=== PATIENT | female | born 1960 | race Caucasian/White ===

== ENCOUNTER 2020-05-16 21:37 | Emergency (ER) | payer OTHER ==
[~2020-05-16] VITALS: Ht 160 cm; Wt 91.6 kg
[~2020-05-16 21:37] MED LIST: ADVAIR 250-501 EACH INH; ALDACTONE100 MG PO; CALCIUM600 MG PO; CINNAMON OIL480 ML PO; CLINDAMYCIN HC300 MG PO; CYCLOBENZAPRINE5 MG PO; CYMBALTA60 MG PO; FENOFIBRATE134 MG PO; FISH OIL500 MG PO; FOLIC ACID20 MG PO; GABAPENTIN600 MG PO; GEMFIBROZIL600 MG PO; HYDROCHLOROTHIA25 MG PO; HYDROCODON-ACE1 EA10 PO; LANTUS SOL100 UNIT/1 SQ; LANTUS100 UNITS/ SUB-Q; LIPITOR20 MG PO; LOSARTAN POTAS100 MG PO; MAGNESIUM400 MG PO; METFORMIN HCL850 MG PO; MICARDIS40 MG PO; MULTIPLE VITAM1 EAC1 PO; NOVALOG INSULIN; NOVOLOG100 UNITS/ SUB-Q; OMEPRAZOLE20 MG PO; POTASSIUM CHLO10 MEQ PO; TRAZODONE HCL100 MG PO; VENTOLIN HFA18 GM INH; VITAMIN B COMP1 EACH PO; ZANTAC 7575 MG PO; ZOFRAN4 MG PO; [UNRECOGNIZED DRUG - OTHER] PO
--- OUTSIDE RECORDS SUMMARY | 2020-05-16 21:40 | XMS ---
PreManage Notification: KURT NEGRON Security Blueprint Reproducer Events No recent Security Events currently on file CRITERIA MET - History of Sepsis CARE PROVIDERS LAAL [facility] 10/06/2016-Current PHONE: [phone] Angelina has no Care Guidelines for this patient. E.DDenisha VISIT COUNT (12 MO.) [address] [facility] [facility] TOTAL 4 NOTE: Visits indicate total known visits. 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
== END 2020-05-16 23:58 | disposition home or self-care (01) ==
LOC: ED 21:37
DX: L03.116 Cellulitis of left lower limb (principal); E11.40 Type 2 diabetes mellitus with diabetic neuropathy, unspecified; Z88.0 Allergy status to penicillin; Z88.2 Allergy status to sulfonamides; Z88.1 Allergy status to other antibiotic agents; Z88.8 Allergy status to other drugs, medicaments and biological substances; Z79.899 Other long term (current) drug therapy; Z79.4 Long term (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
CPT/HCPCS: 80053; 85025; 99283; Q0163

== ENCOUNTER 2021-02-24 19:37 | Inpatient (IN) | payer OTHER ==
[~2021-02-24] VITALS: Ht 160 cm; Wt 92.0 kg
[~2021-02-24 19:37] MED LIST changes: +NOVOLOG100 UNIT/2 SUB-Q; -NOVOLOG100 UNITS/ SUB-Q
--- OUTSIDE RECORDS SUMMARY | 2021-02-24 19:40 | XMS ---
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 E.DDenisha VISIT COUNT (12 MO.) 2 [facility] 2 [place] [facility] TOTAL 4 NOTE: Visits indicate total known visits. ED/C VISIT TRACKING (12 MO.) 02/24/2021 19:37 [facility] [place] TYPE: Emergency COMPLAINT: - WEAKNESS, BRAIN FOG 11/03/2020 18:44 [facility] [place] TYPE: Emergency DIAGNOSES: - Bitten by dog, sequela - Cellulitis, unspecified 10/28/2020 23:10 [facility] [place] TYPE: Emergency DIAGNOSES: - Bitten by dog, initial encounter - Open bite of left hand, initial encounter 05/16/2020 21:[address] [facility] [place] TYPE: Emergency COMPLAINT: - SWOLLEN FOOT DIAGNOSES: - Allergy status to sulfonamides - Allergy status to penicillin - Allergy status to other antibiotic agents - [facility] (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 - Type 2 diabetes mellitus with diabetic neuropathy, unspecified - Allergy status to other drugs, medicaments and biological substances - Localized edema - Cellulitis of left lower limb - Other [facility] drug therapy INPATIENT VISIT TRACKING (12 MO.) No inpatient visits to display in this time frame [email or web address]
--- NOTE | 2021-02-25 | NUR ---
REPORT RECIEVED FROM SOFTWARE DESIGN MANAGER. CARE OF PATIENT ASSUMED AT THIS TIME. THE PATIENT WAS TRANSPORTED VIA STRETCHER, ON 2 L NC AND OFFICE MACHINES WIRER BY THIS RN. PT ABLE TO TRANSFER WITH STAND BY ASSIST TO CCU BED.
--- NOTE | 2021-02-25 00:30 | NUR ---
ADMISSION ASSESSMENT COMPLETED. PT ALERT AND ORIENTED, BUT SLOW TO RESPOND. CRACKLES NOTED IN ALL AIRSPACES ON AUSCULTATION. SPO2=93 PERCENT ON 3 L NC. SPO2 DECREASED INTO THE 80S WITH EXERTION. RESPIRATIONS EVEN BUT LABORED RR= 22-30 AT REST. HEART RATE IN THE 100'S, ELEVATING INTO THE 110S WITH ACTIVITY. PT DENIES PAIN, NAUSEA, OR DISCOMFORT AT THIS TIME. EDUCATION PROVIDED ABOUT MEDICATIONS AND PLAN OF CARE. ALL QUESTIONS ANSWERED. ORAL MEDS GIVEN, IV REMDESIVIR INFUSING. CALL LIGHT WITHIN REACH, NO FURTHER NEEDS AT THIS TIME.
[2021-02-25] MEDS ORDERED: TRULICITY1.5 MG/0.5 SUB-Q (00:38)
--- NOTE | 2021-02-25 01:16 | NUR ---
RESPONDED TO CALL LIGHT. PT UP TO BSC TO VOID. STANDY BY ASSIST REQUIRED. PT SPO2 DECREASED INTO THE MID 80S WITH EXERTION. HEART RATE IN THE 110S. PT BACK IN BED. SPO2 BACK UP TO 94 PERCENT ON 4 L NC. CALL LIGHT WITHIN REACH. LAYING ON LEFT SIDE. NO FURTHER NEEDS AT THIS TIME.
--- NOTE | 2021-02-25 02:30 | NUR ---
PT RESTING ON RIGHT SIDE WITH EYES CLOSED, BREATHING EVEN AND UNLABORED. SPO2 =93% ON 3 L NC. CALL LIGHT WITHIN REACH. WILL CONTINUE TO MONITOR.
--- NOTE | 2021-02-25 04:02 | NUR ---
PT NOW LAYING ON LEFT SIDE. RR =24, SPO2 = 93 PERCENT. BREATHING APPEARS EVEN AND UNLABORED. CALL LIGHT WITHIN REACH. NO FURTHER NEEDS AT THIS TIME.
--- NOTE | 2021-02-25 04:41 | NUR ---
pt up to bsc to void, states she feels weak. stand by assist required. Assessment completed at this time. Pts lungs sound worse in left lower air reddy. Saturations down to the mid 80s with activity. Heart rate in the 90-100 at rest. Pt denies nausea or pain. call light within reach. no further needs at this time.
--- NOTE | 2021-02-25 06:27 | NUR ---
LABS DRAWN, WELL TOLERATED BY PT. PT COMPLAINS OF GENERALIZED DISCOMFORT. APPEARS DIAPHORETIC, GIVEN PRN TYLENOL FOR COMFORT. PT EDUCATION PROVIDED ABOUT LAYING IN SIDE LYING AND PRONE POSTION, PT NOW LAYING IN A LEFT SIDE LYING POSITION. CALL LIGHT WITHIN REACH. NO FURTHER NEEDS A THIS TIME.
--- NOTE | 2021-02-25 07:30 | NUR ---
REPORT RECIEVED. PATIENT IS RESTING IN BED. NO DISTRESS NOTED.
--- NOTE | 2021-02-25 08:00 | NUR ---
ASSESSMENT DONE. DENIES PAIN OR NAUSEA. NO COUGH NOTED AT THIS TIME. DR. CARRILLO HERE TO SEE PATIENT. ORDERS RECIEVED TO GIVEN NYSTATIN SWISH AND SWALLOW FOR COMFORT OF TONGUE AND MOUTH. TALKED WITH PATIENT ABOUT POC FOR DAY, PATIENT INDICATES UNDERSTANDING.
--- NOTE | 2021-02-25 09:00 | NUR ---
TOOK BREAKFAST WELL. CONTINUES TO DENY NAUSEA. DENIES SHORTNESS OF BREATH. TOLD PATIENT SHE COULD GET OOB ON HER OWN TO VOID/BM. COMMODE PLACE AT BEDSIDE WELL WIPES. PATIENT IS AWARE TO CALL FOR ASSIST IF NEEDED. O2 AT [address]
[2021-02-25] MEDS ORDERED: HYDROCHLOROTH12.5 MG PO (09:12)
[2021-02-25] MEDS ORDERED: CYCLOBENZAPRINE10 MG PO (09:12)
[2021-02-25] MEDS ORDERED: VITAMIN D21250 MCG PO (09:15)
[2021-02-25] MEDS ORDERED: OXYBUTYNIN CHLOR5 M1 PO (09:15)
[2021-02-25] MEDS ORDERED: ATORVASTATIN CA80 MG PO (09:16)
[2021-02-25] MEDS ORDERED: METFORMIN HCL1000 MG PO (09:17)
--- NOTE | 2021-02-25 11:00 | NUR ---
HAS BEEN RESTING IN BED. NO CHANGES.
--- NOTE | 2021-02-25 12:20 | NUR ---
ACCUCHECK 378. HUMALOG 13 UNITS SQ GIVEN PER SS. DR. CARRILLO AWARE OF ACCUCHECK. NO FUTHER ORDERS. ASSESSMENT UNCHANGED. SITTING UP IN BED TAKING LUNCH. CONTINUES WITH POOR APPETITE.
--- NOTE | 2021-02-25 15:30 | NUR ---
DR. SHANNON UPDATED ON PATIENT O2 DEMAND CHANGE AND OVERALL STATUS. ORDERS RECIEVED. IVF ORDERED AND WILL REPLACE OXYMASK WITH VAPOTHERM.
--- NOTE | 2021-02-25 18:10 | NUR ---
DR. SHANNON HERE TO SEE PATIENT. ENC PATIENT TO KEEP O2 IN PLACE. REFUSED DINNER. VAPOTHERM INCREASED TO 25 L AND 70% FIO2. PATIENT IS SOMEWHAT RESTLESS. IS SLOW WITH THOUGHT PROCESS.
--- NOTE | 2021-02-25 19:10 | NUR ---
RECEIVED REPORT FROM JOHN WARNER. pt RESTING IN BED ON LEFT SIDE. VAPOTHERM IN PLACED. CALL LIGHT WITHIN REACH.
--- NOTE | 2021-02-25 19:28 | NUR ---
pt HAD A 15 SECOND RUN OF SVT. RESTING IN BED ON LEFT SIDE. REPORTED SLEEPING. O2 SAT AT THIS TIME IS 100% 25L 70% VAPOTHERM.
--- NOTE | 2021-02-25 19:50 | NUR ---
ASSESSMENT DONE. pt REPORTED FEELING "A LITTLE" SHORT OF BREATH. REPORTED 9/10 PAIN IN FEET. LUNG SOUND CLEAR AND DIM. IVF INFUSING. pt DID REPORT FEELING "SLIGHTLY" LIGHTHEADED. NO OTHER COMPLAINTS AT THIS TIME.
--- NOTE | 2021-02-25 19:54 | NUR ---
UPDATED MD ON SVT. NEW ORDERS ENTERED.
--- NOTE | 2021-02-25 20:30 | NUR ---
IN TO GIVE MEDICATIONS. pt UP TO VOID AND BACK TO BED. SBA TO BSC. RT INSTRUCTED CPT. AFTER WHICH pt COMPLAINED IT "HURTS TO BREATH" ASSISTED TO REPOSITION. pt REPORTED PAIN FEELS LIKE AN "ACHE" AND IS MAINLY AN ISSUE WHEN TAKING A DEEP BREATH. UNABLE TO ELABORATE ON PAIN. GAVE PRN COUGH MEDICATION AND TYLENOL PER REQUEST. CALL LIGHT WITHIN REACH.
--- NOTE | 2021-02-25 21:01 | NUR ---
pt SATS 76% ON ROOM AIR. pt HAS VAPOTHERM OFF. REPORTED "IT KWON MY NOSE" PLACED ON 15L OXYMASK. VERY SLOW TO RECOVER SATS. HR INCREASED WHEN SATS WERE LOW. HR BACK TO HIGH 90'S. REPOSITIONED. PLACED ON VAPOTHERM 25L 100%. SATS MID 90'S. CALL LIGHT WITHIN REACH.
--- NOTE | 2021-02-25 21:28 | NUR ---
INFUSION COMPLETED. SATS 96% ON 25L 100% VAPOTHERM. DISCUSSED IMPORTANCE OF LEAVING THE VAPOTHERM IN PLACE. CALL LIGHT WITHIN REACH.
--- NOTE | 2021-02-25 22:11 | NUR ---
DR SHANNON UPDATED ON RUNS OF SVT. NEW ORDERS ENTERED.
--- NOTE | 2021-02-25 22:29 | NUR ---
MEDICATION GIVEN, IV MED INFUSING (SEE MAR). NO REQUESTS AT THIS TIME. CALL LIGHT WITHIN REACH.
--- NOTE | 2021-02-25 23:04 | NUR ---
HR INCREASED TO 140, pt SITTING IN BED WITH EYES CLOSED, RESPIRATIONS REGULAR 24, VAPO THERM ON. SAT 98%. CALL LIGHT WITHIN REACH.
--- NOTE | 2021-02-25 23:40 | NUR ---
IV INFUSION COMPLETED. SL. pt RESTING IN BED, NO REQUESTS AT THIS TIME. CALL LIGHT WITHIN REACH.
--- NOTE | 2021-02-26 01:00 | NUR ---
ASSESSMENT DONE. pt DENIES PAIN WHILE BREATHING. LUNGS LESS DIMINISHED, CRACKLES AUSCULTATED. NO OTHER CHANGES. VAPOTHERM REMAINS AT 25L 100%. SATS MID 90'S. CALL LIGHT WITHIN REACH.
--- NOTE | 2021-02-26 02:36 | NUR ---
ROUNDED ON pt. RESTING IN BED WITH EYES CLOSED, RESPIRATIONS REGULAR AND UNLABORED, SHALLOW RATE 28. VAPOTHERM ON SAT 95%. CALL LIGHT WITHIN REACH.
--- NOTE | 2021-02-26 04:00 | NUR ---
ROUNDED ON pt. RESTING IN BED WITH EYES CLOSED, RESPIRATIONS REGULAR. VAPOTHERM IN PLACE. CALL LIGHT WITHIN REACH.
--- NOTE | 2021-02-26 04:49 | NUR ---
IN TO DO ASSESSMENT. pt HAS CHANGED POSITIONS AND DISLODGED VAPOTHERM. REPLACED. LABS DRAWN. ASSESSMENT DONE. pt REQUESTED PRN PAIN MEDS, GIVEN (SEE MAR). NO FURTHER REQUESTS AT THIS TIME. EDUCATION DONE ON PRONING. pt MOVED TO LEFT SIDE. CALL LIGHT WITHIN REACH.
--- NOTE | 2021-02-26 06:56 | NUR ---
ROUNDED ON pt. RESTING IN BED WITH EYES CLOSED, RESPIRATIONS REGULAR AND SHALLOW. O2 SAT 95% VAPOTHERM ON.
--- NOTE | 2021-02-26 07:33 | NUR ---
LEADS OFF, IN TO ASSIST. pt ATTEMPTING TO GET OUT OF BED. ASKED THAT SHE CALL. pt STATED "I'M A LITTLE CONFUSED RIGHT NOW." ORIENTED TO SELF, NOT ABLE TO GIVE PLACE OR THE NAME OF HER . UP SBA TO BSC TO VOID. BACK TO BED. BED ALARM ON. MONITOR IN PLACE. pt REQUIRED CONSTANT CUEING TO KEEP VAPOTHERM ON. PRIMARY RN'S UPDATED.
--- NOTE | 2021-02-26 07:35 | NUR ---
CALLED TO UPDATE ON PT STATUS OF DECREASED LOC. ORDER GIVEN TO OBTAIN AN ABG. ORDER PLACED AND CALLED RESP THERAPY.
--- NOTE | 2021-02-26 08:00 | NUR ---
[id number] PT WAS LAYING IN BED, WAS ABLE TO ASSIST THE NURSE AND I WITH REPOSITIONING HER IN BED. SHE WHIMPERED WITH SOME INTERVENTIONS. WAS ABLE TO COMMUNICATE PAIN. ALLOWED ME TO PERFORM ORAL CARE. I WAS ABLE TO WASH HER HAND AND FACE. SHE TOLERATED DRINKING SOME 7UP SODA. CHAPSTICK WAS PLACED ON LIPS BY STUDENT NURSE. CALL LIGHT WITHIN REACH. NO ADDITIONAL NEEDS AT THIS TIME.
--- NOTE | 2021-02-26 08:00 | NUR ---
Update from RN. Pt was using vapotherm last night and is now using CPAP. Remains in isolation.
--- NOTE | 2021-02-26 08:00 | NUR ---
IV SITE IN RT AC IS INTACT, NO REDNESS OR SWELLING, FLUSHES AND FLUIDS INFUSE EASILY. PT DENIES PAIN AT THE SITE.
--- NOTE | 2021-02-26 09:15 | NUR ---
PT AWAKE AND ALERT, ABLE TO ANSWER QUESTIONS ABOUT HER HEALTH HISTORY. EDUCATED PT ON IMPORTANCE OF USING CALL LIGHT TO CALL FOR ASSISTANCE OUT OF BED, AND FOR ANY OTHER NEEDS.
--- NOTE | 2021-02-26 10:25 | NUR ---
PT TAKES OFF CPAP MASK AND IS PICKING AT IV SITE. WENT INTO PT ROOM TO ASSIST WITH PUTTING CPAP BACK IN PLACE. 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 PT APPEARS UNWILLING/UNINTERESTED SHE CLOSES HER EYES AND WILL NOT RESPOND. PT ROLLES FROM SIDE TO SIDE TO ASSIST WITH CHANGING GOWN AND LINENS SHE HAS BEEN INCONTINENT OF A SCANT AMOUNT OF LIQUID STOOL. ATTEND PLACED ON PT. REPEATED EDUCATION ON USE OF CALL LIGHT FOR ASSISTANCE, PT CLOSES EYES AND WILL NOT RESPOND TO THIS.
--- NOTE | 2021-02-26 11:40 | NUR ---
OBSERVED PT PICKING AT IV SITE DRESSING, REMINDED PT TO LEAVE THIS ALONE IT IS STILL NEEDED, PT CLOSES EYES WITH NO VERBAL RESPONSE.
--- NOTE | 2021-02-26 12:14 | NUR ---
PT PLACED ON VAPOTHER 25L AT 75% FIO2 TO ENABLE EATING LUNCH.
--- NOTE | 2021-02-26 12:16 | NUR ---
PT IV SITE REDRESSED WITH ADDITIONAL REINFORCEMNT OF TAPE AND COBAN, PT "FORGETS" AND TRIES TO TAKE HER IV OUT. PT RE-EDUCATED ON THE IMPORTANCE OF LEAVING THE IV SITE ALONE, ENCOURAGED PT TO USE CALL LIGHT IF HER IV SITE IS PAINFUL/UNCOMFORTABLE. PT ATTENDS CHANGED FOR SMEAR OF INCONTINENT STOOL. PT ABLE TO BOOST SELF UP IN BED. POSITIONED IN HIGH FOWLERS FOR LUNCH. ASSISTED PT WITH CUTTING HER FOOD AND MAKING IT EASILY ACCESSABLE. PT DOES NOT REPORT PAIN, NAUSEA, OR SOB AT THIS TIME. PT STATES "I JUST DON'T FEEL GOOD".
--- NOTE | 2021-02-26 16:00 | NUR ---
PT HAD REMOVED HER VAPOTHERM DROPPING HER SP02 LEVEL TO AN 85%, PLACED BACK ON AND INCREASED TO SP02 97%. VERBALLY REINFORCED THE IMPORTANCE OF KEEPING IT IN PLACE. ADJUSTED HER IN BED WITH [facility] PT WAS ALSO ABLE TO ASSIST WITH REPOSITIONING. PT DENIES THE NEED TO VOID AT THIS TIME. WHIMPERED I CHECKED HER ATTENDS. REPORTED PAIN IN HER LEGS. PRN TYLENOL GIVEN. PILLOWS PLACED UNDER HER LEGS FOR COMFORT. VERBALLY INSTRUCTED HER ON HOW TO USE HER CALL LIGHT. CALL LIGHT WITHIN REACH. NO ADDITONAL NEEDS AT THIS TIME.
--- NOTE | 2021-02-26 17:30 | NUR ---
PT WAS ASKED TO SIT AT THE SIDE OF THE BED TO EAT HER DINNER. HAD NO APPETITE, TOOK A LOT OF ENCOURAGEMENT TO GET HER UP. WAS ASSISTED TO THE BEDSIDE COMMODE WITH ENCOURAGEMENT. SHE WAS ABLE TO STAND UP AND SIT ON THE CAMMODE WITH SBA. SHE WHIMPERED AND WOULD SAY "OUCH" BUT WHEN ASKED WHERE IT HURTS SHE WAS NOT ABLE TO ELABORATE. ANTONELLA CARE AND A PARTIAL BED BATH WAS PERFORMED. OLD LINENS AND PILLOW CASES REPLACED WITH NEW ONES. NEW ATTENDS WAS PLACED ON HER AND SHE WAS ABLE TO AMBULATE BACK TO BED WITH SBA. VERBAL DIRECTIONS WERE GIVEN ON HOW TO USE HER CALL LIGHT. CALL LIGHT WITHIN REACH. PT IS LAYING DOWN. CPAP MACHINE IN PLACE.
--- NOTE | 2021-02-26 19:10 | NUR ---
SHIFT RERPORT RECEIVED FROM CY WARNER. PT RESTING IN LEFT SIDE. PT ON CPAP. NO NEEDS AT THIS TIME. CALL LIGHT IN REACH.
--- NOTE | 2021-02-26 20:00 | NUR ---
ASSESSMENT, VS AND I&O COMPLETED. GCS 14 SHE HAS SOME INAPPROPRIATE ANSWERS. PT KEEPS EYES CLOSED MOST THE TIME, DROWSY. OPEN EYES TO VOICE. PT ORIENTED TO PERSON, , SPOUSE'S NAME BUT NOT DATE, TIME, PLACE OR EVENT. SCHEDULED MEDS PROVIDED. PT HAS A NONPRODUCTIVE COUGH. PRN COUGH MED PROVIDED. PT STATES SHE HAD GENERALIZED 5/10 PAIN, PRN TYLENOL PROVIDED. LUNGS HAVE CRACKLES IN ALL LOBES. HEART IN SR BUT HAS EPISODES OF ST IN 140s. SPO2 97% ON VAPOTHERM 25L/75%. PT HAS DYSPNEA WITH GETTING UP TO BSC AND BACK TO BED. PT APPEARS WEAK IN LEGS. ABD SOFT, TENDER, BOWEL TONES ACTIVE, PT STATES SHE HAS NO DISTENTION. CMS INTACT, SKIN IS PALE, WARM. NO EDEMA NOTED. RIGHT FOOT BIG AND FIRST TOE HAVE DARK BLISTERS, NOT NEW TO PT. ANTONELLA AREA RED AND PAINFUL WHEN CARE PROVIDED, REDNESS NOTED. PT IS DUE TO VOID. IV WNL, CDI, FLUSHED WELL. PT EDUCATION PROVIDED ON I.S. AND ACCAPELLA, UNINTERESTED. ICE WATER ENCOURAGED. NO OTHER NEEDS AT THIS TIME. CALL LIGHT IN REACH.
--- NOTE | 2021-02-26 20:07 | NUR ---
PHONE CALL FROM LEXII WHO WAS THE PERSON TAKING CARE OF THE pt PRIOR TO ADMISSION. PER LEXII, pt WAS ADMITTED AT [facility] FOR SEPSIS SECONDARY TO A UTI AND HAS BEEN HAVING A LOT OF ISSUES WITH UTI'S. SHE IS FOLLOWED BY DR ALBERTS. THE pt DOES GET CONFUSED WHEN SHE HAS A UTI. LEXII REPORTED THAT THE pt SEEMED CONFUSED JUST PRIOR TO COMING IN TO THE ER. AT BASELINE THE pt DOES HAVE ISSUES WITH HER LEFT FOOT BUT HAS NOT NEEDED ASSISTANCE AMBULATING UNTIL ABOUT A WEEK AGO WHEN LEXII HAD HER START USING A WALKER FOR STABILITY. THE pt HAS A HISTORY OF [place] ARTHROPATHY FOR ABOUT A YEAR AND USES A BOOT TO AMBULATE. 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 THE NUMBER FOR LEXII IS [phone].
--- NOTE | 2021-02-26 20:47 | NUR ---
DR SHANNON UPDATED ON pt CONDITION AND CONVERSATION WITH pt FAMILY. MD WILL ENTER NEW ORDERS.
--- NOTE | 2021-02-26 21:12 | NUR ---
SCHEDULED MED PROVIDED. PT ON VAPOTHERM 25/75%. IV FLUIDS INFUSING PER ORDER. NO OTHER NEEDS AT THIS TIME. CALL LIGHT IN REACH.
--- NOTE | 2021-02-26 21:37 | NUR ---
PT SPO2 TERNING NEAR 100% FOR OVER AN JUSTINA. VAPOTHERN CHANGED TO 25L/60%.
--- NOTE | 2021-02-26 21:41 | NUR ---
THIS RN IN TO PT'S ROOM TO INSERT A SECOND IV. IV PLACED IN LEFT AC. IV INERSTION PROTOCOL FOLLOWED. PT TOLERATED INSERTION WELL, PULLS BLOOD AND FLUSHES AND IS NOW SALINE LOCKED. PT REPORTS NO FURTHER NEEDS AT THIS TIME WHEN ASKED. CALL LIGHT IN REACH, BED IN LOWEST POSITION, PT ON VAPOTHERM WITH AN FIO2 OF 60 AND 25 LPM, SPO2 AT 99%. WILL CONTINUE PLAN OF CARE.
--- NOTE | 2021-02-26 21:45 | NUR ---
PT LEÓN CALLED. PT GAVE VERBAL APPROVAL FOR RN TO SPEAK WITH DAUGHTER THEN PHONE CALL WAS TRANSFERRED INTO PT ROOM. PT ON PHONE WITH DAUGHTER.
--- NOTE | 2021-02-27 00:11 | NUR ---
ASSESSMENT, VS AND I&O COMPLETED. PT UP TO BSC, NO RESULTS, BACK TO BED. BLADDER SCAN SHOWS 700ML URINE. PAST URINATION TRENDS SHOWS LARGE VOIDS, WILL MONITOR. PT DENIES BLADDER PAIN. GCS 14, SOME INAPPROPRIATE RESPONSES AND DIFFICULTY FOLLOWING COMMANDS. ORIENTED TO PERSON AND , NOT ORIENTED TO PLACE, TIME AND EVENTS. LUNGS HAVE CRACKLES IN ALL LOBES. HR EVEN, TELE SR @ 72. SPO2 98% ON VAPOTHERM 25L/60%. PT APPEARED LESS SOB WITH ACTIVITY. ABD SOFT, TENDER, BOWEL TONES ACTIVE. CMS INTACT. IVs WNL, CDI, IV FLUIDS INFUSING PER ORDER. NEW BAG IV FLUIDS PROVIDED. LEFT FOOT DEFORORMITY UNCHANGED. RIGHT TOE BLISTERS UNCHANGED. ENCOURAGED PT TO DRINK FLUIDS. ATTEMPTED TO GET PT TO PERFORM ADLs, PT LAID COMB AND TOOTHBRUSH ON BED AND DECLINED HELP. NO OTHER NEEDS AT THIS TIME. CALL LIGHT IN REACH.
--- NOTE | 2021-02-27 01:00 | NUR ---
PT RESTING IN BED, EYES CLOSED. RR EVEN, UNLABORED. SPO2 98% ON VAPOTHERM 25L/60%. CALL LIGHT IN REACH. BED ALARM ON.
--- NOTE | 2021-02-27 02:55 | NUR ---
PT UP TO BR WITH FWW, SBA. PT PLACED ON 15L OXYMASK TO WALK TO BR, LOWEST SPO2 NOTED DURING WALK WAS 87% AND RESOLVED WITH PT TAKING DEEP BREATHS. PT VOID 775ML OF VISH, CLEAR, SLIGHT ODOR. PT TOLERATED WALK FAIR AND MUST BE REMINDED TO STAY ON TASK. PT PLACED BACK ON VAPOTHERM 25ML/60%. SPO2 97%. BED ALARM ON. PT ENCOURAGED TO DRINK WATER AND USE I.S.. NO OTHER NEEDS. CALL LIGHT IN REACH.
--- NOTE | 2021-02-27 04:14 | NUR ---
ASSESSMENT, VS AND I&O COMPLETED. PT GCS 14 SHE CANNOT ANSWER SOME QUESTIONS APPROPRIATELY. PT ONLY ORIENTED TO PERSON AND , PT IGNORES RN WHEN ASKING OTHER ORIENTATION QUESTIONS, CLOSING EYES. LUNGS HAVE CRACKLES IN ALL LOBES. HEART TONES REGULAR, SR @ 73, PT HAS HAD 2 RUNS OF TRIGEMINY, DENIES CHEST PAIN OR PALPITATIONS. SPO2 97% ON VAPOTHERM 25L/60% PT SAYS "OUCH" WHEN YOU TOUCH ANY PART OF HER BODY. ABD SOFT, TENDER TO PALPATION, BOWEL TONES ACTIVE, PT STATES NORMAL. CMS INTACT. IVs WNL, IV FLUIDS INFUSING PER ORDER. NO OTHER NEEDS AT THIS TIME. CALL LIGHT IN REACH, BED ALARM ON.
--- NOTE | 2021-02-27 05:35 | NUR ---
LABS DRAWN AND SENT. NEW ECG PADS PLACED. PT REPOSITIONED. IVs FLSUHED. SPO2 98% ON VAPOTHERM 25L/60%. WATER AND CHAPSTICK PROVIDED. NO OTHER NEEDS AT THIS TIME. CALL LIGHT IN REACH.
--- NOTE | 2021-02-27 08:00 | NUR ---
[id number] PT HAS BEEN MOANING AND WHIMPERING A LOT. WHILE PERFORMING HER ASSESMENT, CPAP WAS PLACED ON STANDBY AND VAPOTERM PLACED. I WOULD ADJUST HER ARM OR LEGS AND SHE WOULD SAY "OUCH". WHEN ASKED WHERE HER PAIN WAS SHE WOULD SAY " EVERYWHERE". PRN PAIN MED GIVEN. I USED A WARM WASH CLOTH TO CLEAN HER FACE. SHE WAS ABLE TO APPLY CHAPSTICK TO HER UPPERLIP BUT THEN DID NOT WANT TO DO IT ANYMORE. I ASSISTED AND CONTINUED TO HELP HER PERFORM ORAL CARE. HAD NO DESIRE TO VOID. ATTENDS IN PLACE AND UNSOILED. UPPER DENTURES PLACED AFTER SOAKING OVERNIGHT. PT WAS ABLE TO ASSIST WITH REPOSITIONING TO HER LEFT SIDE FOR ECHO TO BE PERFORMED. VERBALLY SPOKE ABOUT THE POSITIONS OF HER ARMS TO PREVENT OCCLUSION OF MEDICATIONS. CPAP PLACED BACK ON PATIENT. CALL LIGHT WITHIN REACH. NO ADDITIONAL NEEDS AT THIS TIME.
--- NOTE | 2021-02-27 11:00 | NUR ---
PT RECEIVED A HAIR WASH WITH SHAMPOO AND CONDITIONER AND SLIGHT COMBING. SHE WAS ABLE TO FREELANCE PROGRAMMER/APP DEVELOPER HER HEAD WHEN ASKED BUT WHIMPERED AND MOANED FOR MAJORITY OF THE WASH. PT WAS ABLE TO SIT UP AND USE WALKER WITH ONE PERSON ASSIST TO THE RESTROOM. NEW GOWN PLACED, NEW ATTENDS PLACED. BARRIER CREAM WIPES USED ON RECTAL AND ANTONELLA AREA. PT WAS ABLE TO USE WALKER WITH SBA TO THE CHAIR. CHAIR ALARM PLACED. OLD SOCKS REMOVED AND NEW ONES PLACED. SHE WAS ABLE TO SPEAK TO ME ABOUT HER DAUGHTERS AND ENGAGE IN SMALL CONVERSATION. SEEMS MORE ALERT AND WILLING TO USE HER WORDS. VERBALLY SPOKE ABOUT THE USE OF HER CALL LIGHT. CALL LIGHT IN REACH. PT WAS ON 15L WITH OXIMASK DURING ACTIVITES, PT TOLERATED WELL.
--- NOTE | 2021-02-27 11:25 | NUR ---
CPAP IS BACK ON PT. PT SITTING UP IN CHAIR WITH CALL LIGHT IN HER LAP AND TV IS ON. PT CALOS CPAP WELL. O2 SAT IS 100%.
--- NOTE | 2021-02-27 12:01 | NUR ---
PT LEAVING THE CCU TO GET HEAD CT.
--- NOTE | 2021-02-27 12:15 | NUR ---
PT BACK TO ROOM [address] SCAN. PT CALOS PROCEDURE WELL.
--- NOTE | 2021-02-27 13:48 | NUR ---
CPAP OFF PER PT AT 1318. PT ALSO TRYING TO PULL AT IV SITE/ REMOVE IV DRESSING. PT PLACED ON 7L 02 VIA OXYMASK, ABLE TO KEEP O2 SATS 95-100% VIA THIS METHOD. PT NOW RESTING ON HER RT SIDE IN BED. WILL CONTINUE TO MONITOR PT RESP STATUS.
--- NOTE | 2021-02-27 14:26 | NUR ---
PT WAS LAYING IN BED. PT WAS ABLE TO ADJUST POSITIONS TO UPON VERBAL COMMANDS. SHE TOOK A FEW SIPS OF HER PROTEIN SHAKE ANS TOLERATED IT WELL. PLACED ON VAPOTHERM DURING HER ORAL INTAKE. GAVE PT VERBAL INSTRUCTIONS ON HOW AND WHEN TO USE HER CALL LIGHT. CALL LIGHT WITHIN REACH. HER CELLPHONE IS ALSO PLACED ON HER BED. NO DESIRE TO VOID AT THIS TIME. PT DOES NOT REPORT ANY PAIN OR NAUSEA.
--- NOTE | 2021-02-27 15:20 | NUR ---
PT WAS FOUND WITH CPAP MACHINE OFF. PLACED THE OXYMASK AT 7L, SP02 AT 100%. PT HAD A SMALL STOOL IN ATTENDS. CHANGED HER IN BED. BARRIER WIPES USED IN RECTAL AND ANTONELLA AREA. PT WAS ABLE TO ASSIST WITH REPOSTIONING HERSELF I PLACED HER ATTENDS BACK IN BED. SHE WOULD NOD, MOAN AND WHIMPER. PT IS NOW RESTING AND SLEEPING ON HER LEFT SIDE. I TRIED TO ENCOURAGE HER USING HER PHONE AND CALLING HER BUT SHE SEEMED UNINTERESTED. CALL LIGHT WITHIN REACH.
--- NOTE | 2021-02-27 15:47 | NUR ---
bed alarm is going off, pt still in bed. went into pt room to assist pt. pt repositioned self in bed. pt wimpering in bed and not responding to direct questions about discomfort. pt given 650 mg PO Tylenol for generalized discomfort. bed alarm rearmed. pt O2 sats remain 95-100% on 7L via Oxymask.
--- NOTE | 2021-02-27 17:02 | NUR ---
TWO PERSON ASSIST TO GET PT MOTIVATED TO GET UP OUT OF BED. PT REFUSES TO MOVE HER FEET WHILE STANDING AT THE BEDSIDE. PT CRIES AND WHIMPERS "I CAN'T DO IT" WHILE WAKING INTO THE BATHROOM WITH STANDBY ASSIST FOR CORD MANAGEMENT. PT ABLE TO VOID LARGE AMOUNT OF URINE AND HAVE A SMALL STOOL WHILE SITTING ON THE TOILET IN THE BATHROOM. PT ALSO ABLE TO SIT DOWN ON THE TOILET WITH OUT ASSISTANCE, REQUIRES 1 PERSON ASSIST TO STAND FROM TOILET. PT CRIES AND WHINES AGAIN WHEN ASKED TO AMBULATE BACK TO BED, IN THE MIDDLE OF AMBULATING PT ATTEMPTS TO SIT DOWN ON THE FLOOR, CONTINUAL ENCOURAGEMENT AND EMOTIONAL SUPPORT PROVIDED BY RN AND [employer] AIDE TEACHER. PT EASILY SITS DOWN ON THE BED INDEPENDENTLY ALL CRYING AND WHINING HAS CEASED. MINIMAL ASSIST REQUIRED TO SETTLE PT INTO THE BED. PT QUIET AND COOPERATIVE.
--- NOTE | 2021-02-27 17:35 | NUR ---
PT IVS BOTH INTACT. WAS ABLE TO FLUSH WELL WITH NS ON THE RIGHT AC INSERTION. PT DENIES DISCOMFORT FROM SITES.
--- NOTE | 2021-02-27 18:51 | NUR ---
PT TAKES OFF CPAP, 7L 02 PLACED VIA OXYMASK.
--- NOTE | 2021-02-27 19:50 | NUR ---
PATIENT PROVIDED ONE WORD ANSWERS. REFUSES TO KEEP ARM STRAIGHT OF IV FLUIDS. ATTEMPTS TO START IV SITE NOT IN AC FAILED DUE TO PATIENT NOT FOLLOWING INSTRUCTIONS AND SWATTING AT STAFF. PATIENT LEFT TO REST. DENIES ANY NEEDS. CALL LIGHT IN REACH. VS STABLE. BED ALARM ON. TITRATED TO 4L OXYMASK.
--- NOTE | 2021-02-27 21:00 | NUR ---
PATIENT PROVIDED WITH HER EVENING MEDS. IV SITE STARTED BY FRONT DESK ASSISTANT FOR FLUIDS. PATIENT SWALLOWS PILLS WITH ENCOURAGEMENT. PATIENT IS ALERT BUT DOES NOT FOLLOW DIRECTIONS WELL AND DOES NOT ANSWER QUESTIONS. LUNG SOUNDS ARE CLEAR. TOLERATING 4L OXYMASK.
--- NOTE | 2021-02-27 22:53 | NUR ---
PATIENT APPEARS TO BE SLEEPING SOUNDLY. IV SITE WNL. ALLOW PATIENT TO REST.
--- NOTE | 2021-02-28 00:03 | NUR ---
PATIENT SLEEPING SOUNDLY. OXYMASK OFF. O2 SATS 91% ON ROOM AIR. PATIENT WOKE EASILY. WAS TOLD OF HER 'S ADMISSION PER HIS REQUEST AND PATIENT SAID "OKAY" BUT DID NOT RESPOND TO THIS. PATIENT REQUIRED SIGNIFICANT ENCOURAGEMENT TO GET UP TO BSC. PATIENT INCONTINENT OF LIQUID STOOL IN BED. PATIENT APPEARS UNAWARE AND NOT INTERESTED IN GETTING CLEAN. PATIENT VOIDS ONCE ON BSC AND HAD MORE LOOSES STOOL. ANTONELLA CARE DONE, BARRIER CREAM APPLIED. PATIENT IS DIFFICULT TO CONSOLE AND SOBBING BUT DOES NOT ANSWER QUESTIONS ON WHAT IS WRONG. PRN VISTARIL PROVIDED. PATIENT RETURNED TO BED. O2 SAT 88% ON ROOM AIR. CPAP PLACED ON PATIENT AT 40% Fi02. PATIENT TOLERATES THIS WELL AND SETTLES DOWN. EYES CLOSED. CALL LIGHT IN REACH. BED ALARM ON.
--- NOTE | 2021-02-28 02:00 | NUR ---
PATIENT SLEEPING SOUNDLY WITH CPAP IN PLACE. IV FLUIDS PER ORDER, SITE WNL. ATTENDS IS DRY. CALL LIGHT IN REACH. 02 SATS 98-100% WITH CPAP 40% Fi02
--- NOTE | 2021-02-28 04:45 | NUR ---
PATIENT SLEEPING SOUNDLY WITH CPAP ON. PATIENT WAKES TO STAFF IN ROOM BUT WILL NOT LOOK AT STAFF AND DOES NOT ANSWER QUESTIONS. PATIENT INCONTINENT OF URINE. 2PA UP TO BSC. PATIENT MOANS AND CRIED DURING THIS TIME. DOES NOT FOLLOW INSTRUCTIONS OR ANSWER QUESTIONS. DIFFICULT TO CONSOLE. VS STABLE. MORNING LABS DRAWN. PATIENT TOLERATES CPAP AT 40% Fi02. LUNG SOUNDS ARE DIFFICULT TO HEAR DUE TO MOANING. IV FLUIDS PER ORDER, SITE WNL. UNABLE TO RECEIVE BREAKFAST ORDER FROM THE PATIENT. PATIENT BACK IN BED. BED ALARM ON. CALL LIGHT IN REACH. LOW LIGHT LEFT ON.
--- NOTE | 2021-02-28 08:00 | NUR ---
ASSESSMENT DONE. ALEXIS ARNDT AWAKING. OOB TO COMMODE WITH ASSIST, UNABLE TO VOID OR HAVE BM, THEN TO CHAIR WITH MUCH ENCOUREGMENT. ROUTINE MEDICATIONS GIVEN, ACCUCHECK-162, TOTAL OF 13 UNITS OF HUMALOG INSUIN GIVEN, LANTUS 65 UNITS. PATIENT HAS VERY FLAT AFFECT. HAS BEEN ON CPAP AT 40% FIO2 AND 15 PRESSURE. IVF PATENT AT 75 ML/HR.
--- NOTE | 2021-02-28 09:30 | NUR ---
PATIENT HAS BEEN SITTING IN CHAIR SINCE APPROX 0800. FED PATIENT BREAKFAST, TOOK 4 BOTTLES OF ENSURE ONE POACHED EGG AND 1/2 BOWL OF CREAM OF WHEAT. PATIENT ATTEMPTING TO GET OUT OF CHAIR, PATIENT BACK TO BED. CONTINUES TO MOAN FREQUENTLY. ANSWERING MORE QUESTIONS. REMAINS VERY SLOW TO RESPOND. CPAP ON.
--- NOTE | 2021-02-28 10:00 | NUR ---
OOB TO COMMODE TO VOID AND HAVE BM. IS INCONT OF LOOSE LIGHT BROWN STOOL.WHEN ASKED PATIENT HOW HSH FELT, SHE SAID SHE FELT BETTER.
--- NOTE | 2021-02-28 10:46 | NUR ---
DR. SHANNON HERE TO SEE PATIENT. PATIENT HAS BEEN TAKING OFF CPAP AT TIMES, O2 SATS DOWN TO 76 WHEN OFF O2. I HAVE TOLD PATIENT MANY TIMES TO KEEP CPAP MASK ON. O2 SATS ARE IN HIGH 90'S TO 100% WHILE ON CPAP.
--- NOTE | 2021-02-28 13:00 | NUR ---
FED PATIENT LUNCH. SITTING UP IN CHAIR. IS VERY IMPULSIVE. CHAIR ALARM ON, CPAP REAPPILIED AFTER LUNCH. NEED TO BE VERY FIRM WITH PATIENT TO HAVE HER FOLLOW COMMANDS. CONTINUES TO MOAN.
--- NOTE | 2021-02-28 13:30 | NUR ---
ATTEMPTING TO GET OUT OF CHAIR, CHAIR ALARM GOING OFF. PATIENT INCONT OF STOOL, TO COMMODE WITH ASSIST TO HAVE MORE LIQUID STOOL AND VOID, THEN ASSISTED TO BED. NAUSEATED. UPON RETURN TO BED, IS PULLING OFF CPAP. O2 AT 4 L NC APPLIED. NEED MUCH DIRECTION.
--- NOTE | 2021-02-28 15:49 | NUR ---
MOANING, IS NOT ABLE TO TELL ME WHY SHE CONTINUES TO MOAN. ASSESSMENT UNCHNAGED.
--- NOTE | 2021-02-28 17:20 | NUR ---
ACCUCHECK 409, HUMALOG INSULIN 23 UNITS SQ GIVEN. ROUTINE LANTUS INSULIN 65 UNITS GIVEN. INC OF STOOL TO COMMODE TO EXPELL MORE STOOL WITH LARGE AMOUNT OF URINE.
--- NOTE | 2021-02-28 18:45 | NUR ---
DR. SHANNON UPDATED ON PATIENT, NO FUTHER ORDERS. PATIENT IN BED ON RA AT THIS TIME.
--- NOTE | 2021-02-28 19:06 | NUR ---
REPORT TO NEXT SHIFT, PATIENT IS SLEEPING, REMAINS ON RA. NO RESP DISTRESS NOTED.
--- NOTE | 2021-02-28 20:15 | NUR ---
PATIENT SL AT THIS TIME. ATTEMPTING TO REMOVE IV SITE IN LEFT AC. ENCOURAGED PATIENT TO LEAVE SITE ALONE SO THAT SHE WOULD NOT NEED TO HAVE ANOTHER IV SITE STARTED. PATIENT IS MORE ALERT. FOLLOWS SOME INSTRCUTIONS BUT DOES NOT ANSWER ORIENTATION QUESTIONS AND CRIED WITH ALL CARES. VS STABLE. PATIENT TOLERATING ROOM AIR. LUNG SOUNDS ARE CLEAR, SHALLOW. PATIENT DENIES NEED TO VOID. ATTENDS DRY. ASSISTED PATIENT TO REPOSITION. HOME CPAP IN PLACE. LIGHTS DIMMED. REMINDED PATIENT TO USE CALL LIGHT IF SHE HAS NEEDS. PATIENT NODDED HER HEAD BUT DID NOT SPEAK. BED ALARM ACTIVE.
--- NOTE | 2021-02-28 21:15 | NUR ---
PATIENT PULLING OFF HER CPAP AND DESAT TO 87-89% WHILE SLEEPING. PLACED CPAP BACK ON PATIENT.
--- NOTE | 2021-02-28 22:20 | NUR ---
PATIENT REMOVED CPAP, DESATING TO 85% OCATIONALLY. PLACED 2L NC ON PATIENT.
--- NOTE | 2021-03-01 01:14 | NUR ---
PATIENT HAS BEEN SLEEPING SOUNDLY. FREQUENTLY REMOVING THE NC AND DESATTING TO 87-88% WHILE SLEEPING. ENCOURAGED PATIENT TO WEAR O2 OR CPAP. PATIENT WAKES EASILY AND STARES AT STAFF BY DOES NOT ANSWER YES/NO QUESTIONS, SUCH IF SHE NEEDS TO VOID. ATTENDS ARE DRY AND PATIENT NOT FOLLOWING INSTRUCTIONS TO GET UP TO BSC. ALLOW PATIENT TO REST. BED ALARM ON. CALL LIGHT IN REACH. NC IN PLACE.
--- NOTE | 2021-03-01 03:50 | NUR ---
PATIENT OUT OF BED INDEPENDENTLY. VOIDED ON THE FLOOR. STAFF INTO ASSIST. PATIENT MORE ALERT AND FOLLOWING SOME INSTRUCTIONS, REPLIED "OKAY" BUT NOTHING ELSE. PATIENT AMBULATED TO THE BATHROOM. VOIDED OVER 900MLS. PATIENT CLEANED. NEW ATTENDS AND GOWN IN PLACE. FLOOR CLEANED WITH SUPPLIES FROM . PATIENT BACK IN BED. CONTINUES TO TAKE NC OUT AND PUT UP ON FOREHEAD. STRONGLY ENCOURAGED PATIENT TO LEAVE IN PLACE. PATIENT SAID "OKAY" BUT THEN QUICKLY REMOVED O2 AGAIN. FIRMLY ENCOURAGED PATIENT KEEP NC IN PLACE. BED ALARM SET. REMINDED PATIENT WHERE CALL LIGHT IS AND COURAGED USE.
--- NOTE | 2021-03-01 06:30 | NUR ---
PATIENT SLEEPING SOUNDLY. WOKE EASILY TO VOICE. PATIENT MAKES EYE CONTACT AND SAY "HI" TO NURSE. MORNING LABS DRAWN, PATIENT TOLERATES MUCH BETTER THAN PREVIOUS CARES PROVIDED. PATIENT CONTINUES TO NOT FOLLOW ALL INSTRUCTIONS OR ANSWER QUESTIONS ABOUT NEEDS. HOWEVER, PATIENT APPEARS LESS ANXIOUS THIS MORNING AND ALLOWS BP TO BE TAKEN WITHOUT DISTRESS AND THANKS STAFF FOR CARE. MUCH IMPROVED FROM PREVIOUS DAY. PATIENT DENIES NEED TO VOID. BED ALARM ACTIVE.
--- NOTE | 2021-03-01 08:20 | NUR ---
ASSESSMENT DONE. ROUTINE MEDICATION GIVEN. ACCUCHECH 152, 13 UNITS HUMALOG INSULIN SQ GIVEN. OOB TO CHAIR FOR BREAKFAST. PATIENT HAS EXTEMELY SORE MOUTH AND THROAT. IS TAKING FOODS THAT ARE SOOTHING TO MOUTH AND THROAT. IS MUCH MORE INTERACTIVE TODAY. EASY TO DIRECT. MORE TALKATIVE.
--- NOTE | 2021-03-01 09:20 | NUR ---
BACK TO BED WITH ASSIST. CONTINUES TO TAKE O2 OFF. O2 SATS ON RA 84-94 DEPENDING ON WHAT PATIENT IS DOING.
--- NOTE | 2021-03-01 10:49 | NUR ---
AWAKE, IS IN BED, SOMEWHAT RESTLESS.
--- NOTE | 2021-03-01 11:00 | NUR ---
DR. SHANNON HERE TO SEE PATIENT. TRANSFER ORDERS TO MED-SURG RECIEVED. WILL KEEP PATIENT IN ROOM 130 HOUSE CONVENIENCE.
--- NOTE | 2021-03-01 11:20 | NUR ---
PHYS THERAPY HERE TO WORK WITH PATIENT, THEN TO CHAIR.
--- NOTE | 2021-03-01 12:10 | NUR ---
TYLENOL 650 MG PO GIVEN FOR GENERALIZED COMFORT.
--- NOTE | 2021-03-01 12:40 | NUR ---
TOOK APPROX 45% OF LUNCH. FED SELF.
--- NOTE | 2021-03-01 16:00 | NUR ---
DOWN TO ROOM 126 TO VISIT WITH HER .
--- NOTE | 2021-03-01 16:30 | NUR ---
RETURN TO HER ROOM.
--- NOTE | 2021-03-01 17:00 | NUR ---
ACCUCHECK-211. HUMALOG 15 UNITS AND LANTUS 65 UNITS SQ GIVEN.
--- NOTE | 2021-03-01 18:40 | NUR ---
UPON AMBULATION TO B, O2 SAT DOWN TO 74, O2 AT 2 LITER NS APPLIED. PATIENT HAS NOT BEEN COMPLIANT WIH USE OF OXYGEN.
--- NOTE | 2021-03-01 19:00 | NUR ---
HAVING PERIODS OF RESTLESSNESS. TAKES OFF OXYMETER, ATTEMPTES TO GET OOB . HAS BEEN EDUCATED SEVERAL TIMES ABOUT USE OF CALL LIGHT, STILL DOES NOT USE CALL LIGHT. REPORT TO NEXT SHIFT.
--- NOTE | 2021-03-01 19:30 | NUR ---
PATIENT'S DAUGHTER CALLED. PATIENT GIVES VERBAL CONSENT TO PROVIDE UPDATE. DAUGHTER THAN TRANSFERED INTO THE ROOM AND PATIENT ASSISTED WITH PHONE CALL.
--- NOTE | 2021-03-01 21:00 | NUR ---
EVENING MEDS PROVIDED. PATIENT IS ALERT AND TALKING WITH NURSE. SPEECH IS NOT ALWAYS CLEAR AND PATIENT HAS DIFFICULTY FINDING HER WORDS. PATIENT FOLLOWS INSTRUCTIONS. MOVES HERSELF UP IN BED. SWALLOWS PILLS WELL. ACCU CHECK AND SSI PROVIDED. PATIENT IS NOT MOANING OR CRYING WHICH SHE PREVIOUSLY HAD BEEN. LUNG SOUNDS ARE CLEAR. PATIENT DENIES PAIN. VS STABLE. TOLERATING 2L NC AND AGREES TO PUT CPAP ON. PATIENT DEMONSTRATES ABILITY TO USE CALL LIGHT. BED ALARM ON.
--- NOTE | 2021-03-01 21:36 | NUR ---
PATIENT TAKING CPAP OFF AND PULSE OX OFF FINGER. PATIENT ENCOURAGED TO WEAR PULSE OX AND PLACED ON 2L NC FOR SLEEP. PATIENT IS AGREEABLE TO THIS BUT DROWSY. LIGHTS DIMMED. REMINDED PATIENT TO USE CALL LIGHT FOR ANY NEEDS.
--- NOTE | 2021-03-02 00:47 | NUR ---
PATIENT CONTINUES TO DESAT WHILE SLEEPING DUE TO TAKING CPAP OR NC OFF. PATIENT WOKE EASILY. NC PLACED BACK. ENCOURAGED PATIENT TO LEAVE O2 THERAPY IN PLACE. PATIENT DENIES NEED TO VOID. ATTENDS IN PLACE. CALL LIGHT IN REACH. BED ALARM ACTIVE.
--- NOTE | 2021-03-02 05:59 | NUR ---
PATIENT CALLED FOR ASSISTANCE WITH CALL LIGHT. REQUESTED TO USE THE BATHROOM. PATIENT WAS ABLE TO GET OUT OF BED AND AMBULATE WITH FWW WITHOUT ANY PROMPTS. PATIENT IS STEADY. PATIENT VOIDED LARGE AMOUNT. PATIENT DESAT TO 80% ON ROOM AIR. QUICKLY RECOVERED ONCE RESTING WITH 2L IN PLACE. VS STABLE. PATIENT IS ORIENTED X4. DENIES ANY PAIN OR NEEDS AT THIS TIME. DENIES FEELING SOB AT ALL. LUNGS ARE CLEAR. CALL LIGHT IN REACH.
--- NOTE | 2021-03-02 07:30 | NUR ---
REPORT RECIEVED. PATIENT IS RESTING IN BED. NO DISTRESS NOTED.
--- NOTE | 2021-03-02 11:15 | NUR ---
AMBULATED TO ROOM 126 FOR SHOWER. USED WALKER AND BOOT SHOE WITH AMBULATION. O2 AT 2 LITERS ON.
--- NOTE | 2021-03-02 12:00 | NUR ---
TOLERATED SHOWER WELL. PATIENT STAYED IN ROOM FOR APPROX 10 10 TO VISIT WITH HER WHO IS THE PATIENT IN 126. RN IN ROOM WITH PATIENTS.
--- NOTE | 2021-03-02 12:10 | NUR ---
UPON RETURN TO ROOM PATIENT STATES SHE IS FEELING MUCH BETTER. DENIES SHORTNESS OF BREATH. ACCUCHECK 275, 17 UNITS OF HUMALOG INSULIN GIVEN.
--- NOTE | 2021-03-02 12:30 | NUR ---
SITTING UP IN CHAIR, TOOK LUNCH WELL. DENIES PAIN.
--- NOTE | 2021-03-02 13:52 | NUR ---
RESTING IN BED. IS W/O C/O.
--- NOTE | 2021-03-02 14:00 | NUR ---
REPORT TO MED-SURG.
--- NOTE | 2021-03-02 14:05 | NUR ---
TO MED-SURG VIA BED.
--- NOTE | 2021-03-02 14:15 | NUR ---
PT RECEIVED FROM CCU WITH BELONGINGS IN HAND. PT ALERT AND ORIENTED, STATES NO NEEDS. ORIENTED TO ROOM. ASSESSMENT COMPLETE, PT REMAINS ON 2 L O2 VIA NC AND SPO2 @ 90%. PT HAS FWW IN ROOM. REVIEWED PLAN OF CARE, PT AGREEABLE.
--- NOTE | 2021-03-02 14:48 | NUR ---
DUE TO PRECAUTIONS, I AM UNABLE TO VISIT IN PERSON. WILL CHECK BACK
--- NOTE | 2021-03-02 15:45 | NUR ---
DURING THESE ROUNDS. PATIENT RESTING IN BED. THIS PERMIT SPECIALIST DID A VISUAL CHECK
--- NOTE | 2021-03-02 17:40 | NUR ---
ACCUCHECK COMPLETE, SS INSULIN AND SCHEDULED MEDICAOTINS ADMINISTERED. PT RESTING IN BED, DINNER PROVIDED. PT STATES NO FURTHER NEEDS.
--- NOTE | 2021-03-02 18:35 | NUR ---
ROUNDED ON PATIENT, RESTING IN BED WATCHING TV. ALLOWED TO REST AT THIS TIME
--- NOTE | 2021-03-02 19:20 | NUR ---
REPORT RECEIVED FROM ALANA MORTON. pt RESTING IN BED. 4L OXYGEN BY NC IN PLACE, SPO2 WNL ON TELE 4.
--- NOTE | 2021-03-02 20:44 | NUR ---
pt RESTING IN BED AWAKE, 4L OXYGEN BY NC IN PLACE, SPO2 92%, ATTEMPT TO TITRATE TO 3L OXYGEN , SPO2 DROPS TO 90%. pt DENIES SOB. ASSESSMENT COMPLETE. LUNG SOUNDS CLEAR, DIMINISHED IN BASES. SBA TO RESTROOM WITH FWW FOR VOID. NEW IV PLACED RIGHT WRIST, 22 G. pt BACK IN BED. BED ALARM ON. DENTURES IN CUP. CALL LIGHT IN REACH. NO ADDITIONAL REQUESTS.
--- NOTE | 2021-03-02 23:10 | NUR ---
CALL LIGHT ANSWERED. pt PROVIDED WITH TV GUIDE REQUESTED. NO ADDITIONAL REQUESTS. CALL LIGHT IN REACH. BED ALARM ON. TELE BATTERY CHANGED. 4L OXYGEN BY NC IN PLACE.
--- NOTE | 2021-03-03 01:43 | NUR ---
pt RESTING IN BED, SPO2 94% WITH 4L OXYGEN BY NC IN PLACE. BED ALARM ON.
--- NOTE | 2021-03-03 03:55 | NUR ---
CALL LIGHT ANSWERED. 1P SBA WITH FWW TO RESTROOM FOR VOID AND BACK TO BED. 4L OXYGEN BY NC IN PLACE. ASSESSMENT COMPLETE. pt DENIES SOB. FINE CRACKLES LEE, RLL, CLEARS WITH DEEP BREATHING. TV OFF. CALL LIGHT WITHIN REACH. NO ADDITIONAL REQUESTS. LIGHTS OFF IN ROOM.
--- NOTE | 2021-03-03 05:50 | NUR ---
pt SLEEPING, AWAKENS TO VOICE. VSS. pt DENIES PAIN, DENIES TOILETING, DENIES ADDITIONAL NEEDS. CALL LIGHT IN REACH.
--- NOTE | 2021-03-03 06:44 | NUR ---
pt RESTED WELL THROUGHOUT SHIFT. USING CALL LIGHT APPROPIRATELY, ALERT AND ORIENTED. SPO2 WNL WITH 4L OXYGEN BY NC ON. SBA WITH FWW TO RESTROOM FOR QS VOIDS. NEW IV SITE, RIGHT WRIST. AFEBRILE. NO COUGHING. NO SOB REPORTED.
--- NOTE | 2021-03-03 07:05 | NUR ---
REPORT RECEIVED FROM GUILLERMINA WARNER. PT ALLOWED TO REST AT THIS TIME. WILL CONT PLAN OF CARE
--- NOTE | 2021-03-03 08:00 | NUR ---
ACCUCHECK COMPLETE, PT CBG 89. SHORT ACTING INSULIN HELD, VERIFIED WITH ROAD CLEANER. BREAKFAST ORDER RECEIVED.
--- NOTE | 2021-03-03 08:40 | NUR ---
Scheduled medications administered, assessment completed. Pt resting in bed, lung sounds diminished in bases and clear in upper lobes. Pt on 4L O2, SPO2 at 95%, titrated to 3L, SPO2 at 94%, intermittently drops to 89-90% or with exertion, quickly returns to 93% with deep breathing. Breakfast provided. Pt states no further needs.
--- NOTE | 2021-03-03 09:35 | NUR ---
PATIENT IN BED WHEN ARRIVED. VITALS TAKEN AND CHARTED. SET UP BREAKFAST FOR PATIENT. OFFERED PATIENT SHOWER PATIENT STATED SHE TOOK ONE YESTERDAY. WILL REFRESH WATER AND OFFER CHAIR ON NEXT ROUNDS.
--- NOTE | 2021-03-03 10:20 | NUR ---
Fresh water provided, pt ambulates to bathroom with SBA and FWW, steady gait. On 1L O2, SPO2 95%. Room tidied, all requests provided. Call light in reach.
--- NOTE | 2021-03-03 10:30 | NUR ---
Pt completed 02 qualifier. Notified by Amanuel from [facility] and Rudolph from PT, they do not feel pt is strong enough to discharge. Per Amanuel she will require 5l cont. 02, as she becomes sob with any activity. He feels pulse 02 will not be enough for this pt. Rudolph from PT felt pt had difficulty walking and functioning. Dr. Adam updated and will see pt.
--- NOTE | 2021-03-03 11:58 | NUR ---
CBG checked, SS and scheduled insulin administered. Lunch brought into room. Pt now on 4L at 95% at rest. No further requests.
--- NOTE | 2021-03-03 11:59 | NUR ---
Spoke with Dr. Adam and he states pt may need to go to a SNF. Spoke with pt by phone and she is in agreement. NOtified [facility] in [place], [place] is the only SNF in our area which takes covid pts. She states this is alright. Called and spoke with Rubén from [facility]. He requests a chart to be sent. Face sheet, covid result, H&P, ER note, progress notes, med sheet, 02 qualifier, PT/OT note faxed to [facility] at [phone] to Rubén.
--- NOTE | 2021-03-03 14:15 | NUR ---
UNABLE TO CONNECT YET WITH PT DUE TO PRECAUTIONS. WILL CONTINUE TO FOLLOW
--- NOTE | 2021-03-03 14:30 | NUR ---
Vitals taken, assessment complete. Pt encouraged to use bathroom at this time, denies need. Pt reports no needs. Call light in reach.
--- NOTE | 2021-03-03 15:00 | NUR ---
Notified by staff, pt no longer wants to go to a SNF. REceived call from [facility] and they will accept her. Called and spokew ith pt and she is now stating she doesn't want to go to a SNF, but wants to go home with her sister in law. Called SNF anc cancelled request. Awaiting order from Dr. Corea for home 02 and updated note to send to [facility]. 1700 Orders, 02 qualifier, notes, RX, H&P, ER note, and face to face faxed to Claudia at [facility]. She will get auth and let me know when they can deliver tomorrow.
--- NOTE | 2021-03-03 17:15 | NUR ---
Vitals and I/O's completed, scheduled medications and SS insulin administered. Discussed plan of care while in hospital and pt is agreeable. Dinner provided, pt reports no further needs at this time. She is currently on 4L of O2 and SPO2 of 94%.
--- NOTE | 2021-03-03 19:14 | NUR ---
REPORT RECEIVED FROM ALANA MORTON. COVID ISOLATION. SPO2 94% WITH 4L OXYGEN BY NC IN PLACE. ASSUMED CARE OF pt.
--- NOTE | 2021-03-03 20:55 | NUR ---
pt RESTING IN BED AWAKE. SPO2 WNL WITH 4L OXYGEN BY NC IN PLACE. CRACKLES AUSCULTATED THROUGHOUT LUNG LOBES. pt DENIES SOB. VSS. AFEBRILE. IV SITE FLUSHED WNL, SL. pt IS ALERT, ORIENTED TO ALL. ICE WATER PROVIDED. SCHEDULED MEDICATIONS ADMINISTERED, CBG 180, SS INSULIN ADMINISTERED. CALL LIGHT WITHIN REACH.
--- NOTE | 2021-03-03 22:39 | NUR ---
CHECKED ON pt. RESTING IN BED ON RIGHT SIDE, BREATHING UNLABORED. 4L OXYGEN BY NC IN PLACE, SPO2 95% ON TELE 5 CPOX.
--- NOTE | 2021-03-04 00:57 | NUR ---
pt RESTING IN BED ON CELL PHONE. SPO2 IS 97% WITH 4L OXYGEN BY NC IN PLACE. LIGHTS OFF IN ROOM. CALL LIGHT WITHIN REACH.
--- NOTE | 2021-03-04 01:40 | NUR ---
CALL LIGHT ANSWERED. SBA WITH FWW TO RESTROOM FOR VOID AND BACK TO BED. ASSESSMENT COMLETE. CRACKLES AUSCULTATED BILATERALLY LOWER LOBES. pt DENIES SOB. 4L OXYGEN BY NC IN PLACE, SPO2 94% ON TELE 5. CALL LIGHT IN REACH. pt HAS NO ADDITIONAL REQUESTS AT THIS TIME.
--- NOTE | 2021-03-04 05:12 | NUR ---
PT RESTING IN BED, SPO2 97% WITH 4L OXYGEN BY NC IN PLACE. TELE 5 CPOX ON.
--- NOTE | 2021-03-04 05:36 | NUR ---
pt APPERED TO REST WELL THIS SHIFT. SPO2 WNL ON CPOX TELE 5 WITH 4L OXYGEN BY NC IN PLACE. CRACKLES AUSCULTATED BILATERALLY BASES. USING CALL LIGHT APPROPRIATELY. SBA WITH FWW TO RESTROOM FOR QS VOIDS. IV SL.
--- NOTE | 2021-03-04 06:53 | NUR ---
pt SLEEPING, AWAKENS TO VOICE. VSS. AFEBRILE. BREAKFAST ORDER TAKEN AND PLACED BY RN. CALL LIGHT IN REACH. pt REQUESTING TO REST.
--- NOTE | 2021-03-04 07:26 | NUR ---
this rn received report from michelle warren. pt o2 sats noted on the monitor and pt appears to be resting
--- NOTE | 2021-03-04 08:15 | NUR ---
THIS RN IN PTS ROOM TO GET PTS BLOOD SUGAR. PTS BLLOD SUGAR WAS 42. THIS RN TOOK IT AGAIN, 44. THIS RN ALERTED LISETTE RN WHO BROUGHT THIS RN JUICE AND MAYELA CRACKERS. THIS RN RECHECKED PTS BLOOD SUGAR, 50. THIS RN STEPPED OUT OF PTS ROOM TO GET THE APPOJECT, THIS RN DOUBLE CHECKED PTS BLOOD SUGAR PRIOR TO GIVING, PT BS UP TO 76- THIS RN TO HOLD GLUCOSE APPOJECT. PT HAS NO OTHER CONCERNS THIS AM
--- NOTE | 2021-03-04 10:30 | NUR ---
Spoke with pt and updated I have called [facility] and I am awaiting a return call. O2 will be delivered to their home today. Pt plans on dc to home with her sister in law Michelle. Pt excited for dc.
[2021-03-04] MEDS ORDERED: METOPROLOL TART50 MG PO (11:46)
[2021-03-04] MEDS ORDERED: BENZONATATE100 MG PO (11:47)
[2021-03-04] MEDS ORDERED: DECADRON6 MG PO (11:48)
[2021-03-04] MEDS ORDERED: LANTUS100 UNITS/ SUB-Q (11:48)
--- NOTE | 2021-03-04 13:45 | NUR ---
PT ON PRECAUTIONS, RN INFORMED ME PT IS DC'ING HOME TODAY
== END 2021-03-04 13:45 | disposition home or self-care (01) | DRG 177 ==
LOC: ED 19:37 → CCU 23:30 → MS 03-02 14:05
PROVIDERS: ADMIT Internal Medicine; ATTEND Internal Medicine
PROC: XW033E5 Introduction of Remdesivir Anti-infective into Peripheral Vein, Percutaneous Approach, New Technology Group 5 (ICD-10-PCS; principal; 2021-02-25)
DX: U07.1 COVID-19 (principal); J12.82 Pneumonia due to coronavirus disease 2019; J12.81 Pneumonia due to SARS-associated coronavirus; J96.01 Acute respiratory failure with hypoxia; G93.41 Metabolic encephalopathy; I47.1 Supraventricular tachycardia; E11.40 Type 2 diabetes mellitus with diabetic neuropathy, unspecified; E11.649 Type 2 diabetes mellitus with hypoglycemia without coma; E28.2 Polycystic ovarian syndrome; R53.82 Chronic fatigue, unspecified; G89.4 Chronic pain syndrome; M79.7 Fibromyalgia; N32.81 Overactive bladder; Z79.899 Other long term (current) drug therapy; Z79.4 Long term (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; Z88.0 Allergy status to penicillin; Z88.2 Allergy status to sulfonamides; Z88.1 Allergy status to other antibiotic agents; Z88.8 Allergy status to other drugs, medicaments and biological substances
CPT/HCPCS: 36600; 70450; 71045; 71260; 80053; 81001; 82803; 83605; 83615; 83735; 85025; 85379; 87040; 93306; 94640; 94660; 94667; 94668; 94760; 94799; 97116; 97162; 97165; 97530; 99285-25; J1650; J1815; J2405; J3475; J7050; J7121; J8540; Q0177; Q9967

== ENCOUNTER 2021-11-01 17:53 | Inpatient (IN) | payer OTHER ==
[~2021-11-01] VITALS: Ht 160 cm; Wt 81.9 kg
[~2021-11-01 17:53] MED LIST changes: +ATORVASTATIN CA80 MG PO; +BENZONATATE100 MG PO; +CYCLOBENZAPRINE10 MG PO; +DECADRON6 MG PO; +HYDROCHLOROTH12.5 MG PO; +METFORMIN HCL1000 MG PO; +METOPROLOL TART50 MG PO; +OXYBUTYNIN CHLOR5 M1 PO; +TRULICITY3 MG/0.5 M SUB-Q; +VITAMIN D21250 MCG PO
--- OUTSIDE RECORDS SUMMARY | 2021-11-01 17:56 | XMS ---
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 Marco A VISIT COUNT (12 MO.) 1 ZEINAB Guzman TOTAL 3 NOTE: Visits indicate total known visits. ED/UCC VISIT TRACKING (12 MO.) 11/01/2021 17:[address] [facility] [place] TYPE: Emergency COMPLAINT: - WEAKNESS 02/24/2021 19:37 [facility] [place] TYPE: Emergency COMPLAINT: - WEAKNESS 11/03/2020 18:44 [facility] [place] TYPE: Emergency DIAGNOSES: - Bitten by dog, sequela - Cellulitis, unspecified INPATIENT VISIT TRACKING (12 MO.) 02/24/2021 23:30 [facility] [place] TYPE: Medical Surgical COMPLAINT: - PNEUMONIA/COVID DIAGNOSES: - Allergy status to other antibiotic agents - Chronic fatigue, unspecified - Allergy status to sulfonamides - Metabolic encephalopathy - COVID-19 - Allergy status to other drugs, medicaments and biological substances - Type 2 diabetes mellitus with hypoglycemia without coma - Other oil heaterman (current) drug therapy - Chronic pain syndrome - Fibromyalgia - 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
--- NOTE | 2021-11-01 23:05 | NUR ---
PT ARRIVED ON UNIT CONFUSED WITH ORIENTATION TO SELF AND TOWN ONLY. PT HAS DIFFICULTY FOLLOWING COMMANDS. UP TO BSC WITH 2 ASSIST TO VOID. HR 120-130S, RR 30-35, HTN IMPROVED AFTER PO LOPRESSOR BP NOW 125/78. WILL CONTINUE TO MONITOR.
--- NOTE | 2021-11-02 01:56 | NUR ---
PT UP TO BSC WITH 2 ASSISTS. PT IS DROWSY AND NEEDS CONTINOUS CUING FOR TRANSFERS. REMAINS ORIENTED TO SELF AND TOWN ONLY. CBGs TRENDING DOWN. WILL CONTNIUE TO MONITOR.
--- NOTE | 2021-11-02 07:19 | NUR ---
REPORT RECIEVED FROM COUNTER MANAGER RN, CARE OF PT ASSUMED AT THIS TIME. PT ASLEEP IN BED, RESPIRATIONS EVEN AND UNLABORED WHILE AT REST. IV FLUIDS AND INSULIN DRIP CONTINUE TO INFUSE. CALL LIGHT WITHIN REACH. WILL CONTINUE TO MONITOR.
--- NOTE | 2021-11-02 07:35 | NUR ---
Spoke with pt, she and spouse were admitted this summer with delia. Pt and spouse live in a basement below his exwife and son. Spouse drives truck and is gone during the week, exwife and son assist her. Pt states she was on disability, but lost this when she her spouse. She states they make to much money for [employer] and other resources in town. She states her spouse is her cg and she does not know what her needs are. "He is just my caregiver". She currently goes to [facility]. She uses a cane. Denies issues with steps. Plans on dc to home with spouse when cleared medically. Exwife and step son will assist her if needed.
--- NOTE | 2021-11-02 07:41 | NUR ---
PT ASSESSMENT COMPLETED AT THIS TIME. PT ALERT AND ORIENTED TO SELF, LOCATION, AND SITUATION. UANBLE TO STATE THE DATE AND PT REMAINS DROWSY. LUNG SOUND CLEAR. HR RATE 122 AT REST. RESPIRATORY RATE IS ELEVATED IN THE MID 20S. PT DENIES PAIN OR NAUSEA. STATES SHE DID NOT TAKE HER INSULIN BECAUSE "I DONT LIKE TOO". INSULIN DRIP TITRATED PER PROTOCOL. IV FLUIDS CONTINUE TO INFUSE. CALL LIGHT WITHIN REACH. WILL CONTINUE TO MONITOR.
--- NOTE | 2021-11-02 08:25 | NUR ---
LUCILLE FROM CASE MANAGEMENT IN ROOM WITH PT AT THIS TIME.
[2021-11-02] MEDS ORDERED: PAROXETINE HCL40 MG PO (09:02)
[2021-11-02] MEDS ORDERED: OXYBUTYNIN CHLO10 MG PO (09:03)
--- NOTE | 2021-11-02 09:11 | NUR ---
PT GIVEN ORAL MEDICATIONS WITHOUT ISSUE. PT INSULIN DRIP TITRATED PER PROTOCOL (SEE EMAR). PT REMAINS DROWSY BUT EASY TO AROUSE. WARM BLANKET PROVIDED. CALL LIGHT WITHIN REACH. WILL CONTINUE TO MONITOR.
--- NOTE | 2021-11-02 10:33 | NUR ---
PATIENT USED CALL LIGHT TO ASK FOR ASSISTANCE TO BSC. 1PA, PATIENT ABLE TO STAND BUT REQUIRES SEVERAL CUES TO PIVOT FROM BED TO BSC. S/O IN ROOM. LINEN AND BRIEF CHANGED, PATIENT BACK TO BED. CALL LIGHT IN REACH
--- NOTE | 2021-11-02 10:52 | NUR ---
RAC IV NOT FLUSHING. SECONDARY IV STARTED IN PTS LEFT CHEST. WELL TOLERATED BY PT. CALL LIGHT WITHIN REACH. WILL CONTINUE TO MONITOR.
--- NOTE | 2021-11-02 11:58 | NUR ---
IV INSULIN DRIP AND IV FLUIDS DC'D AT THIS TIME. PT REMAINS ALERT BUT DISORIENTED AT TIMES. ABLE TO FOLLOW DIRECTIONS. AT BEDSIDE. CALL LIGHT WITHIN REACH. WILL CONTINUE TO MONITOR.
--- NOTE | 2021-11-02 12:45 | NUR ---
1PA TO BSC FOR VOID. IN ROOM. PATIENT ATE VERY LITTLE OF HER OATMEAL AND A FEW SMALL SIPS OF 7UP. ENCOURAGED TO STAY AWAKE AND EAT, PATIENT NOW STATES SHE'S FULL. AND CONTINUES TO CLOSE HER EYES WHEN SPEAKING. CALL LIGHT IN REACH
--- NOTE | 2021-11-02 14:15 | NUR ---
iv abx done infusing. PT remains drowsy but rousable to voice. call light within reach. remains at bedside.
[2021-11-02] MEDS ORDERED: GABAPENTIN600 MG PO (15:31)
[2021-11-02] MEDS ORDERED: DIFLUCAN150 MG PO (15:34)
--- NOTE | 2021-11-02 16:44 | NUR ---
PT MEDS RECONCILED
--- NOTE | 2021-11-02 16:44 | NUR ---
ASSESMENT COMPLETED. PT REMAINS DROWSY, BUT IS EASY TO AWAKEN. ASSESSMENT REMAINS UNCHANGED. PT AT BEDSIDE. CALL LIGHT WITHIN REACH. WILL CONTINUE TO MONITOR.
--- NOTE | 2021-11-02 17:33 | NUR ---
PATIENT ARRIVED TO [facility], VIA BED. PATIENT IS ORIENTED TO PERSO, PLACE, IS SOMEWHAT SLEEPY, BUT SITTING UP IN BED TO FEED SELF DINNER. SPOUSE IN ROOM AT BEDSIDE. DINNER BG IS 240 AND PLAN TO GIVE INSULIN AFTER PATIENT IS FINISHED WITH DINNER.
--- NOTE | 2021-11-02 17:58 | NUR ---
PATIENT NOT GIVEN INSULIN PER SLIDING SCALE FOR 5 UNITS, ATE 30% OF DINNER.
--- NOTE | 2021-11-02 18:00 | EKG ---
[facility] [address] [facility] [place], [place] [address] Signed Sinus tachycardia Left axis deviation Moderate voltage criteria for LVH, may be normal variant ( R in aVL , Annabella product ) Inferior infarct , age undetermined Anterolateral infarct , age undetermined Abnormal ECG No previous ECGs available Confirmed by BRUNO SHANNON DO ([id number]) on 11/02/2021 6:00:07 PM Electronically Signed By: BRUNO SHANNON DO 11/02/21 1800 PATIENT NAME: KURT NEGRON FRANCISCO JAVIER Electrocardiogram DATE OF : 62 PHYSICIAN: BRUNO SHANNON DO REPORT #: [id number] REPORT IS CONFIDENTIAL AND NOT TO BE RELEASED WITHOUT AUTHORIZATION
--- NOTE | 2021-11-02 19:51 | NUR ---
RECEIVED REPORT FROM DAY SHIFT RN. PATIENT IS RESTING IN BED. AT THE BEDSIDE. PATIENT DENIES ANY NEEDS. CALL LIGHT IN REACH.
--- NOTE | 2021-11-02 21:48 | NUR ---
PATIENT ASSESMENT COMPLETED. PATIENT ASSISTED TO [facility] PATIENT WAS A 1PA AND TOLERATED ACTIVTY WELL. PATIENT WAS ABLE TO VOID. UIRINE SENT TO LAB PER ORDER. PATIENT IS NOW BACK IN BED RESTING. VITALS TAKEN AND RECORDED. INTAKE AND OUTPUT RECORDED. PATIENT REPORTS GENERALIZED PAIN AND REQUESTS A TYLENOL. PATIENT GIVEN PRN TYLENOL PER ORDER. PATIENTS SCHEDULED MEDICATIONS GIVEN PER ORDER. PATIENT IS UNABLE TO STATE THE DATE OR TIME. PATIENT IS ABLE TO STATE THAT SHE IS IN THE HOSPITAL BUT NOT TO WHY SHE IS HERE. EDUCATED PATIENT ON PLAN OF CARE. PATIENT PROVIDED WITH FRESH ICE WATER. PATIENTS IV ABX INFUSING PER ORDER. PATIENT DENIES ANY FURTHER NEEDS. CALL LIGHT IN REACH. BED ALARM ON FOR SAFETY.
--- NOTE | 2021-11-02 22:18 | NUR ---
PATIENTS IV ABX FINISHED INFUSING AND PATIENT IS NOW SL PER ORDER. PATIENT DENIES ANY NEEDS. CALL LIGHT IN REACH. BED ALARM ON FOR SAFETY.
--- NOTE | 2021-11-03 00:31 | NUR ---
PATIENT IS RESTING IN BED WITH EYES CLOSED, RR 15. CALL LIGHT IN REACH. BED ALARM IS ON FOR SAFETY.
--- NOTE | 2021-11-03 01:55 | NUR ---
PATIENT CALLED STATED SHE IS COLD. WARM BLANKET PROVIDED. V/S TAKEN. ASSISTED PATIENT TO USE THE BEDSIDE COMMODE TO TRY TO URINATE. PATIENT DID NOT VOID STATED I DONT FEEL LIKE GOING. PATIENT IS BACK IN BED. BED ALARM ON FOR SAFETY.
--- NOTE | 2021-11-03 02:19 | NUR ---
PATIENT ASSISTED TO THE BSC A 1PA. PATIENT UNABLE TO VOID. PATIENT IS BACK IN BED RESTING. PATIENTS VITALS TAKEN AND RECORDED. PATIENT DENIES ANY NEEDS. CALL LIGHT IN REACH. BED ALARM ON FOR SAFETY.
--- NOTE | 2021-11-03 04:46 | NUR ---
PATIENT IS RESTING IN BED WITH EYES CLOSED, RR 16. CALL LIGHT IN REACH. BED ALARM ON FOR SAFETY.
--- NOTE | 2021-11-03 05:25 | NUR ---
VITALS TAKEN AND RECORDED. PATIENT DENIES THE NEED TO VOID AT THIS TIME. IV ABX INFUSING PER ORDER. PATIENT DENIES ANY NEEDS. FERESH ICE WATER PROVIDED AND SF SEVEN UP. PATIENT DENIES ANY FURTHER NEEDS. CALL LIGHT IN REACH. BED ALARM ON FOR SAFETY.
--- NOTE | 2021-11-03 06:07 | NUR ---
PATIENTS IV ABX COMPLETED INFUSING. PATIENT IS NOW SL. PATIENT ASSISTED TO THE BSC A SBA. PATIENT WAS ABLE TO VOID. PATIENT IS BACK IN BED RESTING. PATIENT GIVEN A WARM BLANKET AND FRESH ICE WATER. PATIENT DENIES ANY FURTHER NEEDS. CALL LIGHT IN REACH. BED ALARM ON FOR SAFETY.
--- NOTE | 2021-11-03 07:15 | NUR ---
this rn received report from conor warren. pt resting on her side at this time, respirations noted at this time.
--- NOTE | 2021-11-03 07:55 | NUR ---
THIS RN IN PTS ROOM TO GIVE CORINE BOO. PT SEEMS CONCERNED ABOUT HER PHYSICAL THERAPY APPOINTMENT WHICH IS IN A FEW DAYS. PT STATING THAT SHE WILL NEED HER HERE FOR THAT. THIS RN DISCUSSED WITH PT ABOUT THE PLAN THAT HER WILL BE IN SOON.
--- NOTE | 2021-11-03 09:36 | NUR ---
THIS RN IN PTS ROOM OT GIVE THE REST OF MORNING MEDS. PT SITTING IN BED, PTS AT BEDSIDE. KUSUM FROM PHYSICAL THERAPY IN ROOM TO WORK WITH PT. VITALS TAKEN- LOW GRADE TEMP NOTED. THIS RN HAD PT USE INCENTIVE SPIROMETER, TEMP DOWN TO WNL. THIS RN WILL ALLOW PHYSICAL THERAPY TO WORK WITH PT.
--- NOTE | 2021-11-03 10:13 | NUR ---
PATIENT SITTING IN CHAIR AT THIS TIME, IN ROOM. LINENS CHANGED. VITALS AND I&O'S CHARTED. CALL LIGHT IN REACH. NO FURTHER NEEDS AT THIS TIME.
--- NOTE | 2021-11-03 11:45 | NUR ---
Spoke with Sandy and Juliocesar. Pt is anxious and wanting to leave. Updated she will need to speak with about discharge. Attempted to discuss plan for when pt will discharge and this is difficulty as spouse continues to discuss his illnesses and cannot be redirected. Multiple attempts made to discuss pts concerns and needs and Sandy plans on going with her spouse for the next 2-3 weeks while he drives truck. He will be able to assist her with her meds daily. Updated Dr. Sharif pt wanting to dc and he states she is not ready for dc at this point and bc are pending. He will speak with pt.
--- NOTE | 2021-11-03 12:43 | NUR ---
THIS RN IN PTS ROOM TO GIVE SCHEDULED MIDDAY INSULIN. PT TOLERATED WELL AND APPEARS TO BE RESTING AT THIS TIME. PTS AT BEDSIDE. NO NEEDS AT THISTIME. CALL LIGHT WITHIN REACH. THIS RN DID DISCUSS WITH PT THE DOSAGE FOR PTS INSULIN, PT DID NOT SEEM INTERESTED IN TEACHING.
--- NOTE | 2021-11-03 14:02 | NUR ---
PATIENT IN BED WATCHING TV, IN ROOM. NO VOID, RN AWARE AND PATIENT WILL GET UP IN A BIT TO TRY. VITALS AND I&O'S CHARTED. CALL LIGHT IN REACH. NO FURTHER NEEDS AT THIS TIME.
--- NOTE | 2021-11-03 15:18 | NUR ---
PATIENT UP TO BATHROOM AND BACK TO BED, SBA FWW. PATIENT MENTIONED WANTING TO SHOWER, TRIED TO GET PATIENT TO SHOWER RIGHT NOW AND PATIENT SAID NO SHE WOULD DO IT TONIGHT. TRIED TO CONVINCE PATIENT NOW WAS A GOOD TIME BUT PATIENT STILL REFUSED. IN ROOM. CALL LIGHT IN REACH. NO FURTHER NEEDS AT THIS TIME.
--- NOTE | 2021-11-03 17:01 | NUR ---
THIS RN IN PTS ROOM TO GIVE PTS ROOM to give insulin. pt lying in bed. pts at bedside. pt needs nothing further at this time.
--- NOTE | 2021-11-03 18:14 | NUR ---
PT AWAKE IN BED, PT DOES NOT NEED TO VOID, RN BERONICA NOTIFIED. CALL LIGHT WITHIN REACH. NO FURTHER NEEDS AT THIS TIME
--- NOTE | 2021-11-03 18:35 | NUR ---
PATIENT IS RESTING IN BED, DENIES NEEDS AT THIS TIME.
--- NOTE | 2021-11-03 19:40 | NUR ---
RECEIVED REPORT FROM DAY SHIFT RN. PATIENT IS RESTING IN BED WATCHING TV. PATIENT DENIES ANY NEEDS. CALL LIGHT IN REACH.
--- NOTE | 2021-11-03 21:55 | NUR ---
PATIENT ASSESMENT COMPLETED. PATIENT ASSISTED TO THE RESTROOM A SBA W/FWW. PATIENT WAS ABLE TO VOID. PATIENT IS BACK IN BED RESTING. PATIENTS INTAKE AND OUTPUT RECORDED. PATIENTS VITALS TAKEN AND RECORDED. PATIENT HAS ELEVATED TEMP. PATIENT GIVEN PRN TYLENOL. PATIENTS SCHEDULED MEDICATION GIVEN PER ORDER. PATIENT DENIES ANY PAIN. PATIENTS IS PRESENT IN THE ROOM. ALL QUESTIONS ANSWERED. PATIENT IS REQUESTING A WARM BLANKET. PATIENT EDUCATED ON HER ELEVATED TEMP AND THIS RN UNABLE TO PROVIDE WARM BLANKET AT THIS TIME. PATIENT VERBALIZES UNDERSTANDING. PATIENT JOHN ANY FURTHER NEEDS. CALL LIGHT IN REACH. BED ALARM ON FOR PATIENT SAFETY PATIENT IS FORGETFUL AT TIMES.
--- NOTE | 2021-11-03 22:00 | NUR ---
PATIENT KERI APROCAHED THIS RN AND REQUESTED WARM BLANKETS FOR PATIENT. EDUCATED HIM ON PATIENTS ELEVATED TEMPERATURE AND UNABLE TO PROVIDE WARM BLANKET AT THIS TIME. VERBALIZES UNDERSTANDING.
--- NOTE | 2021-11-03 22:14 | NUR ---
PATIENTS TEMP REPEATED AND IS NOW WNL. PATIENT PROVIDED WARM BLANKET. PATIENTS LIGHTS TURNED OFF. ICE CHIPS PROVIDED. PATIENT DENIES ANY FURTHER NEEDS. CALL LIGHT IN REACH.
--- NOTE | 2021-11-03 23:35 | NUR ---
PATIENT IS RESTING IN BED WITH EYES CLOSED, RR 17. CALL LIGHT IN REACH. BED ALARM IS ON FOR PATIENT SAFETY.
--- NOTE | 2021-11-04 02:43 | NUR ---
PATIENT ASSISTED TO THE RESTROOM A SBA W/FWW. PATIENT WAS ABLE TO VOID. PATIENTS URINE IS VISH IN COLOR. PATIENT IS BACK IN BED RESTING. PATIENT DENIES ANY PAIN. PATIENTS TEMPERTURA OBTAINED AND IS WNL. PATIENTS ICE WATER REFRESHED. PATIENT DENIES ANY FURTHER NEEDS. WARM BLANKET PROVIDED. CALL LIGHT IN REACH. BED ALARM ON FOR SAFETY.
--- NOTE | 2021-11-04 06:00 | NUR ---
PATIENTS VITALS TAKEN AND RECORDED. INTAKE AND OUTPUT RECORDED. PATIENTS SCHEDULED IV ABX INFUSING PER ORDER. PATIENT DENIES ANY PAIN. PATIENT DENIES ANY NEEDS. CALL LIGHT IN REACH. BED ALARM ON FOR SAFETY.
--- NOTE | 2021-11-04 07:15 | NUR ---
THIS RN RECEIVED REPORT FROM VALERIE WARNER. PT APPEARS TO BE RESTING THIS AM WITH REPIRATIONS NOTED AND CALL LIGHT WITHIN REACH.
--- NOTE | 2021-11-04 07:44 | NUR ---
PATIENT RESTING IN BED WATCHING TV. UPDATED WHITE BOARD. BRUSHED PATIENTS DENTURES. PATIENT AGREED TO TAKING SHOWER AFTER BREAKFAST. SHE DOES NOT NEED ANYTHING ELSE AT THIS TIME. CALL LIGHT IN REACH.
--- NOTE | 2021-11-04 08:05 | NUR ---
THIS RN IN PTS ROOM TO GET PTS BLOOD SUGAR. PT STATES THAT SHE IS DOING WELL THIS AM. PT REPORTS THAT SHE IS HUNGRY AND READY FOR BREAKFAST.
--- NOTE | 2021-11-04 08:25 | NUR ---
THIS RN IN PTS ROOM TO GIVE PT HER INSULIN. THIS RN DISCUSSED WITH PT HER INSULIN DOSES. PT SEEMS MORE ALERT THIS AM AND SHE SEEMS MORE INTERESTED IN LEARNING.
--- NOTE | 2021-11-04 08:43 | NUR ---
PATIENT SITTING UP IN BED EATING BREAKFAST VISTING WITH HER . PATIENT REQUESTED TO USE BATHROOM. PATIENT WALKED WELL WITH FWW AND VOIDED 900ML. SHE IS NOW BACK IN BED AND DOES NOT NEED ANYTHING ELSE AT THIS TIME. CALL LIGHT IN REACH.
--- NOTE | 2021-11-04 10:02 | NUR ---
PATIENT GIVEN CEFTIN ORAL ANTIBIOTIC. DISCUSSED WITH PATIENT TO WATCH FOR S/S OF ALLERGIC REACTION. SIGNS AND DISPLAYS SALESPERSON IN ROOM WITH PATIENT AT THIS TIME.
--- NOTE | 2021-11-04 10:07 | NUR ---
THIS RN IN PTS ROOM TO CHECK ON PT. PT STATES THAT SHE IS DOING WELL AND SOLID SURFACE FABRICATOR IN ROOM AT THIS TIME. PT DENIES ANY ADVERSE EFFECTS OF ANTIBIOTIC.
--- NOTE | 2021-11-04 10:49 | NUR ---
PT WORKING WITH PHYSCIAL THERAPY AT THIS TIME.
[2021-11-04] MEDS ORDERED: CEFUROXIME250 MG PO (11:07)
[2021-11-04] MEDS ORDERED: METOPROLOL TART50 MG PO (11:07)
[2021-11-04] MEDS ORDERED: SEMGLEE100 UNIT/1 SUB-Q (11:08)
[2021-11-04] MEDS ORDERED: HUMALOG100 UNITS/ SUB-Q (11:08)
--- NOTE | 2021-11-04 12:00 | NUR ---
Attempted to see pt, art educator speaking with pt. Spoke with Rosangela Espinosa later and she states pt has been diabetic since she was 32 years old and is tired of taking meds and checking blood sugars. She provided education. Pt and spouse will now be staying [place] for at least 1 week before he returns to work. Cont. to plan for pt to travel with spouse for a while.
--- NOTE | 2021-11-04 12:39 | NUR ---
Provided pt with written informaiton on I-port Advance and Insulflon. Discussed prescription needed and likely will need to fill with DME supplier. Additionally, she will need to verify with the printer repair technician if it can be used for her GLP-1 RA. Encoruaged pt to call if she has difficulty with getting insulin port if she decides to pursue.
== END 2021-11-04 14:05 | disposition home or self-care (01) | DRG 637 ==
LOC: ED 17:53 → CCU 17:54 → MS 11-02 17:21 → CCU 11-02 17:21 → ED 11-03 14:57 → MS 11-03 14:57
PROVIDERS: ADMIT Student in an Organized Health Care Education/Training Program; ATTEND Student in an Organized Health Care Education/Training Program
DX: E11.10 Type 2 diabetes mellitus with ketoacidosis without coma (principal); G93.41 Metabolic encephalopathy; I47.1 Supraventricular tachycardia; N39.0 Urinary tract infection, site not specified; N17.9 Acute kidney failure, unspecified; F05 Delirium due to known physiological condition; E11.42 Type 2 diabetes mellitus with diabetic polyneuropathy; M79.7 Fibromyalgia; B96.1 Klebsiella pneumoniae [K. pneumoniae] as the cause of diseases classified elsewhere; Z20.822 Contact with and (suspected) exposure to COVID-19; E28.2 Polycystic ovarian syndrome; Z79.4 Long term (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; Z91.14 Patient's other noncompliance with medication regimen; Z86.16 Personal history of COVID-19; Z98.890 Other specified postprocedural states; Z90.710 Acquired absence of both cervix and uterus; Z90.49 Acquired absence of other specified parts of digestive tract; Z88.2 Allergy status to sulfonamides; Z88.0 Allergy status to penicillin; Z88.1 Allergy status to other antibiotic agents; Z88.8 Allergy status to other drugs, medicaments and biological substances; Z79.899 Other long term (current) drug therapy
CPT/HCPCS: 71045; 80048; 80076; 81001; 82010; 82800; 83605; 83735; 84100; 84300; 85025; 86140; 87040; 87077; 87088; 87186; 96365; 96366; 96367; 96372; 96374; 96375; 96376; 97116; 97163; 99285-25; A9270; G0378; J1650; J1815; J2405; J3475; J3480; J7030; J7042; J7121; U0003

== ENCOUNTER 2021-11-18 19:35 | Emergency (ER) | payer OTHER ==
[~2021-11-18] VITALS: Ht 160 cm; Wt 81.6 kg
[~2021-11-18 19:35] MED LIST changes: +CEFUROXIME250 MG PO; +DIFLUCAN150 MG PO; +HUMALOG100 UNITS/ SUB-Q; +OXYBUTYNIN CHLO10 MG PO; +PAROXETINE HCL40 MG PO; +SEMGLEE100 UNIT/1 SUB-Q
--- OUTSIDE RECORDS SUMMARY | 2021-11-18 19:38 | XMS ---
PreManage Notification: KURT NEGRON Security Back Digger Operator Events No recent Security Events currently on file CRITERIA MET - [facility] CARE PROVIDERS [facility] 10/06/2016-Current PHONE: Unknown KEVIN MATOS Physician [employer]: Medical 02/25/2021-Current PHONE: [phone] Angelina has no Care Guidelines for this patient. Marco A VISIT COUNT (12 MO.) 2 [facility] TOTAL 2 NOTE: Visits indicate total known visits. ED/UCC VISIT TRACKING (12 MO.) 11/18/2021 19:36 [facility] TYPE: Emergency COMPLAINT: - CONFUSION 02/24/2021 19:37 [facility] TYPE: Emergency COMPLAINT: - WEAKNESS INPATIENT VISIT TRACKING (12 MO.) 11/03/2021 14:57 [facility] TYPE: Medical Surgical COMPLAINT: - DIABETIC KETOACIDOSIS DIAGNOSES: - Metabolic encephalopathy - Other specified postprocedural states - Urinary tract infection, site not specified - care home (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 - Delirium due to known physiological condition - Acquired absence of other specified parts of digestive tract - Allergy status to sulfonamides - Allergy status to other drugs, medicaments and biological substances - 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 pneumoniae] as the cause of diseases classified elsewhere - Delirium due to known physiological condition - Supraventricular tachycardia - Patient's other noncompliance with medication regimen - Allergy status to sulfonamides - Urinary tract infection, site not specified - Supraventricular tachycardia - Type 2 diabetes mellitus with ketoacidosis without coma - Allergy status to other antibiotic agents - Polycystic ovarian syndrome - Type 2 diabetes mellitus with diabetic polyneuropathy - Allergy status to penicillin - Allergy status to other drugs, medicaments and biological substances - Acute kidney failure, unspecified - Fibromyalgia - moth exterminator (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 - 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 pneumoniae] as the cause of diseases classified elsewhere - Fibromyalgia 02/24/2021 23:30 [facility] TYPE: Medical Surgical COMPLAINT: - PNEUMONIA/COVID DIAGNOSES: - Allergy status to other antibiotic agents - Chronic fatigue, unspecified - Allergy status to sulfonamides - Metabolic encephalopathy - COVID-19 - Allergy status to other drugs, medicaments and biological substances - Type 2 diabetes mellitus with hypoglycemia without coma - Other detention (current) drug therapy - Chronic pain syndrome - Fibromyalgia - care home (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 - Type 2 diabetes mellitus with diabetic neuropathy, unspecified - Acute respiratory failure with hypoxia - Supraventricular tachycardia - Polycystic ovarian syndrome - Allergy status to penicillin - Pneumonia due to SARS-associated coronavirus - Overactive bladder [email or web address]
[2021-11-18] MEDS ORDERED: CEFDINIR300 MG PO (23:52)
== END 2021-11-19 00:20 | disposition home or self-care (01) ==
LOC: ED 19:35
DX: E11.65 Type 2 diabetes mellitus with hyperglycemia (principal); Z91.15 Patient's noncompliance with renal dialysis; N39.0 Urinary tract infection, site not specified; E11.40 Type 2 diabetes mellitus with diabetic neuropathy, unspecified; Z88.0 Allergy status to penicillin; Z88.2 Allergy status to sulfonamides; Z88.1 Allergy status to other antibiotic agents; Z88.8 Allergy status to other drugs, medicaments and biological substances; Z79.899 Other long term (current) drug therapy; Z79.84 Long term (current) use of oral hypoglycemic drugs
CPT/HCPCS: 80053; 81001; 82010; 82803; 85025; 87088; 96365; 96375; 96376; 99284-25; J1815; J7030

== ENCOUNTER 2021-11-19 15:21 | Inpatient (IN) | payer OTHER ==
[~2021-11-19] VITALS: Ht 160 cm; Wt 81.3 kg
[~2021-11-19 15:21] MED LIST changes: +CEFDINIR300 MG PO
--- OUTSIDE RECORDS SUMMARY | 2021-11-19 15:24 | XMS ---
PreManage Notification: KURT NEGRON Security Product Coordinator Events No recent Security Events currently on file CRITERIA MET - [facility] - [facility] - 2 Visits in 30 Days CARE PROVIDERS [facility] Internal Medicine 10/06/2016-Current PHONE: Unknown KEVIN MATOS Physician Post Production Assistant: Medical 02/25/2021-Current PHONE: [phone] Angelina has no Care Guidelines for this patient. EChang VISIT COUNT (12 MO.) [address] [place] [address] TOTAL 3 NOTE: Visits indicate total known visits. ED/UCC VISIT TRACKING (12 MO.) 11/19/2021 15:[address] [facility] TYPE: Emergency COMPLAINT: - ALTERED 11/18/2021 19:36 [facility] TYPE: Emergency COMPLAINT: - CONFUSION 02/24/2021 19:37 [facility] TYPE: Emergency COMPLAINT: - WEAKNESS INPATIENT VISIT TRACKING (12 MO.) 11/03/2021 14:[address] [facility] TYPE: Medical Surgical COMPLAINT: - DIABETIC KETOACIDOSIS DIAGNOSES: - Metabolic encephalopathy - Other specified postprocedural states - Urinary tract infection, site not specified - jail (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 - Delirium due to known physiological condition - Acquired absence of other specified parts of digestive tract - Allergy status to sulfonamides - Allergy status to other drugs, medicaments and biological substances - Other medical terminologist (current) drug therapy - Type 2 diabetes [...] Acute kidney failure, unspecified - Fibromyalgia - jail (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 - Other fdc (current) drug therapy - Klebsiella pneumoniae [K. pneumoniae] as the cause of diseases classified elsewhere - Fibromyalgia 02/24/2021 23:[address] [facility] TYPE: Medical Surgical COMPLAINT: - PNEUMONIA/COVID DIAGNOSES: - Allergy status to other antibiotic agents - Chronic fatigue, unspecified - Allergy status to sulfonamides - Metabolic encephalopathy - COVID-19 - Allergy status to other drugs, medicaments and biological substances - Type 2 diabetes mellitus with hypoglycemia without coma - Other medical terminologist (current) drug therapy - Chronic pain syndrome - Fibromyalgia - jail (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 - Type 2 diabetes mellitus with diabetic neuropathy, unspecified - Acute respiratory failure with hypoxia - Supraventricular tachycardia - Polycystic ovarian syndrome - Allergy status to penicillin - Pneumonia due to SARS-associated coronavirus - Overactive bladder [email or web address]
== END 2021-11-26 17:00 | disposition home health service (06) | DRG 872 ==
LOC: ED 15:21 → MS 15:23
PROVIDERS: ADMIT Internal Medicine; ATTEND Internal Medicine
DX: A41.59 Other Gram-negative sepsis (principal); N39.0 Urinary tract infection, site not specified; E87.1 Hypo-osmolality and hyponatremia; N17.9 Acute kidney failure, unspecified; Z20.822 Contact with and (suspected) exposure to COVID-19; E86.0 Dehydration; K59.00 Constipation, unspecified; B96.1 Klebsiella pneumoniae [K. pneumoniae] as the cause of diseases classified elsewhere; E11.65 Type 2 diabetes mellitus with hyperglycemia; I10 Essential (primary) hypertension; F39 Unspecified mood [affective] disorder; G89.4 Chronic pain syndrome; E11.42 Type 2 diabetes mellitus with diabetic polyneuropathy; Z91.19 Patient's noncompliance with other medical treatment and regimen; Z90.710 Acquired absence of both cervix and uterus; Z88.0 Allergy status to penicillin; Z88.2 Allergy status to sulfonamides; Z88.1 Allergy status to other antibiotic agents; Z88.8 Allergy status to other drugs, medicaments and biological substances; Z79.899 Other long term (current) drug therapy; Z79.4 Long term (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
CPT/HCPCS: 74018; 80048; 80053; 81001; 82010; 82803; 83036; 83605; 83735; 85025; 87040; 96374; 96375; 96376; 97110; 97112; 97116; 97161; 97163; 97530; 99285-25; A9270; C9113; C9803; G0378; J1650; J1815; J2405; J2550; J3475; J3480; J7030; J7060; J7121; U0003

== ENCOUNTER 2021-12-16 19:40 | Emergency (ER) | payer OTHER ==
[~2021-12-16] VITALS: Ht 160 cm; Wt 82.7 kg
[~2021-12-16 19:40] MED LIST changes: +CEFPODOXIME PR200 MG PO
--- OUTSIDE RECORDS SUMMARY | 2021-12-16 19:42 | XMS ---
PreManage Notification: KURT NEGRON Security Publication Director Events No recent Security Events currently on file CRITERIA MET - [facility] - - 2 Visits in 30 Days CARE PROVIDERS [facility] 10/06/2016-Current PHONE: Unknown KEVIN MATOS Physician Offset Label Rewinder: Medical 02/25/2021-Current PHONE: [phone] Angelina has no Care Guidelines for this patient. EChang VISIT COUNT (12 MO.) [address] [place] [address] TOTAL 5 NOTE: Visits indicate total known visits. 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) drug therapy - Type 2 diabetes mellitus with diabetic neuropathy, unspecified - long term care administrator (current) use of oral hypoglycemic drugs 11/19/2021 15:22 [facility] TYPE: Emergency COMPLAINT: - ALTERED LOC 11/18/2021 19:36 [facility] TYPE: Emergency COMPLAINT: - CONFUSION DIAGNOSES: - Other buttermilk drier operator (current) drug therapy - Type 2 diabetes mellitus with diabetic neuropathy, unspecified - Allergy status to other drugs, medicaments and biological substances - Type 2 diabetes mellitus with hyperglycemia - long term care administrator (current) use of oral hypoglycemic drugs - Allergy status to other antibiotic agents - Weakness - Allergy status to sulfonamides - Urinary tract infection, site not specified - Allergy status to penicillin - Patient's noncompliance with renal dialysis 02/24/2021 19:37 [facility] TYPE: Emergency COMPLAINT: - WEAKNESS INPATIENT VISIT TRACKING (12 MO.) 11/19/2021 23:12 [facility] TYPE: Medical Surgical COMPLAINT: - UTI, SIRS, HYPERGLYCEMIA DIAGNOSES: - Allergy status to sulfonamides - Hypo-osmolality and hyponatremia - Type 2 diabetes mellitus with hyperglycemia - Type 2 diabetes mellitus with hyperglycemia - Constipation, unspecified - Allergy status to other drugs, medicaments and biological substances - Acquired absence of both cervix and uterus - Urinary tract infection, site not specified - Allergy status to other antibiotic agents - Essential (primary) hypertension - Constipation, unspecified - snf (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 - Essential (primary) hypertension - Retention of urine, unspecified - Dehydration - Klebsiella pneumoniae [K. pneumoniae] as the cause of diseases classified elsewhere - Type 2 diabetes mellitus with diabetic polyneuropathy - Urinary tract infection, site not specified - Overactive bladder - Allergy status to penicillin - Hypo-osmolality and hyponatremia - Acute kidney failure, unspecified - Other Gram-negative sepsis - Chronic pain syndrome - snf (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 - Dehydration - Other shelter (current) drug therapy - Patient's noncompliance with other medical treatment and regimen - Allergy status to other antibiotic agents - Type 2 diabetes mellitus with diabetic polyneuropathy - Allergy status to penicillin - Allergy status to other drugs, medicaments and biological substances - Unspecified mood [affective] disorder - Allergy status to sulfonamides - Unspecified mood [affective] disorder - Chronic pain syndrome - Acquired absence of both cervix and uterus - Klebsiella pneumoniae [K. pneumoniae] as the cause of diseases classified elsewhere - Other buttermilk drier operator (current) drug therapy - Acute kidney failure, unspecified - Patient's noncompliance with other medical treatment and regimen 11/03/2021 14:57 [facility] TYPE: Medical Surgical COMPLAINT: - DIABETIC KETOACIDOSIS DIAGNOSES: - Metabolic encephalopathy - Other specified postprocedural states - Urinary tract infection, site not specified - snf (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 - Delirium due to known physiological condition - Acquired absence of other specified parts of digestive tract - Allergy status to sulfonamides - Allergy status to other drugs, medicaments and biological substances - Other buttermilk drier operator (current) drug therapy - Type 2 diabetes [...] Acute kidney failure, unspecified - Fibromyalgia - snf (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 - Other buttermilk drier operator (current) drug therapy - Klebsiella pneumoniae [K. [...] mellitus with hypoglycemia without coma - Other shelter (current) drug therapy - Chronic pain syndrome - Fibromyalgia - long term care administrator (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 - Type 2 diabetes mellitus with diabetic neuropathy, unspecified - Acute respiratory failure with hypoxia - Supraventricular tachycardia - Polycystic ovarian syndrome - Allergy status to penicillin - Pneumonia due to SARS-associated coronavirus - Overactive bladder [email or web address]
== END 2021-12-16 22:15 | disposition home or self-care (01) ==
LOC: ED 19:40
DX: R33.9 Retention of urine, unspecified (principal); E11.40 Type 2 diabetes mellitus with diabetic neuropathy, unspecified; Z88.0 Allergy status to penicillin; Z88.2 Allergy status to sulfonamides; Z88.1 Allergy status to other antibiotic agents; Z88.8 Allergy status to other drugs, medicaments and biological substances; Z79.899 Other long term (current) drug therapy; Z79.4 Long term (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; Z79.84 Long term (current) use of oral hypoglycemic drugs
CPT/HCPCS: 51702; 51798; 99283-25

== ENCOUNTER 2022-04-07 15:27 | Emergency (ER) | payer OTHER ==
[~2022-04-07] VITALS: Ht 160 cm; Wt 87.2 kg
--- OUTSIDE RECORDS SUMMARY | 2022-04-07 15:30 | XMS ---
PreManage Notification: KURT NEGRON Security Fur Blower Events No recent Security Events currently on file CRITERIA MET - [facility] CARE PROVIDERS LALA STANFORD Internal Medicine 10/06/2016-Current PHONE: Unknown KEVIN MATOS Physician Dermatologist And Dermatopathologist: Medical 02/25/2021-Current PHONE: [phone] Angelina has no Care Guidelines for this patient. Care History Medical/Surgical 12/17/2021 [facility] - PATIENT UROLOGIST DR ALBERTS NOTIFIED OF ED VISIT- PROVIDED ED CLINICAL FOR REVIEW AND IF FOLLOW UP IS NEEDED. EChang VISIT COUNT (12 [address] 5 [facility] TOTAL 5 NOTE: Visits indicate total known visits. ED/UCC VISIT TRACKING (12 MO.) 04/07/2022 15:28 [facility] [place] TYPE: Emergency COMPLAINT: - DIARRHEA,DISORIENTED 12/16/2021 19:40 [facility] [place] TYPE: Emergency COMPLAINT: - URINE PROBLEM DIAGNOSES: - personal insurance advisor (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 - Allergy status to other antibiotic agents - Retention of urine, unspecified - Type 2 diabetes mellitus with diabetic neuropathy, unspecified - Other groundwater monitoring technician (current) drug therapy - Allergy status to penicillin - Allergy status to sulfonamides - Allergy status to other drugs, medicaments and biological substances - skilled nursing (current) use of oral hypoglycemic drugs 12/01/2021 16:50 [facility] [place] TYPE: Emergency COMPLAINT: - FEVER DIAGNOSES: - Weakness - Allergy status to penicillin - Allergy status to other drugs, medicaments and biological substances - personal insurance advisor (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 - Allergy status to sulfonamides - Allergy status to other antibiotic agents - Fever, unspecified - Contact with and (suspected) exposure to COVID-19 - Other senior care (current) drug therapy - Type 2 diabetes mellitus with diabetic neuropathy, unspecified - skilled nursing (current) use of oral hypoglycemic drugs 11/19/2021 15:22 [facility] [place] TYPE: Emergency COMPLAINT: - ALTERED LOC 11/18/2021 19:36 [facility] [place] TYPE: Emergency COMPLAINT: - CONFUSION DIAGNOSES: - Other groundwater monitoring technician (current) drug therapy - Type 2 diabetes mellitus with diabetic neuropathy, unspecified - Allergy status to other drugs, medicaments and biological substances - Type 2 diabetes mellitus with hyperglycemia - skilled nursing (current) use of oral hypoglycemic drugs - Allergy status to other antibiotic agents - Weakness - Allergy status to sulfonamides - Urinary tract infection, site not specified - Allergy status to penicillin - Patient's noncompliance with renal dialysis INPATIENT VISIT TRACKING (12 MO.) 11/19/2021 23:[address] [facility] [place] TYPE: Medical Surgical COMPLAINT: - UTI, SIRS, HYPERGLYCEMIA DIAGNOSES: - Essential (primary) hypertension - Type 2 diabetes mellitus with hyperglycemia - Type 2 diabetes mellitus with hyperglycemia - Constipation, unspecified - Allergy status to other drugs, medicaments and biological substances - Acquired absence of both cervix and uterus - Urinary tract infection, site not specified - Allergy status to other antibiotic agents - Essential (primary) hypertension - Constipation, unspecified - Allergy status to sulfonamides - Hypo-osmolality and hyponatremia - Retention of urine, unspecified - Dehydration - Klebsiella pneumoniae [K. pneumoniae] as the cause of diseases classified elsewhere - Contact with and (suspected) exposure to COVID-19 - Type 2 diabetes mellitus with diabetic polyneuropathy - Urinary tract infection, site not specified - Overactive bladder - Allergy status to penicillin - Hypo-osmolality and hyponatremia - Unspecified mood [affective] disorder - Other Gram-negative sepsis - Chronic pain syndrome - skilled nursing (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 - Dehydration - Other groundwater monitoring technician (current) drug therapy - Patient's noncompliance with other medical treatment and regimen - Allergy status to other antibiotic agents - Type 2 diabetes mellitus with diabetic polyneuropathy - Allergy status to penicillin - Acute kidney failure, unspecified - Allergy status to other drugs, medicaments and biological substances - Allergy status to sulfonamides - Unspecified mood [affective] disorder - Chronic pain syndrome - Acquired absence of both cervix and uterus - Klebsiella pneumoniae [K. pneumoniae] as the cause of diseases classified elsewhere - Other groundwater monitoring technician (current) drug therapy - Acute kidney failure, unspecified - Patient's noncompliance with other medical treatment and regimen - personal insurance advisor (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 11/03/2021 14:[address] [facility] [place] TYPE: Medical Surgical COMPLAINT: - DIABETIC KETOACIDOSIS DIAGNOSES: - Metabolic encephalopathy - Acquired absence of both cervix and uterus - Other specified postprocedural states - Urinary tract infection, site not specified - personal insurance advisor (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 - Delirium due to known physiological condition - Acquired absence of other specified parts of digestive tract - Allergy status to sulfonamides - Allergy status to other drugs, medicaments and biological substances - Other senior care (current) drug therapy - Type 2 diabetes mellitus with diabetic polyneuropathy - Fibromyalgia - Allergy status to other antibiotic agents [...] 2 diabetes mellitus with diabetic polyneuropathy - Personal history of COVID-19 - Allergy status to penicillin - Allergy status to other drugs, medicaments and biological substances - Acute kidney failure, unspecified - Fibromyalgia - personal insurance advisor (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 - Other senior care (current) drug therapy - Klebsiella pneumoniae [K. pneumoniae] as the cause of diseases classified elsewhere - Contact with and (suspected) exposure to COVID-19 [email or web address]
[2022-04-07] MEDS ORDERED: ONDANSETRON ODT8 MG PO (19:26)
== END 2022-04-07 20:15 | disposition home or self-care (01) ==
LOC: ED 15:27
DX: R19.7 Diarrhea, unspecified (principal); E86.0 Dehydration; E87.6 Hypokalemia; E83.42 Hypomagnesemia; E11.42 Type 2 diabetes mellitus with diabetic polyneuropathy; Z79.4 Long term (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; Z79.899 Other long term (current) drug therapy; Z88.1 Allergy status to other antibiotic agents; Z88.2 Allergy status to sulfonamides; Z88.8 Allergy status to other drugs, medicaments and biological substances
CPT/HCPCS: 36415; 80053; 81001; 83735; 85025; 85060; 96361; 96365; 99284-25; A9270; J3475; J7030; J7121

== ENCOUNTER 2022-11-06 17:03 | Inpatient (IN) | payer OTHER ==
[~2022-11-06] VITALS: Ht 160 cm; Wt 79.6 kg
[~2022-11-06 17:03] MED LIST changes: +CIPRO500 MG PO; +ONDANSETRON ODT8 MG PO; +PRILOSEC OTC20 MG PO
--- OUTSIDE RECORDS SUMMARY | 2022-11-06 17:04 | XMS ---
PreManage Notification: KURT NEGRON Security Client Services Assistant Events No recent Security Events currently on file CRITERIA MET - [facility] CARE PROVIDERS LALA STANFORD Internal Medicine 10/06/2016-Current PHONE: Unknown KEVIN MATOS Physician Title I Director: Medical 02/25/2021-Current PHONE: [phone] Angelina has no Care Guidelines for this patient. Care History Medical/Surgical 12/17/2021 [facility] - PATIENT UROLOGIST DR ALBERTS NOTIFIED OF ED VISIT- PROVIDED ED CLINICAL FOR REVIEW AND IF FOLLOW UP IS NEEDED. EChang VISIT COUNT (12 MO.) 6 [facility] TOTAL 6 NOTE: Visits indicate total known visits. ED/UCC VISIT TRACKING (12 MO.) 11/06/2022 17:03 [facility] [place] TYPE: Emergency COMPLAINT: - ALTERED MENTAL STATUS 04/07/2022 15:28 [facility] [place] TYPE: Emergency COMPLAINT: - DIARRHEA,DISORIENTED DIAGNOSES: - terminal carman (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 - Type 2 diabetes mellitus with diabetic polyneuropathy - Other termite control servicer (current) drug therapy - Allergy status to sulfonamides - Hypomagnesemia - Allergy status to other antibiotic agents - Diarrhea, unspecified - Dehydration - Hypokalemia - Allergy status to other drugs, medicaments and biological substances 12/16/2021 19:40 [facility] [place] TYPE: Emergency COMPLAINT: - URINE PROBLEM DIAGNOSES: - Other usp (current) drug therapy - Retention of urine, unspecified - terminal carman (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 - Allergy status to other drugs, medicaments and biological substances - Allergy status to penicillin - Type 2 diabetes mellitus with diabetic neuropathy, unspecified - Allergy status to other antibiotic agents - terminal carman (current) use of oral hypoglycemic drugs - Allergy status to sulfonamides 12/01/2021 16:50 [facility] [place] TYPE: Emergency COMPLAINT: - FEVER DIAGNOSES: - Allergy status to sulfonamides - Allergy status to other drugs, medicaments and biological substances - Type 2 diabetes mellitus with diabetic neuropathy, unspecified - Weakness - Contact with and (suspected) exposure to COVID-19 - Allergy status to other antibiotic agents - terminal carman (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 - terminal carman (current) use of oral hypoglycemic drugs - Allergy status to penicillin - Other usp (current) drug therapy - Fever, unspecified 11/19/2021 15:22 [facility] [place] TYPE: Emergency COMPLAINT: - ALTERED LOC 11/18/2021 19:36 [facility] [place] TYPE: Emergency COMPLAINT: - CONFUSION DIAGNOSES: - terminal carman (current) use of oral hypoglycemic drugs - Allergy status to other drugs, medicaments and biological substances - Allergy status to penicillin - Other termite control servicer (current) drug therapy - Allergy status to sulfonamides - Allergy status to other antibiotic agents - Type 2 diabetes mellitus with hyperglycemia - Patient's noncompliance with renal dialysis - Type 2 diabetes mellitus with diabetic neuropathy, unspecified - Urinary tract infection, site not specified - Weakness INPATIENT VISIT TRACKING (12 MO.) 11/19/2021 23:12 [facility] [place] TYPE: Medical Surgical COMPLAINT: - UTI, SIRS, HYPERGLYCEMIA DIAGNOSES: - Essential (primary) hypertension - Unspecified mood [affective] disorder - terminal carman (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 - Contact with and (suspected) exposure to COVID-19 - Dehydration - Urinary tract infection, site not specified - Unspecified mood [affective] disorder - Acute kidney failure, unspecified - Dehydration - Chronic pain syndrome - Allergy status to other drugs, medicaments and biological substances - Hypo-osmolality and hyponatremia - Allergy status to penicillin - Klebsiella pneumoniae [K. pneumoniae] as the cause of diseases classified elsewhere - Essential (primary) hypertension - Allergy status to other drugs, medicaments and biological substances - Type 2 diabetes mellitus with hyperglycemia - Overactive bladder - Allergy status to other antibiotic agents - Constipation, unspecified - Chronic pain syndrome - Hypo-osmolality and hyponatremia - Type 2 diabetes mellitus with diabetic polyneuropathy - Other usp (current) drug therapy - Allergy status to other antibiotic agents - Allergy status to sulfonamides - Patient's noncompliance with other medical treatment and regimen - Klebsiella pneumoniae [K. pneumoniae] as the cause of diseases classified elsewhere - halfway (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 - Acquired absence of both cervix and uterus - Acute kidney failure, unspecified - Other termite control servicer (current) drug therapy - Retention of urine, unspecified - Other Gram-negative sepsis - Constipation, unspecified - Allergy status to penicillin - Type 2 diabetes mellitus with diabetic polyneuropathy - Acquired absence of both cervix and uterus - Allergy status to sulfonamides - Type 2 diabetes mellitus with hyperglycemia - Urinary tract infection, site not specified - Patient's noncompliance with other medical treatment and regimen [email or web address]
--- NOTE | 2022-11-06 23:54 | NUR ---
ASSESSMENT COMPLETED. PT UP TO BSC WITH HEAVY 2-3 PA. PT DISORIENTED TO ALL. PT TRIES TO PULL OUT IVs. RIGHT HAND IV WRAPPED WITH SASKIA WRAP AND COBAN, IV FLUIDS INFUSING PER ORDER. PT SPOUSE AT BEDSIDE AND HELPS CALM PT WHEN SHE IS TRYING TO GET OUT OF BED. SCHEDULED MEDS PROVIDED. WATER PROVIDED TO SPOUSE. RAILS UP, BED ALARM ON, SPOUSE HAS CALL LIGHT.
--- NOTE | 2022-11-07 02:02 | NUR ---
SCHEDULED MEDS PROVIDED. PT TOLERATED GOOD. DROWSY. SPOUSE AT BEDSIDE. RAILS UP, BED ALARM ON.
--- NOTE | 2022-11-07 04:46 | NUR ---
CBG 144, NO INSULIN REQUIRED. VS AND I&O COMPLETED. SNACKS FOR SPOUSE PROVIDED. PT DROWSY BUT REACTS TO STIMULI THEN GOES BACK TO SLEEP. ASSESSMENT COMPLETED. NO OTHER NEEDS. CALL LIGHT IN REACH.
--- NOTE | 2022-11-07 06:22 | NUR ---
SCHEDULED MEDS PROVIDED. NO OTHER NEEDS. CALL LIGHT IN REACH.
[2022-11-07] MEDS ORDERED: INSULIN GL100 UNIT/1 SUB-Q (07:33)
[2022-11-07] MEDS ORDERED: TRULICITY1.5 MG/0.5 SUB-Q (07:35)
[2022-11-07] MEDS ORDERED: DULOXETINE HCL60 MG PO (07:37)
[2022-11-07] MEDS ORDERED: OMEPRAZOLE20 MG PO (07:38)
[2022-11-07] MEDS ORDERED: ONDANSETRON ODT4 MG PO (07:39)
[2022-11-07] MEDS ORDERED: METOPROLOL SUCC50 MG PO (07:39)
[2022-11-07] MEDS ORDERED: TAMSULOSIN HCL0.4 MG PO (07:40)
--- NOTE | 2022-11-07 07:47 | NUR ---
PATIENT RESTING IN BED, NO DISTRESS. PATIENT IS ON ROOM AIR, RESPIRATIONS EVEN AND NON LABORED. AT BEDSIDE. NO CURRENT NEEDS, PERSONAL SUPPLIES AND CALL LIGHT WITHIN REACH.
--- NOTE | 2022-11-07 08:48 | NUR ---
MORNING MEDICATIONS ADMIN AT THIS TIME. PATIENT AROUSABLE TO SOFT TOUCH, SHE RETURNS TO SLEEP VERY QUICKLY, REPORTS SHE HAD A LONG NIGHT AND IS TIRED. PATIENT'S IV SITE PATENT. NO CURRENT NEEDS. BED ALARM INTACT, CALL LIGHT WITHIN REACH.
--- NOTE | 2022-11-07 12:16 | NUR ---
PATIENT RESTING IN BED, EYES CLOSED, RESPIRATIONS EVEN AND NON LABORED. PATIENT HAS NO NOTABLE DISTRESS. REMAINS AT BEDSIDE. NO CURRENT NEEDS, PERSONAL SUPPLIES AND CALL LIGHT WITHIN REACH.
--- NOTE | 2022-11-07 19:28 | NUR ---
REPORT RECEIVED FROM DAY SHIFT RN. PT WITH EYES CLOSED, WAKENS EASILY. DENIES NEEDS. AT BEDSIDE. WHITE BOARD UPDATED. CALL LIGHT IN REACH. BED ALARM FOR SAFETY.
--- NOTE | 2022-11-07 21:30 | NUR ---
EVENING ASSESSMENT COMPLETE. SCHEDULED MEDS ADMIN PER ORDER. PT A&O X 4. ANSWERS ALL QUESTIONS APPROPRIATELY. ABLE TO PARTICIPATE IN CARES. DENIES PAIN OR NAUSEA. INCONTINENT OF LIQUID BM AND URINE. STAFF ASSIST WITH ANTONELLA CARE. ANTONELLA AREA EXCORIATED. BARRIER CREAM APPLIED. PT ABLE TO REPOSITION SELF IN BED. AT BEDSIDE. BED ALARM FOR SAFETY. CALL LIGHT IN REACH.
--- NOTE | 2022-11-07 23:46 | NUR ---
CALL LIGHT ANSWERED. PT UP TO BSC WITH FWW AND 1PA TO HAVE LIQUID BM. PT ALSO INCONTINENT OF BM. STAFF ASSIST WITH ANTONELLA CARE. BACK TO BED, CALOS WELL. NO FURTHER NEEDS. BED ALARM FOR SAFETY.
--- NOTE | 2022-11-08 01:09 | NUR ---
CALL LIGHT ANSWERED. PT INCONTINENT OF LOOSE BM. STAFF ASSIST WITH ANTONELLA CARE. ANTONELLA AREA EXCORIATED. BARRIER WIPES USED. CLEAN BRIEF IN PLACE. PT ABLE TO REPOSITION SELF IN BED. NO FURTHER NEEDS.
--- NOTE | 2022-11-08 04:28 | NUR ---
PT RESTING IN BED WITH EYES CLOSED. RESPIRATIONS EVEN. CALL LIGHT IN REACH. BED ALARM FOR SAFETY.
--- NOTE | 2022-11-08 06:15 | NUR ---
VS AND I&O COMPLETE. PT INCONTINENT OF LIQUID BM. ANTONELLA CARE DONE AND CLEAN BRIEF IN PLACE. BARRIER CREAM APPLIED. PT ABLE TO REPOSITION SELF. REMAINS ALERT AND ORIENTED. BED ALARM FOR SAFETY. CALL LIGHT IN REACH.
--- NOTE | 2022-11-08 06:59 | NUR ---
DR. PECK UPDATED ON PT LOOSE BM AND EXCORIATED ANTONELLA AREA. NEW TELEPHONE ORDERS RECEIVED VERIFIED WITH READBACK METHOD.
--- NOTE | 2022-11-08 07:36 | NUR ---
PT CALLED THAT SHE HAD POOPED HERSELF. PT ABLE TO ROLL HERSELF IN BED. APPLIED BARRIER CREAM TO ANTONELLA AREA FOR EXCORIATION.
--- NOTE | 2022-11-08 08:04 | NUR ---
CHECKED ON PATIENT. IN ROOM, WE MADE A PLAN FOR A SHOWER LATER TODAY. NO NEEDS AT THIS TIME. CALL LIGHT IN ROOM.
--- NOTE | 2022-11-08 08:25 | NUR ---
PT IN BED, ON PHONE LOOKING FOR CAREGIVER INFORMATION. PT STATES SHE NEEDS SOME ASSISTANCE AT HOME BUT PLANS TO GO HOME AGAIN WITH .
[2022-11-08] MEDS ORDERED: INSULIN LI100 UNIT/1 SUB-Q (10:30)
--- NOTE | 2022-11-08 10:31 | NUR ---
MED REC COMPLETE
--- NOTE | 2022-11-08 10:48 | NUR ---
PT ACCIDENTALLY PULLED IV WHEN GETTING UP TO BSC. PLACED NEW IV ON LEFT WRIST. PT TOLERATED WELL. IN ROOM AND ATTENTIVE.
--- NOTE | 2022-11-08 14:26 | NUR ---
STARTED AB. IV FLUSHED WELL. PT TALKATIVE, IN ROOM.
--- NOTE | 2022-11-08 17:20 | NUR ---
PT EATING DINNER TALKING WITH . STATES HER IV IS UNCOMFORTABLE. WRAPPED IT IN COBAN TO SECURE THE SITE BETTER.
--- NOTE | 2022-11-08 18:29 | EKG ---
[facility] [address] [place] [address] Signed Sinus tachycardia Left axis deviation Left ventricular hypertrophy with repolarization abnormality ( R in aVL , Trail product ) Possible Lateral infarct (cited on or before 01-NOV-2021) Inferior infarct (cited on or before 01-NOV-2021) Abnormal ECG When compared with ECG of 02-NOV-2022 16:03, No significant change was found Confirmed by DAVID PECK MD ([id number]) on 11/08/2022 6:28:53 PM Electronically Signed By: DAVID PECK MD 11/08/22 1829 PATIENT NAME: KURT NEGRON Electrocardiogram DATE OF : 62 PHYSICIAN: DAVID PECK MD REPORT #: [id number] REPORT IS CONFIDENTIAL AND NOT TO BE RELEASED WITHOUT AUTHORIZATION
--- NOTE | 2022-11-08 19:43 | NUR ---
REPORT RECEIVED FROM DAY SHIFT RN. PT LYING IN BED ALERT AND ORIENTED. DENIES NEEDS. WHITE BOARD UPDATED. CALL LIGHT IN REACH.
--- NOTE | 2022-11-08 22:15 | NUR ---
EVENING ASSESSMENT COMPLETE. SCHEDULED MEDS ADMIN PER EMAR. PT DENIES PAIN OR NAUSEA. IV ABX INFUSING WNL. PRN ADMIN FOR DIARRHEA. PT ANTONELLA AREA EXCORIATED. CREME APPLIED PER ORDER. PT ABLE TO REPOSITION SELF IN BED. DENIES QUESTIONS OR CONCERNS. AT BEDSIDE. CALL LIGHT IN REACH. BED ALARM FOR SAFETY.
--- NOTE | 2022-11-09 00:47 | NUR ---
PT LYING IN BED TALKING TO . NO NEEDS. BED ALARM FOR SAFETY.
--- NOTE | 2022-11-09 03:52 | NUR ---
PT RESTING IN BED WITH EYES CLOSED. RESPIRATIONS EVEN. CALL LIGHT IN REACH. BED ALARM FOR SAFETY.
--- NOTE | 2022-11-09 05:08 | NUR ---
PT UP TO BR WITH SBA TO VOID AND HAVE LOOSE BM. INCONTINENT OF SMALL AMOUNT BM ALSO. CLEAN ATTENDS IN PLACE. ASSESSMENT COMPLETE. PT REPORTS SHE SLEPT WELL. DENIES NEEDS AT THIS TIME. BED ALARM IN PLACE.
--- NOTE | 2022-11-09 07:14 | NUR ---
REPORT FROM SALVAGE MACHINE OPERATOR.
--- NOTE | 2022-11-09 07:52 | NUR ---
MORNING ASSESSMENT IS COMPLETE. PATIENT BG IS 149 WITH NO SS INSULIN NEEDED. AM METFORMIN GIVEN. PATIENT IS SITTING UP IN BED, IS IN ROOM. PATIENT DENIES PAIN OR NAUSEA. PATIENT IS ORIENTED NEAR TO BASELINE, PER .
--- NOTE | 2022-11-09 08:06 | NUR ---
HAS RESOURCE LIST AND IS AWAITING TO HEAR BACK FROM [place] REGARDING MORE HELP AT HOME.
--- NOTE | 2022-11-09 08:20 | NUR ---
DR. PECK IN TO SEE PATIENT, WILL RE-EVALUATE FOR DISCHARGE TOMORROW.
--- NOTE | 2022-11-09 09:19 | NUR ---
PATIENT ATE 100% OF BREAKFAST. 5UNITS OF NOVOLOG WITH MEALS GIVEN TO RIGHT ARM. PATIENT CHERIE OTHER NEEDS AT THIS TIME.
--- NOTE | 2022-11-09 10:05 | NUR ---
PATIENT IS UP AMBULATING IN THE HALLWAY WITH PHYSICAL THERAPY.
--- NOTE | 2022-11-09 10:45 | NUR ---
Spoke with pt and her spouse. He is calling [facility], [facility], [facility] resources attempting to find assistance for pt when she discharges. Pt has been in the hospital several times and we have discussed with the spouse need for a cg and he has never taken this advice. He is a bobbin trucker and is gone from Tuesday evening through Tuesday afternoon. Pt lives downs stairs from spouse exwife. In the past they have attempted to help this pt, but she requires more assistance than they can provide. Juliocesar will call [employer] and plans on paying for a cg. Pt would like on dc and Dr. Adam notified in [phone] report. He will have PT evaluate this pt.
--- NOTE | 2022-11-09 12:31 | NUR ---
PATIENT GIVEN 5 UNITS SCHEDULED INSULIN AND 3 UNITS PER SLIDING SCALE. PATIENT ATE 100% OF HER LUNCH. NO OTHER NEEDS NOTED AT THIS TIME
--- NOTE | 2022-11-09 14:23 | NUR ---
PATIENT IS RESTING IN BED. IV ABX INFUSING FOR 30 MINUTES.
--- NOTE | 2022-11-09 15:42 | NUR ---
Will update Dr. Mckeon in AM and remind him pt would like to have HH on dc.
--- NOTE | 2022-11-09 17:10 | NUR ---
PATIENT IS HAVING DINNER, P.O. MEDS GIVEN. BLOOD GLUCOSE IS 234 AND REQUIRES 6 UNITS PER SLIDING SCALE + 5 UNITS WITH MEALS. PATIENT REMAINS ORIENTED THROUGHOUT THE DAY.
--- NOTE | 2022-11-09 19:24 | NUR ---
REPORT RECEIVED FROM DAY SHIFT RN. PT LYING IN BED ALERT AND ORIENTED. DENIES NEEDS. AT BEDSIDE. WHITE BOARD UPDATED. CALL LIGHT IN REACH.
--- NOTE | 2022-11-09 22:34 | NUR ---
EVENING ASSESSMENT COMPLETE. SCHEDULED MEDS ADMIN PER EMAR. PT DENIES PAIN OR NAUSEA. IV ABX INFUSING WNL. VS WNL. SLIDING SCALE INSULIN PROVIDED PER ORDER. PT UP TO BR WITH SBA TO VOID AND HAVE SOFT BM. AT BEDSIDE. PT DENIES QUESTIONS OR CONCERNS. CALL LIGHT IN REACH.
--- NOTE | 2022-11-10 00:30 | NUR ---
BED ALARM SOUNDING. PT INCONTINENT OF LIQUID BM. UP TO BR WITH SBA AND FWW. STAFF ASSIST WITH ANTONELLA CARE. DESITIN USED ON EXCORIATED ANTONELLA AREA. BACK TO BED. BED ALARM FOR SAFETY.
--- NOTE | 2022-11-10 02:45 | NUR ---
BED ALARMING. THIS SHAPING MACHINE OPERATOR AND PRIMARY RN DIANDRA WENT IN TO THE ROOM. PATIENT SEE STANDING READY TO GO TO THE BATHROOM WITH BM ON HER PULL UPS. PATIENT STILL HAVE BM IN THE TOILET. THIS SHAPING MACHINE OPERATOR ASSISTED CLEAN/ ANTONELLA CARE. FRESH PULL UP ON AND FRESH GOWN. PATIENT IS BACK IN BED. BED ALARM ON FOR SAFETY. REMINDED PATIENT TO PUSH THE CALL NURSE BUTTON FOR HELP. PATIENT UNDERSTOOD. LAYING IN THE COUCH AWAKE.
--- NOTE | 2022-11-10 04:31 | NUR ---
CALL LIGHT ANSWERED. PT UP TO BR WITH SBA AND FWW TO VOID. BACK TO BED, CALOS WELL. VS AND I&O WNL. NO FURTHER NEEDS. BED ALARM FOR SAFETY. CALL LIGHT IN REACH.
--- NOTE | 2022-11-10 06:00 | NUR ---
PT RESTING WITH EYES CLOSED. AWAKENS EASILY. SCHEDULED MEDS ADMIN. IV ABX INFUSING WNL. NO NEEDS AT THIS TIME. BED ALARM FOR SAFETY.
--- NOTE | 2022-11-10 07:14 | NUR ---
REPORT RECEIVED FROM DIANDRA WARNER, ALL QUESTIONS ANSWERED.
--- NOTE | 2022-11-10 07:19 | NUR ---
PT LAYING IN BED. SITTING IN CHAIR. BED ALARM SET. PT PROVIDED NEW ICE WATER. PT REQ TWO ICE CUPS SO THOSE WERE PROVIDED WELL. PT HAD NO FURTHER NEEDS. CALL LIGHT WITHIN REACH
--- NOTE | 2022-11-10 07:35 | NUR ---
PT IN BED. BS TAKEN. NO FURTHER NEEDS. CALL LIGHT WITHIN REACH
--- NOTE | 2022-11-10 08:20 | NUR ---
INTO ROOM, PATIENT LAYING IN BED. PATIENT STATES SHE IS FEELING BETTER. NO NEEDS OR CONCERNS REGARDING DISCHARGE AT THIS TIME.
--- NOTE | 2022-11-10 08:59 | NUR ---
MORNING ASSESSMENT COMPLETE. PT SITTIN GUP IN BED EATING BREAKFAST. PT DENIES PAIN AT THIS TIME. ALERT AND ORIENTED X4. DENIES NEEDS AT THIS TIME. AT BEDSIDE. CALL LIGHT IN REACH. BED ALARM ON.
--- NOTE | 2022-11-10 09:13 | NUR ---
PT CALLED TO USE RESTROOM. STOOD IN ROOM WHILE SHE AMBULATED TO RESTROOM AND BACK. SPOKE TO REGARDING THEM LOOKING FOR A CAREGIVER. STATES HE HAS TALKED TO A FEW PEOPLE BUT NO LUCK SO FAR.
--- NOTE | 2022-11-10 09:41 | NUR ---
PT IN BED. VITALS AND IS AND OS COMPLETE. PT ASSISTED UP TO BATHROOM SBA. PT GIVEN FRESH ICE WATER. PT ASSITSED BACK TO BED. BED ALARM SET. NO FURTHER NEEDS. CALL LIGHT WITHIN REACH
--- NOTE | 2022-11-10 14:06 | NUR ---
PT AWAKE IN BED WATCHING TV. DENIES NEEDS AT THIS TIME. CALL LIGHT IN REACH. BED ALARM ON.
--- NOTE | 2022-11-10 15:22 | NUR ---
PT UP WALKING [place] WITH PHYSICAL THERAPY.
--- NOTE | 2022-11-10 17:28 | NUR ---
pt in bed. vitals and is and os complete. no further needs at this time. call light within reach
--- NOTE | 2022-11-10 19:39 | NUR ---
Received bedside report from day nurse. Pt. AOx4, NAD, no c/o. at bedside. Will continue to follow POC.
--- NOTE | 2022-11-10 20:58 | NUR ---
CALL LIGHT ANSWERED, PT REPORTS STOOL INCONTINENCE. PT UP TO BR WITH SBA AND FWW, CONTINUES TO HAVE DIARRHEA. RN ASSISTED WITH PERICARE AND APPLIED DESITIN CREAM. NEW ATTENDS IN PLACE AND PT IS BACK IN BED. CALL LIGHT IN REACH.
--- NOTE | 2022-11-11 06:15 | NUR ---
PT. TOLERATED ALL MEDS AND PROCEDURES THIS SHIFT. NO ACUTE OVERNIGHT EVENTS. WILL CONTINUE TO FOLLOW POC.
--- NOTE | 2022-11-11 07:21 | NUR ---
REPORT RECEIVED FROM GRAIN SHIPPER RN, CARLITOS. ALL QUESTIONS ANSWERED. PT RESTING QUIETLY IN BED WITH EYES CLOSED, RESPIRATIONS EVEN AND UNLABORED. AT BEDSIDE. CALL LIGHT IN REACH AND BED ALARM ON.
--- NOTE | 2022-11-11 09:10 | NUR ---
MORNING ASSESSMENT COMPLETE. PT SITTING UP IN BED EATING BREAKFAST. ALERT AND ORIENTED. DENIES NEEDS AT THIS TIME. CALL LIGHT IN REACH.
--- NOTE | 2022-11-11 09:30 | NUR ---
Pt discussed in IDT. May dc later today or tomorrow depending on how she tolerates her po antibiotic.
--- NOTE | 2022-11-11 10:04 | NUR ---
PT ASSISTED TO RESTROOM AND BACK TO BED. PT DENIES NEEDS AT THIS TIME. CALL LIGHT IN REACH
--- NOTE | 2022-11-11 10:21 | NUR ---
PT UP WALKING THE UNIT WITH PHYSICAL THERAPY
--- NOTE | 2022-11-11 11:50 | NUR ---
EXCELSIOR CUTTER REPORTED BLOOD GLUCOSE OF 73, PT GIVEN 15G CARB SNACK. LUNCH TO BE DELIVERED SOON. MD AWARE. INSULIN HELD. WILL CONTINUE WITH PLAN OF CARE.
--- NOTE | 2022-11-11 12:11 | NUR ---
PT AWAKE IN BED, APPEARS IN PAIN, GRIMACING, MOANING WITH MOVEMENT FOR TURN. PT GIVEN PRN TYLENOL. DAUGHTERS AT BEDSIDE. CALL LIGHT IN REACH.
--- NOTE | 2022-11-11 12:52 | NUR ---
BLOOD GLUCOSE RECHECK, 113. PT ALERT AND AWAKE WATCHIGN TV. FINISHED 90% MEAL. DENIES NEEDS AT THIS TIME. CALL LIGHT IN REACH.
--- NOTE | 2022-11-11 13:00 | NUR ---
Spoke with pt and spouse. They have hired a cg from [employer]. She will assist pt with taking meds, insulin, and meals. Both believe she will dc later today.
[2022-11-11] MEDS ORDERED: CEFPODOXIME PR200 MG PO (14:59)
== END 2022-11-11 16:55 | disposition home or self-care (01) | DRG 637 ==
LOC: ED 17:03 → MS 20:35
PROVIDERS: ADMIT Internal Medicine; ATTEND Family Medicine
DX: E11.00 Type 2 diabetes mellitus with hyperosmolarity without nonketotic hyperglycemic-hyperosmolar coma (NKHHC) (principal); G93.41 Metabolic encephalopathy; N30.00 Acute cystitis without hematuria; Z20.822 Contact with and (suspected) exposure to COVID-19; K21.9 Gastro-esophageal reflux disease without esophagitis; M79.7 Fibromyalgia; F39 Unspecified mood [affective] disorder; Z90.49 Acquired absence of other specified parts of digestive tract; Z90.710 Acquired absence of both cervix and uterus; Z88.0 Allergy status to penicillin; Z88.1 Allergy status to other antibiotic agents; Z88.2 Allergy status to sulfonamides; Z88.8 Allergy status to other drugs, medicaments and biological substances; Z79.2 Long term (current) use of antibiotics; Z79.4 Long term (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; Z79.899 Other long term (current) drug therapy
CPT/HCPCS: 36415; 71045; 80048; 80053; 81001; 83036; 83605; 83735; 85025; 87040; 87088; 87502; 93005; 93010; 97162; A9270; C9113; C9803; J1650; J1815; J2060; J2250; J3475; J3480; J3486; J3490; J7030; J7120; J7121; U0003

== ENCOUNTER 2022-11-17 06:53 | Day surgery (SDC) | payer OTHER ==
[~2022-11-17] VITALS: Ht 160 cm; Wt 86.8 kg
[~2022-11-17 06:53] MED LIST changes: +DULOXETINE HCL60 MG PO; +INSULIN GL100 UNIT/1 SUB-Q; +INSULIN LI100 UNIT/1 SUB-Q; +METOPROLOL SUCC50 MG PO; +ONDANSETRON ODT4 MG PO; +PYRIDIUM200 MG PO; +TAMSULOSIN HCL0.4 MG PO; +TRULICITY1.5 MG/0.5 SUB-Q
--- NOTE | 2022-11-17 09:40 | NUR ---
11/17/22 0940 Aure High 0918 PT ARRIVED IN PACU SLEEPY WITH NO C/O'S. ABD SOFT AND PASSING FLATUS. 0930 RESTING. REU.
--- NOTE | 2022-11-18 06:51 | OR ---
[facility] [address] [place], [place] [address] Signed DATE OF OPERATION: 11/17/2022 SURGEON: Yandel Santillan MD PREOPERATIVE DIAGNOSES: 1. Maternal aunt with colon cancer. 2. Chronic constipation, diarrhea and intermittent rectal bleeding. 3. Hyperplastic polyp in 2015 at age 54. 4. Unspecified mass right colon September [address] scan. 5. 130- pound weight loss. POSTOPERATIVE DIAGNOSES: 1. 4 mm polyp on ileocecal valve. 2. 4 mm polyp at 4 cm (rectum). 3. Minimal internal hemorrhoids. 4. No mass in right colon. 5. Long redundant colon. PROCEDURE: Colonoscopy with hot biopsy. ESTIMATED BLOOD LOSS: None. INDICATIONS: Sandy is a 61-year-old obese diabetic female, who was asked to see me for a colonoscopy. I actually helped her in 2014 at the age of 54. At that time, she had a small hyperplastic polyp removed. We know her maternal aunt had colon cancer. Sandy has a long history of alternating constipation and diarrhea with intermittent rectal bleeding. She told me she had a colonoscopy many years ago while living in [place]. She said that hospital is now close. She always requires monitored anesthesia care based on her medical history and her body habitus. We had asked her to follow up in 5 years due to her family history. However, the COVID pandemic interrupted that schedule. She had undergone a CT scan of the abdomen and pelvis back in September 2022 at [facility] in [place], [place]. The radiologist describes a rather large area from the cecum up to the hepatic flexure concerning for a tumor. She also told me she has lost 130 pounds but thought she gained 30 pounds back. She is not able to give me much insight into herself or her medical history. She said she has been eating fine and having good bowel movements. Her is a long-hole digger truck driver and has gone much of the time. Unfortunately Sandy has demonstrated significant medical noncompliance. Electronically Signed By: YANDEL SANTILLAN MD 11/18/22 0651 PATIENT NAME: SANDY NEGRON OPERATIVE REPORT DATE OF : 62 REPORT #: [id number] PHYSICIAN: YANDEL SANTILLAN MD PCP: KAVITHA CARRERA NP REPORT IS CONFIDENTIAL AND NOT TO BE RELEASED WITHOUT AUTHORIZATION [facility] [address] [place], [place] [address] Signed She was scheduled to have her colonoscopy, but ended up getting canceled because her blood sugars were over 500. In the meantime, she had to be admitted to the hospital with a recurrent urinary tract infection and mental status changes and hyperglycemia. She apparently had a prescription for clindamycin from her urologist, but never finished it. She has an enormous list of medical allergies. She had to be on IV aztreonam. She had been sent home on cefpodoxime to complete a 10 day course. She used the cefpodoxime while in the hospital and did fine. In the meantime, she has been working with her primary care provider. Also, she has been instructed to continue follow up with her project drilling engineer, Dr. Gareth Morelos who is in [place], [place]. At the time of discharge, arrangements were made by our case management to have the family and go help increase her care at home. That appears to be working out well for her. She presents today then for her colonoscopy, particularly with respect to the unspecified mass in the right colon. In the office, I had met with Sandy and I had given her a pamphlet on colonoscopy. We had reviewed the nature of the test. There is risk including, but not limited to gas bloating, crampy abdominal pain, bleeding, perforation requiring surgery, and missed diagnosis. Given her medical complexity and her body habitus, she clearly needs monitored anesthesia care with propofol infusion. She had expressed understanding and wished to proceed. PROCEDURE NOTE: Sandy was taken into our endoscopy suite and placed in the left lateral decubitus position. We found her blood sugars were under much better control. She was given monitored anesthesia care with propofol infusion per our nurse ict trainer. A digital rectal exam was performed and this was unremarkable. She had good sphincter tone. No external hemorrhoids. There were no masses. The adult colonoscope had been inserted and advanced carefully under direct visualization of camera without difficulty. It took a little extra propofol and some abdominal compression in order to advance the scope through her somewhat long redundant colon into the cecum itself. Her prep was quite good. We could easily see the appendiceal orifice and the ileocecal valve. The scope was then slowly withdrawn. We took pictures throughout for photodocumentation. She has a moderately prominent ileocecal valve. We looked at it very carefully. There was a small polypoid lesion on the ileocecal valve about 4 mm in diameter. We removed and destroyed completely with the hot biopsy forceps for pathologic review. We spent a prolonged amount of time looking behind every fold throughout the entire right colon several times. We could not find any evidence of a mass or intussusception of the ileocecal valve. Hepatic flexure, transverse colon, and left colon were unremarkable. The rectum was unremarkable. We found just a tiny 4 mm polyp at 4 cm in the distal rectum. It was easily removed with the help of hot biopsy forceps. We did not specifically see any diverticulosis. Upon retroflexion of the scope, she has minimal internal hemorrhoid columns. After this, the gas was suctioned out and the colonoscope removed. Sandy tolerated the procedure quite well. Electronically Signed By: YANDEL SANTILLAN MD 11/18/22 0651 PATIENT NAME: SANDY NEGRON OPERATIVE REPORT DATE OF : 62 REPORT #: [id number] PHYSICIAN: YANDEL SANTILLAN MD PCP: KAVITHA CARRERA NP REPORT IS CONFIDENTIAL AND NOT TO BE RELEASED WITHOUT AUTHORIZATION [address] [address] Signed RECOMMENDATIONS: I will see Sandy back in my office in 7 to 14 days to review her results. Yandel Santillan MD ALB/MODL /[id number] cc: MD Gareth Adrian MD Ashley Christensen, SARY Copies: YANDEL SANTILLAN MD ~ Electronically Signed By: YANDEL SANTILLAN MD 11/18/22 0651 PATIENT NAME: SANDY NEGRON OPERATIVE REPORT DATE OF : 62 REPORT #: [id number] PHYSICIAN: YANDEL SANTILLAN MD PCP: KAVITHA CARRERA NP REPORT IS CONFIDENTIAL AND NOT TO BE RELEASED WITHOUT AUTHORIZATION
--- NOTE | 2022-11-19 16:22 | PATH ---
[facility] [address] [facility] [place], [place] [address] Signed SPECIMEN(S): A ILEOCECAL VALVE COLON BIOPSY SPECIMEN(S): B RECTAL POLYP AT 4 CM SPECIMEN SOURCE: A. ILEOCECAL VALVE COLON BIOPSY B. RECTAL POLYP AT 4 CM CLINICAL HISTORY: Neoplasm of unspecified behavior of digestive system. Postop: Rectal polyp FINAL PATHOLOGIC DIAGNOSIS: A. Ileocecal valve, colon biopsy: - Serrated polyp / adenoma (one fragment). B. Rectal polyp at 4 cm: - Serrated polyp / adenoma (one fragment). JVR:[facility]:C2NR MICROSCOPIC EXAMINATION: Histologic sections of all submitted blocks are examined by light microscopy. These findings, together with the gross examination, support the pathologic diagnosis. GROSS DESCRIPTION: A. The specimen, labeled and designated "Andregg, D, " and designated on the requisition "ileocecal valve biopsy," is received in formalin and consists of one liang soft tissue fragment that is 0.3 cm in greatest dimension. The specimen is entirely submitted in (A1). B. The specimen, labeled and designated "Andregg, D, " and designated on the requisition "rectal polyp at 4 cm," is received in formalin and consists of one liang soft tissue fragment that is 0.3 cm in greatest dimension. The specimen is entirely submitted in (B1). FB (under the direct supervision of a pathologist) The Gross Description was prepared using a voice recognition system. The report was reviewed for accuracy; however, sound-alike word errors, addition and/or deletions may occur. If there is any question about this report, please contact Client Services. PERFORMING LABORATORY: The technical component was performed by [facility] [address] [place] [id number] (CLIA# [id number]). Professional interpretation was performed by [facility] Pathology - [place], PATIENT NAME: KURT NEGRON PATHOLOGY DATE OF : 62 REPORT #: [id number] PHYSICIAN: [facility] PATHOLOG[facility] PCP: KAVITHA CARRERA NP REPORT IS CONFIDENTIAL AND NOT TO BE RELEASED WITHOUT AUTHORIZATION [address] [address] [address], [place] [address] (CLIA#: [id number]). Diagnostician: Kane [place] MD Pathologist Electronically Signed 11/19/2022 Copies: ~ PATIENT NAME: KURT NEGRON PATHOLOGY DATE OF : 62 REPORT #: [id number] PHYSICIAN: [facility] PATHOLOGY PCP: KAVITHA CARRERA NP REPORT IS CONFIDENTIAL AND NOT TO BE RELEASED WITHOUT AUTHORIZATION
== END 2022-11-17 10:10 | disposition home or self-care (01) ==
LOC: DS 06:53
PROVIDERS: ATTEND Colon & Rectal Surgery
PROC: 0DBP8ZX Excision of Rectum, Via Natural or Artificial Opening Endoscopic, Diagnostic (ICD-10-PCS; 2022-11-17)
PROC: 0DBC8ZX Excision of Ileocecal Valve, Via Natural or Artificial Opening Endoscopic, Diagnostic (ICD-10-PCS; principal; 2022-11-17 09:05)
DX: D12.0 Benign neoplasm of cecum (principal); D12.8 Benign neoplasm of rectum; K64.8 Other hemorrhoids; Q43.8 Other specified congenital malformations of intestine; E11.9 Type 2 diabetes mellitus without complications; I10 Essential (primary) hypertension; E78.00 Pure hypercholesterolemia, unspecified; K21.9 Gastro-esophageal reflux disease without esophagitis; J44.9 Chronic obstructive pulmonary disease, unspecified; G47.33 Obstructive sleep apnea (adult) (pediatric); I42.9 Cardiomyopathy, unspecified; E66.9 Obesity, unspecified; Z68.32 Body mass index [BMI] 32.0-32.9, adult; Z79.4 Long term (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; Z79.899 Other long term (current) drug therapy; Z88.0 Allergy status to penicillin; Z88.2 Allergy status to sulfonamides; Z88.1 Allergy status to other antibiotic agents; Z88.8 Allergy status to other drugs, medicaments and biological substances
CPT/HCPCS: J2704; J7121

== ENCOUNTER 2022-11-27 16:59 | Emergency (ER) | payer OTHER ==
[~2022-11-27] VITALS: Ht 160 cm; Wt 86.8 kg
--- OUTSIDE RECORDS SUMMARY | 2022-11-27 17:02 | XMS ---
PreManage Notification: KURT NEGRON Security Academic Affairs Coordinator Events No recent Security Events currently on file CRITERIA MET - [facility] - [facility] - 2 Visits in 30 Days CARE PROVIDERS LALA STANFORD Internal Medicine 10/06/2016-Current PHONE: Unknown KEVIN MATOS Physician Housing Assistant Property Manager: Medical 02/25/2021-Current PHONE: [phone] Angelina has no Care Guidelines for this patient. Care History Medical/Surgical 12/17/2021 [facility] - PATIENT UROLOGIST DR ALBERTS NOTIFIED OF ED VISIT- PROVIDED ED CLINICAL FOR REVIEW AND IF FOLLOW UP IS NEEDED. E.D. VISIT COUNT (12 MO.) 5 [facility] TOTAL 5 NOTE: Visits indicate total known visits. ED/UCC VISIT TRACKING (12 MO.) 11/27/2022 16:59 [facility] [place] TYPE: Emergency COMPLAINT: - L FOOT PAIN 11/06/2022 17:03 [facility] [place] TYPE: Emergency COMPLAINT: - ALTERED MENTAL STATUS 04/07/2022 15:28 [facility] [place] TYPE: Emergency COMPLAINT: - DIARRHEA,DISORIENTED DIAGNOSES: - Allergy status to other drugs, medicaments and biological substances - alf (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 - Type 2 diabetes mellitus with diabetic polyneuropathy - Other truck terminal manager (current) drug therapy - Allergy status to sulfonamides - Hypomagnesemia - Allergy status to other antibiotic agents - Diarrhea, unspecified - Dehydration - Hypokalemia 12/16/2021 19:40 [facility] [place] TYPE: Emergency COMPLAINT: - URINE PROBLEM DIAGNOSES: - Allergy status to sulfonamides - Other fdc (current) drug therapy - Retention of urine, unspecified - termite inspector (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 - Allergy status to other drugs, medicaments and biological substances - Allergy status to penicillin - Type 2 diabetes mellitus with diabetic neuropathy, unspecified - Allergy status to other antibiotic agents - alf (current) use of oral hypoglycemic drugs 12/01/2021 16:50 [facility] [place] TYPE: Emergency COMPLAINT: - FEVER DIAGNOSES: - Fever, unspecified - Allergy status to sulfonamides - Allergy status to other drugs, medicaments and biological substances - Type 2 diabetes mellitus with diabetic neuropathy, unspecified - Weakness - Contact with and (suspected) exposure to COVID-19 - Allergy status to other antibiotic agents - termite inspector (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 - alf (current) use of oral hypoglycemic drugs - Allergy status to penicillin - Other truck terminal manager (current) drug therapy INPATIENT VISIT TRACKING (12 MO.) 11/06/2022 20:[address] [facility] [place] TYPE: Medical Surgical COMPLAINT: - ENCEPHALOPATHY DIAGNOSES: - Unspecified mood [affective] disorder - Acquired absence of both cervix and uterus - Allergy status to other antibiotic agents - Type 2 diabetes mellitus with hyperosmolarity without nonketotic hyperglycemic-hyperosmolar coma (NKHHC) - alf (current) use of antibiotics - termite inspector (current) use of antibiotics - Acquired absence of both cervix and uterus - Allergy status to penicillin - Gastro-esophageal reflux disease without esophagitis - Unspecified mood [affective] disorder - Other truck terminal manager (current) drug therapy - Encephalopathy, unspecified - Acute cystitis without hematuria - Metabolic encephalopathy - Allergy status to other drugs, medicaments and biological substances - Allergy status to other drugs, medicaments and biological substances - Fibromyalgia - Type 2 diabetes mellitus with hyperosmolarity without nonketotic hyperglycemic-hyperosmolar coma (NKHHC) - Allergy status to sulfonamides - Allergy status to sulfonamides - Acquired absence of other specified parts of digestive tract - Contact with and (suspected) exposure to COVID-19 - Gastro-esophageal reflux disease without esophagitis - Contact with and (suspected) exposure to COVID-19 - Fibromyalgia - termite inspector (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 - Metabolic encephalopathy - Allergy status to other antibiotic agents - Allergy status to penicillin - Acquired absence of other specified parts of digestive tract - Other truck terminal manager (current) drug therapy - termite inspector (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 - Acute cystitis without hematuria [email or web address]
[2022-11-27] MEDS ORDERED: CEFPODOXIME PR200 MG PO (18:05)
== END 2022-11-27 18:32 | disposition home or self-care (01) ==
LOC: ED 16:59
DX: S90.425A Blister (nonthermal), left lesser toe(s), initial encounter (principal); X58.XXXA Exposure to other specified factors, initial encounter; E11.65 Type 2 diabetes mellitus with hyperglycemia; N39.0 Urinary tract infection, site not specified; E11.40 Type 2 diabetes mellitus with diabetic neuropathy, unspecified; Z88.0 Allergy status to penicillin; Z88.8 Allergy status to other drugs, medicaments and biological substances; Z88.1 Allergy status to other antibiotic agents; Z79.899 Other long term (current) drug therapy; Z79.84 Long term (current) use of oral hypoglycemic drugs; Z79.4 Long term (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
CPT/HCPCS: 81001; 99283

== ENCOUNTER 2023-01-27 17:23 | Emergency (ER) | payer OTHER ==
[~2023-01-27] VITALS: Ht 160 cm; Wt 87.8 kg
[2023-01-27] MEDS ORDERED: ONDANSETRON ODT8 MG PO (20:29)
== END 2023-01-27 20:47 | disposition home or self-care (01) ==
LOC: ED 17:23
DX: K29.00 Acute gastritis without bleeding (principal); E11.40 Type 2 diabetes mellitus with diabetic neuropathy, unspecified; Z88.0 Allergy status to penicillin; Z88.2 Allergy status to sulfonamides; Z88.1 Allergy status to other antibiotic agents; Z88.8 Allergy status to other drugs, medicaments and biological substances; Z79.899 Other long term (current) drug therapy; Z79.84 Long term (current) use of oral hypoglycemic drugs; Z79.4 Long term (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
CPT/HCPCS: 36415; 80053; 81001; 83735; 85025; 96361; 96374; 99284-25; A9270; J2405; J7040

== ENCOUNTER 2023-03-16 16:29 | Emergency (ER) | payer OTHER ==
[~2023-03-16] VITALS: Ht 160 cm; Wt 87.5 kg
--- OUTSIDE RECORDS SUMMARY | 2023-03-16 16:32 | XMS ---
PreManage Notification: KURT NEGRON Security Java Websphere Developer Events No recent Security Events currently on file CRITERIA MET - [facility] CARE PROVIDERS -[place]- Dentist: Cigar Packer And Sorter [facility] PHONE: [phone] LALA STANFORD Internal Medicine 10/06/2016-Current PHONE: Unknown KEVIN MATOS Physician Locomotive Lubricating Systems Clerk: Medical 02/25/2021-Current PHONE: [phone] Angelina has no Care Guidelines for this patient. Care History Medical/Surgical 12/17/2021 [facility] - PATIENT UROLOGIST DR ALBERTS NOTIFIED OF ED VISIT- PROVIDED ED CLINICAL FOR REVIEW AND IF FOLLOW UP IS NEEDED. E.D. VISIT COUNT (12 MO.) [address] [facility] TOTAL 5 NOTE: Visits indicate total known visits. ED/UCC VISIT TRACKING (12 MO.) 03/16/2023 16:31 [facility] [place] TYPE: Emergency COMPLAINT: - CHEST PAIN 01/27/2023 17:24 [facility] TYPE: Emergency COMPLAINT: - VOMITING DIAGNOSES: - Acute gastritis without bleeding - Allergy status to other antibiotic agents - Allergy status to other drugs, medicaments and biological substances - Allergy status to penicillin - Allergy status to sulfonamides - 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 truck driver (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 - FPC (current) use of oral hypoglycemic drugs - Nausea with vomiting, unspecified - Other custodial (current) drug therapy - Type 2 diabetes mellitus with diabetic neuropathy, unspecified 11/27/2022 16:59 [facility] [place] TYPE: Emergency COMPLAINT: - L FOOT PAIN DIAGNOSES: - Allergy status to other antibiotic agents - Allergy status to other drugs, medicaments and biological substances - Allergy status to penicillin - Blister (nonthermal), left lesser toe(s), initial encounter - Exposure to other specified factors, initial encounter - 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 truck driver (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 - 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 truck driver (current) use of oral hypoglycemic drugs - Other middle or intermediate school principal (current) drug therapy - Type 2 diabetes mellitus with diabetic neuropathy, unspecified - Type 2 diabetes mellitus with hyperglycemia - Urinary tract infection, site not specified 11/06/2022 17:03 [facility] [place] TYPE: Emergency COMPLAINT: - ALTERED MENTAL STATUS 04/07/2022 15:28 [facility] TYPE: Emergency COMPLAINT: - DIARRHEA,DISORIENTED DIAGNOSES: - Allergy status to other antibiotic agents - Allergy status to other drugs, medicaments and biological substances - Allergy status to sulfonamides - Dehydration - Diarrhea, unspecified - Hypokalemia - Hypomagnesemia - FPC (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 - Other custodial (current) drug therapy - Type 2 diabetes mellitus with diabetic polyneuropathy INPATIENT VISIT TRACKING (12 MO.) 11/06/2022 20:35 [facility] TYPE: Medical Surgical COMPLAINT: - ENCEPHALOPATHY DIAGNOSES: - Acquired absence of both cervix and uterus - Acquired absence of both cervix and uterus - Acquired absence of other specified parts of digestive tract - Acquired absence of other specified parts of digestive tract - Acute cystitis without hematuria - Acute cystitis without hematuria - Allergy status to other antibiotic agents - Allergy status to other antibiotic agents - Allergy status to other drugs, medicaments and biological substances - Allergy status to other drugs, medicaments and biological substances - Allergy status to penicillin - Allergy status to penicillin - Allergy status to sulfonamides - Allergy status to sulfonamides - Contact with and (suspected) exposure to COVID-19 - Contact with and (suspected) exposure to COVID-19 - Encephalopathy, unspecified - Fibromyalgia - Fibromyalgia - Gastro-esophageal reflux disease without esophagitis - Gastro-esophageal reflux disease without esophagitis - FPC (current) use of antibiotics - FPC (current) use of antibiotics - 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 driver (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 - FPC (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 - Metabolic encephalopathy - Metabolic encephalopathy - Other middle or intermediate school principal (current) drug therapy - Other custodial (current) drug therapy - Type 2 diabetes mellitus with hyperosmolarity without nonketotic hyperglycemic-hyperosmolar coma (NKHHC) - Type 2 diabetes mellitus with hyperosmolarity without nonketotic hyperglycemic-hyperosmolar coma (NKHHC) - Unspecified mood [affective] disorder - Unspecified mood [affective] disorder [email or web address]
[2023-03-16] MEDS ORDERED: ISOSORBIDE MONO30 MG PO (16:47)
[2023-03-16] MEDS ORDERED: OZEMPIC0.25 MG/01 SQ (16:48)
[2023-03-16 18:06] VITALS: BP 157/94
--- NOTE | 2023-03-17 21:34 | EKG ---
[facility] [address] [place] [address] Signed Normal sinus rhythm Left axis deviation Moderate voltage criteria for LVH, may be normal variant ( R in aVL , [employer] product ) Inferior infarct (cited on or before 01-NOV-2021) Anterolateral infarct (cited on or before 01-NOV-2021) Abnormal ECG When compared with ECG of 16-NOV-2022 10:57, T wave amplitude has increased in Anterior leads Confirmed by SHAYY CARRILLO MD ([id number]) on 03/17/2023 9:34:15 PM Electronically Signed By: SHAYY CARRILLO MD 03/17/23 2134 PATIENT NAME: KURT NEGRON Electrocardiogram DATE OF : 62 PHYSICIAN: SHAYY CARRILLO MD REPORT #: [id number] REPORT IS CONFIDENTIAL AND NOT TO BE RELEASED WITHOUT AUTHORIZATION
== END 2023-03-16 18:08 | disposition home or self-care (01) ==
LOC: ED 16:29
DX: R07.89 Other chest pain (principal); E11.40 Type 2 diabetes mellitus with diabetic neuropathy, unspecified; Z88.0 Allergy status to penicillin; Z88.8 Allergy status to other drugs, medicaments and biological substances; Z88.1 Allergy status to other antibiotic agents; Z88.2 Allergy status to sulfonamides; Z79.899 Other long term (current) drug therapy; Z79.84 Long term (current) use of oral hypoglycemic drugs; Z79.4 Long term (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
CPT/HCPCS: 36415; 71045; 80053; 83735; 84484; 85025; 93005; 93010; 99285-25; A9270

== ENCOUNTER 2023-03-28 06:15 | Emergency (ER) | payer OTHER ==
[~2023-03-28] VITALS: Ht 160 cm; Wt 87.5 kg
[~2023-03-28 06:15] MED LIST changes: +ISOSORBIDE MONO30 MG PO; +OZEMPIC0.25 MG/01 SQ
--- OUTSIDE RECORDS SUMMARY | 2023-03-28 06:17 | XMS ---
PreManage Notification: KURT NEGRON Security Drupal Architect Events No recent Security Events currently on file CRITERIA MET - 6 ED Visits in 6 Months - [facility] - [facility] - 2 Visits in 30 Days CARE PROVIDERS -, [place]- Dentist: Fire Hose Curer [facility] PHONE: [phone] LALA STANFORD Internal Medicine 10/06/2016-Current PHONE: Unknown KEVIN MATOS Physician Police Superintendent: Medical 02/25/2021-Current PHONE: [phone] Angelina has no Care Guidelines for this patient. Care History Medical/Surgical 12/17/2021 [facility] - PATIENT UROLOGIST DR ALBERTS NOTIFIED OF ED VISIT- PROVIDED ED CLINICAL FOR REVIEW AND IF FOLLOW UP IS NEEDED. Marco A VISIT COUNT (12 MO.) 7 [facility] TOTAL 7 NOTE: Visits indicate total known visits. ED/UCC VISIT TRACKING (12 MO.) 03/28/2023 06:15 [facility] [place] TYPE: Emergency COMPLAINT: - DIABETIC ISSUE 03/23/2023 11:27 [facility] TYPE: Emergency COMPLAINT: - MEDICATION REACTION, VOMITING, ITCHING DIAGNOSES: - Allergy status to other antibiotic agents - Allergy status to other drugs, medicaments and biological substances - Allergy status to penicillin - Allergy status to sulfonamides - long term (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 - Other terminal clerk (current) drug therapy - Type 2 diabetes mellitus without complications - Urinary tract infection, site not specified 03/16/2023 16:31 [facility] TYPE: Emergency COMPLAINT: - CHEST WALL PAIN DIAGNOSES: - Allergy status to other antibiotic agents - Allergy status to other drugs, medicaments and biological substances - Allergy status to penicillin - Allergy status to sulfonamides - Chest pain, unspecified - FCI (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 - FCI (current) use of oral hypoglycemic drugs - Other chest pain - Other chest pain - Other skilled nursing (current) drug therapy - Type 2 diabetes mellitus with diabetic neuropathy, unspecified 01/27/2023 17:24 [facility] [place] TYPE: Emergency COMPLAINT: - VOMITING DIAGNOSES: - Acute gastritis without bleeding - Allergy status to other antibiotic agents - Allergy status to other drugs, medicaments and biological substances - Allergy status to penicillin - Allergy status to sulfonamides - long term (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 - FCI (current) use of oral hypoglycemic drugs - Nausea with vomiting, unspecified - Other terminal clerk (current) drug therapy - Type 2 diabetes [...] to other specified factors, initial encounter - FCI (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 - long term (current) use of oral hypoglycemic drugs - Other skilled nursing (current) drug therapy - Type 2 diabetes [...] Diarrhea, unspecified - Hypokalemia - Hypomagnesemia - long term (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 - Other skilled nursing (current) drug therapy - Type 2 diabetes [...] - Gastro-esophageal reflux disease without esophagitis - FCI (current) use of antibiotics - long term (current) use of antibiotics - FCI (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 - FCI (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 - Metabolic encephalopathy - Metabolic encephalopathy - Other terminal clerk (current) drug therapy - Other skilled nursing (current) drug therapy - Type 2 diabetes mellitus with hyperosmolarity without nonketotic hyperglycemic-hyperosmolar coma (NKHHC) - Type 2 diabetes mellitus with hyperosmolarity without nonketotic hyperglycemic-hyperosmolar coma (NKHHC) - Unspecified mood [affective] disorder - Unspecified mood [affective] disorder [email or web address]
[2023-03-28 15:05] VITALS: BP 136/75
== END 2023-03-28 15:10 | disposition home or self-care (01) ==
LOC: ED 06:15
DX: E11.649 Type 2 diabetes mellitus with hypoglycemia without coma (principal); T38.3X5A Adverse effect of insulin and oral hypoglycemic [antidiabetic] drugs, initial encounter; Z79.4 Long term (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; Z79.899 Other long term (current) drug therapy; Z88.0 Allergy status to penicillin; Z88.2 Allergy status to sulfonamides; Z88.8 Allergy status to other drugs, medicaments and biological substances
CPT/HCPCS: 36415; 51702; 80053; 81001; 85025; 87493; 99285-25; J7030

== ENCOUNTER 2023-06-02 18:02 | Emergency (ER) | payer OTHER ==
[~2023-06-02] VITALS: Ht 160 cm; Wt 87.8 kg
--- OUTSIDE RECORDS SUMMARY | 2023-06-02 18:05 | XMS ---
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 Care History Medical/Surgical 12/17/2021 [facility] - PATIENT UROLOGIST DR ALBERTS NOTIFIED OF ED VISIT- PROVIDED ED CLINICAL FOR REVIEW AND IF FOLLOW UP IS NEEDED. Mraco A VISIT COUNT (12 MO.) 8 GERMANIA Guzman TOTAL 8 NOTE: Visits indicate total known visits. ED/UCC VISIT TRACKING (12 MO.) 06/02/2023 18:03 GERMANIA Carr [place] TYPE: Emergency COMPLAINT: - BODY NUMBNESS 04/25/2023 12:47 GER[place]IA Carr [place] TYPE: Emergency COMPLAINT: - HIGH BLOOD SUGAR, LOW B/P DIAGNOSES: - Allergy status to other antibiotic agents - Allergy status to other drugs, medicaments and biological substances - Allergy status to penicillin - Allergy status to sulfonamides - retirement (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 - Other exterminator helper (current) drug therapy - Type 2 diabetes mellitus with diabetic neuropathy, unspecified - Type 2 diabetes mellitus with hyperglycemia - Urinary tract infection, site not specified 03/28/2023 06:15 GER[place]IA Carr [place] TYPE: Emergency COMPLAINT: - DIABETIC ISSUE DIAGNOSES: - Adverse effect of insulin and oral hypoglycemic [antidiabetic] drugs, initial encounter - Allergy status to other drugs, medicaments and biological substances - Allergy status to penicillin - Allergy status to sulfonamides - termite helper (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 - Other exterminator helper (current) drug therapy - Slurred speech - Type 2 diabetes mellitus with hypoglycemia without coma 03/23/2023 11:27 GER[place]IA Carr [place] TYPE: Emergency COMPLAINT: - MEDICATION REACTION, VOMITING, ITCHING DIAGNOSES: - Allergy status to other antibiotic agents - Allergy status to other drugs, medicaments and biological substances - Allergy status to penicillin - Allergy status to sulfonamides - termite helper (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 - Other halfway (current) drug therapy - Type 2 diabetes mellitus without complications - Urinary tract infection, site not specified 03/16/2023 16:31 GERMANIA Carr [place] TYPE: Emergency COMPLAINT: - CHEST WALL PAIN DIAGNOSES: - Allergy status to other antibiotic agents - Allergy status to other drugs, medicaments and biological substances - Allergy status to penicillin - Allergy status to sulfonamides - Chest pain, unspecified - retirement (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 - termite helper (current) use of oral hypoglycemic drugs - Other chest pain - Other chest pain - Other halfway (current) drug therapy - Type 2 diabetes mellitus with diabetic neuropathy, unspecified 01/27/2023 17:24 GER[place]IA Carr [place] TYPE: Emergency COMPLAINT: - VOMITING DIAGNOSES: - Acute gastritis without bleeding - Allergy status to other antibiotic agents - Allergy status to other drugs, medicaments and biological substances - Allergy status to penicillin - Allergy status to sulfonamides - retirement (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 - termite helper (current) use of oral hypoglycemic drugs - Nausea with vomiting, unspecified - Other halfway (current) drug therapy - Type 2 diabetes [...] to other specified factors, initial encounter - termite helper (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 - retirement (current) use of oral hypoglycemic drugs - Other halfway (current) drug therapy - Type 2 diabetes mellitus with diabetic neuropathy, unspecified - Type 2 diabetes mellitus with hyperglycemia - Urinary tract infection, site not specified 11/06/2022 17:03 GER[place]IA Carr [place] TYPE: Emergency COMPLAINT: - ALTERED MENTAL STATUS INPATIENT VISIT TRACKING (12 MO.) 11/06/2022 20:35 [...] - Gastro-esophageal reflux disease without esophagitis - retirement (current) use of antibiotics - termite helper (current) use of antibiotics - termite helper (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 - retirement (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 - Metabolic encephalopathy - Metabolic encephalopathy - Other halfway (current) drug therapy - Other halfway (current) drug therapy - Type 2 diabetes mellitus with hyperosmolarity without nonketotic hyperglycemic-hyperosmolar coma ([facility]) - Type 2 diabetes mellitus with hyperosmolarity without nonketotic hyperglycemic-hyperosmolar coma ([facility]) - Unspecified mood [affective] disorder - Unspecified mood [affective] disorder [email or web address]
[2023-06-02] MEDS ORDERED: TYLENOL325 MG PO (19:00)
[2023-06-02] MEDS ORDERED: ASPIRIN81 MG PO (19:00)
[2023-06-02 19:42] VITALS: BP 142/63
== END 2023-06-02 19:42 | disposition home or self-care (01) ==
LOC: ED 18:02
DX: R20.0 Anesthesia of skin (principal); M54.50 Low back pain, unspecified; E11.40 Type 2 diabetes mellitus with diabetic neuropathy, unspecified; Z88.0 Allergy status to penicillin; Z88.2 Allergy status to sulfonamides; Z88.1 Allergy status to other antibiotic agents; Z88.8 Allergy status to other drugs, medicaments and biological substances; Z79.899 Other long term (current) drug therapy; Z79.82 Long term (current) use of aspirin; Z79.4 Long term (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; Z79.84 Long term (current) use of oral hypoglycemic drugs
CPT/HCPCS: 99283

== ENCOUNTER 2023-06-20 19:41 | Emergency (ER) | payer OTHER ==
[~2023-06-20] VITALS: Ht 160 cm; Wt 87.8 kg
--- OUTSIDE RECORDS SUMMARY | ~2023-06-20 | XMS | Continuity of Care Document ---
Demographics + + + | Address | [facility] [address] | | | [place] [address] | + + + | Preferred Language | Unknown | + + + | Marital Status | | + + + | Church Affiliation | Unknown | + + + | Race | White | + + + | Ethnic Group | Not or | + + + Author + + + | Author | [facility] | + + + | Organization | [facility] | + + + | Address | [address] [facility] | | | [place] [address] | + + + | Phone | | + + + Care Team Providers + + + + | Care Biomedical Equipment Specialist Name | Role | Phone | + + + + Unavailable | Unavailable | + + + + Unavailable | Unavailable | + + + + Unavailable | Unavailable | + + + + Unavailable | Unavailable | + + + + Allergies and Intolerances + + + + + + | date | description | facility | reaction | severity | + + + + + + | (no date) | Prednisone | [facility] | (no reaction) | (no severity) | [facility] | | | + + + + + + | (no date) | Tetracycline | [facility] | (no reaction) | (no severity) | [facility] | | | + + + + + + | (no date) | Lisinopril | [facility] | (no reaction) | (no severity) | [facility] | | | + + + + + + | (no date) | Weakness | [facility] | (no reaction) | (no severity) | [facility] | | | + + + + + + | (no date) | Pregabalin | [facility] | (no reaction) | (no severity) | [facility] | | | + + + + + + | (no date) | Cephalexin | [facility] | (no reaction) | (no severity) | [facility] | | | + + + + + + | (no date) | Mild | [facility] | (no reaction) | (no severity) | [facility] | | | + + + + + + | (no date) | Clindamycin | [facility] | (no reaction) | (no severity) | [facility] | | | + + + + + + | (no date) | Rash | [facility] | (no reaction) | (no severity) | [facility] | | | + + + + + + | (no date) | Lisinopril | [facility] | (no reaction) | (no severity) | [facility] | | | + + + + + + | (no date) | Erythromycin | [facility] | (no reaction) | (no severity) | [facility] | | | + + + + + + | (no date) | Clindamycin | [facility] | (no reaction) | (no severity) | [facility] | | | + + + + + + | (no date) | Tetracycline | [facility] | (no reaction) | (no severity) | [facility] | | | + + + + + + | (no date) | Cephalexin | [facility] | (no reaction) | (no severity) | [facility] | | | + + + + + + | (no date) | Nifedipine | [facility] | (no reaction) | (no severity) | [facility] | | | + + + + + + | (no date) | Levofloxacin | [facility] | (no reaction) | (no severity) | [facility] | | | + + + + + + | (no date) | Clindamycin | [facility] | (no reaction) | (no severity) | [facility] | | | + + + + + + | (no date) | Duloxetine | [facility] | (no reaction) | (no severity) | [facility] | | | + + + + + + | (no date) | Pregabalin | [facility] | (no reaction) | (no severity) | [facility] | | | + + + + + + | (no date) | Pregabalin | [facility] | (no reaction) | (no severity) | [facility] | | | + + + + + + | (no date) | Levofloxacin | [facility] | (no reaction) | (no severity) | | [facility] | | | + + + + + + | (no date) | Penicillin | [facility] | (no reaction) | (no severity) | | [facility] | | | + + + + + + | (no date) | Duloxetine | [facility] | (no reaction) | (no severity) | [facility] | | | + + + + + + | (no date) | Nifedipine | [facility] | (no reaction) | (no severity) | [facility] | | | + + + + + + | (no date) | Penicillin | [facility] | (no reaction) | (no severity) | | [facility] | | | + + + + + + | (no date) | Levofloxacin | [facility] | (no reaction) | (no severity) | | [facility] | | | + + + + + + | (no date) | Prednisone | [facility] | (no reaction) | (no severity) | [facility] | | | + + + + + + | (no date) | Lisinopril | [facility] | (no reaction) | (no severity) | [facility] | | | + + + + + + | (no date) | Nitrofurantoin | [facility] | (no reaction) | (no severity) | | | [facility] | | | | + + + + + + | (no date) | Penicillins | [facility] | (no reaction) | (no severity) | + + + + + + | (no date) | Sulfa | [facility] | (no reaction) | (no severity) | | | (Sulfonamide | | | | | | Antibiotics) | | | | + + + + + + | (no date) | lisinopril | [facility] | (no reaction) | (no severity) | + + + + + + | (no date) | nifedipine | [facility] | (no reaction) | (no severity) | + + + + + + | (no date) | prednisone | [facility] | (no reaction) | (no severity) | + + + + + + | (no date) | cephalexin | [facility] | (no reaction) | (no severity) | + + + + + + | (no date) | tetracycline | [facility] | (no reaction) | (no severity) | + + + + + + | (no date) | erythromycin | [facility] | (no reaction) | (no severity) | | | base | | | | + + + + + + | (no date) | clindamycin | [facility] | (no reaction) | (no severity) | + + + + + + | (no date) | levofloxacin | [facility] | (no reaction) | (no severity) | + + + + + + | (no date) | duloxetine | [facility] | (no reaction) | (no severity) | + + + + + + | (no date) | pregabalin | [facility] | (no reaction) | (no severity) | + + + + + + | (no date) | Tetracycline | [facility] | (no reaction) | (no severity) | [facility] | | | + + + + + + | (no date) | Nifedipine | [facility] | (no reaction) | (no severity) | | [facility] | | | + + + + + + | (no date) | Erythromycin | [facility] | (no reaction) | (no severity) | | | [facility] | | | + + + + + + | (no date) | Penicillin | [facility] | (no reaction) | (no severity) | | [facility] | | | + + + + + + | (no date) | Duloxetine | [facility] | (no reaction) | (no severity) | | [facility] | | | + + + + + + | (no date) | Cephalexin | [facility] | (no reaction) | (no severity) | | [facility] | | | + + + + + + | (no date) | Penicillin | [facility] | (no reaction) | (no severity) | | [facility] | | | + + + + + + | (no date) | Prednisone | [facility] | (no reaction) | (no severity) | [facility] | | | + + + + + + Encounters No information. Functional Status No information. Immunizations No information. Medications + + + + | date | description | facility | + + + + | 2022-11-11 00:00 | ONDANSETRON HCL | [facility] | + + + + | 2022-11-17 00:00 | ONDANSETRON HCL | [facility] | + + + + | 2022-11-30 00:00 | ONDANSETRON HCL | [facility] | + + + + | 2023-01-27 00:00 | ONDANSETRON HCL | [facility] | + + + + | 2023-03-16 00:00 | ONDANSETRON HCL | [facility] | + + + + | 2023-03-23 00:00 | ONDANSETRON HCL | [facility] | + + + + | 2023-03-28 00:00 | ONDANSETRON HCL | [facility] | + + + + | 2023-04-25 00:00 | ONDANSETRON HCL | [facility] | + + + + | 2023-06-02 00:00 | ONDANSETRON HCL | [facility] | + + + + | 2022-11-17 00:00 | PHENAZOPYRIDINE HCL | [facility] | + + + + | 2022-11-30 00:00 | PHENAZOPYRIDINE HCL | [facility] | + + + + | 2022-11-11 00:00 | Ergocalciferol (Vitamin | [facility] | | | D2) | | + + + + | 2022-11-17 00:00 | Ergocalciferol (Vitamin | [facility] | | | D2) | | + + + + | 2022-11-30 00:00 | Ergocalciferol (Vitamin | [facility] | | | D2) | | + + + + | 2023-01-27 00:00 | Ergocalciferol (Vitamin | [facility] | | | D2) | | + + + + | 2023-03-16 00:00 | Ergocalciferol (Vitamin | [facility] | | | D2) | | + + + + | 2023-03-23 00:00 | Ergocalciferol (Vitamin | [facility] | | | D2) | | + + + + | 2023-03-28 00:00 | Ergocalciferol (Vitamin | [facility] | | | D2) | | + + + + | 2023-04-25 00:00 | Ergocalciferol (Vitamin | [facility] | | | D2) | | + + + + | 2023-06-02 00:00 | Ergocalciferol (Vitamin | [facility] | | | D2) | | + + + + | 2022-11-11 00:00 | DULAGLUTIDE | [facility] | + + + + | 2022-11-17 00:00 | DULAGLUTIDE | [facility] | + + + + | 2022-11-30 00:00 | DULAGLUTIDE | [facility] | + + + + | 2023-01-27 00:00 | DULAGLUTIDE | [facility] | + + + + | 2022-11-11 00:00 | PAROXETINE HCL | [facility] | + + + + | 2022-11-17 00:00 | PAROXETINE HCL | [facility] | + + + + | 2022-11-30 00:00 | PAROXETINE HCL | [facility] | + + + + | 2023-01-27 00:00 | PAROXETINE HCL | [facility] | + + + + | 2023-03-16 00:00 | PAROXETINE HCL | [facility] | + + + + | 2023-03-23 00:00 | PAROXETINE HCL | [facility] | + + + + | 2023-03-28 00:00 | PAROXETINE HCL | [facility] | + + + + | 2023-04-25 00:00 | PAROXETINE HCL | [facility] | + + + + | 2022-11-11 00:00 | OMEPRAZOLE | [facility] | + + + + | 2022-11-17 00:00 | OMEPRAZOLE | [facility] | + + + + | 2022-11-30 00:00 | OMEPRAZOLE | [facility] | + + + + | 2023-01-27 00:00 | OMEPRAZOLE | [facility] | + + + + | 2023-03-16 00:00 | OMEPRAZOLE | [facility] | + + + + | 2023-03-23 00:00 | OMEPRAZOLE | [facility] | + + + + | 2023-03-28 00:00 | OMEPRAZOLE | [facility] | + + + + | 2023-04-25 00:00 | OMEPRAZOLE | [facility] | + + + + | 2023-06-02 00:00 | OMEPRAZOLE | [facility] | + + + + | 2022-11-11 00:00 | SPIRONOLACTONE | [facility] | + + + + | 2022-11-17 00:00 | SPIRONOLACTONE | [facility] | + + + + | 2022-11-30 00:00 | SPIRONOLACTONE | [facility] | + + + + | 2023-01-27 00:00 | SPIRONOLACTONE | [facility] | + + + + | 2023-03-16 00:00 | SPIRONOLACTONE | [facility] | + + + + | 2023-03-23 00:00 | SPIRONOLACTONE | [facility] | + + + + | 2023-03-28 00:00 | SPIRONOLACTONE | [facility] | + + + + | 2023-04-25 00:00 | SPIRONOLACTONE | [facility] | + + + + | 2023-06-02 00:00 | SPIRONOLACTONE | [facility] | + + + + | 2021-03-04 00:00 | Dexamethasone | [facility] | + + + + | 2021-03-04 00:00 | Dexamethasone | [facility] | + + + + | 2022-11-11 00:00 | CIPROFLOXACIN HCL | [facility] | + + + + | 2022-11-17 00:00 | CIPROFLOXACIN HCL | [facility] | + + + + | 2022-11-30 00:00 | CIPROFLOXACIN HCL | [facility] | + + + + | 2023-01-27 00:00 | CIPROFLOXACIN HCL | [facility] | + + + + | 2023-03-16 00:00 | CIPROFLOXACIN HCL | [facility] | + + + + | 2023-03-23 00:00 | CIPROFLOXACIN HCL | [facility] | + + + + | 2023-03-28 00:00 | CIPROFLOXACIN HCL | [facility] | + + + + | 2023-04-25 00:00 | CIPROFLOXACIN HCL | [facility] | + + + + | 2023-06-02 00:00 | CIPROFLOXACIN HCL | [facility] | + + + + | 2022-11-11 00:00 | TELMISARTAN | [facility] | + + + + | 2022-11-17 00:00 | TELMISARTAN | [facility] | + + + + | 2022-11-30 00:00 | TELMISARTAN | [facility] | + + + + | 2023-01-27 00:00 | TELMISARTAN | [facility] | + + + + | 2023-03-16 00:00 | TELMISARTAN | [facility] | + + + + | 2023-03-23 00:00 | TELMISARTAN | [facility] | + + + + | 2023-03-28 00:00 | TELMISARTAN | [facility] | + + + + | 2023-04-25 00:00 | TELMISARTAN | [facility] | + + + + | 2023-06-02 00:00 | TELMISARTAN | [facility] | + + + + | 2022-11-11 00:00 | CALCIUM CARBONATE | [facility] | + + + + | 2022-11-17 00:00 | CALCIUM CARBONATE | [facility] | + + + + | 2022-11-30 00:00 | CALCIUM CARBONATE | [facility] | + + + + | 2023-01-27 00:00 | CALCIUM CARBONATE | [facility] | + + + + | 2023-03-16 00:00 | CALCIUM CARBONATE | [facility] | + + + + | 2023-03-23 00:00 | CALCIUM CARBONATE | [facility] | + + + + | 2023-03-28 00:00 | CALCIUM CARBONATE | [facility] | + + + + | 2023-04-25 00:00 | CALCIUM CARBONATE | [facility] | + + + + | 2023-06-02 00:00 | CALCIUM CARBONATE | [facility] | + + + + | 2022-11-11 00:00 | Insulin Lispro | [facility] | + + + + | 2022-11-17 00:00 | Insulin Lispro | [facility] | + + + + | 2022-11-30 00:00 | Insulin Lispro | [facility] | + + + + | 2023-01-27 00:00 | Insulin Lispro | [facility] | + + + + | 2023-03-16 00:00 | Insulin Lispro | [facility] | + + + + | 2023-03-23 00:00 | Insulin Lispro | [facility] | + + + + | 2023-03-28 00:00 | Insulin Lispro | [facility] | + + + + | 2023-04-25 00:00 | Insulin Lispro | [facility] | + + + + | 2023-06-02 00:00 | Insulin Lispro | [facility] | + + + + | 2022-11-11 00:00 | MAGNESIUM OXIDE | [facility] | + + + + | 2022-11-17 00:00 | MAGNESIUM OXIDE | [facility] | + + + + | 2022-11-30 00:00 | MAGNESIUM OXIDE | [facility] | + + + + | 2023-01-27 00:00 | MAGNESIUM OXIDE | [facility] | + + + + | 2023-03-16 00:00 | MAGNESIUM OXIDE | [facility] | + + + + | 2023-03-23 00:00 | MAGNESIUM OXIDE | [facility] | + + + + | 2023-03-28 00:00 | MAGNESIUM OXIDE | [facility] | + + + + | 2023-04-25 00:00 | MAGNESIUM OXIDE | [facility] | + + + + | 2023-06-02 00:00 | MAGNESIUM OXIDE | [facility] | + + + + | 2022-11-11 00:00 | Insulin Glargine-Yfgn | [facility] | + + + + | 2022-11-17 00:00 | Insulin Glargine-Yfgn | [facility] | + + + + | 2022-11-30 00:00 | Insulin Glargine-Yfgn | [facility] | + + + + | 2023-01-27 00:00 | Insulin Glargine-Yfgn | [facility] | + + + + | 2023-03-16 00:00 | Insulin Glargine-Yfgn | [facility] | + + + + | 2023-03-23 00:00 | Insulin Glargine-Yfgn | [facility] | + + + + | 2023-03-28 00:00 | Insulin Glargine-Yfgn | [facility] | + + + + | 2023-04-25 00:00 | Insulin Glargine-Yfgn | [facility] | + + + + | 2023-06-02 00:00 | Insulin Glargine-Yfgn | [facility] | + + + + | 2022-11-17 00:00 | ATORVASTATIN CALCIUM | [facility] | + + + + | 2022-11-30 00:00 | ATORVASTATIN CALCIUM | [facility] | + + + + | 2023-01-27 00:00 | ATORVASTATIN CALCIUM | [facility] | + + + + | 2023-03-16 00:00 | ATORVASTATIN CALCIUM | [facility] | + + + + | 2023-03-23 00:00 | ATORVASTATIN CALCIUM | [facility] | + + + + | 2023-03-28 00:00 | ATORVASTATIN CALCIUM | [facility] | + + + + | 2023-04-25 00:00 | ATORVASTATIN CALCIUM | [facility] | + + + + | 2023-06-02 00:00 | ATORVASTATIN CALCIUM | [facility] | + + + + | 2022-11-11 00:00 | FOLIC ACID | [facility] | + + + + | 2022-11-17 00:00 | FOLIC ACID | [facility] | + + + + | 2022-11-30 00:00 | FOLIC ACID | [facility] | + + + + | 2023-01-27 00:00 | FOLIC ACID | [facility] | + + + + | 2023-03-16 00:00 | FOLIC ACID | [facility] | + + + + | 2023-03-23 00:00 | FOLIC ACID | [facility] | + + + + | 2023-03-28 00:00 | FOLIC ACID | [facility] | + + + + | 2023-04-25 00:00 | FOLIC ACID | [facility] | + + + + | 2023-06-02 00:00 | FOLIC ACID | [facility] | + + + + | 2023-03-16 00:00 | Semaglutide | [facility] | + + + + | 2023-03-23 00:00 | Semaglutide | [facility] | + + + + | 2023-03-28 00:00 | Semaglutide | [facility] | + + + + | 2023-04-25 00:00 | Semaglutide | [facility] | + + + + | 2014-05-18 00:00 | CLINDAMYCIN HCL | [facility] | + + + + | 2014-05-18 00:00 | CLINDAMYCIN HCL | [facility] | + + + + | 2022-11-11 00:00 | INSULIN GLARGINE | [facility] | + + + + | 2022-11-17 00:00 | INSULIN GLARGINE | [facility] | + + + + | 2022-11-30 00:00 | INSULIN GLARGINE | [facility] | + + + + | 2023-01-27 00:00 | INSULIN GLARGINE | [facility] | + + + + | 2023-03-16 00:00 | INSULIN GLARGINE | [facility] | + + + + | 2023-03-23 00:00 | INSULIN GLARGINE | [facility] | + + + + | 2023-03-28 00:00 | INSULIN GLARGINE | [facility] | + + + + | 2023-04-25 00:00 | INSULIN GLARGINE | [facility] | + + + + | 2023-06-02 00:00 | INSULIN GLARGINE | [facility] | + + + + | 2022-11-11 00:00 | CEFPODOXIME PROXETIL | [facility] | + + + + | 2022-11-11 00:00 | CEFPODOXIME PROXETIL | [facility] | + + + + | 2022-11-27 00:00 | CEFPODOXIME PROXETIL | [facility] | + + + + | 2023-03-23 00:00 | CEFPODOXIME PROXETIL | [facility] | + + + + | 2023-04-25 00:00 | CEFPODOXIME PROXETIL | [facility] | + + + + | 2022-11-11 00:00 | FENOFIBRATE,MICRONIZED | [facility] | + + + + | 2022-11-17 00:00 | FENOFIBRATE,MICRONIZED | [facility] | + + + + | 2022-11-30 00:00 | FENOFIBRATE,MICRONIZED | [facility] | + + + + | 2023-01-27 00:00 | FENOFIBRATE,MICRONIZED | [facility] | + + + + | 2023-03-16 00:00 | FENOFIBRATE,MICRONIZED | [facility] | + + + + | 2023-03-23 00:00 | FENOFIBRATE,MICRONIZED | [facility] | + + + + | 2023-03-28 00:00 | FENOFIBRATE,MICRONIZED | [facility] | + + + + | 2023-04-25 00:00 | FENOFIBRATE,MICRONIZED | [facility] | + + + + | 2023-06-02 00:00 | FENOFIBRATE,MICRONIZED | [facility] | + + + + | 2022-11-11 00:00 | GABAPENTIN | [facility] | + + + + | 2022-11-17 00:00 | GABAPENTIN | [facility] | + + + + | 2022-11-30 00:00 | GABAPENTIN | [facility] | + + + + | 2023-01-27 00:00 | GABAPENTIN | [facility] | + + + + | 2023-03-16 00:00 | GABAPENTIN | [facility] | + + + + | 2023-03-23 00:00 | GABAPENTIN | [facility] | + + + + | 2023-03-28 00:00 | GABAPENTIN | [facility] | + + + + | 2023-04-25 00:00 | GABAPENTIN | [facility] | + + + + | 2023-06-02 00:00 | GABAPENTIN | [facility] | + + + + | 2022-11-11 00:00 | GEMFIBROZIL | [facility] | + + + + | 2022-11-17 00:00 | GEMFIBROZIL | [facility] | + + + + | 2022-11-30 00:00 | GEMFIBROZIL | [facility] | + + + + | 2023-01-27 00:00 | GEMFIBROZIL | [facility] | + + + + | 2023-03-16 00:00 | GEMFIBROZIL | [facility] | + + + + | 2023-03-23 00:00 | GEMFIBROZIL | [facility] | + + + + | 2023-03-28 00:00 | GEMFIBROZIL | [facility] | + + + + | 2023-04-25 00:00 | GEMFIBROZIL | [facility] | + + + + | 2023-06-02 00:00 | GEMFIBROZIL | [facility] | + + + + | 2022-11-11 00:00 | HYDROCHLOROTHIAZIDE | [facility] | + + + + | 2022-11-17 00:00 | HYDROCHLOROTHIAZIDE | [facility] | + + + + | 2022-11-30 00:00 | HYDROCHLOROTHIAZIDE | [facility] | + + + + | 2023-01-27 00:00 | HYDROCHLOROTHIAZIDE | [facility] | + + + + | 2023-03-16 00:00 | HYDROCHLOROTHIAZIDE | [facility] | + + + + | 2023-03-23 00:00 | HYDROCHLOROTHIAZIDE | [facility] | + + + + | 2023-03-28 00:00 | HYDROCHLOROTHIAZIDE | [facility] | + + + + | 2023-04-25 00:00 | HYDROCHLOROTHIAZIDE | [facility] | + + + + | 2023-06-02 00:00 | HYDROCHLOROTHIAZIDE | [facility] | + + + + | 2023-01-27 00:00 | ONDANSETRON | [facility] | + + + + | 2022-11-11 00:00 | POTASSIUM CHLORIDE | [facility] | + + + + | 2022-11-17 00:00 | POTASSIUM CHLORIDE | [facility] | + + + + | 2022-11-30 00:00 | POTASSIUM CHLORIDE | [facility] | + + + + | 2023-01-27 00:00 | POTASSIUM CHLORIDE | [facility] | + + + + | 2023-03-16 00:00 | POTASSIUM CHLORIDE | [facility] | + + + + | 2023-03-23 00:00 | POTASSIUM CHLORIDE | [facility] | + + + + | 2023-03-28 00:00 | POTASSIUM CHLORIDE | [facility] | + + + + | 2023-04-25 00:00 | POTASSIUM CHLORIDE | [facility] | + + + + | 2023-06-02 00:00 | POTASSIUM CHLORIDE | [facility] | + + + + | 2023-06-02 00:00 | ACETAMINOPHEN | [facility] | + + + + | 2023-03-16 00:00 | ISOSORBIDE MONONITRATE | [facility] | + + + + | 2023-03-23 00:00 | ISOSORBIDE MONONITRATE | [facility] | + + + + | 2023-03-28 00:00 | ISOSORBIDE MONONITRATE | [facility] | + + + + | 2023-04-25 00:00 | ISOSORBIDE MONONITRATE | [facility] | + + + + | 2023-06-02 00:00 | ISOSORBIDE MONONITRATE | [facility] [place] | + + + + | 2023-06-02 00:00 | ASPIRIN | [facility] [place] | + + + + | 2022-11-11 00:00 | Insulin Aspart | [facility] [place] | + + + + | 2022-11-17 00:00 | Insulin Aspart | [facility] [place] | + + + + | 2022-11-30 00:00 | Insulin Aspart | [facility] [place] | + + + + | 2023-01-27 00:00 | Insulin Aspart | [facility] [place] | + + + + | 2023-03-16 00:00 | Insulin Aspart | [facility] [place] | + + + + | 2023-03-23 00:00 | Insulin Aspart | [facility] [place] | + + + + | 2023-03-28 00:00 | Insulin Aspart | [facility] [place] | + + + + | 2023-04-25 00:00 | Insulin Aspart | [facility] [place] | + + + + | 2023-06-02 00:00 | Insulin Aspart | [facility] [place] | + + + + | 2022-11-11 00:00 | HYDROCHLOROTHIAZIDE | [facility] [place] | + + + + | 2022-11-17 00:00 | HYDROCHLOROTHIAZIDE | [facility] [place] | + + + + | 2022-11-30 00:00 | HYDROCHLOROTHIAZIDE | [facility] [place] | + + + + | 2023-01-27 00:00 | HYDROCHLOROTHIAZIDE | [facility] [place] | + + + + | 2023-03-16 00:00 | HYDROCHLOROTHIAZIDE | [facility] [place] | + + + + | 2023-03-23 00:00 | HYDROCHLOROTHIAZIDE | [facility] [place] | + + + + | 2023-03-28 00:00 | HYDROCHLOROTHIAZIDE | [facility] [place] | + + + + | 2023-04-25 00:00 | HYDROCHLOROTHIAZIDE | [facility] [place] | + + + + | 2022-11-11 00:00 | DULOXETINE HCL | [facility] [place] | + + + + | 2022-11-17 00:00 | DULOXETINE HCL | [facility] [place] | + + + + | 2022-11-30 00:00 | DULOXETINE HCL | [facility] [place] | + + + + | 2023-01-27 00:00 | DULOXETINE HCL | [facility] [place] | + + + + | 2023-03-16 00:00 | DULOXETINE HCL | [facility] [place] | + + + + | 2023-03-23 00:00 | DULOXETINE HCL | [facility] [place] | + + + + | 2023-03-28 00:00 | DULOXETINE HCL | [facility] [place] | + + + + | 2023-04-25 00:00 | DULOXETINE HCL | [facility] [place] | + + + + | 2023-06-02 00:00 | DULOXETINE HCL | [facility] [place] | + + + + | 2022-11-11 00:00 | RANITIDINE HCL | [facility] [place] | + + + + | 2022-11-17 00:00 | RANITIDINE HCL | [facility] [place] | + + + + | 2022-11-30 00:00 | RANITIDINE HCL | [facility] [place] | + + + + | 2023-01-27 00:00 | RANITIDINE HCL | [facility] [place] | + + + + | 2023-03-16 00:00 | RANITIDINE HCL | [facility] [place] | + + + + | 2023-03-23 00:00 | RANITIDINE HCL | [facility] [place] | + + + + | 2023-03-28 00:00 | RANITIDINE HCL | [facility] [place] | + + + + | 2023-04-25 00:00 | RANITIDINE HCL | [facility] [place] | + + + + | 2023-06-02 00:00 | RANITIDINE HCL | [facility] [place] | + + + + | 2022-11-11 00:00 | CYCLOBENZAPRINE HCL | [facility] [place] | + + + + | 2022-11-17 00:00 | CYCLOBENZAPRINE HCL | [facility] [place] | + + + + | 2022-11-30 00:00 | CYCLOBENZAPRINE HCL | [facility] [place] | + + + + | 2023-01-27 00:00 | CYCLOBENZAPRINE HCL | [facility] [place] | + + + + | 2023-03-16 00:00 | CYCLOBENZAPRINE HCL | [facility] [place] | + + + + | 2023-03-23 00:00 | CYCLOBENZAPRINE HCL | [facility] [place] | + + + + | 2023-03-28 00:00 | CYCLOBENZAPRINE HCL | [facility] [place] | + + + + | 2023-04-25 00:00 | CYCLOBENZAPRINE HCL | [facility] [place] | + + + + | 2023-06-02 00:00 | CYCLOBENZAPRINE HCL | [facility] [place] | + + + + | 2022-11-11 00:00 | CYCLOBENZAPRINE HCL | [facility] [place] | + + + + | 2022-11-17 00:00 | CYCLOBENZAPRINE HCL | [facility] [place] | + + + + | 2022-11-30 00:00 | CYCLOBENZAPRINE HCL | [facility] [place] | + + + + | 2022-11-11 00:00 | INSULIN | [facility] [place] | | | MARYRSALVATOREHUMDenishaRECDenishaANLOG | | + + + + | 2022-11-17 00:00 | INSULIN | [facility] [place] | | | GLARGINE,[facility].REC.ANLOG | | + + + + | 2022-11-30 00:00 | INSULIN | [facility] [place] | | | GLARGINE,[facility].REC.ANLOG | | + + + + | 2023-01-27 00:00 | INSULIN | [facility] [place] | | | GLARGINE,[facility].REC.ANLOG | | + + + + | 2023-03-16 00:00 | INSULIN | [facility] [place] | | | GLARGINE,HUM.REC.ANLOG | | + + + + | 2023-03-23 00:00 | INSULIN | [facility] [place] | | | GLARGINE,HUM.REC.ANLOG | | + + + + | 2023-03-28 00:00 | INSULIN | [facility] [place] | | | [facility] | | + + + + | 2023-04-25 00:00 | INSULIN | [facility] [place] | | | [facility] | | + + + + | 2023-06-02 00:00 | INSULIN | [facility] [place] | | | [facility] | | + + + + | 2022-11-11 00:00 | TRAZODONE HCL | [facility] [place] | + + + + | 2022-11-17 00:00 | TRAZODONE HCL | [facility] [place] | + + + + | 2022-11-30 00:00 | TRAZODONE HCL | [facility] [place] | + + + + | 2023-01-27 00:00 | TRAZODONE HCL | [facility] [place] | + + + + | 2023-03-16 00:00 | TRAZODONE HCL | [facility] [place] | + + + + | 2023-03-23 00:00 | TRAZODONE HCL | [facility] [place] | + + + + | 2023-03-28 00:00 | TRAZODONE HCL | [facility] [place] | + + + + | 2023-04-25 00:00 | TRAZODONE HCL | [facility] [place] | + + + + | 2023-06-02 00:00 | TRAZODONE HCL | [facility] [place] | + + + + | 2022-11-11 00:00 | HYDROCODONE | [facility] [place] | | | BIT/ACETAMINOPHEN | | + + + + | 2022-11-17 00:00 | HYDROCODONE | [facility] [place] | | | BIT/ACETAMINOPHEN | | + + + + | 2022-11-30 00:00 | HY[facility]OCODONE | [facility] | | | BIT/ACETAMINOPHEN | | + + + + | 2023-01-27 00:00 | HYDROCODONE | [facility] | | | BIT/ACETAMINOPHEN | | + + + + | 2023-03-16 00:00 | HYDROCODONE | [facility] | | | BIT/ACETAMINOPHEN | | + + + + | 2023-03-23 00:00 | HYDROCODONE | [facility] | | | BIT/ACETAMINOPHEN | | + + + + | 2023-03-28 00:00 | HYDROCODONE | [facility] | | | BIT/ACETAMINOPHEN | | + + + + | 2023-04-25 00:00 | HYDROCODONE | [facility] [place] | | | BIT/ACETAMINOPHEN | | + + + + | 2023-06-02 00:00 | HYDROCODONE | [facility] [place] | | | BIT/ACETAMINOPHEN | | + + + + | 2022-11-11 00:00 | METFORMIN HCL | [facility] [place] | + + + + | 2022-11-17 00:00 | METFORMIN HCL | [facility] [place] | + + + + | 2022-11-30 00:00 | METFORMIN HCL | [facility] [place] | + + + + | 2023-01-27 00:00 | METFORMIN HCL | [facility] [place] | + + + + | 2023-03-16 00:00 | METFORMIN HCL | [facility] [place] | + + + + | 2023-03-23 00:00 | METFORMIN HCL | [facility] [place] | + + + + | 2023-03-28 00:00 | METFORMIN HCL | [facility] [place] | + + + + | 2023-04-25 00:00 | METFORMIN HCL | [facility] [place] | + + + + | 2023-06-02 00:00 | METFORMIN HCL | [facility] [place] | + + + + | 2022-11-11 00:00 | OXYBUTYNIN CHLORIDE | [facility] [place] | + + + + | 2022-11-17 00:00 | OXYBUTYNIN CHLORIDE | [facility] [place] | + + + + | 2022-11-30 00:00 | OXYBUTYNIN CHLORIDE | [facility] [place] | + + + + | 2023-01-27 00:00 | OXYBUTYNIN CHLORIDE | [facility] [place] | + + + + | 2023-03-16 00:00 | OXYBUTYNIN CHLORIDE | [facility] [place] | + + + + | 2023-03-23 00:00 | OXYBUTYNIN CHLORIDE | [facility] [place] | + + + + | 2023-03-28 00:00 | OXYBUTYNIN CHLORIDE | [facility] [place] | + + + + | 2023-04-25 00:00 | OXYBUTYNIN CHLORIDE | [facility] [place] | + + + + | 2023-06-02 00:00 | OXYBUTYNIN CHLORIDE | [facility] [place] | + + + + | 2022-11-11 00:00 | TAMSULOSIN HCL | [facility] [place] | + + + + | 2022-11-17 00:00 | TAMSULOSIN HCL | [facility] [place] | + + + + | 2022-11-30 00:00 | TAMSULOSIN HCL | [facility] [place] | + + + + | 2023-01-27 00:00 | TAMSULOSIN HCL | [facility] [place] | + + + + | 2023-03-16 00:00 | TAMSULOSIN HCL | [facility] [place] | + + + + | 2023-03-23 00:00 | TAMSULOSIN HCL | [facility] [place] | + + + + | 2023-03-28 00:00 | TAMSULOSIN HCL | [facility] [place] | + + + + | 2023-04-25 00:00 | TAMSULOSIN HCL | [facility] [place] | + + + + | 2023-06-02 00:00 | TAMSULOSIN HCL | [facility] [place] | + + + + | 2022-11-11 00:00 | METOPROLOL SUCCINATE | [facility] [place] | + + + + | 2022-11-17 00:00 | METOPROLOL SUCCINATE | [facility] [place] | + + + + | 2022-11-30 00:00 | METOPROLOL SUCCINATE | [facility] [place] | + + + + | 2023-01-27 00:00 | METOPROLOL SUCCINATE | [facility] [place] | + + + + | 2023-03-16 00:00 | METOPROLOL SUCCINATE | [facility] [place] | + + + + | 2023-03-23 00:00 | METOPROLOL SUCCINATE | [facility] [place] | + + + + | 2023-03-28 00:00 | METOPROLOL SUCCINATE | [facility] [place] | + + + + | 2023-04-25 00:00 | METOPROLOL SUCCINATE | [facility] [place] | + + + + | 2023-06-02 00:00 | METOPROLOL SUCCINATE | [facility] [place] | + + + + | 2022-11-11 00:00 | FLUTICASONE/SALMETEROL | [facility] [place] | + + + + | 2022-11-17 00:00 | FLUTICASONE/SALMETEROL | [facility] [place] | + + + + | 2022-11-30 00:00 | FLUTICASONE/SALMETEROL | [facility] [place] | + + + + | 2023-01-27 00:00 | FLUTICASONE/SALMETEROL | [facility] [place] | + + + + | 2023-03-16 00:00 | FLUTICASONE/SALMETEROL | [facility] [place] | + + + + | 2023-03-23 00:00 | FLUTICASONE/SALMETEROL | [facility] [place] | + + + + | 2023-03-28 00:00 | FLUTICASONE/SALMETEROL | [facility] [place] | + + + + | 2023-04-25 00:00 | FLUTICASONE/SALMETEROL | [facility] [place] | + + + + | 2023-06-02 00:00 | FLUTICASONE/SALMETEROL | [facility] [place] | + + + + | 2022-11-11 00:00 | LOSARTAN POTASSIUM | [facility] [place] | + + + + | 2022-11-17 00:00 | LOSARTAN POTASSIUM | [facility] [place] | + + + + | 2022-11-30 00:00 | LOSARTAN POTASSIUM | [facility] [place] | + + + + | 2023-01-27 00:00 | LOSARTAN POTASSIUM | [facility] [place] | + + + + | 2023-03-16 00:00 | LOSARTAN POTASSIUM | [facility] [place] | + + + + | 2023-03-23 00:00 | LOSARTAN POTASSIUM | [facility] [place] | + + + + | 2023-03-28 00:00 | LOSARTAN POTASSIUM | [facility] [place] | + + + + | 2023-04-25 00:00 | LOSARTAN POTASSIUM | [facility] [place] | + + + + | 2023-06-02 00:00 | LOSARTAN POTASSIUM | [facility] [place] | + + + + Problems + + + + | date | description | facility | + + + + | 2014-10-29 00:00 | Back pain | [facility] [place] | + + + + | 2014-10-29 00:00 | Back pain | [facility] [place] | + + + + | 2020-05-16 00:00 | Cellulitis of left foot | [facility] [place] | + + + + | 2020-05-16 00:00 | Cellulitis of left foot | [facility] [place] | + + + + | 2021-02-24 00:00 | Right flank pain | [facility] [place] | + + + + | 2021-02-24 00:00 | Right flank pain | [facility] [place] | + + + + | 2021-02-24 00:00 | Pneumonia due to severe | [facility] [place] | | | acute respiratory syndrome | | | | coronavirus 2 (SARS-CoV-2) | | + + + + | 2021-02-24 00:00 | Pneumonia due to severe | [facility] [place] | | | acute respiratory syndrome | | | | coronavirus 2 (SARS-CoV-2) | | + + + + | 2021-11-01 00:00 | Diabetic ketoacidosis | [facility] [place] | + + + + | 2021-11-01 00:00 | Diabetic ketoacidosis | [facility] [place] | + + + + | 2021-11-01 00:00 | Urinary tract infection | [facility] [place] | + + + + | 2021-11-01 00:00 | Urinary tract infection | [facility] [place] | + + + + | 2021-11-18 00:00 | Hyperglycemia due to | [facility] [place] | | | diabetes mellitus | | + + + + | 2021-11-18 00:00 | Hyperglycemia due to | [facility] [place] | | | diabetes mellitus | | + + + + | 2021-11-18 00:00 | Hyperglycemia due to | [facility] [place] | | | insulin deficiency in | | | | | | + + + + | 2021-11-18 00:00 | Hyperglycemia due to | [facility] [place] | | | insulin deficiency in | | | | | | + + + + | 2021-11-18 00:00 | Noncompliance with | [facility] [place] | | | medication regimen | | + + + + | 2021-11-18 00:00 | Noncompliance with | [facility] [place] | | | medication regimen | | + + + + | 2021-11-19 00:00 | Sepsis | [facility] [place] | + + + + | 2021-11-19 00:00 | Sepsis | [facility] [place] | + + + + | 2021-11-19 00:00 | Hyperglycemia | [facility] [place] | + + + + | 2021-11-19 00:00 | Hyperglycemia | [facility] [place] | + + + + | 2021-11-19 00:00 | General patient | [facility] [place] | | | noncompliance | | + + + + | 2021-11-19 00:00 | General patient | 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 | | + + + + | 2021-11-19 23:12 | TYPE 2 DIABETES MELLITUS | [facility] | | | WITH HYPERGLYCEMIA | | + + + + | 2021-11-19 23:12 | DEHYDRATION | [facility] | + + + + | 2021-11-19 23:12 | HYPO-OSMOLALITY AND | [facility] | | | HYPONATREMIA | | + + + + | 2021-11-19 23:12 | Mood [affective] disorders | [facility] | | | (F30-F39) | | + + + + | 2021-11-19 23:12 | CHRONIC PAIN SYNDROME | [facility] | + + + + | 2021-11-19 23:12 | Essential (primary) | [facility] | | | hypertension | | + + + + | 2021-11-19 23:12 | CONSTIPATION, UNSPECIFIED | [facility] | + + + + | 2021-11-19 23:12 | ACUTE KIDNEY FAILURE, | [facility] | | | UNSPECIFIED | | + + + + | 2021-11-19 23:12 | OVERACTIVE BLADDER | [facility] | + + + + | 2021-11-19 23:12 | URINARY TRACT INFECTION, | [facility] | | | SITE NOT SPECIFIED | | + + + + | 2021-11-19 23:12 | RETENTION OF URINE, | [facility] | | | UNSPECIFIED | | + + + + | 2021-11-19 23:12 | PEDIATRIC DENTIST (CURRENT) USE OF | [facility] | | | INSULIN | | + + + + | 2021-11-19 23:12 | OTHER FDC (CURRENT) | [facility] | | | DRUG THERAPY | | + + + + | 2021-11-19 23:12 | ALLERGY STATUS TO | [facility] | | | PENICILLIN | | + + + + | 2021-11-19 23:12 | ALLERGY STATUS TO OTHER | [facility] | | | ANTIBIOTIC AGENTS STATUS | | + + + + | 2021-11-19 23:12 | ALLERGY STATUS TO | [facility] | | | SULFONAMIDES STATUS | | + + + + | 2021-11-19 23:12 | ALLERGY STATUS TO OTH | [facility] | | | DRUG/MEDS/BIOL SUBST STATUS | | | | | | + + + + | 2021-11-19 23:12 | ACQUIRED ABSENCE OF BOTH | [facility] | | | CERVIX AND UTERUS | | + + + + | 2021-11-19 23:12 | PATIENT'S NONCOMPLIANCE W | [facility] | | | OTH MEDICAL TREATMENT AN | | + + + + | 2021-12-01 16:50 | 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, | | + + + + | 2021-12-01 16:50 | FEVER, UNSPECIFIED | [facility] | + + + + | 2021-12-01 16:50 | WEAKNESS | [facility] | + + + + | 2021-12-01 16:50 | PEDIATRIC DENTIST (CURRENT) USE OF | [facility] | | | INSULIN | | + + + + | 2021-12-01 16:50 | FDC (CURRENT) USE OF | [facility] | | | ORAL HYPOGLYCEMIC DRUGS | | + + + + | 2021-12-01 16:50 | OTHER PEDIATRIC DENTIST (CURRENT) | [facility] | | | DRUG THERAPY | | + + + + | 2021-12-01 16:50 | ALLERGY STATUS TO | [facility] | | | PENICILLIN | | + + + + | 2021-12-01 16:50 | ALLERGY STATUS TO OTHER | [facility] | | | ANTIBIOTIC AGENTS STATUS | | + + + + | 2021-12-01 16:50 | ALLERGY STATUS TO | [facility] | | | SULFONAMIDES STATUS | | + + + + | 2021-12-01 16:50 | ALLERGY STATUS TO OTH | [facility] | | | DRUG/MEDS/BIOL SUBST STATUS | | | | | | + + + + | 2021-12-16 19:40 | 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, | | + + + + | 2021-12-16 19:40 | RETENTION OF URINE, | [facility] | | | UNSPECIFIED | | + + + + | 2021-12-16 19:40 | PEDIATRIC DENTIST (CURRENT) USE OF | [facility] | | | INSULIN | | + + + + | 2021-12-16 19:40 | PEDIATRIC DENTIST (CURRENT) USE OF | [facility] | | | ORAL HYPOGLYCEMIC DRUGS | | + + + + | 2021-12-16 19:40 | OTHER FDC (CURRENT) | [facility] | | | DRUG THERAPY | | + + + + | 2021-12-16 19:40 | ALLERGY STATUS TO | [facility] | | | PENICILLIN | | + + + + | 2021-12-16 19:40 | ALLERGY STATUS TO OTHER | [facility] | | | ANTIBIOTIC AGENTS STATUS | | + + + + | 2021-12-16 19:40 | ALLERGY STATUS TO | [facility] | | | SULFONAMIDES STATUS | | + + + + | 2021-12-16 19:40 | ALLERGY STATUS TO OTH | [facility] | | | DRUG/MEDS/BIOL SUBST STATUS | | | | | | + + + + | 2022-04-07 00:00 | Hypomagnesemia | [facility] [place] | + + + + | 2022-04-07 00:00 | Hypomagnesemia | [facility] [place] | + + + + | 2022-04-07 00:00 | Dehydration | [facility] [place] | + + + + | 2022-04-07 00:00 | Dehydration | [facility] [place] | + + + + | 2022-04-07 00:00 | Hypokalemia | [facility] [place] | + + + + | 2022-04-07 00:00 | Hypokalemia | [facility] [place] | + + + + | 2022-04-07 00:00 | Diarrhea | [facility] [place] | + + + + | 2022-04-07 00:00 | Diarrhea | [facility] [place] | + + + + | 2022-11-02 15:27 | TYPE 2 DIABETES MELLITUS | [facility] | | | WITHOUT COMPLICATIONS | | + + + + | 2022-11-02 15:27 | OBESITY, UNSPECIFIED | [facility] | + + + + | 2022-11-02 15:27 | Essential (primary) | [facility] | | | hypertension | | + + + + | 2022-11-02 15:27 | ENCOUNTER FOR OTHER | [facility] | | | PREPROCEDURAL EXAMINATION | | + + + + | 2022-11-02 15:27 | ENCOUNTER FOR SCREENING | [facility] | | | FOR MALIGNANT NEOPLASM OF | | + + + + | 2022-11-06 00:00 | Encephalopathy | [facility] [place] | + + + + | 2022-11-06 00:00 | Encephalopathy | [facility] [place] | + + + + | 2022-11-06 20:35 | TYPE 2 DIAB W HYPROSM W/O | [facility] | | | NONKET HYPRGLY-HYPROS CO | | + + + + | 2022-11-06 20:35 | Mood [affective] disorders | [facility] | | | (F30-F39) | | + + + + | 2022-11-06 20:35 | ENCEPHALOPATHY, | [facility] | | | UNSPECIFIED | | + + + + | 2022-11-06 20:35 | METABOLIC ENCEPHALOPATHY | [facility] | + + + + | 2022-11-06 20:35 | GASTRO-ESOPHAGEAL REFLUX | [facility] | | | DISEASE WITHOUT ESOPHAGIT | | + + + + | 2022-11-06 20:35 | FIBROMYALGIA | [facility] | + + + + | 2022-11-06 20:35 | ACUTE CYSTITIS WITHOUT | [facility] | | | HEMATURIA | | + + + + | 2022-11-06 20:35 | PEDIATRIC DENTIST (CURRENT) USE OF | [facility] | | | ANTIBIOTICS | | + + + + | 2022-11-06 20:35 | FDC (CURRENT) USE OF | [facility] | | | INSULIN | | + + + + | 2022-11-06 20:35 | OTHER FDC (CURRENT) | [facility] | | | DRUG THERAPY | | + + + + | 2022-11-06 20:35 | ALLERGY STATUS TO | [facility] | | | PENICILLIN | | + + + + | 2022-11-06 20:35 | ALLERGY STATUS TO OTHER | [facility] | | | ANTIBIOTIC AGENTS STATUS | | + + + + | 2022-11-06 20:35 | ALLERGY STATUS TO | [facility] | | | SULFONAMIDES STATUS | | + + + + | 2022-11-06 20:35 | ALLERGY STATUS TO OTH | [facility] | | | DRUG/MEDS/BIOL SUBST STATUS | | | | | | + + + + | 2022-11-06 20:35 | ACQUIRED ABSENCE OF OTHER | [facility] | | | SPECIFIED PARTS OF DIGES | | + + + + | 2022-11-06 20:35 | ACQUIRED ABSENCE OF BOTH | [facility] | | | CERVIX AND UTERUS | | + + + + | 2022-11-07 00:00 | Altered mental status | [facility] [place] | + + + + | 2022-11-07 00:00 | Altered mental status | [facility] | + + + + | 2022-11-16 10:06 | ENCOUNTER FOR OTHER | [facility] | | | PREPROCEDURAL EXAMINATION | | + + + + | 2022-11-16 10:06 | ENCOUNTER FOR SCREENING | [facility] | | | FOR MALIGNANT NEOPLASM OF | | + + + + | 2022-11-17 06:53 | BENIGN NEOPLASM OF CECUM | [facility] | + + + + | 2022-11-17 06:53 | BENIGN NEOPLASM OF RECTUM | [facility] | + + + + | 2022-11-17 06:53 | NEOPLASM OF UNSPECIFIED | [facility] | | | BEHAVIOR OF DIGE | | + + + + | 2022-11-17 06:53 | TYPE 2 DIABETES MELLITUS | [facility] | | | WITHOUT COMPLIC | | + + + + | 2022-11-17 06:53 | OBESITY, UNSPECIFIED | [facility] | + + + + | 2022-11-17 06:53 | PURE HYPERCHOLESTEROLEMIA, | [facility] | | | UNSPECIFIED | | + + + + | 2022-11-17 06:53 | OBSTRUCTIVE SLEEP APNEA | [facility] | | | (ADULT) (PEDIATR | | + + + + | 2022-11-17 06:53 | Essential (primary) | [facility] | | | hypertension | | + + + + | 2022-11-17 06:53 | CARDIOMYOPATHY, | [facility] | | | UNSPECIFIED | | + + + + | 2022-11-17 06:53 | CHRONIC OBSTRUCTIVE | [facility] | | | PULMONARY DISEASE, U | | + + + + | 2022-11-17 06:53 | GASTRO-ESOPHAGEAL REFLUX | [facility] | | | DISEASE WITHOUT ESOPHAGIT | | + + + + | 2022-11-17 06:53 | POLYP OF COLON | [facility] | + + + + | 2022-11-17 06:53 | OTHER HEMORRHOIDS | [facility] | + + + + | 2022-11-17 06:53 | 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 | | + + + + | 2022-11-17 06:53 | BODY MASS INDEX (BMI) | [facility] | | | 32.0-32.9, ADULT | | + + + + | 2022-11-17 06:53 | PEDIATRIC DENTIST (CURRENT) USE OF | [facility] | | | INSULIN | | + + + + | 2022-11-17 06:53 | OTHER [facility] (CURRENT) | [facility] | | | DRUG THERAPY | | + + + + | 2022-11-17 06:53 | ALLERGY STATUS TO | [facility] | | | PENICILLIN | | + + + + | 2022-11-17 06:53 | ALLERGY STATUS TO OTHER | [facility] | | | ANTIBIOTIC AGENTS STATUS | | + + + + | 2022-11-17 06:53 | ALLERGY STATUS TO | [facility] | | | SULFONAMIDES STATUS | | + + + + | 2022-11-17 06:53 | ALLERGY STATUS TO OTH | [facility] | | | DRUG/MEDS/BIOL SUBST STATUS | | | | | | + + + + | 2022-11-27 00:00 | Poorly controlled diabetes | [facility] | | | mellitus | | + + + + | 2022-11-27 00:00 | Blister of right foot | 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, | | + + + + | 2022-11-27 16:59 | TYPE 2 DIABETES MELLITUS | [facility] | | | WITH HYPERGLYCEMIA | | + + + + | 2022-11-27 16:59 | URINARY TRACT INFECTION, | [facility] | | | SITE NOT SPECIFIED | | + + + + | 2022-11-27 16:59 | BLISTER (NONTHERMAL), LEFT | [facility] | | | LESSER TOE(S), INITIAL | | | | ENCOUNTER | | + + + + | 2022-11-27 16:59 | EXPOSURE TO OTHER | [facility] | | | SPECIFIED FACTORS, INITIAL | | | | ENCOU | | + + + + | 2022-11-27 16:59 | [facility] (CURRENT) USE OF | [facility] | | | INSULIN | | + + + + | 2022-11-27 16:59 | [facility] (CURRENT) USE OF | [facility] | | | ORAL HYPOGLYCEMIC DRUGS | | + + + + | 2022-11-27 16:59 | OTHER [facility] (CURRENT) | [facility] | | | DRUG THERAPY | | + + + + | 2022-11-27 16:59 | ALLERGY STATUS TO | [facility] | | | PENICILLIN | | + + + + | 2022-11-27 16:59 | ALLERGY STATUS TO OTHER | [facility] | | | ANTIBIOTIC AGENTS STATUS | | + + + + | 2022-11-27 16:59 | ALLERGY STATUS TO OTH | [facility] | | | DRUG/MEDS/BIOL SUBST STATUS | | | | | | + + + + | 2023-01-11 14:55 | TYPE 2 DIABETES MELLITUS | [facility] | | | WITH HYPERGLYCEMIA | | + + + + | 2023-01-11 14:55 | OBESITY, UNSPECIFIED | [facility] | + + + + | 2023-01-11 14:55 | PROBLEM RELATED TO HOUSING | [facility] | | | AND ECONOMIC | | + + + + | 2023-01-11 14:55 | PEDIATRIC DENTIST (CURRENT) USE OF | [facility] | | | INSULIN | | + + + + | 2023-01-11 14:55 | PATIENT'S OTHER | [facility] | | | NONCOMPLIANCE WITH MEDIC | | + + + + | 2023-01-27 00:00 | Acute gastritis | 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, | | + + + + | 2023-01-27 17:24 | ACUTE GASTRITIS WITHOUT | [facility] | | | BLEEDING | | + + + + | 2023-01-27 17:24 | NAUSEA WITH VOMITING, | [facility] | | | UNSPECIFIED | | + + + + | 2023-01-27 17:24 | PEDIATRIC DENTIST (CURRENT) USE OF | [facility] | | | INSULIN | | + + + + | 2023-01-27 17:24 | [facility] (CURRENT) USE OF | [facility] | | | ORAL HYPOGLYCEMIC DRUGS | | + + + + | 2023-01-27 17:24 | OTHER [facility] (CURRENT) | [facility] | | | DRUG THERAPY | | + + + + | 2023-01-27 17:24 | ALLERGY STATUS TO | [facility] | | | PENICILLIN | | + + + + | 2023-01-27 17:24 | ALLERGY STATUS TO OTHER | [facility] | | | ANTIBIOTIC AGENTS STATUS | | + + + + | 2023-01-27 17:24 | ALLERGY STATUS TO | [facility] | | | SULFONAMIDES STATUS | | + + + + | 2023-01-27 17:24 | ALLERGY STATUS TO OTH | [facility] | | | DRUG/MEDS/BIOL SUBST STATUS | | | | | | + + + + | 2023-03-16 16:31 | 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, | | + + + + | 2023-03-16 16:31 | OTHER CHEST PAIN | [facility] | + + + + | 2023-03-16 16:31 | [facility] (CURRENT) USE OF | [facility] | | | INSULIN | | + + + + | 2023-03-16 16:31 | PEDIATRIC DENTIST (CURRENT) USE OF | [facility] | | | ORAL HYPOGLYCEMIC DRUGS | | + + + + | 2023-03-16 16:31 | OTHER [facility] (CURRENT) | [facility] | | | DRUG THERAPY | | + + + + | 2023-03-16 16:31 | ALLERGY STATUS TO | [facility] | | | PENICILLIN | | + + + + | 2023-03-16 16:31 | ALLERGY STATUS TO OTHER | [facility] | | | ANTIBIOTIC AGENTS STATUS | | + + + + | 2023-03-16 16:31 | ALLERGY STATUS TO | [facility] | | | SULFONAMIDES STATUS | | + + + + | 2023-03-16 16:31 | ALLERGY STATUS TO OTH | [facility] | | | DRUG/MEDS/BIOL SUBST STATUS | | | | | | + + + + | 2023-03-22 11:10 | 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 NEPHROPATHY | | + + + + | 2023-03-22 11:10 | URINARY TRACT INFECTION, | [facility] | | | SITE NOT SPECIFIED | | + + + + | 2023-03-23 11:27 | TYPE 2 DIABETES MELLITUS | [facility] | | | WITHOUT COMPLICATIONS | | + + + + | 2023-03-23 11:27 | URINARY TRACT INFECTION, | [facility] | | | SITE NOT SPECIFIED | | + + + + | 2023-03-23 11:27 | PEDIATRIC DENTIST (CURRENT) USE OF | [facility] | | | INSULIN | | + + + + | 2023-03-23 11:27 | OTHER [facility] (CURRENT) | [facility] | | | DRUG THERAPY | | + + + + | 2023-03-23 11:27 | ALLERGY STATUS TO | [facility] | | | PENICILLIN | | + + + + | 2023-03-23 11:27 | ALLERGY STATUS TO OTHER | [facility] | | | ANTIBIOTIC AGENTS STATUS | | + + + + | 2023-03-23 11:27 | ALLERGY STATUS TO | [facility] | | | SULFONAMIDES STATUS | | + + + + | 2023-03-23 11:27 | ALLERGY STATUS TO OTH | [facility] | | | DRUG/MEDS/BIOL SUBST STATUS | | | | | | + + + + | 2023-03-28 00:00 | Hypoglycemic reaction to | [facility] | | | insulin | | + + + + | 2023-03-28 06:15 | TYPE 2 DIABETES MELLITUS | [facility] | | | WITH HYPOGLYCEMIA WITHOUT | | + + + + | 2023-03-28 06:15 | SLURRED SPEECH | [facility] | + + + + | 2023-03-28 06:15 | ADVERSE EFFECT OF INSULIN | [facility] | | | AND ORAL HYPOGLYCEMIC DR | | + + + + | 2023-03-28 06:15 | [facility] (CURRENT) USE OF | [facility] | | | INSULIN | | + + + + | 2023-03-28 06:15 | OTHER [facility] (CURRENT) | [facility] | | | DRUG THERAPY | | + + + + | 2023-03-28 06:15 | ALLERGY STATUS TO | [facility] | | | PENICILLIN | | + + + + | 2023-03-28 06:15 | ALLERGY STATUS TO | [facility] | | | SULFONAMIDES STATUS | | + + + + | 2023-03-28 06:15 | ALLERGY STATUS TO OTH | [facility] | | | DRUG/MEDS/BIOL SUBST STATUS | | | | | | + + + + | 2023-04-25 12:47 | 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, | | + + + + | 2023-04-25 12:47 | TYPE 2 DIABETES MELLITUS | [facility] | | | WITH HYPERGLYCEMIA | | + + + + | 2023-04-25 12:47 | URINARY TRACT INFECTION, | [facility] | | | SITE NOT SPECIFIED | | + + + + | 2023-04-25 12:47 | [facility] (CURRENT) USE OF | [facility] | | | INSULIN | | + + + + | 2023-04-25 12:47 | OTHER PEDIATRIC DENTIST (CURRENT) | [facility] | | | DRUG THERAPY | | + + + + | 2023-04-25 12:47 | ALLERGY STATUS TO | [facility] | | | PENICILLIN | | + + + + | 2023-04-25 12:47 | ALLERGY STATUS TO OTHER | [facility] | | | ANTIBIOTIC AGENTS STATUS | | + + + + | 2023-04-25 12:47 | ALLERGY STATUS TO | [facility] | | | SULFONAMIDES STATUS | | + + + + | 2023-04-25 12:47 | ALLERGY STATUS TO OTH | [facility] | | | DRUG/MEDS/BIOL SUBST STATUS | | | | | | + + + + | 2023-06-02 18:03 | 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, | | + + + + | 2023-06-02 18:03 | LOW BACK PAIN, UNSPECIFIED | [facility] | | | | | + + + + | 2023-06-02 18:03 | ANESTHESIA OF SKIN | [facility] | + + + + | 2023-06-02 18:03 | [facility] (CURRENT) USE OF | [facility] | | | INSULIN | | + + + + | 2023-06-02 18:03 | [facility] (CURRENT) USE OF | [facility] | | | ASPIRIN | | + + + + | 2023-06-02 18:03 | PEDIATRIC DENTIST (CURRENT) USE OF | [facility] | | | ORAL HYPOGLYCEMIC DRUGS | | + + + + | 2023-06-02 18:03 | OTHER PEDIATRIC DENTIST (CURRENT) | [facility] | | | DRUG THERAPY | | + + + + | 2023-06-02 18:03 | ALLERGY STATUS TO | [facility] | | | PENICILLIN | | + + + + | 2023-06-02 18:03 | ALLERGY STATUS TO OTHER | [facility] | | | ANTIBIOTIC AGENTS STATUS | | + + + + | 2023-06-02 18:03 | ALLERGY STATUS TO | [facility] | | | SULFONAMIDES STATUS | | + + + + | 2023-06-02 18:03 | ALLERGY STATUS TO OTH | [facility] | | | DRUG/MEDS/BIOL SUBST STATUS | | | | | | + + + + Procedures + + + + | date | description | facility | + + + + | 2022-11-17 00:00 | EXCISION OF ILEOCECAL | [facility] | | | VALVE, ENDO, DIAGN | | + + + + | 2022-11-17 00:00 | EXCISION OF RECTUM, ENDO, | [facility] | | | DIAGN | | + + + + | 2022-11-17 00:00 | COLONOSCOPY W/LESION | [facility] | | | REMOVAL | | + + + + Results/Labs +--------+--------+ +---------+--------+---------+ | test | date | facility | value | unit | notes | +--------+--------+ +---------+--------+---------+ + + | Result panel 1 | + + + + + + + + + | | 2022-11-06 | [facility] | NEGATIVE | (missing) | (missing) | | (unavailable | [facility] | | | | + + + + + + + + + | Result panel 2 | + + + + + + + + + | | 2022-11-06 | [facility] | NEGATIVE | (missing) | (missing) | | (unavailable | [facility]:21:08 [facility] | | | | + + + + + + + + + | Result panel 3 | + + + + + + + + + | | 2022-11-06 | [facility] | NEGATIVE | (missing) | (missing) | | (unavailable | [facility]21:08 [facility] | | | | + + + + + + + + + | Result panel 4 | + + + + + + + + + | | 2022-11-06 | [facility] | NEGATIVE | (missing) | (missing) | | (unavailable | [facility]::08 [facility] | | | | + + + + + + + + + | Result panel 5 | + + + + + + + + + | | 2022-11-06 | [facility] | NEGATIVE | (missing) | (missing) | | (unavailable | 17::08 [facility] | | | | + + + + + + + + + | Result panel 6 | + + + + + + + + + | | 2022-11-06 | [facility] | NEGATIVE | (missing) | (missing) | | (unavailable | [facility]21:08 [facility] | | | | + + + + + + + + + | Result panel 7 | + + + + + + + + + | | 2022-11-06 | [facility] | NEGATIVE | (missing) | (missing) | | (unavailable | [facility]::08 [facility] | | | | + + + + + + + + + | Result panel 8 | + + + + + + + + + | | 2022-11-06 | [facility] | NEGATIVE | (missing) | (missing) | | (unavailable | [facility]::08 [facility] | | | | + + + + + + + + + | Result panel 9 | + + + + + + + + + | | 2022-11-06 | [facility] | NEGATIVE | (missing) | (missing) | | (unavailable | 17::08 [facility] | | | | + + + + + + + + + | Result panel 10 | + + + + + + + + + | | 2022-11-06 | [facility] | NEGATIVE | (missing) | (missing) | | (unavailable | 17::08 [facility] | | | | + + + + + + + + + | Result panel 11 | + + + + + + + + + | | 2022-11-06 | [facility] | NEGATIVE | (missing) | (missing) | | (unavailable | 17::08 [facility] | | | | + + + + + + + + + | Result panel 12 | + + + + + + + + + | | 2022-11-06 | [facility] | NEGATIVE | (missing) | (missing) | | (unavailable | [facility]21:08 [facility] | | | | + + + + + + + + + | Result panel 13 | + + + + + +-------+ + + | | 2022-11-06 | [facility] | 1.9 | (missing) | (missing) | | (unavailable | [facility]:25:08 [facility] | | | | + + + +-------+ + + + + | Result panel 14 | + + + + + +--------+ + + | | 2022-11-06 | [facility] | 13.7 | (missing) | (missing) | | (unavailable | [facility]:25:08 [facility] | | | | + + + +--------+ + + + + | Result panel 15 | + + + + + +-------+ + + | | 2022-11-06 | [facility] | 1.9 | (missing) | (missing) | | (unavailable | [facility]:25:08 [facility] | | | | + + + +-------+ + + + + | Result panel 16 | + + + + + +--------+ + + | | 2022-11-06 | [facility] | 13.7 | (missing) | (missing) | | (unavailable | 17::08 [facility] | | | | + + + +--------+ + + + + | Result panel 17 | + + + + + +-------+ + + | | 2022-11-06 | [facility] | 7.0 | (missing) | (missing) | | (unavailable | 17::08 [facility] | | | | + + + +-------+ + + + + | Result panel 18 | + + + + + +-------+ + + | | 2022-11-06 | [facility] | 3.0 | (missing) | (missing) | | (unavailable | [facility]25:08 [facility] | | | | + + + +-------+ + + + + | Result panel 19 | + + + + + +-------+ + + | | 2022-11-06 | [facility] | 4.0 | (missing) | (missing) | | (unavailable | [facility]:25:08 [facility] | | | | + + + +-------+ + + + + | Result panel 20 | + + + + + +--------+ + + | | 2022-11-06 | [facility] | 0.75 | (missing) | (missing) | | (unavailable | :08 [facility] | | | | + + + +--------+ + + + + | Result panel 21 | + + + + + +-------+ + + | | 2022-11-06 | [facility] | 0.9 | (missing) | (missing) | | (unavailable | ::08 | [facility] | | | | + + + +-------+ + + + + | Result panel 22 | + + + + + +------+ + + | | 2022-11-06 | [facility] | 12 | (missing) | (missing) | | (unavailable | 17:25:08 [facility] | | | | + + + +------+ + + + + | Result panel 23 | + + + + + +------+ + + | | 2022-11-06 | [facility] | 24 | (missing) | (missing) | | (unavailable | 17:25:08 [facility] | | | | + + + +------+ + + + + | Result panel 24 | + + + + + +-------+ + + | | 2022-11-06 | [facility] | 119 | (missing) | (missing) | | (unavailable | [facility]:25:08 [facility] | | | | + + + +-------+ + + + + | Result panel 25 | + + + + + +-------+ + + | | 2022-11-06 | [facility] | 1.9 | (missing) | (missing) | | (unavailable | [facility]:25:08 [facility] | | | | + + + +-------+ + + + + | Result panel 26 | + + + + + +--------+ + + | | 2022-11-06 | [facility] | 13.7 | (missing) | (missing) | | (unavailable | [facility]:25:08 [facility] | | | | + + + +--------+ + + + + | Result panel 27 | + + + + + + + + + | | 2022-11-06 | [facility] | YELLOW | (missing) | (missing) | | (unavailable | [facility]:40:08 [facility] | | | | + + + + + + + + + | Result panel 28 | + + + + + + + + + | | 2022-11-06 | [facility] | CLOUDY | (missing) | (missing) | | (unavailable | [facility]:40:08 [facility] | | | | + + + + + + + + + | Result panel 29 | + + + + + + + + + | | 2022-11-06 | [facility] | >=1000 | (missing) | (missing) | | (unavailable | [facility]:40:08 [facility] | | | | + + + + + + + + + | Result panel 30 | + + + + + + + + + | | 2022-11-06 | [facility] | NEGATIVE | (missing) | (missing) | | (unavailable | [facility]:40:08 [facility] | | | | + + + + + + + + + | Result panel 31 | + + + + + +---------+ + + | | 2022-11-06 | [facility] | SMALL | (missing) | (missing) | | (unavailable | [facility]:40:08 [facility] | | | | + + + +---------+ + + + + | Result panel 32 | + + + + + +---------+ + + | | 2022-11-06 | [facility] | 1.015 | (missing) | (missing) | | (unavailable | [facility]:40:08 [facility] | | | | + + + +---------+ + + + + | Result panel 33 | + + + + + +---------+ + + | | 2022-11-06 | [facility] | SMALL | (missing) | (missing) | | (unavailable | [facility]:40:08 [facility] | | | | + + + +---------+ + + + + | Result panel 34 | + + + + + +-------+ + + | | 2022-11-06 | [facility] | 6.0 | (missing) | (missing) | | (unavailable | [facility]:40:08 [facility] | | | | + + + +-------+ + + + + | Result panel 35 | + + + + + +-------+ + + | | 2022-11-06 | [facility] | 100 | (missing) | (missing) | | (unavailable | [facility]40:08 [facility] | | | | + + + +-------+ + + + + | Result panel 36 | + + + + + + + + + | | 2022-11-06 | [facility] | NORMAL | (missing) | (missing) | | (unavailable | [facility]40:08 [facility] | | | | + + + + + + + + + | Result panel 37 | + + + + + + + + + | | 2022-11-06 | [facility] | NEGATIVE | (missing) | (missing) | | (unavailable | [facility]40:08 [facility] | | | | + + + + + + + + + | Result panel 38 | + + + + + +---------+ + + | | 2022-11-06 | [facility] | SMALL | (missing) | (missing) | | (unavailable | [facility]:40:08 [facility] | | | | + + + +---------+ + + + + | Result panel 39 | + + + + + +-------+ + + | | 2022-11-06 | [facility] | 2-3 | (missing) | (missing) | | (unavailable | [facility]40:08 [facility] | | | | + + + +-------+ + + + + | Result panel 40 | + + + + + +---------+ + + | | 2022-11-06 | [facility] | 12-20 | (missing) | (missing) | | (unavailable | [facility]40:08 [facility] | | | | + + + +---------+ + + + + | Result panel 41 | + + + + + +-----+ + + | | 2022-11-06 | [facility] | 0 | (missing) | (missing) | | (unavailable | [facility]40:08 [facility] | | | | + + + +-----+ + + + + | Result panel 42 | + + + + + +------+ + + | | 2022-11-06 | [facility] | 1+ | (missing) | (missing) | | (unavailable | [facility]40:08 [facility] | | | | + + + +------+ + + + + | Result panel 43 | + + + + + +-------+ + + | | 2022-11-06 | [facility] | Yes | (missing) | (missing) | | (unavailable | [facility]40:08 [facility] | | | | + + + +-------+ + + + + | Result panel 44 | + + + + + +--------+ + + | | 2022-11-06 | [facility] | CATH | (missing) | (missing) | | (unavailable | [facility]:40:08 [facility] | | | | + + + +--------+ + + + + | Result panel 45 | + + + + + + + + + | | 2022-11-06 | [facility] | YELLOW | (missing) | (missing) | | (unavailable | [facility]:40:08 [facility] | | | | + + + + + + + + + | Result panel 46 | + + + + + + + + + | | 2022-11-06 | [facility] | CLOUDY | (missing) | (missing) | | (unavailable | [facility]:40:08 [facility] | | | | + + + + + + + + + | Result panel 47 | + + + + + + + + + | | 2022-11-06 | [facility] | >=1000 | (missing) | (missing) | | (unavailable | [facility]40:08 [facility] | | | | + + + + + + + + + | Result panel 48 | + + + + + + + + + | | 2022-11-06 | [facility] | NEGATIVE | (missing) | (missing) | | (unavailable | [facility]40:08 [facility] | | | | + + + + + + + + + | Result panel 49 | + + + + + +---------+ + + | | 2022-11-06 | [facility] | SMALL | (missing) | (missing) | | (unavailable | [facility]40:08 [facility] | | | | + + + +---------+ + + + + | Result panel 50 | + + + + + +---------+ + + | | 2022-11-06 | [facility] | 1.015 | (missing) | (missing) | | (unavailable | [facility]40:08 [facility] | | | | + + + +---------+ + + + + | Result panel 51 | + + + + + +---------+ + + | | 2022-11-06 | [facility] | SMALL | (missing) | (missing) | | (unavailable | [facility]40:08 [facility] | | | | + + + +---------+ + + + + | Result panel 52 | + + + + + +-------+ + + | | 2022-11-06 | [facility] | 6.0 | (missing) | (missing) | | (unavailable | [facility]40:08 [facility] | | | | + + + +-------+ + + + + | Result panel 53 | + + + + + +-------+ + + | | 2022-11-06 | [facility] | 100 | (missing) | (missing) | | (unavailable | [facility]40:08 [facility] | | | | + + + +-------+ + + + + | Result panel 54 | + + + + + + + + + | | 2022-11-06 | [facility] | NORMAL | (missing) | (missing) | | (unavailable | [facility]40:08 [facility] | | | | + + + + + + + + + | Result panel 55 | + + + + + + + + + | | 2022-11-06 | [facility] | NEGATIVE | (missing) | (missing) | | (unavailable | [facility]40:08 [facility] | | | | + + + + + + + + + | Result panel 56 | + + + + + +---------+ + + | | 2022-11-06 | [facility] | SMALL | (missing) | (missing) | | (unavailable | [facility]40:08 [facility] | | | | + + + +---------+ + + + + | Result panel 57 | + + + + + +-------+ + + | | 2022-11-06 | [facility] | 2-3 | (missing) | (missing) | | (unavailable | [facility]40:08 [facility] | | | | + + + +-------+ + + + + | Result panel 58 | + + + + + +---------+ + + | | 2022-11-06 | [facility] | - | (missing) | (missing) | | (unavailable | [facility]40:08 [facility] | | | | + + + +---------+ + + + + | Result panel 59 | + + + + + +-----+ + + | | 2022-11-06 | [facility] | 0 | (missing) | (missing) | | (unavailable | [facility]40:08 [facility] | | | | + + + +-----+ + + + + | Result panel 60 | + + + + + +------+ + + | | 2022-11-06 | [facility] | 1+ | (missing) | (missing) | | (unavailable | [facility]40:08 [facility] | | | | + + + +------+ + + + + | Result panel 61 | + + + + + +-------+ + + | | 2022-11-06 | [facility] | Yes | (missing) | (missing) | | (unavailable | [facility]40:08 [facility] | | | | + + + +-------+ + + + + | Result panel 62 | + + + + + +--------+ + + | | 2022-11-06 | [facility] | CATH | (missing) | (missing) | | (unavailable | [facility]40:08 [facility] | | | | + + + +--------+ + + + + | Result panel 63 | + + + + + +-------+---------+ + | | 2022-11-07 | [facility] | 1.4 | mg/dL | (missing) | | (unavailable | 05:50:08 [facility] | | | | + + + +-------+---------+ + + + | Result panel 64 | + + + + + +-------+---------+ + | | 2022-11-07 | [facility] | 1.4 | mg/dL | (missing) | | (unavailable | [facility]:50:08 [facility] | | | | + + + +-------+---------+ + + + | Result panel 65 | + + + + + +-------+---------+ + | | 2022-11-07 | [facility] | 1.4 | mg/dL | (missing) | | (unavailable | [facility]:50:08 [facility] | | | | + + + +-------+---------+ + + + | Result panel 66 | + + + + + +-------+ + + | | 2022-11-08 | [facility] | 8.5 | (missing) | (missing) | | (unavailable | [facility]58:08 [facility] | | | | + + + +-------+ + + + + | Result panel 67 | + + + + + +--------+ + + | | 2022-11-08 | [facility] | 3.83 | (missing) | (missing) | | (unavailable | [facility]58:08 [facility] | | | | + + + +--------+ + + + + | Result panel 68 | + + + + + +--------+ + + | | 2022-11-08 | [facility] | 11.7 | (missing) | (missing) | | (unavailable | [facility]58:08 [facility] | | | | + + + +--------+ + + + + | Result panel 69 | + + + + + +--------+ + + | | 2022-11-08 | [facility] | 35.1 | (missing) | (missing) | | (unavailable | [facility]58:08 [facility] | | | | + + + +--------+ + + + + | Result panel 70 | + + + + + +--------+ + + | | 2022-11-08 | [facility] | 91.7 | (missing) | (missing) | | (unavailable | [facility]58:08 [facility] | | | | + + + +--------+ + + + + | Result panel 71 | + + + + + +--------+ + + | | 2022-11-08 | [facility] | 30.6 | (missing) | (missing) | | (unavailable | [facility]58:08 [facility] | | | | + + + +--------+ + + + + | Result panel 72 | + + + + + +--------+ + + | | 2022-11-08 | [facility] | 33.4 | (missing) | (missing) | | (unavailable | 05:58:08 [facility] | | | | + + + +--------+ + + + + | Result panel 73 | + + + + + +--------+ + + | | 2022-11-08 | [facility] | 14.7 | (missing) | (missing) | | (unavailable | 05:58:08 [facility] | | | | + + + +--------+ + + + + | Result panel 74 | + + + + + +-------+ + + | | 2022-11-08 | [facility] | 254 | (missing) | (missing) | | (unavailable | 05:58:08 [facility] | | | | + + + +-------+ + + + + | Result panel 75 | + + + + + +--------+ + + | | 2022-11-08 | [facility] | 61.6 | (missing) | (missing) | | (unavailable | 05:58:08 [facility] | | | | + + + +--------+ + + + + | Result panel 76 | + + + + + +--------+ + + | | 2022-11-08 | [facility] | 24.4 | (missing) | (missing) | | (unavailable | 05:58:08 [facility] | | | | + + + +--------+ + + + + | Result panel 77 | + + + + + +-------+ + + | | 2022-11-08 | [facility] | 8.3 | (missing) | (missing) | | (unavailable | 05:58:08 [facility] | | | | + + + +-------+ + + + + | Result panel 78 | + + + + + +-------+ + + | | 2022-11-08 | [facility] | 4.8 | (missing) | (missing) | | (unavailable | 05:58:08 [facility] | | | | + + + +-------+ + + + + | Result panel 79 | + + + + + +-------+ + + | | 2022-11-08 | [facility] | 0.9 | (missing) | (missing) | | (unavailable | 05:58:08 [facility] | | | | + + + +-------+ + + + + | Result panel 80 | + + + + + +-------+---------+ + | | 2022-11-08 | [facility] | 201 | mg/dL | (missing) | | (unavailable | 05:58:08 [facility] | | | | + + + +-------+---------+ + + + | Result panel 81 | + + + + + +------+---------+ + | | 2022-11-08 | [facility] | 13 | mg/dL | (missing) | | (unavailable | 05:58:08 [facility] | | | | + + + +------+---------+ + + + | Result panel 82 | + + + + + +--------+---------+ + | | 2022-11-08 | [facility] | 0.91 | mg/dL | (missing) | | (unavailable | 05:58:08 [facility] | | | | + + + +--------+---------+ + + + | Result panel 83 | + + + + + +------+ + + | | 2022-11-08 | [facility] | 72 | (missing) | (missing) | | (unavailable | 05:58:08 [facility] | | | | + + + +------+ + + + + | Result panel 84 | + + + + + +---------+ + + | | 2022-11-08 | [facility] | 14.28 | (missing) | (missing) | | (unavailable | 05:58:08 [facility] | | | | + + + +---------+ + + + + | Result panel 85 | + + + + + +-------+ + + | | 2022-11-08 | [facility] | 137 | (missing) | (missing) | | (unavailable | 05:58:08 [facility] | | | | + + + +-------+ + + + + | Result panel 86 | + + + + + +-------+ + + | | 2022-11-08 | [facility] | 3.5 | (missing) | (missing) | | (unavailable | 05:58:08 [facility] | | | | + + + +-------+ + + + + | Result panel 87 | + + + + + +-------+ + + | | 2022-11-08 | [facility] | 104 | (missing) | (missing) | | (unavailable | 05:58:08 [facility] | | | | + + + +-------+ + + + + | Result panel 88 | + + + + + +------+ + + | | 2022-11-08 | [facility] | 24 | (missing) | (missing) | | (unavailable | 05:58:08 [facility] | | | | + + + +------+ + + + + | Result panel 89 | + + + + + +--------+ + + | | 2022-11-08 | [facility] | 12.5 | (missing) | (missing) | | (unavailable | 05:58:08 [facility] | | | | + + + +--------+ + + + + | Result panel 90 | + + + + + +-------+---------+ + | | 2022-11-08 | [facility] | 8.2 | mg/dL | (missing) | | (unavailable | 05:58:08 [facility] | | | | + + + +-------+---------+ + + + | Result panel 91 | + + + + + +-------+ + + | | 2022-11-11 | [facility] | 113 | (missing) | (missing) | | (unavailable | 12:48:08 | [facility] | | | | + + + +-------+ + + + + | Result panel 92 | + + + + + +-------+ + + | | 2022-11-16 | [facility] | 8.9 | (missing) | (missing) | | (unavailable | 11:08:08 | [facility] | | | | + + + +-------+ + + + + | Result panel 93 | + + + + + +--------+ + + | | 2022-11-16 | [facility] | 3.91 | (missing) | (missing) | | (unavailable | 11:08:08 [facility] | | | | + + + +--------+ + + + + | Result panel 94 | + + + + + +--------+ + + | | 2022-11-16 | [facility] | 12.0 | (missing) | (missing) | | (unavailable | 11:08:08 [facility] | | | + + + +--------+ + + + + | Result panel 95 | + + + + + +--------+ + + | | 2022-11-16 | [facility] | 36.5 | (missing) | (missing) | | (unavailable | 11:08:08 [facility] | | | + + + +--------+ + + + + | Result panel 96 | + + + + + +--------+ + + | | 2022-11-16 | [facility] | 93.3 | (missing) | (missing) | | (unavailable | 11:08:08 [facility] | | | + + + +--------+ + + + + | Result panel 97 | + + + + + +--------+ + + | | 2022-11-16 | [facility] | 30.8 | (missing) | (missing) | | (unavailable | 11:08:08 [facility] | | | + + + +--------+ + + + + | Result panel 98 | + + + + + +--------+ + + | | 2022-11-16 | [facility] | 33.0 | (missing) | (missing) | | (unavailable | 11:08:08 [facility] | | + + + +--------+ + + + + | Result panel 99 | + + + + + +--------+ + + | | 2022-11-16 | [facility] | 14.9 | (missing) | (missing) | | (unavailable | 11:08:08 [facility] | | + + + +--------+ + + + + | Result panel 100 | + + + + + +-------+ + + | | 2022-11-16 | [facility] | 365 | (missing) | (missing) | | (unavailable | 11:08:08 [facility] | | | + + + +-------+ + + + + | Result panel 101 | + + + + + +--------+ + + | | 2022-11-16 | [facility] | 66.0 | (missing) | (missing) | | (unavailable | 11::08 | [facility] | | + + + +--------+ + + + + | Result panel 102 | + + + + + +--------+ + + | | 2022-11-16 | [facility] | 21.3 | (missing) | (missing) | | (unavailable | 11:08:08 [facility] | | + + + +--------+ + + + + | Result panel 103 | + + + + + +-------+ + + | | 2022-11-16 | [facility] | 9.4 | (missing) | (missing) | | (unavailable | 11:08:08 [facility] | | | + + + +-------+ + + + + | Result panel 104 | + + + + + +-------+ + + | | 2022-11-16 | [facility] | 2.6 | (missing) | (missing) | | (unavailable | 11:08:08 [facility] | | | + + + +-------+ + + + + | Result panel 105 | + + + + + +-------+ + + | | 2022-11-16 | [facility] | 0.7 | (missing) | (missing) | | (unavailable | 11:08:08 [facility] | | | + + + +-------+ + + + + | Result panel 106 | + + + + + +------+---------+ + | | 2022-11-16 | [facility] | 75 | mg/dL | (missing) | | (unavailable | 11:08:08 [facility] | | | + + + +------+---------+ + + + | Result panel 107 | + + + + + +------+---------+ + | | 2022-11-16 | [facility] | 13 | mg/dL | (missing) | | (unavailable | 11:08:08 [facility] | | | + + + +------+---------+ + + + | Result panel 108 | + + + + + +--------+---------+ + | | 2022-11-16 | [facility] | 0.66 | mg/dL | (missing) | | (unavailable | 11:08:08 [facility] | | | + + + +--------+---------+ + + + | Result panel 109 | + + + + + +-------+ + + | | 2022-11-16 | [facility] | 100 | (missing) | (missing) | | (unavailable | 11:08:08 [facility] | | | + + + +-------+ + + + + | Result panel 110 | + + + + + +---------+ + + | | 2022-11-16 | [facility] | 19.69 | (missing) | (missing) | | (unavailable | 11:08:08 [facility] | | | + + + +---------+ + + + + | Result panel 111 | + + + + + +-------+ + + | | 2022-11-16 | [facility] | 139 | (missing) | (missing) | | (unavailable | 11:08:08 | [facility] | | | | + + + +-------+ + + + + | Result panel 112 | + + + + + +-------+ + + | | 2022-11-16 | [facility] | 4.1 | (missing) | (missing) | | (unavailable | 11:08:08 [facility] | | | + + + +-------+ + + + + | Result panel 113 | + + + + + +-------+ + + | | 2022-11-16 | [facility] | 106 | (missing) | (missing) | | (unavailable | 11:08:08 [facility] | | | + + + +-------+ + + + + | Result panel 114 | + + + + + +------+ + + | | 2022-11-16 | [facility] | 29 | (missing) | (missing) | | (unavailable | 11:08:08 [facility] | | | + + + +------+ + + + + | Result panel 115 | + + + + + +-------+ + + | | 2022-11-16 | [facility] | 8.1 | (missing) | (missing) | | (unavailable | 11:08:08 [facility] | | | + + + +-------+ + + + + | Result panel 116 | + + + + + +-------+---------+ + | | 2022-11-16 | [facility] | 8.7 | mg/dL | (missing) | | (unavailable | 11:08:08 [facility] | | | + + + +-------+---------+ + + + | Result panel 117 | + + + + + +-------+ + + | | 2022-11-16 | [facility] | 6.7 | (missing) | (missing) | | (unavailable | [facility]:08:08 [facility] | | | + + + +-------+ + + + + | Result panel 118 | + + + + + +-------+ + + | | 2022-11-16 | [facility] | 2.5 | (missing) | (missing) | | (unavailable | 11:08:08 [facility] | | | + + + +-------+ + + + + | Result panel 119 | + + + + + +-------+ + + | | 2022-11-16 | [facility] | 4.2 | (missing) | (missing) | | (unavailable | [facility]:08:08 [facility] | | | + + + +-------+ + + + + | Result panel 120 | + + + + + +--------+ + + | | 2022-11-16 | [facility] | 0.60 | (missing) | (missing) | | (unavailable | 11:08:08 [facility] | | | + + + +--------+ + + + + | Result panel 121 | + + + + + +-------+ + + | | 2022-11-16 | [facility] | 0.2 | (missing) | (missing) | | (unavailable | 11:08:08 [facility] | | | + + + +-------+ + + + + | Result panel 122 | + + + + + +------+ + + | | 2022-11-16 | [facility] | 48 | (missing) | (missing) | | (unavailable | 11:08:08 [facility] | | | + + + +------+ + + + + | Result panel 123 | + + + + + +------+ + + | | 2022-11-16 | [facility] | 53 | (missing) | (missing) | | (unavailable | 11:08:08 [facility] | | | + + + +------+ + + + + | Result panel 124 | + + + + + +-------+ + + | | 2022-11-16 | [facility] | 103 | (missing) | (missing) | | (unavailable | 11:08:08 [facility] | | | + + + +-------+ + + + + | Result panel 125 | + + + + + +-------+ + + | | 2022-11-16 | [facility] | 8.9 | (missing) | (missing) | | (unavailable | [facility]:08:08 [facility] | | | + + + +-------+ + + + + | Result panel 126 | + + + + + +--------+ + + | | 2022-11-16 | [facility] | 3.91 | (missing) | (missing) | | (unavailable | [facility]:08:08 [facility] | | | + + + +--------+ + + + + | Result panel 127 | + + + + + +--------+ + + | | 2022-11-16 | [facility] | 12.0 | (missing) | (missing) | | (unavailable | 11:08:08 [facility] | | + + + +--------+ + + + + | Result panel 128 | + + + + + +--------+ + + | | 2022-11-16 | [facility] | 36.5 | (missing) | (missing) | | (unavailable | 11:08:08 [facility] | | | + + + +--------+ + + + + | Result panel 129 | + + + + + +--------+ + + | | 2022-11-16 | [facility] | 93.3 | (missing) | (missing) | | (unavailable | 11:08:08 [facility] | | | + + + +--------+ + + + + | Result panel 130 | + + + + + +--------+ + + | | 2022-11-16 | [facility] | 30.8 | (missing) | (missing) | | (unavailable | 11:08:08 [facility] | | + + + +--------+ + + + + | Result panel 131 | + + + + + +--------+ + + | | 2022-11-16 | [facility] | 33.0 | (missing) | (missing) | | (unavailable | 11:08:08 [facility] | | + + + +--------+ + + + + | Result panel 132 | + + + + + +--------+ + + | | 2022-11-16 | [facility] | 14.9 | (missing) | (missing) | | (unavailable | 11:08:08 [facility] | | + + + +--------+ + + + + | Result panel 133 | + + + + + +-------+ + + | | 2022-11-16 | [facility] | 365 | (missing) | (missing) | | (unavailable | 11:08:08 [facility] | | + + + +-------+ + + + + | Result panel 134 | + + + + + +--------+ + + | | 2022-11-16 | [facility] | 66.0 | (missing) | (missing) | | (unavailable | 11:08:08 [facility] | | + + + +--------+ + + + + | Result panel 135 | + + + + + +--------+ + + | | 2022-11-16 | [facility] | 21.3 | (missing) | (missing) | | (unavailable | 11:08:08 [facility] | | + + + +--------+ + + + + | Result panel 136 | + + + + + +-------+ + + | | 2022-11-16 | [facility] | 9.4 | (missing) | (missing) | | (unavailable | 11:08:08 [facility] | | + + + +-------+ + + + + | Result panel 137 | + + + + + +-------+ + + | | 2022-11-16 | [facility] | 2.6 | (missing) | (missing) | | (unavailable | 11:08:08 [facility] | | + + + +-------+ + + + + | Result panel 138 | + + + + + +-------+ + + | | 2022-11-16 | [facility] | 0.7 | (missing) | (missing) | | (unavailable | 11:08:08 [facility] | | + + + +-------+ + + + + | Result panel 139 | + + + + + +------+---------+ + | | 2022-11-16 | [facility] | 75 | mg/dL | (missing) | | (unavailable | 11:08:08 [facility] | | | + + + +------+---------+ + + + | Result panel 140 | + + + + + +------+---------+ + | | 2022-11-16 | [facility] | 13 | mg/dL | (missing) | | (unavailable | 11:08:08 [facility] | | + + + +------+---------+ + + + | Result panel 141 | + + + + + +--------+---------+ + | | 2022-11-16 | [facility] | 0.66 | mg/dL | (missing) | | (unavailable | 11:08:08 [facility] | | + + + +--------+---------+ + + + | Result panel 142 | + + + + + +-------+ + + | | 2022-11-16 | [facility] | 100 | (missing) | (missing) | | (unavailable | 11:08:08 [facility] | | + + + +-------+ + + + + | Result panel 143 | + + + + + +---------+ + + | | 2022-11-16 | [facility] | 19.69 | (missing) | (missing) | | (unavailable | 11:08:08 [facility] | | + + + +---------+ + + + + | Result panel 144 | + + + + + +-------+ + + | | 2022-11-16 | [facility] | 139 | (missing) | (missing) | | (unavailable | 11:08:08 [facility] | | | + + + +-------+ + + + + | Result panel 145 | + + + + + +-------+ + + | | 2022-11-16 | [facility] | 4.1 | (missing) | (missing) | | (unavailable | 11:08:08 [facility] | | | + + + +-------+ + + + + | Result panel 146 | + + + + + +-------+ + + | | 2022-11-16 | [facility] | 106 | (missing) | (missing) | | (unavailable | 11:08:08 [facility] | | | + + + +-------+ + + + + | Result panel 147 | + + + + + +------+ + + | | 2022-11-16 | [facility] | 29 | (missing) | (missing) | | (unavailable | 11:08:08 [facility] | | | + + + +------+ + + + + | Result panel 148 | + + + + + +-------+ + + | | 2022-11-16 | [facility] | 8.1 | (missing) | (missing) | | (unavailable | 11:08:08 [facility] | | + + + +-------+ + + + + | Result panel 149 | + + + + + +-------+---------+ + | | 2022-11-16 | [facility] | 8.7 | mg/dL | (missing) | | (unavailable | 11:08:08 [facility] | | | + + + +-------+---------+ + + + | Result panel 150 | + + + + + +-------+ + + | | 2022-11-16 | [facility] | 6.7 | (missing) | (missing) | | (unavailable | 11:08:08 [facility] | | | + + + +-------+ + + + + | Result panel 151 | + + + + + +-------+ + + | | 2022-11-16 | [facility] | 2.5 | (missing) | (missing) | | (unavailable | 11:08:08 [facility] | | | + + + +-------+ + + + + | Result panel 152 | + + + + + +-------+ + + | | 2022-11-16 | [facility] | 4.2 | (missing) | (missing) | | (unavailable | 11:08:08 [facility] | | + + + +-------+ + + + + | Result panel 153 | + + + + + +--------+ + + | | 2022-11-16 | [facility] | 0.60 | (missing) | (missing) | | (unavailable | 11:08:08 [facility] | | | + + + +--------+ + + + + | Result panel 154 | + + + + + +-------+ + + | | 2022-11-16 | [facility] | 0.2 | (missing) | (missing) | | (unavailable | 11:08:08 [facility] | | | + + + +-------+ + + + + | Result panel 155 | + + + + + +------+ + + | | 2022-11-16 | [facility] | 48 | (missing) | (missing) | | (unavailable | 11:08:08 [facility] | | | + + + +------+ + + + + | Result panel 156 | + + + + + +------+ + + | | 2022-11-16 | [facility] | 53 | (missing) | (missing) | | (unavailable | 11:08:08 [facility] | | | + + + +------+ + + + + | Result panel 157 | + + + + + +-------+ + + | | 2022-11-16 | [facility] | 103 | (missing) | (missing) | | (unavailable | 11:08:08 [facility] | | | + + + +-------+ + + + + | Result panel 158 | + + + + + +-------+ + + | | 2022-11-17 | [facility] | 143 | (missing) | (missing) | | (unavailable | 07:46:08 [facility] | | | + + + +-------+ + + + + | Result panel 159 | + + + + + + + + + | | 2022-11-27 | [facility] | YELLOW | (missing) | (missing) | | (unavailable | 17:30:08 [facility] | | | + + + + + + + + + | Result panel 160 | + + + + + +---------+ + + | | 2022-11-27 | [facility] | CLEAR | (missing) | (missing) | | (unavailable | 17:30:08 [facility] | | | + + + +---------+ + + + + | Result panel 161 | + + + + + + + + + | | 2022-11-27 | [facility] | >=1000 | (missing) | (missing) | | (unavailable | 17:30:08 [facility] | | | + + + + + + + + + | Result panel 162 | + + + + + + + + + | | 2022-11-27 | [facility] | NEGATIVE | (missing) | (missing) | | (unavailable | 17:30:08 [facility] | | | + + + + + + + + + | Result panel 163 | + + + + + + + + + | | 2022-11-27 | [facility] | NEGATIVE | (missing) | (missing) | | (unavailable | 17:30:08 [facility] | | | + + + + + + + + + | Result panel 164 | + + + + + +---------+ + + | | 2022-11-27 | [facility] | 1.020 | (missing) | (missing) | | (unavailable | 17:30:08 [facility] | | | + + + +---------+ + + + + | Result panel 165 | + + + + + +---------+ + + | | 2022-11-27 | [facility] | SMALL | (missing) | (missing) | | (unavailable | 17:30:08 [facility] | | | + + + +---------+ + + + + | Result panel 166 | + + + + + +-------+ + + | | 2022-11-27 | [facility] | 6.0 | (missing) | (missing) | | (unavailable | 17:30:08 [facility] | | | + + + +-------+ + + + + | Result panel 167 | + + + + + +------+ + + | | 2022-11-27 | [facility] | 30 | (missing) | (missing) | | (unavailable | 17:30:08 [facility] | | | + + + +------+ + + + + | Result panel 168 | + + + + + + + + + | | 2022-11-27 | [facility] | NORMAL | (missing) | (missing) | | (unavailable | 17:30:08 [facility] | | | + + + + + + + + + | Result panel 169 | + + + + + + + + + | | 2022-11-27 | [facility] | NEGATIVE | (missing) | (missing) | | (unavailable | 17:30:08 [facility] | | | + + + + + + + + + | Result panel 170 | + + + + + +---------+ + + | | 2022-11-27 | [facility] | SMALL | (missing) | (missing) | | (unavailable | 17:30:08 [facility] | | | + + + +---------+ + + + + | Result panel 171 | + + + + + +-------+ + + | | 2022-11-27 | [facility] | 4-6 | (missing) | (missing) | | (unavailable | 17:30:08 [facility] | | | + + + +-------+ + + + + | Result panel 172 | + + + + + +-------+ + + | | 2022-11-27 | [facility] | >50 | (missing) | (missing) | | (unavailable | 17:30:08 [facility] | | | + + + +-------+ + + + + | Result panel 173 | + + + + + +-----+ + + | | 2022-11-27 | [facility] | 0 | (missing) | (missing) | | (unavailable | 17:30:08 [facility] | | | + + + +-----+ + + + + | Result panel 174 | + + + + + + + + + | | 2022-11-27 | [facility] | NONE SEEN | (missing) | (missing) | | (unavailable | 17:30:08 [facility] | | | + + + + + + + + + | Result panel 175 | + + + + + + + + + | | 2022-11-27 | [facility] | NONE SEEN | (missing) | (missing) | | (unavailable | 17:30:08 [facility] | | | + + + + + + + + + | Result panel 176 | + + + + + + + + + | | 2022-11-27 | [facility] | NONE SEEN | (missing) | (missing) | | (unavailable | 17:30:08 [facility] | | | + + + + + + + + + | Result panel 177 | + + + + + +-------+ + + | | 2022-11-27 | [facility] | Yes | (missing) | (missing) | | (unavailable | 17:30:08 [facility] | | | + + + +-------+ + + + + | Result panel 178 | + + + + + + + + + | | 2022-11-27 | [facility] | CLEAN CATCH | (missing) | (missing) | | (unavailable | 17:30:08 [facility] | | | + + + + + + + + + | Result panel 179 | + + + + + +-------+ + + | | 2022-11-27 | [facility] | 269 | (missing) | (missing) | | (unavailable | 17:33:08 [facility] | | | + + + +-------+ + + + + | Result panel 180 | + + + + + +-------+ + + | | 2023-01-11 | [facility] | 6.8 | (missing) | (missing) | | (unavailable | 15:10:07 [facility] | | | + + + +-------+ + + + + | Result panel 181 | + + + + + +-------+ + + | | 2023-01-11 | [facility] | 2.5 | (missing) | (missing) | | (unavailable | 15:10:07 [facility] | | | + + + +-------+ + + + + | Result panel 182 | + + + + + +-------+ + + | | 2023-01-11 | [facility] | 0.9 | (missing) | (missing) | | (unavailable | 15:10:07 [facility] | | | + + + +-------+ + + + + | Result panel 183 | + + + + + +-------+ + + | | 2023-01-11 | [facility] | 0.3 | (missing) | (missing) | | (unavailable | 15:10:07 [facility] | | | + + + +-------+ + + + + | Result panel 184 | + + + + + +-------+ + + | | 2023-01-11 | [facility] | 0.1 | (missing) | (missing) | | (unavailable | 15:10:07 [facility] | | | + + + +-------+ + + + + | Result panel 185 | + + + + + +-------+---------+ + | | 2023-01-11 | [facility] | 159 | mg/dL | (missing) | | (unavailable | 15:10:07 [facility] | | | + + + +-------+---------+ + + + | Result panel 186 | + + + + + +------+ + + | | 2023-01-11 | [facility] | 47 | (missing) | (missing) | | (unavailable | 15:10:07 [facility] | | | + + + +------+ + + + + | Result panel 187 | + + + + + + + + + | | 2023-01-11 | [facility] | 112.00 | (missing) | (missing) | | (unavailable | 15:10:07 [facility] | | | + + + + + + + + + | Result panel 188 | + + + + + +------+---------+ + | | 2023-01-11 | [facility] | 52 | mg/dL | (missing) | | (unavailable | 15:10:07 [facility] | | | + + + +------+---------+ + + + | Result panel 189 | + + + + + +-------+ + + | | 2023-01-11 | [facility] | 3.4 | (missing) | (missing) | | (unavailable | 15:10:07 [facility] | | | + + + +-------+ + + + + | Result panel 190 | + + + + + +------+ + + | | 2023-01-11 | [facility] | 60 | (missing) | (missing) | | (unavailable | 15:10:07 [facility] | | | + + + +------+ + + + + | Result panel 191 | + + + + + +-------+ + + | | 2023-01-11 | [facility] | 302 | (missing) | (missing) | | (unavailable | 15:10:07 [facility] | | | + + + +-------+ + + + + | Result panel 192 | + + + + + +---------+ + + | | 2023-01-11 | [facility] | 2.461 | (missing) | (missing) | | (unavailable | 15:10:07 [facility] | | | + + + +---------+ + + + + | Result panel 193 | + + + + + +--------+ + + | | 2023-01-11 | [facility] | 10.8 | (missing) | (missing) | | (unavailable | 15:10:07 [facility] | | | + + + +--------+ + + + + | Result panel 194 | + + + + + +---------+---------+ + | | 2023-01-11 | [facility] | 71.38 | mg/dL | (missing) | | (unavailable | 15::07 [facility] | | | + + + +---------+---------+ + + + | Result panel 195 | + + + + + +-------+---------+ + | | 2023-01-11 | [facility] | 141 | mg/dL | (missing) | | (unavailable | 15:10:07 [facility] | | | + + + +-------+---------+ + + + | Result panel 196 | + + + + + +------+ + + | | 2023-01-11 | [facility] | 49 | (missing) | (missing) | | (unavailable | 15:10:07 [facility] | | | + + + +------+ + + + + | Result panel 197 | + + + + + +-------+ + + | | 2023-01-11 | [facility] | 343 | (missing) | (missing) | | (unavailable | 15:10:07 [facility] | | | + + + +-------+ + + + + | Result panel 198 | + + + + + +------+ + + | | 2023-01-11 | [facility] | 14 | (missing) | (missing) | | (unavailable | 15:10:07 [facility] | | | + + + +------+ + + + + | Result panel 199 | + + + + + +-------+ + + | | 2023-01-27 | [facility] | 9.9 | (missing) | (missing) | | (unavailable | 18:43:07 [facility] | | | + + + +-------+ + + + + | Result panel 200 | + + + + + +--------+ + + | | 2023-01-27 | [facility] | 4.54 | (missing) | (missing) | | (unavailable | [facility]:43:07 [facility] | | | | + + + +--------+ + + + + | Result panel 201 | + + + + + +--------+ + + | | 2023-01-27 | [facility] | 13.4 | (missing) | (missing) | | (unavailable | [facility]43:07 [facility] | | | | + + + +--------+ + + + + | Result panel 202 | + + + + + +--------+ + + | | 2023-01-27 | [facility] | 40.9 | (missing) | (missing) | | (unavailable | [facility]43:07 [facility] | | | | + + + +--------+ + + + + | Result panel 203 | + + + + + +--------+ + + | | 2023-01-27 | [facility] | 90.0 | (missing) | (missing) | | (unavailable | [facility]43:07 [facility] | | | | + + + +--------+ + + + + | Result panel 204 | + + + + + +--------+ + + | | 2023-01-27 | [facility] | 29.6 | (missing) | (missing) | | (unavailable | [facility]43:07 [facility] | | | | + + + +--------+ + + + + | Result panel 205 | + + + + + +--------+ + + | | 2023-01-27 | [facility] | 32.9 | (missing) | (missing) | | (unavailable | [facility]43:07 [facility] | | | | + + + +--------+ + + + + | Result panel 206 | + + + + + +--------+ + + | | 2023-01-27 | [facility] | 13.4 | (missing) | (missing) | | (unavailable | [facility]43:07 [facility] | | | | + + + +--------+ + + + + | Result panel 207 | + + + + + +-------+ + + | | 2023-01-27 | [facility] | 350 | (missing) | (missing) | | (unavailable | [facility]43:07 [facility] | | | | + + + +-------+ + + + + | Result panel 208 | + + + + + +--------+ + + | | 2023-01-27 | [facility] | 70.4 | (missing) | (missing) | | (unavailable | [facility]43:07 [facility] | | | | + + + +--------+ + + + + | Result panel 209 | + + + + + +--------+ + + | | 2023-01-27 | [facility] | 20.0 | (missing) | (missing) | | (unavailable | [facility]43:07 [facility] | | | | + + + +--------+ + + + + | Result panel 210 | + + + + + +-------+ + + | | 2023-01-27 | [facility] | 6.1 | (missing) | (missing) | | (unavailable | [facility]43:07 [facility] | | | | + + + +-------+ + + + + | Result panel 211 | + + + + + +-------+ + + | | 2023-01-27 | [facility] | 2.8 | (missing) | (missing) | | (unavailable | [facility]43:07 [facility] | | | | + + + +-------+ + + + + | Result panel 212 | + + + + + +-------+ + + | | 2023-01-27 | [facility] | 0.7 | (missing) | (missing) | | (unavailable | [facility]43:07 [facility] | | | | + + + +-------+ + + + + | Result panel 213 | + + + + + +-------+---------+ + | | 2023-01-27 | [facility] | 179 | mg/dL | (missing) | | (unavailable | [facility]:43:07 [facility] | | | | + + + +-------+---------+ + + + | Result panel 214 | + + + + + +------+---------+ + | | 2023-01-27 | [facility] | 20 | mg/dL | (missing) | | (unavailable | [facility]:43:07 [facility] | | | | + + + +------+---------+ + + + | Result panel 215 | + + + + + +--------+---------+ + | | 2023-01-27 | [facility] | 1.17 | mg/dL | (missing) | | (unavailable | [facility]43:07 [facility] | | | | + + + +--------+---------+ + + + | Result panel 216 | + + + + + +------+ + + | | 2023-01-27 | [facility] | 53 | (missing) | (missing) | | (unavailable | [facility]43:07 [facility] | | | | + + + +------+ + + + + | Result panel 217 | + + + + + +---------+ + + | | 2023-01-27 | [facility] | 17.09 | (missing) | (missing) | | (unavailable | [facility]:43:07 [facility] | | | | + + + +---------+ + + + + | Result panel 218 | + + + + + +-------+ + + | | 2023-01-27 | [facility] | 136 | (missing) | (missing) | | (unavailable | [facility]43:07 [facility] | | | + + + +-------+ + + + + | Result panel 219 | + + + + + +-------+ + + | | 2023-01-27 | [facility] | 4.5 | (missing) | (missing) | | (unavailable | [facility]07 [facility] | | | + + + +-------+ + + + + | Result panel 220 | + + + + + +-------+ + + | | 2023-01-27 | [facility] | 101 | (missing) | (missing) | | (unavailable | [facility]43:07 [facility] | | | + + + +-------+ + + + + | Result panel 221 | + + + + + +------+ + + | | 2023-01-27 | [facility] | 27 | (missing) | (missing) | | (unavailable | [facility]43:07 [facility] | | + + + +------+ + + + + | Result panel 222 | + + + + + +--------+ + + | | 2023-01-27 | [facility] | 12.5 | (missing) | (missing) | | (unavailable | [facility]43:07 [facility] | | + + + +--------+ + + + + | Result panel 223 | + + + + + +-------+---------+ + | | 2023-01-27 | [facility] | 9.4 | mg/dL | (missing) | | (unavailable | [facility]43:07 [facility] | | + + + +-------+---------+ + + + | Result panel 224 | + + + + + +-------+---------+ + | | 2023-01-27 | [facility] | 1.2 | mg/dL | (missing) | | (unavailable | [facility]43:07 [facility] | | + + + +-------+---------+ + + + | Result panel 225 | + + + + + +-------+ + + | | 2023-01-27 | [facility] | 7.5 | (missing) | (missing) | | (unavailable | [facility]43:07 [facility] | | + + + +-------+ + + + + | Result panel 226 | + + + + + +-------+ + + | | 2023-01-27 | [facility] | 3.2 | (missing) | (missing) | | (unavailable | [facility]07 [facility] | | + + + +-------+ + + + + | Result panel 227 | + + + + + +-------+ + + | | 2023-01-27 | [facility] | 4.3 | (missing) | (missing) | | (unavailable | [facility]43[facility]07 [facility] | | + + + +-------+ + + + + | Result panel 228 | + + + + + +--------+ + + | | 2023-01-27 | [facility] | 0.74 | (missing) | (missing) | | (unavailable | [facility]43:07 [facility] | | + + + +--------+ + + + + | Result panel 229 | + + + + + +-------+ + + | | 2023-01-27 | [facility] | 0.5 | (missing) | (missing) | | (unavailable | [facility]43:07 [facility] | | | + + + +-------+ + + + + | Result panel 230 | + + + + + +------+ + + | | 2023-01-27 | [facility] | 21 | (missing) | (missing) | | (unavailable | [facility]43:07 [facility] | | + + + +------+ + + + + | Result panel 231 | + + + + + +------+ + + | | 2023-01-27 | [facility] | 25 | (missing) | (missing) | | (unavailable | [facility]43:07 [facility] | | | + + + +------+ + + + + | Result panel 232 | + + + + + +-------+ + + | | 2023-01-27 | [facility] | 105 | (missing) | (missing) | | (unavailable | [facility]43:07 [facility] | | | + + + +-------+ + + + + | Result panel 233 | + + + + + + + + + | | 2023-01-27 | [facility] | YELLOW | (missing) | (missing) | | (unavailable | [facility]38:07 [facility] | | | + + + + + + + + + | Result panel 234 | + + + + + + + + + | | 2023-01-27 | [facility] | SL CLOUDY | (missing) | (missing) | | (unavailable | [facility]38:07 [facility] | | | + + + + + + + + + | Result panel 235 | + + + + + + + + + | | 2023-01-27 | [facility] | NEGATIVE | (missing) | (missing) | | (unavailable | [facility]38:07 [facility] | | | + + + + + + + + + | Result panel 236 | + + + + + + + + + | | 2023-01-27 | [facility] | NEGATIVE | (missing) | (missing) | | (unavailable | [facility]38:07 [facility] | | | + + + + + + + + + | Result panel 237 | + + + + + + + + + | | 2023-01-27 | [facility] | NEGATIVE | (missing) | (missing) | | (unavailable | [facility]38[facility]07 [facility] | | | + + + + + + + + + | Result panel 238 | + + + + + +---------+ + + | | 2023-01-27 | [facility] | 1.025 | (missing) | (missing) | | (unavailable | [facility]38:07 [facility] | | | + + + +---------+ + + + + | Result panel 239 | + + + + + + + + + | | 2023-01-27 | [facility] | TRACE-I | (missing) | (missing) | | (unavailable | [facility]38:07 [facility] | | | + + + + + + + + + | Result panel 240 | + + + + + +-------+ + + | | 2023-01-27 | [facility] | 6.0 | (missing) | (missing) | | (unavailable | [facility]38:07 [facility] | | | + + + +-------+ + + + + | Result panel 241 | + + + + + +-------+ + + | | 2023-01-27 | [facility] | 100 | (missing) | (missing) | | (unavailable | [facility]38:07 [facility] | | | + + + +-------+ + + + + | Result panel 242 | + + + + + + + + + | | 2023-01-27 | [facility] | NORMAL | (missing) | (missing) | | (unavailable | [facility]38[facility]07 [facility] | | | + + + + + + + + + | Result panel 243 | + + + + + + + + + | | 2023-01-27 | [facility] | NEGATIVE | (missing) | (missing) | | (unavailable | [facility] | | | + + + + + + + + + | Result panel 244 | + + + + + +---------+ + + | | 2023-01-27 | [facility] | TRACE | (missing) | (missing) | | (unavailable | [facility]38:07 [facility] | | + + + +---------+ + + + + | Result panel 245 | + + + + + +-------+ + + | | 2023-01-27 | [facility] | 0-1 | (missing) | (missing) | | (unavailable | [facility]38[facility]07 [facility] | | + + + +-------+ + + + + | Result panel 246 | + + + + + +---------+ + + | | 2023-01-27 | [facility] | 12-20 | (missing) | (missing) | | (unavailable | [facility]38:07 [facility] | | | + + + +---------+ + + + + | Result panel 247 | + + + + + + + + + | | 2023-01-27 | [facility] | SQUAMOUS 1+ | (missing) | (missing) | | (unavailable | [facility]38:07 [facility] | | | + + + + + + + + + | Result panel 248 | + + + + + + + + + | | 2023-01-27 | [facility] | NONE SEEN | (missing) | (missing) | | (unavailable | [facility]38[facility]07 [facility] | | | + + + + + + + + + | Result panel 249 | + + + + + +------+ + + | | 2023-01-27 | [facility] | 3+ | (missing) | (missing) | | (unavailable | [facility]38:07 [facility] | | | + + + +------+ + + + + | Result panel 250 | + + + + + + + + + | | 2023-01-27 | [facility] | NONE SEEN | (missing) | (missing) | | (unavailable | [facility]38[facility]07 [facility] | | | + + + + + + + + + | Result panel 251 | + + + + + +-------+ + + | | 2023-01-27 | [facility] | Yes | (missing) | (missing) | | (unavailable | [facility]38:07 [facility] | | | + + + +-------+ + + + + | Result panel 252 | + + + + + + + + + | | 2023-01-27 | [facility] | CLEAN CATCH | (missing) | (missing) | | (unavailable | [facility]38:07 [facility] | | | + + + + + + + + + | Result panel 253 | + + + + + +-------+---------+ + | | 2023-03-16 | [facility] | 1.6 | mg/dL | (missing) | | (unavailable | [facility]45:07 [facility] | | + + + +-------+---------+ + + + | Result panel 254 | + + + + + +--------+ + + | | 2023-03-16 | [facility] | 11.7 | (missing) | (missing) | | (unavailable | [facility]45:07 [facility] | | + + + +--------+ + + + + | Result panel 255 | + + + + + +-------+---------+ + | | 2023-03-16 | [facility] | 1.6 | mg/dL | (missing) | | (unavailable | [facility]:07 [facility] | | + + + +-------+---------+ + + + | Result panel 256 | + + + + + +--------+ + + | | 2023-03-16 | [facility] | 11.7 | (missing) | (missing) | | (unavailable | [facility]07 [facility] | | + + + +--------+ + + + + | Result panel 257 | + + + + + +--------+ + + | | 2023-03-16 | [facility] | 10.2 | (missing) | (missing) | | (unavailable | [facility]45:07 [facility] | | + + + +--------+ + + + + | Result panel 258 | + + + + + +--------+ + + | | 2023-03-16 | [facility] | 4.34 | (missing) | (missing) | | (unavailable | [facility]45:07 [facility] | | + + + +--------+ + + + + | Result panel 259 | + + + + + +--------+ + + | | 2023-03-16 | [facility] | 12.6 | (missing) | (missing) | | (unavailable | [facility]45[facility]07 [facility] | | + + + +--------+ + + + + | Result panel 260 | + + + + + +--------+ + + | | 2023-03-16 | [facility] | 37.7 | (missing) | (missing) | | (unavailable | [facility]45:07 [facility] | | + + + +--------+ + + + + | Result panel 261 | + + + + + +--------+ + + | | 2023-03-16 | [facility] | 87.0 | (missing) | (missing) | | (unavailable | [facility]45:07 [facility] | | + + + +--------+ + + + + | Result panel 262 | + + + + + +--------+ + + | | 2023-03-16 | [facility] | 29.0 | (missing) | (missing) | | (unavailable | [facility]45:07 [facility] | | + + + +--------+ + + + + | Result panel 263 | + + + + + +--------+ + + | | 2023-03-16 | [facility] | 33.4 | (missing) | (missing) | | (unavailable | [facility]45[facility]07 [facility] | | + + + +--------+ + + + + | Result panel 264 | + + + + + +--------+ + + | | 2023-03-16 | [facility] | 13.7 | (missing) | (missing) | | (unavailable | [facility]07 [facility] | | + + + +--------+ + + + + | Result panel 265 | + + + + + +-------+ + + | | 2023-03-16 | [facility] | 302 | (missing) | (missing) | | (unavailable | [facility]45:07 [facility] | | + + + +-------+ + + + + | Result panel 266 | + + + + + +--------+ + + | | 2023-03-16 | [facility] | 64.6 | (missing) | (missing) | | (unavailable | [facility]45[facility]07 [facility] | | + + + +--------+ + + + + | Result panel 267 | + + + + + +--------+ + + | | 2023-03-16 | [facility] | 25.2 | (missing) | (missing) | | (unavailable | [facility]07 [facility] | | + + + +--------+ + + + + | Result panel 268 | + + + + + +-------+ + + | | 2023-03-16 | [facility] | 6.5 | (missing) | (missing) | | (unavailable | [facility]07 [facility] | | + + + +-------+ + + + + | Result panel 269 | + + + + + +-------+ + + | | 2023-03-16 | [facility] | 2.8 | (missing) | (missing) | | (unavailable | [facility]:07 [facility] | | + + + +-------+ + + + + | Result panel 270 | + + + + + +-------+ + + | | 2023-03-16 | [facility] | 0.9 | (missing) | (missing) | | (unavailable | [facility]07 [facility] | | + + + +-------+ + + + + | Result panel 271 | + + + + + +-------+---------+ + | | 2023-03-16 | [facility] | 207 | mg/dL | (missing) | | (unavailable | [facility]45:07 [facility] | | + + + +-------+---------+ + + + | Result panel 272 | + + + + + +------+---------+ + | | 2023-03-16 | [facility] | 19 | mg/dL | (missing) | | (unavailable | [facility]:07 [facility] | | + + + +------+---------+ + + + | Result panel 273 | + + + + + +--------+---------+ + | | 2023-03-16 | [facility] | 1.24 | mg/dL | (missing) | | (unavailable | [facility]07 [facility] | | + + + +--------+---------+ + + + | Result panel 274 | + + + + + +------+ + + | | 2023-03-16 | [facility] | 50 | (missing) | (missing) | | (unavailable | [facility]:07 [facility] | | | + + + +------+ + + + + | Result panel 275 | + + + + + +---------+ + + | | 2023-03-16 | [facility] | 15.32 | (missing) | (missing) | | (unavailable | [facility]07 [facility] | | | + + + +---------+ + + + + | Result panel 276 | + + + + + +-------+ + + | | 2023-03-16 | [facility] | 136 | (missing) | (missing) | | (unavailable | [facility]:07 [facility] | | | + + + +-------+ + + + + | Result panel 277 | + + + + + +-------+ + + | | 2023-03-16 | [facility] | 3.7 | (missing) | (missing) | | (unavailable | [facility]07 [facility] | | | + + + +-------+ + + + + | Result panel 278 | + + + + + +-------+ + + | | 2023-03-16 | [facility] | 101 | (missing) | (missing) | | (unavailable | [facility]45:07 [facility] | | | + + + +-------+ + + + + | Result panel 279 | + + + + + +------+ + + | | 2023-03-16 | [facility] | 23 | (missing) | (missing) | | (unavailable | [facility]45:07 [facility] | | | + + + +------+ + + + + | Result panel 280 | + + + + + +--------+ + + | | 2023-03-16 | [facility] | 15.7 | (missing) | (missing) | | (unavailable | [facility]07 [facility] | | | + + + +--------+ + + + + | Result panel 281 | + + + + + +-------+---------+ + | | 2023-03-16 | [facility] | 8.8 | mg/dL | (missing) | | (unavailable | 16:45:07 [facility] | | | | + + + +-------+---------+ + + + | Result panel 282 | + + + + + +-------+---------+ + | | 2023-03-16 | [facility] | 1.6 | mg/dL | (missing) | | (unavailable | [facility]07 [facility] | | | + + + +-------+---------+ + + + | Result panel 283 | + + + + + +-------+ + + | | 2023-03-16 | [facility] | 6.9 | (missing) | (missing) | | (unavailable | [facility]45:07 [facility] | | | + + + +-------+ + + + + | Result panel 284 | + + + + + +-------+ + + | | 2023-03-16 | [facility] | 3.0 | (missing) | (missing) | | (unavailable | [facility]45:07 [facility] | | | + + + +-------+ + + + + | Result panel 285 | + + + + + +-------+ + + | | 2023-03-16 | [facility] | 3.9 | (missing) | (missing) | | (unavailable | [facility]45:07 [facility] | | | + + + +-------+ + + + + | Result panel 286 | + + + + + +--------+ + + | | 2023-03-16 | [facility] | 0.77 | (missing) | (missing) | | (unavailable | [facility]45:07 [facility] | | + + + +--------+ + + + + | Result panel 287 | + + + + + +-------+ + + | | 2023-03-16 | [facility] | 0.3 | (missing) | (missing) | | (unavailable | [facility]45:07 [facility] | | | + + + +-------+ + + + + | Result panel 288 | + + + + + +------+ + + | | 2023-03-16 | [facility] | 19 | (missing) | (missing) | | (unavailable | [facility]45:07 [facility] | | | + + + +------+ + + + + | Result panel 289 | + + + + + +------+ + + | | 2023-03-16 | [facility] | 28 | (missing) | (missing) | | (unavailable | [facility]45:07 [facility] | | | + + + +------+ + + + + | Result panel 290 | + + + + + +-------+ + + | | 2023-03-16 | [facility] | 102 | (missing) | (missing) | | (unavailable | [facility]45:07 [facility] | | | + + + +-------+ + + + + | Result panel 291 | + + + + + +--------+ + + | | 2023-03-16 | [facility] | 11.7 | (missing) | (missing) | | (unavailable | [facility]45:07 [facility] | | | + + + +--------+ + + + + | Result panel 292 | + + + + + + + + + | | 2023-03-23 | [facility] | YELLOW | (missing) | (missing) | | (unavailable | 12:30:07 [facility] | | | + + + + + + + + + | Result panel 293 | + + + + + +---------+ + + | | 2023-03-23 | [facility] | CLEAR | (missing) | (missing) | | (unavailable | 12:30:07 [facility] | | | + + + +---------+ + + + + | Result panel 294 | + + + + + + + + + | | 2023-03-23 | [facility] | NEGATIVE | (missing) | (missing) | | (unavailable | 12[facility]30:07 [facility] | | | + + + + + + + + + | Result panel 295 | + + + + + + + + + | | 2023-03-23 | [facility] | NEGATIVE | (missing) | (missing) | | (unavailable | 12[facility]30:07 [facility] | | | + + + + + + + + + | Result panel 296 | + + + + + + + + + | | 2023-03-23 | [facility] | NEGATIVE | (missing) | (missing) | | (unavailable | 12[facility]30:07 [facility] | | | + + + + + + + + + | Result panel 297 | + + + + + +---------+ + + | | 2023-03-23 | [facility] | 1.020 | (missing) | (missing) | | (unavailable | 12[facility]30:07 [facility] | | | + + + +---------+ + + + + | Result panel 298 | + + + + + + + + + | | 2023-03-23 | [facility] | TRACE-I | (missing) | (missing) | | (unavailable | 12:30:07 [facility] | | | + + + + + + + + + | Result panel 299 | + + + + + +-------+ + + | | 2023-03-23 | [facility] | 5.5 | (missing) | (missing) | | (unavailable | 12:30:07 [facility] | | | + + + +-------+ + + + + | Result panel 300 | + + + + + +-------+ + + | | 2023-03-23 | [facility] | 100 | (missing) | (missing) | | (unavailable | 12:30:07 [facility] | | | + + + +-------+ + + + + | Result panel 301 | + + + + + + + + + | | 2023-03-23 | [facility] | NORMAL | (missing) | (missing) | | (unavailable | 12:30:07 [facility] | | | + + + + + + + + + | Result panel 302 | + + + + + + + + + | | 2023-03-23 | [facility] | NEGATIVE | (missing) | (missing) | | (unavailable | 12:: | [facility] | | | + + + + + + + + + | Result panel 303 | + + + + + +---------+ + + | | 2023-03-23 | [facility] | SMALL | (missing) | (missing) | | (unavailable | [facility] | | | | + + + +---------+ + + + + | Result panel 304 | + + + + + +-------+ + + | | 2023-03-23 | [facility] | 2-3 | (missing) | (missing) | | (unavailable | 12[facility]30:07 [facility] | | | + + + +-------+ + + + + | Result panel 305 | + + + + + +---------+ + + | | 2023-03-23 | [facility] | 21-40 | (missing) | (missing) | | (unavailable | 12:30:07 [facility] | | | + + + +---------+ + + + + | Result panel 306 | + + + + + + + + + | | 2023-03-23 | [facility] | SQUAMOUS 1+ | (missing) | (missing) | | (unavailable | 12:30:07 [facility] | | | + + + + + + + + + | Result panel 307 | + + + + + + + + + | | 2023-03-23 | [facility] | NONE SEEN | (missing) | (missing) | | (unavailable | 12:30:07 [facility] | | | + + + + + + + + + | Result panel 308 | + + + + + +------+ + + | | 2023-03-23 | [facility] | 1+ | (missing) | (missing) | | (unavailable | 12:30:07 [facility] | | | + + + +------+ + + + + | Result panel 309 | + + + + + + + + + | | 2023-03-23 | [facility] | NONE SEEN | (missing) | (missing) | | (unavailable | 12[facility]30:07 [facility] | | | + + + + + + + + + | Result panel 310 | + + + + + +-------+ + + | | 2023-03-23 | [facility] | Yes | (missing) | (missing) | | (unavailable | 12[facility]30:07 [facility] | | | + + + +-------+ + + + + | Result panel 311 | + + + + + +--------+ + + | | 2023-03-23 | [facility] | CATH | (missing) | (missing) | | (unavailable | 12:30:07 [facility] | | | + + + +--------+ + + + + | Result panel 312 | + + + + + +--------+ + + | | 2023-03-23 | [facility] | 34.1 | (missing) | (missing) | | (unavailable | 12:50:07 [facility] | | | + + + +--------+ + + + + | Result panel 313 | + + + + + +--------+ + + | | 2023-03-23 | [facility] | 13.9 | (missing) | (missing) | | (unavailable | 12:50:07 [facility] | | | + + + +--------+ + + + + | Result panel 314 | + + + + + +-------+ + + | | 2023-03-23 | [facility] | 311 | (missing) | (missing) | | (unavailable | 12:50:07 [facility] | | | + + + +-------+ + + + + | Result panel 315 | + + + + + +--------+ + + | | 2023-03-23 | [facility] | 65.9 | (missing) | (missing) | | (unavailable | 12:50:07 [facility] | | | + + + +--------+ + + + + | Result panel 316 | + + + + + +--------+ + + | | 2023-03-23 | [facility] | 24.9 | (missing) | (missing) | | (unavailable | 12[facility]50:07 [facility] | | | + + + +--------+ + + + + | Result panel 317 | + + + + + +-------+ + + | | 2023-03-23 | [facility] | 5.1 | (missing) | (missing) | | (unavailable | 12[facility]50:07 [facility] | | | + + + +-------+ + + + + | Result panel 318 | + + + + + +-------+ + + | | 2023-03-23 | [facility] | 3.5 | (missing) | (missing) | | (unavailable | 12[facility]50:07 [facility] | | | + + + +-------+ + + + + | Result panel 319 | + + + + + +-------+ + + | | 2023-03-23 | [facility] | 0.6 | (missing) | (missing) | | (unavailable | 12[facility]50:07 [facility] | | | + + + +-------+ + + + + | Result panel 320 | + + + + + +-------+---------+ + | | 2023-03-23 | [facility] | 124 | mg/dL | (missing) | | (unavailable | 12[facility]50:07 [facility] | | | + + + +-------+---------+ + + + | Result panel 321 | + + + + + +------+---------+ + | | 2023-03-23 | [facility] | 16 | mg/dL | (missing) | | (unavailable | 12[facility]50:07 [facility] | | | + + + +------+---------+ + + + | Result panel 322 | + + + + + +--------+---------+ + | | 2023-03-23 | [facility] | 0.98 | mg/dL | (missing) | | (unavailable | 12:50:07 [facility] | | | + + + +--------+---------+ + + + | Result panel 323 | + + + + + +------+ + + | | 2023-03-23 | [facility] | 66 | (missing) | (missing) | | (unavailable | 12[facility]50:07 [facility] | | | + + + +------+ + + + + | Result panel 324 | + + + + + +---------+ + + | | 2023-03-23 | [facility] | 16.32 | (missing) | (missing) | | (unavailable | 12:50:07 [facility] | | | | + + + +---------+ + + + + | Result panel 325 | + + + + + +-------+ + + | | 2023-03-23 | [facility] | 138 | (missing) | (missing) | | (unavailable | 12:50:07 [facility] | | | | + + + +-------+ + + + + | Result panel 326 | + + + + + +-------+ + + | | 2023-03-23 | [facility] | 3.8 | (missing) | (missing) | | (unavailable | 12:50:07 [facility] | | | | + + + +-------+ + + + + | Result panel 327 | + + + + + +-------+ + + | | 2023-03-23 | [facility] | 101 | (missing) | (missing) | | (unavailable | 12:50:07 [facility] | | | | + + + +-------+ + + + + | Result panel 328 | + + + + + +------+ + + | | 2023-03-23 | [facility] | 25 | (missing) | (missing) | | (unavailable | 12:50:07 [facility] | | | | + + + +------+ + + + + | Result panel 329 | + + + + + +--------+ + + | | 2023-03-23 | [facility] | 15.8 | (missing) | (missing) | | (unavailable | 12:50:07 [facility] | | | | + + + +--------+ + + + + | Result panel 330 | + + + + + +-------+---------+ + | | 2023-03-23 | [facility] | 8.6 | mg/dL | (missing) | | (unavailable | 12:50:07 [facility] | | | | + + + +-------+---------+ + + + | Result panel 331 | + + + + + +-------+ + + | | 2023-03-23 | [facility] | 6.9 | (missing) | (missing) | | (unavailable | 12:50:07 [facility] | | | | + + + +-------+ + + + + | Result panel 332 | + + + + + +-------+ + + | | 2023-03-23 | [facility] | 2.8 | (missing) | (missing) | | (unavailable | [facility]:50:07 [facility] | | | | + + + +-------+ + + + + | Result panel 333 | + + + + + +-------+ + + | | 2023-03-23 | [facility] | 4.1 | (missing) | (missing) | | (unavailable | 12:50:07 [facility] | | | | + + + +-------+ + + + + | Result panel 334 | + + + + + +--------+ + + | | 2023-03-23 | [facility] | 0.68 | (missing) | (missing) | | (unavailable | 12:50:07 [facility] | | | | + + + +--------+ + + + + | Result panel 335 | + + + + + +-------+ + + | | 2023-03-23 | [facility] | 0.5 | (missing) | (missing) | | (unavailable | [facility]:50:07 [facility] | | | | + + + +-------+ + + + + | Result panel 336 | + + + + + +------+ + + | | 2023-03-23 | [facility] | 27 | (missing) | (missing) | | (unavailable | 12:50:07 [facility] | | | | + + + +------+ + + + + | Result panel 337 | + + + + + +------+ + + | | 2023-03-23 | [facility] | 29 | (missing) | (missing) | | (unavailable | 12:50:07 [facility] | | | | + + + +------+ + + + + | Result panel 338 | + + + + + +------+ + + | | 2023-03-23 | [facility] | 91 | (missing) | (missing) | | (unavailable | 12:50:07 [facility] | | | | + + + +------+ + + + + | Result panel 339 | + + + + + +--------+ + + | | 2023-03-23 | [facility] | 10.2 | (missing) | (missing) | | (unavailable | 12:50:07 [facility] | | | | + + + +--------+ + + + + | Result panel 340 | + + + + + +--------+ + + | | 2023-03-23 | [facility] | 4.27 | (missing) | (missing) | | (unavailable | 12[facility]50:07 [facility] | | | | + + + +--------+ + + + + | Result panel 341 | + + + + + +--------+ + + | | 2023-03-23 | [facility] | 12.6 | (missing) | (missing) | | (unavailable | 12:50:07 [facility] | | | | + + + +--------+ + + + + | Result panel 342 | + + + + + +--------+ + + | | 2023-03-23 | [facility] | 37.0 | (missing) | (missing) | | (unavailable | 12:50:07 [facility] | | | + + + +--------+ + + + + | Result panel 343 | + + + + + +--------+ + + | | 2023-03-23 | [facility] | 86.7 | (missing) | (missing) | | (unavailable | [facility]50:07 [facility] | | | + + + +--------+ + + + + | Result panel 344 | + + + + + +--------+ + + | | 2023-03-23 | [facility] | 29.6 | (missing) | (missing) | | (unavailable | [facility]50:07 [facility] | | | + + + +--------+ + + + + | Result panel 345 | + + + + + +-------+---------+ + | | 2023-03-28 | [facility] | 129 | mg/dL | (missing) | | (unavailable | [facility]50:07 [facility] | | | + + + +-------+---------+ + + + | Result panel 346 | + + + + + +------+---------+ + | | 2023-03-28 | [facility] | 10 | mg/dL | (missing) | | (unavailable | [facility]50:07 [facility] | | | + + + +------+---------+ + + + | Result panel 347 | + + + + + +--------+---------+ + | | 2023-03-28 | [facility] | 0.96 | mg/dL | (missing) | | (unavailable | [facility]50:07 [facility] | | | + + + +--------+---------+ + + + | Result panel 348 | + + + + + +------+ + + | | 2023-03-28 | [facility] | 67 | (missing) | (missing) | | (unavailable | [facility]50:07 [facility] | | | + + + +------+ + + + + | Result panel 349 | + + + + + +---------+ + + | | 2023-03-28 | [facility] | 10.41 | (missing) | (missing) | | (unavailable | [facility]50:07 [facility] | | | + + + +---------+ + + + + | Result panel 350 | + + + + + +-------+ + + | | 2023-03-28 | [facility] | 140 | (missing) | (missing) | | (unavailable | [facility]50:07 [facility] | | | + + + +-------+ + + + + | Result panel 351 | + + + + + +-------+ + + | | 2023-03-28 | [facility] | 4.3 | (missing) | (missing) | | (unavailable | [facility]50:07 [facility] | | | + + + +-------+ + + + + | Result panel 352 | + + + + + +-------+ + + | | 2023-03-28 | [facility] | 107 | (missing) | (missing) | | (unavailable | [facility]50:07 [facility] | | | + + + +-------+ + + + + | Result panel 353 | + + + + + +------+ + + | | 2023-03-28 | [facility] | 21 | (missing) | (missing) | | (unavailable | [facility]50:07 [facility] | | | + + + +------+ + + + + | Result panel 354 | + + + + + +--------+ + + | | 2023-03-28 | [facility] | 16.3 | (missing) | (missing) | | (unavailable | [facility]50[facility]07 [facility] | | | + + + +--------+ + + + + | Result panel 355 | + + + + + +-------+---------+ + | | 2023-03-28 | [facility] | 8.3 | mg/dL | (missing) | | (unavailable | [facility]50:07 [facility] | | | + + + +-------+---------+ + + + | Result panel 356 | + + + + + +-------+ + + | | 2023-03-28 | [facility] | 6.7 | (missing) | (missing) | | (unavailable | [facility]50:07 [facility] | | | + + + +-------+ + + + + | Result panel 357 | + + + + + +-------+ + + | | 2023-03-28 | [facility] | 2.8 | (missing) | (missing) | | (unavailable | [facility]50:07 [facility] | | | + + + +-------+ + + + + | Result panel 358 | + + + + + +-------+ + + | | 2023-03-28 | [facility] | 3.9 | (missing) | (missing) | | (unavailable | [facility]50:07 [facility] | | | + + + +-------+ + + + + | Result panel 359 | + + + + + +--------+ + + | | 2023-03-28 | [facility] | 0.72 | (missing) | (missing) | | (unavailable | [facility]50:07 [facility] | | | + + + +--------+ + + + + | Result panel 360 | + + + + + +-------+ + + | | 2023-03-28 | [facility] | 0.4 | (missing) | (missing) | | (unavailable | [facility]50:07 [facility] | | | + + + +-------+ + + + + | Result panel 361 | + + + + + +------+ + + | | 2023-03-28 | [facility] | 40 | (missing) | (missing) | | (unavailable | [facility]50:07 [facility] | | | + + + +------+ + + + + | Result panel 362 | + + + + + +------+ + + | | 2023-03-28 | [facility] | 36 | (missing) | (missing) | | (unavailable | [facility]50:07 [facility] | | | + + + +------+ + + + + | Result panel 363 | + + + + + +------+ + + | | 2023-03-28 | [facility] | 83 | (missing) | (missing) | | (unavailable | [facility]50:07 [facility] | | | + + + +------+ + + + + | Result panel 364 | + + + + + +---------+ + + | | 2023-03-28 | [facility] | Stool | (missing) | (missing) | | (unavailable | 07[facility]05:07 [facility] | | | + + + +---------+ + + + + | Result panel 365 | + + + + + + + + + | | 2023-03-28 | [facility] | YELLOW | (missing) | (missing) | | (unavailable | [facility]05:07 [facility] | | | + + + + + + + + + | Result panel 366 | + + + + + +---------+ + + | | 2023-03-28 | [facility] | CLEAR | (missing) | (missing) | | (unavailable | [facility]05:07 [facility] | | | + + + +---------+ + + + + | Result panel 367 | + + + + + + + + + | | 2023-03-28 | [facility] | MODERATE | (missing) | (missing) | | (unavailable | [facility]05:07 [facility] | | | + + + + + + + + + | Result panel 368 | + + + + + + + + + | | 2023-03-28 | [facility] | NEGATIVE | (missing) | (missing) | | (unavailable | [facility]05:07 [facility] | | | + + + + + + + + + | Result panel 369 | + + + + + + + + + | | 2023-03-28 | [facility] | NEGATIVE | (missing) | (missing) | | (unavailable | [facility]05:07 [facility] | | | + + + + + + + + + | Result panel 370 | + + + + + +---------+ + + | | 2023-03-28 | [facility] | 1.025 | (missing) | (missing) | | (unavailable | 07[facility]05:07 [facility] | | | + + + +---------+ + + + + | Result panel 371 | + + + + + + + + + | | 2023-03-28 | [facility] | NEGATIVE | (missing) | (missing) | | (unavailable | [facility]05:07 [facility] | | | + + + + + + + + + | Result panel 372 | + + + + + +-------+ + + | | 2023-03-28 | [facility] | 5.5 | (missing) | (missing) | | (unavailable | 07::07 [facility] | | | | + + + +-------+ + + + + | Result panel 373 | + + + + + +-------+ + + | | 2023-03-28 | [facility] | 100 | (missing) | (missing) | | (unavailable | 07:05:07 [facility] | | | + + + +-------+ + + + + | Result panel 374 | + + + + + + + + + | | 2023-03-28 | [facility] | NORMAL | (missing) | (missing) | | (unavailable | 07:07 [facility] | | | | + + + + + + + + + | Result panel 375 | + + + + + + + + + | | 2023-03-28 | [facility] | NEGATIVE | (missing) | (missing) | | (unavailable | 07::07 [facility] | | | | + + + + + + + + + | Result panel 376 | + + + + + + + + + | | 2023-03-28 | [facility] | NEGATIVE | (missing) | (missing) | | (unavailable | 07[facility]05:07 [facility] | | | + + + + + + + + + | Result panel 377 | + + + + + +-------+ + + | | 2023-03-28 | [facility] | 2-3 | (missing) | (missing) | | (unavailable | 07[facility]05:07 [facility] | | | + + + +-------+ + + + + | Result panel 378 | + + + + + +-------+ + + | | 2023-03-28 | [facility] | 2-3 | (missing) | (missing) | | (unavailable | 07[facility]05:07 [facility] | | | + + + +-------+ + + + + | Result panel 379 | + + + + + + + + + | | 2023-03-28 | [facility] | SQUAMOUS 1+ | (missing) | (missing) | | (unavailable | 07:05:07 [facility] | | | | + + + + + + + + + | Result panel 380 | + + + + + + + + + | | 2023-03-28 | [facility] | | (missing) | (missing) | | (unavailable | 07:05:07 [facility] TRANSITIONAL [facility] | 1+ | | | + + + + + + + + + | Result panel 381 | + + + + + + + + + | | 2023-03-28 | [facility] | NONE SEEN | (missing) | (missing) | | (unavailable | 07:05:07 [facility] | | | + + + + + + + + + | Result panel 382 | + + + + + +--------+ + + | | 2023-03-28 | [facility] | RARE | (missing) | (missing) | | (unavailable | 07:05:07 [facility] | | | | + + + +--------+ + + + + | Result panel 383 | + + + + + + + + + | | 2023-03-28 | [facility] | NONE SEEN | (missing) | (missing) | | (unavailable | 07:05:07 [facility] | | | | + + + + + + + + + | Result panel 384 | + + + + + +------+ + + | | 2023-03-28 | [facility] | No | (missing) | (missing) | | (unavailable | ::07 | [facility] | | | | + + + +------+ + + + + | Result panel 385 | + + + + + + + + + | | 2023-03-28 | [facility] | CLEAN CATCH | (missing) | (missing) | | (unavailable | 07::07 [facility] | | | | + + + + + + + + + | Result panel 386 | + + + + + + + + + | | 2023-03-28 | [facility] | Not | (missing) | (missing) | | (unavailable | 07:05:07 [facility] Detected [facility] | | | | + + + + + + + + + | Result panel 387 | + + + + + +-------+ + + | | 2023-03-28 | [facility] | 9.2 | (missing) | (missing) | | (unavailable | 07:15:07 [facility] | | | | + + + +-------+ + + + + | Result panel 388 | + + + + + +--------+ + + | | 2023-03-28 | [facility] | 4.12 | (missing) | (missing) | | (unavailable | 07:15:07 [facility] | | | | + + + +--------+ + + + + | Result panel 389 | + + + + + +--------+ + + | | 2023-03-28 | [facility] | 11.9 | (missing) | (missing) | | (unavailable | 07:15:07 [facility] | | | | + + + +--------+ + + + + | Result panel 390 | + + + + + +--------+ + + | | 2023-03-28 | [facility] | 36.1 | (missing) | (missing) | | (unavailable | 07:15:07 [facility] | | | + + + +--------+ + + + + | Result panel 391 | + + + + + +--------+ + + | | 2023-03-28 | [facility] | 87.8 | (missing) | (missing) | | (unavailable | 07:15:07 [facility] | | | + + + +--------+ + + + + | Result panel 392 | + + + + + +--------+ + + | | 2023-03-28 | [facility] | 28.9 | (missing) | (missing) | | (unavailable | 07:15:07 [facility] | | | | + + + +--------+ + + + + | Result panel 393 | + + + + + +--------+ + + | | 2023-03-28 | [facility] | 32.9 | (missing) | (missing) | | (unavailable | 07:15:07 [facility] | | | | + + + +--------+ + + + + | Result panel 394 | + + + + + +--------+ + + | | 2023-03-28 | [facility] | 14.3 | (missing) | (missing) | | (unavailable | 07:15:07 [facility] | | | | + + + +--------+ + + + + | Result panel 395 | + + + + + +-------+ + + | | 2023-03-28 | [facility] | 269 | (missing) | (missing) | | (unavailable | 07:15:07 [facility] | | | | + + + +-------+ + + + + | Result panel 396 | + + + + + +--------+ + + | | 2023-03-28 | [facility] | 73.2 | (missing) | (missing) | | (unavailable | 07:15:07 [facility] | | | | + + + +--------+ + + + + | Result panel 397 | + + + + + +--------+ + + | | 2023-03-28 | [facility] | 15.5 | (missing) | (missing) | | (unavailable | 07:15:07 [facility] | | | | + + + +--------+ + + + + | Result panel 398 | + + + + + +-------+ + + | | 2023-03-28 | [facility] | 7.7 | (missing) | (missing) | | (unavailable | 07:15:07 [facility] | | | | + + + +-------+ + + + + | Result panel 399 | + + + + + +-------+ + + | | 2023-03-28 | [facility] | 2.8 | (missing) | (missing) | | (unavailable | 07:15:07 [facility] | | | | + + + +-------+ + + + + | Result panel 400 | + + + + + +-------+ + + | | 2023-03-28 | [facility] | 0.8 | (missing) | (missing) | | (unavailable | 07:15:07 [facility] | | | | + + + +-------+ + + + + | Result panel 401 | + + + + + +-------+ + + | | 2023-03-28 | [facility] | 147 | (missing) | (missing) | | (unavailable | 13:56:07 [facility] | | | | + + + +-------+ + + + + | Result panel 402 | + + + + + +--------+ + + | | 2023-04-25 | [facility] | 14.0 | (missing) | (missing) | | (unavailable | 13:02:07 [facility] | | | | + + + +--------+ + + + + | Result panel 403 | + + + + + +-------+ + + | | 2023-04-25 | [facility] | 353 | (missing) | (missing) | | (unavailable | 13:02:07 [facility] | | | | + + + +-------+ + + + + | Result panel 404 | + + + + + +--------+ + + | | 2023-04-25 | [facility] | 72.7 | (missing) | (missing) | | (unavailable | 13:02:07 [facility] | | | | + + + +--------+ + + + + | Result panel 405 | + + + + + +--------+ + + | | 2023-04-25 | [facility] | 18.2 | (missing) | (missing) | | (unavailable | 13:02:07 [facility] | | | | + + + +--------+ + + + + | Result panel 406 | + + + + + +-------+ + + | | 2023-04-25 | [facility] | 6.6 | (missing) | (missing) | | (unavailable | 13::07 [facility] | | | | + + + +-------+ + + + + | Result panel 407 | + + + + + +-------+ + + | | 2023-04-25 | [facility] | 1.5 | (missing) | (missing) | | (unavailable | 13:02:07 [facility] | | | | + + + +-------+ + + + + | Result panel 408 | + + + + + +-------+ + + | | 2023-04-25 | [facility] | 1.0 | (missing) | (missing) | | (unavailable | 13:02:07 [facility] | | | | + + + +-------+ + + + + | Result panel 409 | + + + + + +-------+ + + | | 2023-04-25 | [facility] | 9.4 | (missing) | (missing) | | (unavailable | 13:02:07 [facility] | | | | + + + +-------+ + + + + | Result panel 410 | + + + + + +-------+---------+ + | | 2023-04-25 | [facility] | 588 | mg/dL | (missing) | | (unavailable | 13:02:07 [facility] | | | | + + + +-------+---------+ + + + | Result panel 411 | + + + + + +--------+ + + | | 2023-04-25 | [facility] | 4.20 | (missing) | (missing) | | (unavailable | 13:02:07 [facility] | | | | + + + +--------+ + + + + | Result panel 412 | + + + + + +------+---------+ + | | 2023-04-25 | [facility] | 18 | mg/dL | (missing) | | (unavailable | 13:02:07 [facility] | | | | + + + +------+---------+ + + + | Result panel 413 | + + + + + +--------+---------+ + | | 2023-04-25 | [facility] | 1.50 | mg/dL | (missing) | | (unavailable | 13:02:07 [facility] | | | | + + + +--------+---------+ + + + | Result panel 414 | + + + + + +------+ + + | | 2023-04-25 | [facility] | 39 | (missing) | (missing) | | (unavailable | 13:02:07 [facility] | | | | + + + +------+ + + + + | Result panel 415 | + + + + + +---------+ + + | | 2023-04-25 | [facility] | 12.00 | (missing) | (missing) | | (unavailable | 13:02:07 [facility] | | | | + + + +---------+ + + + + | Result panel 416 | + + + + + +-------+ + + | | 2023-04-25 | [facility] | 128 | (missing) | (missing) | | (unavailable | 13:02:07 [facility] | | | | + + + +-------+ + + + + | Result panel 417 | + + + + + +-------+ + + | | 2023-04-25 | [facility] | 4.2 | (missing) | (missing) | | (unavailable | 13:02:07 [facility] | | | | + + + +-------+ + + + + | Result panel 418 | + + + + + +------+ + + | | 2023-04-25 | [facility] | 95 | (missing) | (missing) | | (unavailable | 13:02:07 [facility] | | | | + + + +------+ + + + + | Result panel 419 | + + + + + +------+ + + | | 2023-04-25 | [facility] | 26 | (missing) | (missing) | | (unavailable | 13:02:07 [facility] | | | | + + + +------+ + + + + | Result panel 420 | + + + + + +--------+ + + | | 2023-04-25 | [facility] | 11.2 | (missing) | (missing) | | (unavailable | 13:02:07 [facility] | | | | + + + +--------+ + + + + | Result panel 421 | + + + + + +-------+---------+ + | | 2023-04-25 | [facility] | 9.0 | mg/dL | (missing) | | (unavailable | 13:02:07 [facility] | | | | + + + +-------+---------+ + + + | Result panel 422 | + + + + + +--------+ + + | | 2023-04-25 | [facility] | 12.4 | (missing) | (missing) | | (unavailable | 13:02:07 [facility] | | | | + + + +--------+ + + + + | Result panel 423 | + + + + + +-------+ + + | | 2023-04-25 | [facility] | 6.6 | (missing) | (missing) | | (unavailable | 13:02:07 [facility] | | | | + + + +-------+ + + + + | Result panel 424 | + + + + + +-------+ + + | | 2023-04-25 | [facility] | 2.7 | (missing) | (missing) | | (unavailable | 13:02:07 [facility] | | | | + + + +-------+ + + + + | Result panel 425 | + + + + + +-------+ + + | | 2023-04-25 | [facility] | 3.9 | (missing) | (missing) | | (unavailable | 13:02:07 [facility] | | | | + + + +-------+ + + + + | Result panel 426 | + + + + + +--------+ + + | | 2023-04-25 | [facility] | 0.69 | (missing) | (missing) | | (unavailable | 13:02:07 [facility] | | | | + + + +--------+ + + + + | Result panel 427 | + + + + + +-------+ + + | | 2023-04-25 | [facility] | 0.6 | (missing) | (missing) | | (unavailable | 13:02:07 [facility] | | | | + + + +-------+ + + + + | Result panel 428 | + + + + + +------+ + + | | 2023-04-25 | [facility] | 19 | (missing) | (missing) | | (unavailable | 13:02:07 [facility] | | | | + + + +------+ + + + + | Result panel 429 | + + + + + +------+ + + | | 2023-04-25 | [facility] | 27 | (missing) | (missing) | | (unavailable | 13:02:07 [facility] | | | | + + + +------+ + + + + | Result panel 430 | + + + + + +------+ + + | | 2023-04-25 | [facility] | 96 | (missing) | (missing) | | (unavailable | 13:02:07 [facility] | | | | + + + +------+ + + + + | Result panel 431 | + + + + + + + + + | | 2023-04-25 | [facility] | NEGATIVE | (missing) | (missing) | | (unavailable | 13:02:07 [facility] | | | | + + + + + + + + + | Result panel 432 | + + + + + +--------+ + + | | 2023-04-25 | [facility] | 37.0 | (missing) | (missing) | | (unavailable | 13:02:07 [facility] | | | | + + + +--------+ + + + + | Result panel 433 | + + + + + +--------+ + + | | 2023-04-25 | [facility] | 88.2 | (missing) | (missing) | | (unavailable | 13:02:07 [facility] | | | | + + + +--------+ + + + + | Result panel 434 | + + + + + +--------+ + + | | 2023-04-25 | [facility] | 29.4 | (missing) | (missing) | | (unavailable | 13:02:07 [facility] | | | | + + + +--------+ + + + + | Result panel 435 | + + + + + +--------+ + + | | 2023-04-25 | [facility] | 33.4 | (missing) | (missing) | | (unavailable | 13:02:07 [facility] | | | | + + + +--------+ + + + + | Result panel 436 | + + + + + +---------+ + + | | 2023-04-25 | [facility] | 7.319 | (missing) | (missing) | | (unavailable | 14:35:07 [facility] | | | | + + + +---------+ + + + + | Result panel 437 | + + + + + + + + + | | 2023-04-25 | [facility] | YELLOW | (missing) | (missing) | | (unavailable | 14:45:07 [facility] | | | | + + + + + + + + + | Result panel 438 | + + + + + + + + + | | 2023-04-25 | [facility] | CLOUDY | (missing) | (missing) | | (unavailable | 14:45:07 [facility] | | | | + + + + + + + + + | Result panel 439 | + + + + + + + + + | | 2023-04-25 | [facility] | >=1000 | (missing) | (missing) | | (unavailable | 14:45:07 [facility] | | | | + + + + + + + + + | Result panel 440 | + + + + + + + + + | | 2023-04-25 | [facility] | NEGATIVE | (missing) | (missing) | | (unavailable | 14:45:07 [facility] | | | | + + + + + + + + + | Result panel 441 | + + + + + + + + + | | 2023-04-25 | [facility] | NEGATIVE | (missing) | (missing) | | (unavailable | 14:45:07 [facility] | | | | + + + + + + + + + | Result panel 442 | + + + + + +---------+ + + | | 2023-04-25 | [facility] | 1.015 | (missing) | (missing) | | (unavailable | 14:45:07 [facility] | | | | + + + +---------+ + + + + | Result panel 443 | + + + + + +---------+ + + | | 2023-04-25 | [facility] | SMALL | (missing) | (missing) | | (unavailable | 14:45:07 [facility] | | | | + + + +---------+ + + + + | Result panel 444 | + + + + + +-------+ + + | | 2023-04-25 | [facility] | 5.5 | (missing) | (missing) | | (unavailable | 14:45:07 | [facility] | | | | + + + +-------+ + + + + | Result panel 445 | + + + + + +-------+ + + | | 2023-04-25 | [facility] | 100 | (missing) | (missing) | | (unavailable | 14:45:07 [facility] | | | | + + + +-------+ + + + + | Result panel 446 | + + + + + + + + + | | 2023-04-25 | [facility] | NORMAL | (missing) | (missing) | | (unavailable | 14:45:07 [facility] | | | | + + + + + + + + + | Result panel 447 | + + + + + + + + + | | 2023-04-25 | [facility] | NEGATIVE | (missing) | (missing) | | (unavailable | 14:45:07 [facility] | | | | + + + + + + + + + | Result panel 448 | + + + + + +---------+ + + | | 2023-04-25 | [facility] | SMALL | (missing) | (missing) | | (unavailable | 14:45:07 [facility] | | | | + + + +---------+ + + + + | Result panel 449 | + + + + + +-------+ + + | | 2023-04-25 | [facility] | 2-3 | (missing) | (missing) | | (unavailable | 14:45:07 [facility] | | | | + + + +-------+ + + + + | Result panel 450 | + + + + + +-------+ + + | | 2023-04-25 | [facility] | >50 | (missing) | (missing) | | (unavailable | 14:45:07 [facility] | | | | + + + +-------+ + + + + | Result panel 451 | + + + + + + + + + | | 2023-04-25 | [facility] | SQUAMOUS 3+ | (missing) | (missing) | | (unavailable | 14:45:07 [facility] | | | | + + + + + + + + + | Result panel 452 | + + + + + + + + + | | 2023-04-25 | [facility] | NONE SEEN | (missing) | (missing) | | (unavailable | 14:45:07 [facility] | | | | + + + + + + + + + | Result panel 453 | + + + + + +------+ + + | | 2023-04-25 | [facility] | 4+ | (missing) | (missing) | | (unavailable | 14:45:07 [facility] | | | | + + + +------+ + + + + | Result panel 454 | + + + + + + + + + | | 2023-04-25 | [facility] | NONE SEEN | (missing) | (missing) | | (unavailable | 14:45:07 [facility] | | | | + + + + + + + + + | Result panel 455 | + + + + + +------+ + + | | 2023-04-25 | [facility] | No | (missing) | (missing) | | (unavailable | 14:45:07 [facility] | | | | + + + +------+ + + + + | Result panel 456 | + + + + + + + + + | | 2023-04-25 | [facility] | CLEAN CATCH | (missing) | (missing) | | (unavailable | 14:45:07 [facility] | | | | + + + + + + + + + | Result panel 457 | + + + + + +-------+ + + | | 2023-04-25 | [facility] | 431 | (missing) | (missing) | | (unavailable | 17:41:07 [facility] | | | | + + + +-------+ + + Social History No information. Vital Signs + + + +---------+ | date | measurement | value | units | + + + +---------+ | 2022-11-06 00:00 | BMI | 31.1 | kg/m2 | + + + +---------+ | 2022-11-06 00:00 | height_metric | 160.02 | cm | + + + +---------+ | 2022-11-06 00:00 | height_standard | 63 | in | + + + +---------+ | 2022-11-06 00:00 | weight_metric | 79.6 | kg | + + + +---------+ | 2022-11-06 00:00 | weight_standard | 175.49 | lb | + + + +---------+ | 2022-11-11 00:00 | BP_diastolic | 64 | mmHg | + + + +---------+ | 2022-11-11 00:00 | BP_systolic | 138 | mmHg | + + + +---------+ | 2022-11-11 00:00 | heart_rate | 77 | /min | + + + +---------+ | 2022-11-11 00:00 | o2_saturation | 100 | % | + + + +---------+ | 2022-11-11 00:00 | respiration_rate | 18 | /min | + + + +---------+ | 2022-11-11 00:00 | temperature_metric | 36.17 | C | | | | | | + + + +---------+ | 2022-11-11 00:00 | | 97.1 | F | | | temperature_standar | | | | | d | | | + + + +---------+ | 2022-11-16 00:00 | BMI | 33.9 | kg/m2 | + + + +---------+ | 2022-11-16 00:00 | height_metric | 160.02 | cm | + + + +---------+ | 2022-11-16 00:00 | height_standard | 63 | in | + + + +---------+ | 2022-11-16 00:00 | weight_metric | 86.81 | kg | + + + +---------+ | 2022-11-16 00:00 | weight_standard | 191.38 | lb | + + + +---------+ | 2022-11-17 00:00 | BP_diastolic | 81 | mmHg | + + + +---------+ | 2022-11-17 00:00 | BP_systolic | 161 | mmHg | + + + +---------+ | 2022-11-17 00:00 | heart_rate | 91 | /min | + + + +---------+ | 2022-11-17 00:00 | o2_saturation | 100 | % | + + + +---------+ | 2022-11-17 00:00 | respiration_rate | 16 | /min | + + + +---------+ | 2022-11-17 00:00 | temperature_metric | 36.5 | C | | | | | | + + + +---------+ | 2022-11-17 00:00 | | 97.7 | F | | | temperature_standar | | | | | d | | | + + + +---------+ | 2022-11-27 00:00 | BMI | 33.9 | kg/m2 | + + + +---------+ | 2022-11-27 00:00 | BP_diastolic | 88 | mmHg | + + + +---------+ | 2022-11-27 00:00 | BP_systolic | 117 | mmHg | + + + +---------+ | 2022-11-27 00:00 | heart_rate | 98 | /min | + + + +---------+ | 2022-11-27 00:00 | height_metric | 160.02 | cm | + + + +---------+ | 2022-11-27 00:00 | height_standard | 63 | in | + + + +---------+ | 2022-11-27 00:00 | o2_saturation | 99 | % | + + + +---------+ | 2022-11-27 00:00 | respiration_rate | 17 | /min | + + + +---------+ | 2022-11-27 00:00 | temperature_metric | 37 | C | | | | | | + + + +---------+ | 2022-11-27 00:00 | | 98.6 | F | | | temperature_standar | | | | | d | | | + + + +---------+ | 2022-11-27 00:00 | weight_metric | 86.78 | kg | + + + +---------+ | 2022-11-27 00:00 | weight_standard | 191.31 | lb | + + + +---------+ | 2022-11-27 00:00 | weight_standard | 191.32 | lb | + + + +---------+ | 2023-01-27 00:00 | BMI | 34.3 | kg/m2 | + + + +---------+ | 2023-01-27 00:00 | BP_diastolic | 75 | mmHg | + + + +---------+ | 2023-01-27 00:00 | BP_systolic | 101 | mmHg | + + + +---------+ | 2023-01-27 00:00 | heart_rate | 97 | /min | + + + +---------+ | 2023-01-27 00:00 | height_metric | 160.02 | cm | + + + +---------+ | 2023-01-27 00:00 | height_standard | 63 | in | + + + +---------+ | 2023-01-27 00:00 | o2_saturation | 100 | % | + + + +---------+ | 2023-01-27 00:00 | respiration_rate | 17 | /min | + + + +---------+ | 2023-01-27 00:00 | temperature_metric | 37 | C | | | | | | + + + +---------+ | 2023-01-27 00:00 | | 98.6 | F | | | temperature_standar | | | | | d | | | + + + +---------+ | 2023-01-27 00:00 | weight_metric | 87.8 | kg | + + + +---------+ | 2023-01-27 00:00 | weight_standard | 193.57 | lb | + + + +---------+ | 2023-03-16 00:00 | BMI | 34.2 | kg/m2 | + + + +---------+ | 2023-03-16 00:00 | BP_diastolic | 94 | mmHg | + + + +---------+ | 2023-03-16 00:00 | BP_systolic | 157 | mmHg | + + + +---------+ | 2023-03-16 00:00 | heart_rate | 92 | /min | + + + +---------+ | 2023-03-16 00:00 | height_metric | 160.02 | cm | + + + +---------+ | 2023-03-16 00:00 | height_standard | 63 | in | + + + +---------+ | 2023-03-16 00:00 | o2_saturation | 98 | % | + + + +---------+ | 2023-03-16 00:00 | respiration_rate | 21 | /min | + + + +---------+ | 2023-03-16 00:00 | temperature_metric | 36.67 | C | | | | | | + + + +---------+ | 2023-03-16 00:00 | | 98 | F | | | temperature_standar | | | | | d | | | + + + +---------+ | 2023-03-16 00:00 | weight_metric | 87.54 | kg | + + + +---------+ | 2023-03-16 00:00 | weight_standard | 192.99 | lb | + + + +---------+ | 2023-03-16 00:00 | weight_standard | 193 | lb | + + + +---------+ | 2023-03-23 00:00 | BMI | 34.2 | kg/m2 | + + + +---------+ | 2023-03-23 00:00 | BP_diastolic | 72 | mmHg | + + + +---------+ | 2023-03-23 00:00 | BP_systolic | 159 | mmHg | + + + +---------+ | 2023-03-23 00:00 | heart_rate | 84 | /min | + + + +---------+ | 2023-03-23 00:00 | height_metric | 160.02 | cm | + + + +---------+ | 2023-03-23 00:00 | height_standard | 63 | in | + + + +---------+ | 2023-03-23 00:00 | o2_saturation | 99 | % | + + + +---------+ | 2023-03-23 00:00 | respiration_rate | 17 | /min | + + + +---------+ | 2023-03-23 00:00 | temperature_metric | 36.28 | C | | | | | | + + + +---------+ | 2023-03-23 00:00 | | 97.3 | F | | | temperature_standar | | | | | d | | | + + + +---------+ | 2023-03-23 00:00 | weight_metric | 87.54 | kg | + + + +---------+ | 2023-03-23 00:00 | weight_standard | 192.99 | lb | + + + +---------+ | 2023-03-23 00:00 | weight_standard | 193 | lb | + + + +---------+ | 2023-03-28 00:00 | BMI | 34.2 | kg/m2 | + + + +---------+ | 2023-03-28 00:00 | BP_diastolic | 75 | mmHg | + + + +---------+ | 2023-03-28 00:00 | BP_systolic | 136 | mmHg | + + + +---------+ | 2023-03-28 00:00 | heart_rate | 85 | /min | + + + +---------+ | 2023-03-28 00:00 | height_metric | 160.02 | cm | + + + +---------+ | 2023-03-28 00:00 | height_standard | 63 | in | + + + +---------+ | 2023-03-28 00:00 | o2_saturation | 99 | % | + + + +---------+ | 2023-03-28 00:00 | respiration_rate | 18 | /min | + + + +---------+ | 2023-03-28 00:00 | temperature_metric | 36.94 | C | | | | | | + + + +---------+ | 2023-03-28 00:00 | | 98.5 | F | | | temperature_standar | | | | | d | | | + + + +---------+ | 2023-03-28 00:00 | weight_metric | 87.54 | kg | + + + +---------+ | 2023-03-28 00:00 | weight_standard | 193 | lb | + + + +---------+ | 2023-04-25 00:00 | BMI | 34.2 | kg/m2 | + + + +---------+ | 2023-04-25 00:00 | BP_diastolic | 60 | mmHg | + + + +---------+ | 2023-04-25 00:00 | BP_systolic | 99 | mmHg | + + + +---------+ | 2023-04-25 00:00 | heart_rate | 71 | /min | + + + +---------+ | 2023-04-25 00:00 | height_metric | 160.02 | cm | + + + +---------+ | 2023-04-25 00:00 | height_standard | 63 | in | + + + +---------+ | 2023-04-25 00:00 | o2_saturation | 95 | % | + + + +---------+ | 2023-04-25 00:00 | respiration_rate | 14 | /min | + + + +---------+ | 2023-04-25 00:00 | temperature_metric | 36.78 | C | | | | | | + + + +---------+ | 2023-04-25 00:00 | | 98.2 | F | | | temperature_standar | | | | | d | | | + + + +---------+ | 2023-04-25 00:00 | weight_metric | 87.54 | kg | + + + +---------+ | 2023-04-25 00:00 | weight_standard | 193 | lb | + + + +---------+ | 2023-06-02 00:00 | BMI | 34.3 | kg/m2 | + + + +---------+ | 2023-06-02 00:00 | BP_diastolic | 63 | mmHg | + + + +---------+ | 2023-06-02 00:00 | BP_systolic | 142 | mmHg | + + + +---------+ | 2023-06-02 00:00 | heart_rate | 91 | /min | + + + +---------+ | 2023-06-02 00:00 | height_metric | 160.02 | cm | + + + +---------+ | 2023-06-02 00:00 | height_standard | 63 | in | + + + +---------+ | 2023-06-02 00:00 | o2_saturation | 96 | % | + + + +---------+ | 2023-06-02 00:00 | respiration_rate | 14 | /min | + + + +---------+ | 2023-06-02 00:00 | temperature_metric | 36.67 | C | | | | | | + + + +---------+ | 2023-06-02 00:00 | | 98 | F | | | temperature_standar | | | | | d | | | + + + +---------+ | 2023-06-02 00:00 | weight_metric | 87.8 | kg | + + + +---------+ | 2023-06-02 00:00 | weight_standard | 193.56 | lb | + + + +---------+ | 2023-06-02 00:00 | weight_standard | 193.57 | lb | + + + +---------+"
--- OUTSIDE RECORDS SUMMARY | ~2023-06-20 | XMS | Continuity of Care Document ---
Demographics + + + | Address | [facility] [address] | | | [place] [address] | + + + | Preferred Language | Unknown | + + + | Marital Status | | + + + | Jew Affiliation | Unknown | + + + | Race | White | + + + | Ethnic Group | Not or | + + + Author + + + | Author | [facility] | + + + | Organization | [facility] | + + + | Address | [address] | | | [place] [address] | + + + | Phone | | + + + Care Team Providers + + + + | Care Nursing Informatics Specialist Name | Role | Phone | [...] | (no severity) | | | | [facility] | | | | | | Hospital [...] | 2022-11-11 00:00 | ONDANSETRON HCL | [facility] | + + + + | 2022-11-17 00:00 | ONDANSETRON HCL | [facility] | + + + + | 2022-11-30 00:00 | ONDANSETRON HCL | [facility] | + + + + | 2023-01-27 00:00 | ONDANSETRON HCL | [facility] | + + + + | 2023-03-16 00:00 | ONDANSETRON HCL | [facility] | + + + + | 2023-03-23 00:00 | ONDANSETRON HCL | [facility] | + + + + | 2023-03-28 00:00 | ONDANSETRON HCL | [facility] | + + + + | 2023-04-25 00:00 | ONDANSETRON HCL | [facility] | + + + + | 2023-06-02 00:00 | ONDANSETRON HCL | [facility] | + + + + | 2022-11-17 00:00 | PHENAZOPYRIDINE HCL | [facility] | + + + + | 2022-11-30 00:00 | PHENAZOPYRIDINE HCL | [facility] | + + + + | 2022-11-11 00:00 | Ergocalciferol (Vitamin | [facility] | | | D2) | | + + + + | 2022-11-17 00:00 | Ergocalciferol (Vitamin | [facility] | | | D2) | | + + + + | 2022-11-30 00:00 | Ergocalciferol (Vitamin | [facility] | | | D2) | | + + + + | 2023-01-27 00:00 | Ergocalciferol (Vitamin | [facility] | | | D2) | | + + + + | 2023-03-16 00:00 | Ergocalciferol (Vitamin | [facility] | | | D2) | | + + + + | 2023-03-23 00:00 | Ergocalciferol (Vitamin | [facility] | | | D2) | | + + + + | 2023-03-28 00:00 | Ergocalciferol (Vitamin | [facility] | | | D2) | | + + + + | 2023-04-25 00:00 | Ergocalciferol (Vitamin | [facility] | | | D2) | | + + + + | 2023-06-02 00:00 | Ergocalciferol (Vitamin | [facility] | | | D2) | | + + + + | 2022-11-11 00:00 | DULAGLUTIDE | [facility] | + + + + | 2022-11-17 00:00 | DULAGLUTIDE | [facility] | + + + + | 2022-11-30 00:00 | DULAGLUTIDE | [facility] | + + + + | 2023-01-27 00:00 | DULAGLUTIDE | [facility] | + + + + | 2022-11-11 00:00 | PAROXETINE HCL | [facility] | + + + + | 2022-11-17 00:00 | PAROXETINE HCL | [facility] | + + + + | 2022-11-30 00:00 | PAROXETINE HCL | [facility] | + + + + | 2023-01-27 00:00 | PAROXETINE HCL | [facility] | + + + + | 2023-03-16 00:00 | PAROXETINE HCL | [facility] | + + + + | 2023-03-23 00:00 | PAROXETINE HCL | [facility] | + + + + | 2023-03-28 00:00 | PAROXETINE HCL | [facility] | + + + + | 2023-04-25 00:00 | PAROXETINE HCL | [facility] | + + + + | 2022-11-11 00:00 | OMEPRAZOLE | [facility] | + + + + | 2022-11-17 00:00 | OMEPRAZOLE | [facility] | + + + + | 2022-11-30 00:00 | OMEPRAZOLE | [facility] | + + + + | 2023-01-27 00:00 | OMEPRAZOLE | [facility] | + + + + | 2023-03-16 00:00 | OMEPRAZOLE | [facility] | + + + + | 2023-03-23 00:00 | OMEPRAZOLE | [facility] | + + + + | 2023-03-28 00:00 | OMEPRAZOLE | [facility] | + + + + | 2023-04-25 00:00 | OMEPRAZOLE | [facility] | + + + + | 2023-06-02 00:00 | OMEPRAZOLE | [facility] | + + + + | 2022-11-11 00:00 | SPIRONOLACTONE | [facility] | + + + + | 2022-11-17 00:00 | SPIRONOLACTONE | [facility] | + + + + | 2022-11-30 00:00 | SPIRONOLACTONE | [facility] | + + + + | 2023-01-27 00:00 | SPIRONOLACTONE | [facility] | + + + + | 2023-03-16 00:00 | SPIRONOLACTONE | [facility] | + + + + | 2023-03-23 00:00 | SPIRONOLACTONE | [facility] | + + + + | 2023-03-28 00:00 | SPIRONOLACTONE | [facility] | + + + + | 2023-04-25 00:00 | SPIRONOLACTONE | [facility] | + + + + | 2023-06-02 00:00 | SPIRONOLACTONE | [facility] | + + + + | 2021-03-04 00:00 | Dexamethasone | [facility] | + + + + | 2021-03-04 00:00 | Dexamethasone | [facility] | + + + + | 2022-11-11 00:00 | CIPROFLOXACIN HCL | [facility] | + + + + | 2022-11-17 00:00 | CIPROFLOXACIN HCL | [facility] | + + + + | 2022-11-30 00:00 | CIPROFLOXACIN HCL | [facility] | + + + + | 2023-01-27 00:00 | CIPROFLOXACIN HCL | [facility] | + + + + | 2023-03-16 00:00 | CIPROFLOXACIN HCL | [facility] | + + + + | 2023-03-23 00:00 | CIPROFLOXACIN HCL | [facility] | + + + + | 2023-03-28 00:00 | CIPROFLOXACIN HCL | [facility] | + + + + | 2023-04-25 00:00 | CIPROFLOXACIN HCL | [facility] | + + + + | 2023-06-02 00:00 | CIPROFLOXACIN HCL | [facility] | + + + + | 2022-11-11 00:00 | TELMISARTAN | [facility] | + + + + | 2022-11-17 00:00 | TELMISARTAN | [facility] | + + + + | 2022-11-30 00:00 | TELMISARTAN | [facility] | + + + + | 2023-01-27 00:00 | TELMISARTAN | [facility] | + + + + | 2023-03-16 00:00 | TELMISARTAN | [facility] | + + + + | 2023-03-23 00:00 | TELMISARTAN | [facility] | + + + + | 2023-03-28 00:00 | TELMISARTAN | [facility] | + + + + | 2023-04-25 00:00 | TELMISARTAN | [facility] | + + + + | 2023-06-02 00:00 | TELMISARTAN | [facility] | + + + + | 2022-11-11 00:00 | CALCIUM CARBONATE | [facility] | + + + + | 2022-11-17 00:00 | CALCIUM CARBONATE | [facility] | + + + + | 2022-11-30 00:00 | CALCIUM CARBONATE | [facility] | + + + + | 2023-01-27 00:00 | CALCIUM CARBONATE | [facility] | + + + + | 2023-03-16 00:00 | CALCIUM CARBONATE | [facility] | + + + + | 2023-03-23 00:00 | CALCIUM CARBONATE | [facility] | + + + + | 2023-03-28 00:00 | CALCIUM CARBONATE | [facility] | + + + + | 2023-04-25 00:00 | CALCIUM CARBONATE | [facility] | + + + + | 2023-06-02 00:00 | CALCIUM CARBONATE | [facility] | + + + + | 2022-11-11 00:00 | Insulin Lispro | [facility] | + + + + | 2022-11-17 00:00 | Insulin Lispro | [facility] | + + + + | 2022-11-30 00:00 | Insulin Lispro | [facility] | + + + + | 2023-01-27 00:00 | Insulin Lispro | [facility] | + + + + | 2023-03-16 00:00 | Insulin Lispro | [facility] | + + + + | 2023-03-23 00:00 | Insulin Lispro | [facility] | + + + + | 2023-03-28 00:00 | Insulin Lispro | [facility] | + + + + | 2023-04-25 00:00 | Insulin Lispro | [facility] | + + + + | 2023-06-02 00:00 | Insulin Lispro | [facility] | + + + + | 2022-11-11 00:00 | MAGNESIUM OXIDE | [facility] | + + + + | 2022-11-17 00:00 | MAGNESIUM OXIDE | [facility] | + + + + | 2022-11-30 00:00 | MAGNESIUM OXIDE | [facility] | + + + + | 2023-01-27 00:00 | MAGNESIUM OXIDE | [facility] | + + + + | 2023-03-16 00:00 | MAGNESIUM OXIDE | [facility] | + + + + | 2023-03-23 00:00 | MAGNESIUM OXIDE | [facility] | + + + + | 2023-03-28 00:00 | MAGNESIUM OXIDE | [facility] | + + + + | 2023-04-25 00:00 | MAGNESIUM OXIDE | [facility] | + + + + | 2023-06-02 00:00 | MAGNESIUM OXIDE | [facility] | + + + + | 2022-11-11 00:00 | Insulin Glargine-Yfgn | [facility] | + + + + | 2022-11-17 00:00 | Insulin Glargine-Yfgn | [facility] | + + + + | 2022-11-30 00:00 | Insulin Glargine-Yfgn | [facility] | + + + + | 2023-01-27 00:00 | Insulin Glargine-Yfgn | [facility] | + + + + | 2023-03-16 00:00 | Insulin Glargine-Yfgn | [facility] | + + + + | 2023-03-23 00:00 | Insulin Glargine-Yfgn | [facility] | + + + + | 2023-03-28 00:00 | Insulin Glargine-Yfgn | [facility] | + + + + | 2023-04-25 00:00 | Insulin Glargine-Yfgn | [facility] | + + + + | 2023-06-02 00:00 | Insulin Glargine-Yfgn | [facility] | + + + + | 2022-11-17 00:00 | ATORVASTATIN CALCIUM | [facility] | + + + + | 2022-11-30 00:00 | ATORVASTATIN CALCIUM | [facility] | + + + + | 2023-01-27 00:00 | ATORVASTATIN CALCIUM | [facility] | + + + + | 2023-03-16 00:00 | ATORVASTATIN CALCIUM | [facility] | + + + + | 2023-03-23 00:00 | ATORVASTATIN CALCIUM | [facility] | + + + + | 2023-03-28 00:00 | ATORVASTATIN CALCIUM | [facility] | + + + + | 2023-04-25 00:00 | ATORVASTATIN CALCIUM | [facility] | + + + + | 2023-06-02 00:00 | ATORVASTATIN CALCIUM | [facility] | + + + + | 2022-11-11 00:00 | FOLIC ACID | [facility] | + + + + | 2022-11-17 00:00 | FOLIC ACID | [facility] | + + + + | 2022-11-30 00:00 | FOLIC ACID | [facility] | + + + + | 2023-01-27 00:00 | FOLIC ACID | [facility] | + + + + | 2023-03-16 00:00 | FOLIC ACID | [facility] | + + + + | 2023-03-23 00:00 | FOLIC ACID | [facility] | + + + + | 2023-03-28 00:00 | FOLIC ACID | [facility] | + + + + | 2023-04-25 00:00 | FOLIC ACID | [facility] | + + + + | 2023-06-02 00:00 | FOLIC ACID | [facility] | + + + + | 2023-03-16 00:00 | Semaglutide | [facility] | + + + + | 2023-03-23 00:00 | Semaglutide | [facility] | + + + + | 2023-03-28 00:00 | Semaglutide | [facility] | + + + + | 2023-04-25 00:00 | Semaglutide | [facility] | + + + + | 2014-05-18 00:00 | CLINDAMYCIN HCL | [facility] | + + + + | 2014-05-18 00:00 | CLINDAMYCIN HCL | [facility] | + + + + | 2022-11-11 00:00 | INSULIN GLARGINE | [facility] | + + + + | 2022-11-17 00:00 | INSULIN GLARGINE | [facility] | + + + + | 2022-11-30 00:00 | INSULIN GLARGINE | [facility] | + + + + | 2023-01-27 00:00 | INSULIN GLARGINE | [facility] | + + + + | 2023-03-16 00:00 | INSULIN GLARGINE | [facility] | + + + + | 2023-03-23 00:00 | INSULIN GLARGINE | [facility] | + + + + | 2023-03-28 00:00 | INSULIN GLARGINE | [facility] | + + + + | 2023-04-25 00:00 | INSULIN GLARGINE | [facility] | + + + + | 2023-06-02 00:00 | INSULIN GLARGINE | [facility] | + + + + | 2022-11-11 00:00 | CEFPODOXIME PROXETIL | [facility] | + + + + | 2022-11-11 00:00 | CEFPODOXIME PROXETIL | [facility] | + + + + | 2022-11-27 00:00 | CEFPODOXIME PROXETIL | [facility] | + + + + | 2023-03-23 00:00 | CEFPODOXIME PROXETIL | [facility] | + + + + | 2023-04-25 00:00 | CEFPODOXIME PROXETIL | [facility] | + + + + | 2022-11-11 00:00 | FENOFIBRATE,MICRONIZED | [facility] | + + + + | 2022-11-17 00:00 | FENOFIBRATE,MICRONIZED | [facility] | + + + + | 2022-11-30 00:00 | FENOFIBRATE,MICRONIZED | [facility] | + + + + | 2023-01-27 00:00 | FENOFIBRATE,MICRONIZED | [facility] | + + + + | 2023-03-16 00:00 | FENOFIBRATE,MICRONIZED | [facility] | + + + + | 2023-03-23 00:00 | FENOFIBRATE,MICRONIZED | [facility] | + + + + | 2023-03-28 00:00 | FENOFIBRATE,MICRONIZED | [facility] | + + + + | 2023-04-25 00:00 | FENOFIBRATE,MICRONIZED | [facility] | + + + + | 2023-06-02 00:00 | FENOFIBRATE,MICRONIZED | [facility] | + + + + | 2022-11-11 00:00 | GABAPENTIN | [facility] | + + + + | 2022-11-17 00:00 | GABAPENTIN | [facility] | + + + + | 2022-11-30 00:00 | GABAPENTIN | [facility] | + + + + | 2023-01-27 00:00 | GABAPENTIN | [facility] | + + + + | 2023-03-16 00:00 | GABAPENTIN | [facility] | + + + + | 2023-03-23 00:00 | GABAPENTIN | [facility] | + + + + | 2023-03-28 00:00 | GABAPENTIN | [facility] | + + + + | 2023-04-25 00:00 | GABAPENTIN | [facility] | + + + + | 2023-06-02 00:00 | GABAPENTIN | [facility] | + + + + | 2022-11-11 00:00 | GEMFIBROZIL | [facility] | + + + + | 2022-11-17 00:00 | GEMFIBROZIL | [facility] | + + + + | 2022-11-30 00:00 | GEMFIBROZIL | [facility] | + + + + | 2023-01-27 00:00 | GEMFIBROZIL | [facility] | + + + + | 2023-03-16 00:00 | GEMFIBROZIL | [facility] | + + + + | 2023-03-23 00:00 | GEMFIBROZIL | [facility] | + + + + | 2023-03-28 00:00 | GEMFIBROZIL | [facility] | + + + + | 2023-04-25 00:00 | GEMFIBROZIL | [facility] | + + + + | 2023-06-02 00:00 | GEMFIBROZIL | [facility] | + + + + | 2022-11-11 00:00 | HYDROCHLOROTHIAZIDE | [facility] | + + + + | 2022-11-17 00:00 | HYDROCHLOROTHIAZIDE | [facility] | + + + + | 2022-11-30 00:00 | HYDROCHLOROTHIAZIDE | [facility] | + + + + | 2023-01-27 00:00 | HYDROCHLOROTHIAZIDE | [facility] | + + + + | 2023-03-16 00:00 | HYDROCHLOROTHIAZIDE | [facility] | + + + + | 2023-03-23 00:00 | HYDROCHLOROTHIAZIDE | [facility] | + + + + | 2023-03-28 00:00 | HYDROCHLOROTHIAZIDE | [facility] | + + + + | 2023-04-25 00:00 | HYDROCHLOROTHIAZIDE | [facility] | + + + + | 2023-06-02 00:00 | HYDROCHLOROTHIAZIDE | [facility] | + + + + | 2023-01-27 00:00 | ONDANSETRON | [facility] | + + + + | 2022-11-11 00:00 | POTASSIUM CHLORIDE | [facility] | + + + + | 2022-11-17 00:00 | POTASSIUM CHLORIDE | [facility] | + + + + | 2022-11-30 00:00 | POTASSIUM CHLORIDE | [facility] | + + + + | 2023-01-27 00:00 | POTASSIUM CHLORIDE | [facility] | + + + + | 2023-03-16 00:00 | POTASSIUM CHLORIDE | [facility] | + + + + | 2023-03-23 00:00 | POTASSIUM CHLORIDE | [facility] | + + + + | 2023-03-28 00:00 | POTASSIUM CHLORIDE | [facility] | + + + + | 2023-04-25 00:00 | POTASSIUM CHLORIDE | [facility] | + + + + | 2023-06-02 00:00 | POTASSIUM CHLORIDE | [facility] | + + + + | 2023-06-02 00:00 | ACETAMINOPHEN | [facility] | + + + + | 2023-03-16 00:00 | ISOSORBIDE MONONITRATE | [facility] | + + + + | 2023-03-23 00:00 | ISOSORBIDE MONONITRATE | [facility] | + + + + | 2023-03-28 00:00 | ISOSORBIDE MONONITRATE | [facility] | + + + + | 2023-04-25 00:00 | ISOSORBIDE MONONITRATE | [facility] | + + + + | 2023-06-02 00:00 | ISOSORBIDE MONONITRATE | [facility] | + + + + | 2023-06-02 00:00 | ASPIRIN | [facility] | + + + + | 2022-11-11 00:00 | Insulin Aspart | [facility] | + + + + | 2022-11-17 00:00 | Insulin Aspart | [facility] | + + + + | 2022-11-30 00:00 | Insulin Aspart | [facility] | + + + + | 2023-01-27 00:00 | Insulin Aspart | [facility] | + + + + | 2023-03-16 00:00 | Insulin Aspart | [facility] | + + + + | 2023-03-23 00:00 | Insulin Aspart | [facility] | + + + + | 2023-03-28 00:00 | Insulin Aspart | [facility] | + + + + | 2023-04-25 00:00 | Insulin Aspart | [facility] | + + + + | 2023-06-02 00:00 | Insulin Aspart | [facility] | + + + + | 2022-11-11 00:00 | HYDROCHLOROTHIAZIDE | [facility] | + + + + | 2022-11-17 00:00 | HYDROCHLOROTHIAZIDE | [facility] | + + + + | 2022-11-30 00:00 | HYDROCHLOROTHIAZIDE | [facility] | + + + + | 2023-01-27 00:00 | HYDROCHLOROTHIAZIDE | [facility] | + + + + | 2023-03-16 00:00 | HYDROCHLOROTHIAZIDE | [facility] | + + + + | 2023-03-23 00:00 | HYDROCHLOROTHIAZIDE | [facility] | + + + + | 2023-03-28 00:00 | HYDROCHLOROTHIAZIDE | [facility] | + + + + | 2023-04-25 00:00 | HYDROCHLOROTHIAZIDE | [facility] | + + + + | 2022-11-11 00:00 | DULOXETINE HCL | [facility] | + + + + | 2022-11-17 00:00 | DULOXETINE HCL | [facility] | + + + + | 2022-11-30 00:00 | DULOXETINE HCL | [facility] | + + + + | 2023-01-27 00:00 | DULOXETINE HCL | [facility] | + + + + | 2023-03-16 00:00 | DULOXETINE HCL | [facility] | + + + + | 2023-03-23 00:00 | DULOXETINE HCL | [facility] | + + + + | 2023-03-28 00:00 | DULOXETINE HCL | [facility] | + + + + | 2023-04-25 00:00 | DULOXETINE HCL | [facility] | + + + + | 2023-06-02 00:00 | DULOXETINE HCL | [facility] | + + + + | 2022-11-11 00:00 | RANITIDINE HCL | [facility] | + + + + | 2022-11-17 00:00 | RANITIDINE HCL | [facility] | + + + + | 2022-11-30 00:00 | RANITIDINE HCL | [facility] | + + + + | 2023-01-27 00:00 | RANITIDINE HCL | [facility] | + + + + | 2023-03-16 00:00 | RANITIDINE HCL | [facility] | + + + + | 2023-03-23 00:00 | RANITIDINE HCL | [facility] | + + + + | 2023-03-28 00:00 | RANITIDINE HCL | [facility] | + + + + | 2023-04-25 00:00 | RANITIDINE HCL | [facility] | + + + + | 2023-06-02 00:00 | RANITIDINE HCL | [facility] | + + + + | 2022-11-11 00:00 | CYCLOBENZAPRINE HCL | [facility] | + + + + | 2022-11-17 00:00 | CYCLOBENZAPRINE HCL | [facility] | + + + + | 2022-11-30 00:00 | CYCLOBENZAPRINE HCL | [facility] | + + + + | 2023-01-27 00:00 | CYCLOBENZAPRINE HCL | [facility] | + + + + | 2023-03-16 00:00 | CYCLOBENZAPRINE HCL | [facility] | + + + + | 2023-03-23 00:00 | CYCLOBENZAPRINE HCL | [facility] | + + + + | 2023-03-28 00:00 | CYCLOBENZAPRINE HCL | [facility] | + + + + | 2023-04-25 00:00 | CYCLOBENZAPRINE HCL | [facility] | + + + + | 2023-06-02 00:00 | CYCLOBENZAPRINE HCL | [facility] | + + + + | 2022-11-11 00:00 | CYCLOBENZAPRINE HCL | [facility] | + + + + | 2022-11-17 00:00 | CYCLOBENZAPRINE HCL | [facility] | + + + + | 2022-11-30 00:00 | CYCLOBENZAPRINE HCL | [facility] | + + + + | 2022-11-11 00:00 | INSULIN | [facility] | | | MARYRSALVATOREHUMDenishaRECDenishaANLOG | | + + + + | 2022-11-17 00:00 | INSULIN | [facility] | | | GLARGINE,[facility].REC.ANLOG | | + + + + | 2022-11-30 00:00 | INSULIN | [facility] | | | GLARGINE,[facility].REC.ANLOG | | + + + + | 2023-01-27 00:00 | INSULIN | [facility] | | | GLARGINE,[facility].REC.ANLOG | | + + + + | 2023-03-16 00:00 | INSULIN | [facility] | | | GLARGINE,HUM.REC.ANLOG | | + + + + | 2023-03-23 00:00 | INSULIN | [facility] | | | GLARGINE,HUM.REC.ANLOG | | + + + + | 2023-03-28 00:00 | INSULIN | [facility] | | | [facility] | | + + + + | 2023-04-25 00:00 | INSULIN | [facility] | | | [facility] | | + + + + | 2023-06-02 00:00 | INSULIN | [facility] | | | [facility] | | + + + + | 2022-11-11 00:00 | TRAZODONE HCL | [facility] | + + + + | 2022-11-17 00:00 | TRAZODONE HCL | [facility] | + + + + | 2022-11-30 00:00 | TRAZODONE HCL | [facility] | + + + + | 2023-01-27 00:00 | TRAZODONE HCL | [facility] | + + + + | 2023-03-16 00:00 | TRAZODONE HCL | [facility] | + + + + | 2023-03-23 00:00 | TRAZODONE HCL | [facility] | + + + + | 2023-03-28 00:00 | TRAZODONE HCL | [facility] | + + + + | 2023-04-25 00:00 | TRAZODONE HCL | [facility] | + + + + | 2023-06-02 00:00 | TRAZODONE HCL | [facility] | + + + + | 2022-11-11 00:00 | HYDROCODONE | [facility] | | | BIT/ACETAMINOPHEN | | + + + + | 2022-11-17 00:00 | HYDROCODONE | [facility] | | | BIT/ACETAMINOPHEN | | + + + + | 2022-11-30 00:00 | [facility] | | | BIT/ACETAMINOPHEN | | + + + + | 2023-01-27 00:00 | [facility]OCODONE [facility] | | | BIT/ACETAMINOPHEN | | + + + + | 2023-03-16 00:00 | HYDROCODONE | [facility] | | | BIT/ACETAMINOPHEN | | + + + + | 2023-03-23 00:00 | HY[facility]OCODONE | [facility] | | | BIT/ACETAMINOPHEN | | + + + + | 2023-03-28 00:00 | HY[facility]OCODONE | [facility] | | | BIT/ACETAMINOPHEN | | + + + + | 2023-04-25 00:00 | HYDROCODONE | [facility] | | | BIT/ACETAMINOPHEN | | + + + + | 2023-06-02 00:00 | HYDROCODONE | [facility] | | | BIT/ACETAMINOPHEN | | + + + + | 2022-11-11 00:00 | METFORMIN HCL | [facility] | + + + + | 2022-11-17 00:00 | METFORMIN HCL | [facility] | + + + + | 2022-11-30 00:00 | METFORMIN HCL | [facility] | + + + + | 2023-01-27 00:00 | METFORMIN HCL | [facility] | + + + + | 2023-03-16 00:00 | METFORMIN HCL | [facility] | + + + + | 2023-03-23 00:00 | METFORMIN HCL | [facility] | + + + + | 2023-03-28 00:00 | METFORMIN HCL | [facility] | + + + + | 2023-04-25 00:00 | METFORMIN HCL | [facility] | + + + + | 2023-06-02 00:00 | METFORMIN HCL | [facility] | + + + + | 2022-11-11 00:00 | OXYBUTYNIN CHLORIDE | [facility] | + + + + | 2022-11-17 00:00 | OXYBUTYNIN CHLORIDE | [facility] | + + + + | 2022-11-30 00:00 | OXYBUTYNIN CHLORIDE | [facility] | + + + + | 2023-01-27 00:00 | OXYBUTYNIN CHLORIDE | [facility] | + + + + | 2023-03-16 00:00 | OXYBUTYNIN CHLORIDE | [facility] | + + + + | 2023-03-23 00:00 | OXYBUTYNIN CHLORIDE | [facility] | + + + + | 2023-03-28 00:00 | OXYBUTYNIN CHLORIDE | [facility] | + + + + | 2023-04-25 00:00 | OXYBUTYNIN CHLORIDE | [facility] | + + + + | 2023-06-02 00:00 | OXYBUTYNIN CHLORIDE | [facility] | + + + + | 2022-11-11 00:00 | TAMSULOSIN HCL | [facility] | + + + + | 2022-11-17 00:00 | TAMSULOSIN HCL | [facility] | + + + + | 2022-11-30 00:00 | TAMSULOSIN HCL | [facility] | + + + + | 2023-01-27 00:00 | TAMSULOSIN HCL | [facility] | + + + + | 2023-03-16 00:00 | TAMSULOSIN HCL | [facility] | + + + + | 2023-03-23 00:00 | TAMSULOSIN HCL | [facility] | + + + + | 2023-03-28 00:00 | TAMSULOSIN HCL | [facility] | + + + + | 2023-04-25 00:00 | TAMSULOSIN HCL | [facility] | + + + + | 2023-06-02 00:00 | TAMSULOSIN HCL | [facility] | + + + + | 2022-11-11 00:00 | METOPROLOL SUCCINATE | [facility] | + + + + | 2022-11-17 00:00 | METOPROLOL SUCCINATE | [facility] | + + + + | 2022-11-30 00:00 | METOPROLOL SUCCINATE | [facility] | + + + + | 2023-01-27 00:00 | METOPROLOL SUCCINATE | [facility] [facility] | + + + + | 2023-03-16 00:00 | METOPROLOL SUCCINATE | [facility] | + + + + | 2023-03-23 00:00 | METOPROLOL SUCCINATE | [facility] | + + + + | 2023-03-28 00:00 | METOPROLOL SUCCINATE | [facility] | + + + + | 2023-04-25 00:00 | METOPROLOL SUCCINATE | [facility] | + + + + | 2023-06-02 00:00 | METOPROLOL SUCCINATE | [facility] | + + + + | 2022-11-11 00:00 | FLUTICASONE/SALMETEROL | [facility] | + + + + | 2022-11-17 00:00 | FLUTICASONE/SALMETEROL | [facility] | + + + + | 2022-11-30 00:00 | FLUTICASONE/SALMETEROL | [facility] | + + + + | 2023-01-27 00:00 | FLUTICASONE/SALMETEROL | [facility] | + + + + | 2023-03-16 00:00 | FLUTICASONE/SALMETEROL | [facility] | + + + + | 2023-03-23 00:00 | FLUTICASONE/SALMETEROL | [facility] | + + + + | 2023-03-28 00:00 | FLUTICASONE/SALMETEROL | [facility] | + + + + | 2023-04-25 00:00 | FLUTICASONE/SALMETEROL | [facility] | + + + + | 2023-06-02 00:00 | FLUTICASONE/SALMETEROL | [facility] | + + + + | 2022-11-11 00:00 | LOSARTAN POTASSIUM | [facility] | + + + + | 2022-11-17 00:00 | LOSARTAN POTASSIUM | [facility] | + + + + | 2022-11-30 00:00 | LOSARTAN POTASSIUM | [facility] | + + + + | 2023-01-27 00:00 | LOSARTAN POTASSIUM | [facility] | + + + + | 2023-03-16 00:00 | LOSARTAN POTASSIUM | [facility] | + + + + | 2023-03-23 00:00 | LOSARTAN POTASSIUM | [facility] | + + + + | 2023-03-28 00:00 | LOSARTAN POTASSIUM | [facility] | + + + + | 2023-04-25 00:00 | LOSARTAN POTASSIUM | [facility] | + + + + | 2023-06-02 00:00 | LOSARTAN POTASSIUM | [facility] | + + + + Problems + + + + | date | description | facility | + + + + | 2014-10-29 00:00 | Back pain | [facility] | + + + + | 2014-10-29 00:00 | Back pain | [facility] | + + + + | 2020-05-16 00:00 | Cellulitis of left foot | [facility] | + + + + | 2020-05-16 00:00 | Cellulitis of left foot | [facility] | + + + + | 2021-02-24 00:00 | Right flank pain | [facility] | + + + + | 2021-02-24 00:00 | Right flank pain | [facility] | + + + + | 2021-02-24 00:00 | Pneumonia due to severe | [facility] | | | acute respiratory syndrome | | | | coronavirus 2 (SARS-CoV-2) | | + + + + | 2021-02-24 00:00 | Pneumonia due to severe | [facility] | | | acute respiratory syndrome | | | | coronavirus 2 (SARS-CoV-2) | | + + + + | 2021-11-01 00:00 | Diabetic ketoacidosis | [facility] | + + + + | 2021-11-01 00:00 | Diabetic ketoacidosis | [facility] | + + + + | 2021-11-01 00:00 | Urinary tract infection | [facility] | + + + + | 2021-11-01 00:00 | Urinary tract infection | [facility] | + + + + | 2021-11-18 00:00 | Hyperglycemia due to | [facility] | | | diabetes mellitus | | + + + + | 2021-11-18 00:00 | Hyperglycemia due to | [facility] | | | diabetes mellitus | | + + + + | 2021-11-18 00:00 | Hyperglycemia due to | [facility] | | | insulin deficiency in | | | | | | + + + + | 2021-11-18 00:00 | Hyperglycemia due to | [facility] | | | insulin deficiency in | | | | | | + + + + | 2021-11-18 00:00 | Noncompliance with | [facility] | | | medication regimen | | + + + + | 2021-11-18 00:00 | Noncompliance with | [facility] | | | medication regimen | | + + + + | 2021-11-19 00:00 | Sepsis | [facility] | + + + + | 2021-11-19 00:00 | Sepsis | [facility] | + + + + | 2021-11-19 00:00 | Hyperglycemia | [facility] | + + + + | 2021-11-19 00:00 | Hyperglycemia | [facility] | + + + + | 2021-11-19 00:00 | General patient | [facility] | | | noncompliance | | + + + + | 2021-11-19 00:00 | General patient | [facility] | | | noncompliance | | + [...] + + + | 2021-11-19 23:12 | 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 | [facility] | | | INSULIN | | + + + + | 2021-11-19 23:12 | OTHER [facility] (CURRENT) | [facility] | | | DRUG [...] + + + | 2021-12-01 16:50 | 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 | [facility] | | | INSULIN | | + + + + | 2021-12-01 16:50 | [facility] (CURRENT) USE OF | [facility] | | | ORAL HYPOGLYCEMIC DRUGS | | + + + + | 2021-12-01 16:50 | OTHER 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 MANAGER (CURRENT) | [facility] | | | DRUG [...] + + + | 2021-12-16 19:40 | 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 | [facility] | | | INSULIN | | + + + + | 2021-12-16 19:40 | 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 | [facility] | | | ORAL HYPOGLYCEMIC DRUGS | | + + + + | 2021-12-16 19:40 | OTHER [facility] (CURRENT) | [facility] | | | DRUG [...] + | 2022-04-07 00:00 | Hypomagnesemia | [facility] | + + + + | 2022-04-07 00:00 | Hypomagnesemia | [facility] | + + + + | 2022-04-07 00:00 | Dehydration | [facility] | + + + + | 2022-04-07 00:00 | Dehydration | [facility] | + + + + | 2022-04-07 00:00 | Hypokalemia | [facility] | + + + + | 2022-04-07 00:00 | Hypokalemia | [facility] | + + + + | 2022-04-07 00:00 | Diarrhea | [facility] | + + + + | 2022-04-07 00:00 | Diarrhea | [facility] | + + + + | 2022-11-02 [...] + | 2022-11-06 00:00 | Encephalopathy | [facility] | + + + + | 2022-11-06 00:00 | Encephalopathy | [facility] | + + + + | 2022-11-06 [...] + + + | 2022-11-06 20:35 | 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 | [facility] | | | ANTIBIOTICS | | + + + + | 2022-11-06 20:35 | [facility] (CURRENT) USE OF | [facility] | | | INSULIN | | + + + + | 2022-11-06 20:35 | OTHER [facility] (CURRENT) | [facility] | | | DRUG [...] 2022-11-07 00:00 | Altered mental status | [facility] | + + + + | 2022-11-07 00:00 | Altered mental status | [facility] | + + + + | 2022-11-16 [...] + + + | 2022-11-17 06:53 | 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 | [facility] | | | INSULIN | | + + + + | 2022-11-17 06:53 | OTHER [facility] (CURRENT) | [facility] | | | DRUG [...] 2022-11-27 00:00 | Poorly controlled diabetes | [facility] | | | mellitus | | + + + + | 2022-11-27 00:00 | Blister of right foot | [facility] | + + + + | 2022-11-27 16:59 | TYPE 2 DIABETES MELLITUS | [facility] | | | WITH DIABETIC NEUROPATHY, | [...] + + + | 2022-11-27 16:59 | [facility] (CURRENT) USE OF | [facility] | | | INSULIN | | + + + + | 2022-11-27 16:59 | [facility] (CURRENT) USE OF | [facility] | | | ORAL HYPOGLYCEMIC DRUGS | | + + + + | 2022-11-27 16:59 | OTHER [facility] (CURRENT) | [facility] | | | DRUG [...] + + + | 2023-01-11 14:55 | 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 | [facility] | | | INSULIN | | + + + + | 2023-01-11 14:55 | PATIENT'S OTHER | [facility] | | | NONCOMPLIANCE WITH MEDIC | | + + + + | 2023-01-27 00:00 | Acute gastritis | [facility] | + + + + | 2023-01-27 [...] + + + | 2023-01-27 17:24 | 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 | [facility] | | | INSULIN | | + + + + | 2023-01-27 17:24 | [facility] (CURRENT) USE OF | [facility] | | | ORAL HYPOGLYCEMIC DRUGS | | + + + + | 2023-01-27 17:24 | OTHER [facility] (CURRENT) | [facility] | | | DRUG [...] + + + | 2023-03-16 16:31 | [facility] (CURRENT) USE OF | [facility] | | | INSULIN | | + + + + | 2023-03-16 16:31 | 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 | [facility] | | | ORAL HYPOGLYCEMIC DRUGS | | + + + + | 2023-03-16 16:31 | OTHER [facility] (CURRENT) | [facility] | | | DRUG [...] + + + | 2023-03-23 11:27 | 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 | [facility] | | | INSULIN | | + + + + | 2023-03-23 11:27 | OTHER [facility] (CURRENT) | [facility] | | | DRUG [...] 2023-03-28 00:00 | Hypoglycemic reaction to | [facility] | | | insulin | | + [...] + + + | 2023-03-28 06:15 | [facility] (CURRENT) USE OF | [facility] | | | INSULIN | | + + + + | 2023-03-28 06:15 | OTHER [facility] (CURRENT) | [facility] | | | DRUG [...] + + + | 2023-04-25 12:47 | [facility] (CURRENT) USE OF | [facility] | | | INSULIN | | + + + + | 2023-04-25 12:47 | OTHER 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 MANAGER (CURRENT) | [facility] | | | DRUG [...] + + + | 2023-06-02 18:03 | [facility] (CURRENT) USE OF | [facility] | | | INSULIN | | + + + + | 2023-06-02 18:03 | [facility] (CURRENT) USE OF | [facility] | | | ASPIRIN | | + + + + | 2023-06-02 18:03 | 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 | [facility] | | | ORAL HYPOGLYCEMIC DRUGS | | + + + + | 2023-06-02 18:03 | OTHER 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 MANAGER (CURRENT) | [facility] | | | DRUG [...] 2022-11-17 00:00 | EXCISION OF ILEOCECAL | [facility] | | | VALVE, ENDO, DIAGN | | + + + + | 2022-11-17 00:00 | EXCISION OF RECTUM, ENDO, | [facility] | | | DIAGN | | + + + + | 2022-11-17 00:00 | COLONOSCOPY W/LESION | [facility] | | | REMOVAL | | + [...] (missing) | | (unavailable | 07:05:07 | rCow | | | | | ) | [...]
[~2023-06-20 19:41] MED LIST changes: +ASPIRIN81 MG PO; +TYLENOL325 MG PO
--- OUTSIDE RECORDS SUMMARY | 2023-06-20 19:44 | XMS ---
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 PHONE: [phone] LALA STANFORD Internal Medicine 10/06/2016-Current PHONE: Unknown KEVIN MTAOS Physician Recordist: Medical 02/25/2021-Current PHONE: [phone] Angelina has no Care Guidelines for this patient. Care History Medical/Surgical 12/17/2021 [facility] - PATIENT UROLOGIST DR ALBERTS NOTIFIED OF ED VISIT- PROVIDED ED CLINICAL FOR REVIEW AND IF FOLLOW UP IS NEEDED. Marco A VISIT COUNT (12 MO.) 9 GERMANIA Guzman TOTAL 9 NOTE: Visits indicate total known visits. ED/UCC VISIT TRACKING (12 MO.) 06/20/2023 19:41 GER[place]IA Carr [place] TYPE: Emergency COMPLAINT: - VOMITING 06/02/2023 18:03 GER[place]IA Carr [place] TYPE: Emergency COMPLAINT: - BODY NUMBNESS DIAGNOSES: - Allergy status to other antibiotic agents - Allergy status to other drugs, medicaments and biological substances - Allergy status to penicillin - Allergy status to sulfonamides - Anesthesia of skin - termite helper (current) use of aspirin - [facility] (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 - termite helper (current) use of oral hypoglycemic drugs - Low back pain, unspecified - Other intermission coordinator (current) drug therapy - Type 2 diabetes mellitus with diabetic neuropathy, unspecified 04/25/2023 12:47 GER[place]IA Carr [place] TYPE: Emergency COMPLAINT: - HIGH BLOOD SUGAR, LOW B/P DIAGNOSES: - Allergy status to other antibiotic agents - Allergy status to other drugs, medicaments and biological substances - Allergy status to penicillin - Allergy status to sulfonamides - termite helper (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 - Other intermission coordinator (current) drug therapy - Type 2 diabetes [...] penicillin - Allergy status to sulfonamides - [facility] (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 - Other residential (current) drug therapy - Slurred speech - [...] helper (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 - Other residential (current) drug therapy - Type 2 diabetes mellitus without complications - Urinary tract infection, site not specified 03/16/2023 16:31 GER[place]IA Carr [place] TYPE: Emergency COMPLAINT: - CHEST WALL PAIN DIAGNOSES: - Allergy status to other antibiotic agents - Allergy status to other drugs, medicaments and biological substances - Allergy status to penicillin - Allergy status to sulfonamides - Chest pain, unspecified - [facility] (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 - termite helper (current) use of oral hypoglycemic drugs - Other chest pain - Other chest pain - Other intermission coordinator (current) drug therapy - Type 2 diabetes mellitus with diabetic neuropathy, unspecified 01/27/2023 17:24 GER[place]IA Carr [place] TYPE: Emergency COMPLAINT: - VOMITING DIAGNOSES: - Acute gastritis without bleeding - Allergy status to other antibiotic agents - Allergy status to other drugs, medicaments and biological substances - Allergy status to penicillin - Allergy status to sulfonamides - [facility] (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 - termite helper (current) use of oral hypoglycemic drugs - Nausea with vomiting, unspecified - Other intermission coordinator (current) drug therapy - Type 2 diabetes [...] to other specified factors, initial encounter - [facility] (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 - [facility] (current) use of oral hypoglycemic drugs - Other residential (current) drug therapy - Type 2 diabetes [...] - Gastro-esophageal reflux disease without esophagitis - termite helper (current) use of antibiotics - [facility] (current) use of antibiotics - termite helper (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 - termite helper (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 - Metabolic encephalopathy - Metabolic encephalopathy - Other intermission coordinator (current) drug therapy - Other residential (current) drug therapy - Type 2 diabetes mellitus with hyperosmolarity without nonketotic hyperglycemic-hyperosmolar coma ([facility]) - Type 2 diabetes mellitus with hyperosmolarity without nonketotic hyperglycemic-hyperosmolar coma ([facility]) - Unspecified mood [affective] disorder - Unspecified mood [affective] disorder [email or web address]
[2023-06-20 20:01] LABS: BASOPHILS 0.8 % (0-2); EOSINOPHILS 2.4 % (0-6); HEMATOCRIT 35.3 % (35.0-50.0); HEMOGLOBIN 11.8 g/dL (12.0-18.0); LYMPHOCYTES 25.3 % (24-44); MCH 29.5 (27-36); MCHC 33.5 g/dl (30-36); MONOCYTES 9.8 % (0-12); NEUTROPHILS 61.7 % (39-80); PLATELET COUNT 363 K/uL (140-440); RBC 4.01 M/ul (4.3-5.7); RDW 14.3 (10.5-15.0)
[2023-06-20 20:14] LABS: ALBUMIN 2.6 g/dL (3.4-5.0); ALBUMIN/GLOBULIN RATIO 0.67 (1.1-2.4); ANION GAP 15.4 (7-21); BILIRUBIN, TOTAL 0.3 ng/dL (0.2-1.0); BUN/CREATININE RATIO 9.35 (6.0-28.6); CREATININE, SERUM 1.39 mg/dL (0.55-1.02); MAGNESIUM 1.3 mg/dL (1.8-2.4); POTASSIUM 3.4 mmol/L (3.5-5.1); PROTEIN, TOTAL 6.5 g/dL (6.4-8.2)
[2023-06-20 20:46] LABS: INR 1.19 (0.80-1.30); PROTIME 14.6 Sec (11.2-14.2)
[2023-06-21 01:13] VITALS: BP 127/74
--- NOTE | 2023-06-21 05:40 | EKG ---
[facility] [address] [place] [id number] Signed Normal sinus rhythm Left axis deviation Moderate voltage criteria for LVH, may be normal variant ( R in aVL , [place] product ) Inferior infarct (cited on or before 01-NOV-2021) Anterolateral infarct (cited on or before 01-NOV-2021) Abnormal ECG When compared with ECG of 16-MAR-2023 16:33, Nonspecific T wave abnormality now evident in Lateral leads Confirmed by SARAH ANDERSON MD ([id number]) on 06/21/2023 5:40:03 AM Electronically Signed By: SARAH ANDERSON 06/21/23 0540 PATIENT NAME: KURT NEGRON Electrocardiogram DATE OF : 62 PHYSICIAN: SARAH ANDERSON REPORT #: [id number] REPORT IS CONFIDENTIAL AND NOT TO BE RELEASED WITHOUT AUTHORIZATION
== END 2023-06-21 01:13 | disposition short-term general hospital (02) ==
LOC: ED 19:41
PROVIDERS: Family Medicine
DX: I21.4 Non-ST elevation (NSTEMI) myocardial infarction (principal); E11.40 Type 2 diabetes mellitus with diabetic neuropathy, unspecified; Z88.0 Allergy status to penicillin; Z88.2 Allergy status to sulfonamides; Z88.1 Allergy status to other antibiotic agents; Z88.8 Allergy status to other drugs, medicaments and biological substances; Z79.4 Long term (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; Z79.899 Other long term (current) drug therapy; Z79.82 Long term (current) use of aspirin; Z20.822 Contact with and (suspected) exposure to COVID-19
CPT/HCPCS: 36415; 71045; 80053; 83735; 83880; 84484; 85025; 85379; 85610; 93005; 93010; 96374; 96375; 99285-25; A9270; J1644; J3475; J7121; U0002

== ENCOUNTER 2023-08-14 08:57 | Emergency (ER) | payer OTHER ==
[~2023-08-14] VITALS: Ht 160 cm; Wt 80.3 kg
[~2023-08-14 08:57] MED LIST changes: +METRONIDAZOLE500 MG PO
--- OUTSIDE RECORDS SUMMARY | 2023-08-14 09:01 | XMS ---
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 Care History Medical/Surgical 12/17/2021 [facility] - PATIENT UROLOGIST DR ALBERTS NOTIFIED OF ED VISIT- PROVIDED ED CLINICAL FOR REVIEW AND IF FOLLOW UP IS NEEDED. Marco A VISIT COUNT (12 MO.) 11 [place] [facility] TOTAL 12 NOTE: Visits indicate total known visits. ED/UCC VISIT TRACKING (12 MO.) 08/14/2023 08:58 [place] [facility] TYPE: Emergency COMPLAINT: - N/V/D, ABD PAIN 08/11/2023 12:26 [place] [facility] TYPE: Emergency COMPLAINT: - VOMITING, DIARRHEA, WEAKNESS DIAGNOSES: - Allergy status to other antibiotic agents - Allergy status to other drugs, medicaments and biological substances - Allergy status to penicillin - Allergy status to sulfonamides - Diarrhea, unspecified - equipment operator intermodal yard (current) use of aspirin - custodial (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 - custodial (current) use of oral hypoglycemic drugs - Other mcc (current) drug therapy - Type 2 diabetes mellitus with diabetic neuropathy, unspecified 08/02/2023 16:41 [facility] TYPE: Emergency DIAGNOSES: - Hypomagnesemia - Other specified abnormalities of plasma proteins - Other specified postprocedural states - Urinary tract infection, site not specified - Fatigue - low BP, UTI, h/o sepsis with UTIs, sent from [facility] 06/20/2023 19:41 [place] [facility] TYPE: Emergency COMPLAINT: - VOMITING DIAGNOSES: - Allergy status to other antibiotic agents - Allergy status to other drugs, medicaments and biological substances - Allergy status to penicillin - Allergy status to sulfonamides - Contact with and (suspected) exposure to COVID-19 - custodial (current) use of aspirin - equipment operator intermodal yard (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 - Non-ST elevation (NSTEMI) myocardial infarction - Other mcc (current) drug therapy - Type 2 diabetes mellitus with diabetic neuropathy, unspecified - Weakness 06/02/2023 18:03 [place] [facility] TYPE: Emergency COMPLAINT: - BODY NUMBNESS DIAGNOSES: - Allergy status to other antibiotic agents - Allergy status to other drugs, medicaments and biological substances - Allergy status to penicillin - Allergy status to sulfonamides - Anesthesia of skin - equipment operator intermodal yard (current) use of aspirin - equipment operator intermodal yard (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 - equipment operator intermodal yard (current) use of oral hypoglycemic drugs - Low back pain, unspecified - Other bed bug exterminator (current) drug therapy - Type 2 diabetes mellitus with diabetic neuropathy, unspecified 04/25/2023 12:47 [place] [facility] TYPE: Emergency COMPLAINT: - HIGH BLOOD SUGAR, LOW B/P DIAGNOSES: - Allergy status to other antibiotic agents - Allergy status to other drugs, medicaments and biological substances - Allergy status to penicillin - Allergy status to sulfonamides - custodial (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 - Other mcc (current) drug therapy - Type 2 diabetes [...] penicillin - Allergy status to sulfonamides - equipment operator intermodal yard (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 - Other bed bug exterminator (current) drug therapy - Slurred speech - Type 2 diabetes mellitus with hypoglycemia without coma 03/23/2023 11:27 [place] [facility] TYPE: Emergency COMPLAINT: - MEDICATION REACTION, VOMITING, ITCHING DIAGNOSES: - Allergy status to other antibiotic agents - Allergy status to other drugs, medicaments and biological substances - Allergy status to penicillin - Allergy status to sulfonamides - equipment operator intermodal yard (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 - Other bed bug exterminator (current) drug therapy - Type 2 diabetes mellitus without complications - Urinary tract infection, site not specified 03/16/2023 16:31 [place] [facility] TYPE: Emergency COMPLAINT: - CHEST WALL PAIN DIAGNOSES: - Allergy status to other antibiotic agents - Allergy status to other drugs, medicaments and biological substances - Allergy status to penicillin - Allergy status to sulfonamides - Chest pain, unspecified - custodial (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 - custodial (current) use of oral hypoglycemic drugs - Other chest pain - Other chest pain - Other bed bug exterminator (current) drug therapy - Type 2 diabetes mellitus with diabetic neuropathy, unspecified 01/27/2023 17:24 [place] [facility] TYPE: Emergency COMPLAINT: - VOMITING DIAGNOSES: - Acute gastritis without bleeding - Allergy status to other antibiotic agents - Allergy status to other drugs, medicaments and biological substances - Allergy status to penicillin - Allergy status to sulfonamides - custodial (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 - custodial (current) use of oral hypoglycemic drugs - Nausea with vomiting, unspecified - Other mcc (current) drug therapy - Type 2 diabetes [...] to other specified factors, initial encounter - equipment operator intermodal yard (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 - equipment operator intermodal yard (current) use of oral hypoglycemic drugs - Other mcc (current) drug therapy - Type 2 diabetes mellitus with diabetic neuropathy, unspecified - Type 2 diabetes mellitus with hyperglycemia - Urinary tract infection, site not specified 11/06/2022 17:03 [place] [facility] TYPE: Emergency COMPLAINT: - ALTERED MENTAL STATUS INPATIENT VISIT TRACKING (12 MO.) [facility] DIAGNOSES: - Abnormal result of other cardiovascular function study - Atherosclerotic heart disease of [place] coronary artery without angina pectoris - Hypomagnesemia - Non-ST elevation (NSTEMI) myocardial infarction - Other specified abnormal findings of blood chemistry - Other specified abnormalities of plasma proteins - Other specified postprocedural states - Presence of aortocoronary bypass graft - Sepsis, unspecified organism - Urinary tract infection, site not specified 06/21/2023 02:40 [facility] TYPE: Intermediate Care DIAGNOSES: - Atherosclerotic heart disease of [place] coronary artery with unstable angina pectoris - Non-ST elevation (NSTEMI) myocardial infarction 11/06/2022 20:[address] [facility] [place] [...] - Gastro-esophageal reflux disease without esophagitis - equipment operator intermodal yard (current) use of antibiotics - custodial (current) use of antibiotics - custodial (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 - equipment operator intermodal yard (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 - Metabolic encephalopathy - Metabolic encephalopathy - Other bed bug exterminator (current) drug therapy - Other bed bug exterminator (current) drug therapy - Type 2 diabetes mellitus with hyperosmolarity without nonketotic hyperglycemic-hyperosmolar coma ([facility]) - Type 2 diabetes mellitus with hyperosmolarity without nonketotic hyperglycemic-hyperosmolar coma ([facility]) - Unspecified mood [affective] disorder - Unspecified mood [affective] disorder [email or web address]
[2023-08-14] MEDS ORDERED: FELODIPINE ER2.5 MG PO (09:15)
[2023-08-14] MEDS ORDERED: CLOPIDOGREL75 MG PO (09:15)
[2023-08-14] MEDS ORDERED: FAMOTIDINE20 MG PO (09:15)
[2023-08-14] MEDS ORDERED: MAG6464 MG PO (09:18)
[2023-08-14] MEDS ORDERED: SPIRONOLACTONE25 MG PO (09:18)
[2023-08-14] MEDS ORDERED: FUROSEMIDE20 MG PO (09:19)
[2023-08-14] MEDS ORDERED: NITROSTAT0.4 MG SL (09:20)
[2023-08-14 09:44] LABS: BASOPHILS 0.4 % (0-2); EOSINOPHILS 0.5 % (0-6); HEMATOCRIT 38.4 % (35.0-50.0); HEMOGLOBIN 12.9 g/dL (12.0-18.0); LYMPHOCYTES 7.8 % (24-44); MCH 29.1 (27-36); MCHC 33.5 g/dl (30-36); MCV 86.9 fl (81-99); MONOCYTES 5.1 % (0-12); NEUTROPHILS 86.2 % (39-80); PLATELET COUNT 378 K/uL (140-440); RBC 4.42 M/ul (4.3-5.7); RDW 15.5 (10.5-15.0)
[2023-08-14 09:59] LABS: ALBUMIN 3.6 g/dL (3.4-5.0); ALBUMIN/GLOBULIN RATIO 0.73 (1.1-2.4); ANION GAP 19.2 (7-21); BILIRUBIN, TOTAL 0.8 ng/dL (0.2-1.0); CREATININE, SERUM 1.1 mg/dL (0.55-1.02); POTASSIUM 4.2 mmol/L (3.5-5.1); PROTEIN, TOTAL 8.5 g/dL (6.4-8.2)
[2023-08-14 10:02] LABS: LACTIC ACID, BLOOD 1.7 mmol/L (0.4-2.0)
[2023-08-14 10:53] LABS: BILIRUBIN, URINE NEGATIVE (negative); BLOOD/HGB, URINE SMALL (Negative); KETONE, URINE SMALL (Negative); LEUK ESTERASE, URINE NEGATIVE (negative); NITRITE, URINE NEGATIVE (negative)
[2023-08-14 11:00] LABS: BACTERIA, URINE NONE SEEN /hpf (negative); CASTS, URINE HYALINE 3+ \\lpf; COLLECTION TYPE, URINE CLEAN CATCH; CRYSTALS, URINE NONE SEEN (0-1+); EPITHELIAL CELLS, URINE SQUAMOUS 3+ /lpf (0-1+); REFLEX CULTURE, URINE No (No); WHITE BLOOD CELLS, URINE 0-1 /HPF (0-5)
[2023-08-14] MEDS ORDERED: ONDANSETRON ODT4 MG PO (12:50)
[2023-08-14 13:02] VITALS: BP 154/53
== END 2023-08-14 13:02 | disposition home or self-care (01) ==
LOC: ED 08:57
PROVIDERS: Emergency Medicine
DX: R11.2 Nausea with vomiting, unspecified (principal); E11.40 Type 2 diabetes mellitus with diabetic neuropathy, unspecified; Z88.0 Allergy status to penicillin; Z88.1 Allergy status to other antibiotic agents; Z88.2 Allergy status to sulfonamides; Z88.8 Allergy status to other drugs, medicaments and biological substances; Z79.02 Long term (current) use of antithrombotics/antiplatelets; Z79.899 Other long term (current) drug therapy; Z79.4 Long term (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; Z79.82 Long term (current) use of aspirin; Z79.84 Long term (current) use of oral hypoglycemic drugs; Z95.1 Presence of aortocoronary bypass graft
CPT/HCPCS: 36415; 74022; 80053; 81001; 83605; 83690; 85025; J2270; J2405; J7030

== ENCOUNTER 2023-08-16 14:44 | Observation (INO) | payer OTHER ==
[2023-08-16] VITALS (9 sets, daily range): BP systolic 102–154; BP diastolic 55–78
[~2023-08-16] VITALS: Ht 160 cm; Wt 83.4 kg
[~2023-08-16 14:44] MED LIST changes: +CLOPIDOGREL75 MG PO; +FAMOTIDINE20 MG PO; +FELODIPINE ER2.5 MG PO; +FUROSEMIDE20 MG PO; +MAG6464 MG PO; +NITROSTAT0.4 MG SL; +SPIRONOLACTONE25 MG PO; -TYLENOL325 MG PO
--- OUTSIDE RECORDS SUMMARY | 2023-08-16 14:46 | XMS ---
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 Care History Medical/Surgical 12/17/2021 [facility] - PATIENT UROLOGIST DR ALBERTS NOTIFIED OF ED VISIT- PROVIDED ED CLINICAL FOR REVIEW AND IF FOLLOW UP IS NEEDED. Marco A VISIT COUNT (12 MO.) GERMANIA Hurtado [facility] [place] TOTAL 13 NOTE: Visits indicate total known visits. ED/UCC VISIT TRACKING (12 MO.) 08/16/2023 14:44 [facility] [place] TYPE: Emergency COMPLAINT: - WEAKNESS 08/14/2023 08:58 [facility] [place] TYPE: Emergency COMPLAINT: - N/V/D, ABD PAIN DIAGNOSES: - Allergy status to other antibiotic agents - Allergy status to other drugs, medicaments and biological substances - Allergy status to penicillin - Allergy status to sulfonamides - intermediate (current) use of antithrombotics/antiplatelets - [employer] (current) use of aspirin - [employer] (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 - [employer] (current) use of oral hypoglycemic drugs - Nausea with vomiting, unspecified - Other mcc (current) drug therapy - Presence of aortocoronary bypass graft - Type 2 diabetes mellitus with diabetic neuropathy, unspecified 08/11/2023 12:26 [facility] [place] TYPE: Emergency COMPLAINT: - VOMITING, DIARRHEA, WEAKNESS DIAGNOSES: - Allergy status to other antibiotic agents - Allergy status to other drugs, medicaments and biological substances - Allergy status to penicillin - Allergy status to sulfonamides - Diarrhea, unspecified - [employer] (current) use of aspirin - [employer] (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 - intermediate (current) use of oral hypoglycemic drugs - Other mcc (current) drug therapy - Type 2 diabetes mellitus with diabetic neuropathy, unspecified 08/02/2023 16:41 [facility] TYPE: Emergency DIAGNOSES: - Hypomagnesemia - Other specified abnormalities of plasma proteins - Other specified postprocedural states - Urinary tract infection, site not specified - Fatigue - low BP, UTI, h/o sepsis with UTIs, sent from [facility] 06/20/2023 19:41 [place] [place] TYPE: Emergency COMPLAINT: - VOMITING DIAGNOSES: - Allergy status to other antibiotic agents - Allergy status to other drugs, medicaments and biological substances - Allergy status to penicillin - Allergy status to sulfonamides - Contact with and (suspected) exposure to COVID-19 - intermediate (current) use of aspirin - [employer] (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 - Non-ST elevation [...] to sulfonamides - Anesthesia of skin - intermediate (current) use of aspirin - [employer] (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 - intermediate (current) use of oral hypoglycemic drugs - Low back pain, unspecified - Other mcc (current) drug therapy - Type 2 diabetes mellitus with diabetic neuropathy, unspecified 04/25/2023 12:47 [place] [place] TYPE: Emergency COMPLAINT: - HIGH BLOOD SUGAR, LOW B/P DIAGNOSES: - Allergy status to other antibiotic agents - Allergy status to other drugs, medicaments and biological substances - Allergy status to penicillin - Allergy status to sulfonamides - intermediate (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 - Other emt intermediate (current) drug therapy - Type 2 diabetes [...] penicillin - Allergy status to sulfonamides - [employer] (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 - Other mcc (current) drug therapy - Slurred speech - Type 2 diabetes mellitus with hypoglycemia without coma 03/23/2023 11:27 [facility] [place] TYPE: Emergency COMPLAINT: - MEDICATION REACTION, VOMITING, ITCHING DIAGNOSES: - Allergy status to other antibiotic agents - Allergy status to other drugs, medicaments and biological substances - Allergy status to penicillin - Allergy status to sulfonamides - [employer] (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 - Other emt intermediate (current) drug therapy - Type 2 diabetes mellitus without complications - Urinary tract infection, site not specified 03/16/2023 16:[address] [facility] [place] TYPE: Emergency COMPLAINT: - CHEST WALL PAIN DIAGNOSES: - Allergy status to other antibiotic agents - Allergy status to other drugs, medicaments and biological substances - Allergy status to penicillin - Allergy status to sulfonamides - Chest pain, unspecified - intermediate (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 - intermediate (current) use of oral hypoglycemic drugs - Other chest pain - Other chest pain - Other emt intermediate (current) drug therapy - Type 2 diabetes mellitus with diabetic neuropathy, unspecified 01/27/2023 17:24 [facility] [place] TYPE: Emergency COMPLAINT: - VOMITING DIAGNOSES: - Acute gastritis without bleeding - Allergy status to other antibiotic agents - Allergy status to other drugs, medicaments and biological substances - Allergy status to penicillin - Allergy status to sulfonamides - [employer] (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 - [employer] (current) use of oral hypoglycemic drugs - [...] to other specified factors, initial encounter - [employer] (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 - intermediate (current) use of oral hypoglycemic drugs - Other emt intermediate (current) drug therapy - Type 2 diabetes mellitus with diabetic neuropathy, unspecified - Type 2 diabetes mellitus with hyperglycemia - Urinary tract infection, site not specified 11/06/2022 17:03 [place] [place] TYPE: Emergency COMPLAINT: - ALTERED MENTAL STATUS INPATIENT VISIT TRACKING (12 MO.) 08/02/2023 16:41 [facility] TYPE: Internal Medicine DIAGNOSES: - Abnormal result of other cardiovascular function study - Atherosclerotic heart disease of [place] coronary artery without angina pectoris - Hypomagnesemia - Non-ST elevation (NSTEMI) myocardial infarction - Other specified abnormal findings of blood chemistry - Other specified abnormalities of plasma proteins - Other specified postprocedural states - Presence of aortocoronary bypass graft - Sepsis, unspecified organism - Urinary tract infection, site not specified 06/21/2023 02:40 [facility] [place] TYPE: Intermediate Care DIAGNOSES: - Atherosclerotic heart disease of [place] coronary artery with unstable angina pectoris - Non-ST elevation (NSTEMI) myocardial infarction 11/06/2022 20:[address] [facility] [place] TYPE: Medical Surgical [...] - Gastro-esophageal reflux disease without esophagitis - [employer] (current) use of antibiotics - intermediate (current) use of antibiotics - [employer] (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 - [employer] (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 - Metabolic encephalopathy - Metabolic encephalopathy - Other emt intermediate (current) drug therapy - Other mcc (current) drug therapy - Type 2 diabetes mellitus with hyperosmolarity without nonketotic hyperglycemic-hyperosmolar coma ([facility]) - Type 2 diabetes mellitus with hyperosmolarity without nonketotic hyperglycemic-hyperosmolar coma ([facility]) - Unspecified mood [affective] disorder - Unspecified mood [affective] disorder [email or web address]
[2023-08-16 15:29] LABS: EOSINOPHILS 3.8 % (0-6); HEMATOCRIT 34.3 % (35.0-50.0); HEMOGLOBIN 11.2 g/dL (12.0-18.0); MCH 28.9 (27-36); MCHC 32.5 g/dl (30-36); MCV 88.8 fl (81-99); MONOCYTES 7.4 % (0-12); NEUTROPHILS 67.8 % (39-80); PLATELET COUNT 346 K/uL (140-440); RBC 3.87 M/ul (4.3-5.7); RDW 15.5 (10.5-15.0)
[2023-08-16 15:47] LABS: BILIRUBIN, URINE NEGATIVE (negative); BLOOD/HGB, URINE NEGATIVE (Negative); KETONE, URINE NEGATIVE (Negative); LEUK ESTERASE, URINE NEGATIVE (negative); NITRITE, URINE NEGATIVE (negative); PH, URINE 5.5 (5-7)
[2023-08-16 15:55] LABS: BACTERIA, URINE RARE /hpf (negative); EPITHELIAL CELLS, URINE SQUAMOUS 1+ /lpf (0-1+); RED BLOOD CELLS, URINE 0-1 /hpf (0-5)
[2023-08-16 15:56] LABS: CASTS, URINE HYALINE 1+ \\lpf
[2023-08-16 15:57] LABS: COLLECTION TYPE, URINE CLEAN CATCH; CRYSTALS, URINE CALCIUM OXALATE 2+ (0-1+); REFLEX CULTURE, URINE No (No)
[2023-08-16 15:58] LABS: ALBUMIN/GLOBULIN RATIO 0.75 (1.1-2.4); ANION GAP 17.1 (7-21); BILIRUBIN, TOTAL 0.4 ng/dL (0.2-1.0); BUN/CREATININE RATIO 17.27 (6.0-28.6); CALCIUM 8.8 mg/dL (8.5-10.1); CREATININE, SERUM 1.91 mg/dL (0.55-1.02); POTASSIUM 4.1 mmol/L (3.5-5.1)
--- NOTE | 2023-08-16 19:00 | NUR ---
-RECEIVED REPORT/ PATIENT FROM KATTY RIOS RN. TRANSFERRED TO CCU 127 VIA ED JO ANN. ALL QUESTIONS AND CONCERNS WERE DISCUSSED AND ADDRESSED NEURO- ALERT AND ORIENTED X 4. PRESENTS WITH SLIGHT WEAKNESS IN LOWER EXTREMETIES. 1 PERSON ASSIST TO COMMODE. CANE LEFT HOME. PERLLA 3+. DENIES ANY PAIN OR DISCOMFORT. RESP- ROOM AIR 98-100% BREATH SOUNDS CLEAR. ABLE TO COUGH AND DEEP BREATH CARDIAC- AFEBRILE, VSS WDL. HYPOTENSIVE IN ED. RECEIVED MULTIPLE BOLUSES. CURRENTLY ON MAINTENANCE FLUID GTT AT 125. BP SUSTAINING. NO EDEMA NOTED. RECENT BYPASS. CARDIAC PILLOW WITH PATIENT AT BEDSIDE AND EDUCATION GIVEN REGARDING SPLINTING. PATIENT STATED UNDERSTANDING. GI/- 1 UNIT OF INSULIN ADMINISTERED PER ORDER FOR CBG OF 169. DIARRHEA PRESENT. CLEANED PATIENT, CLEAN CHUCKS AND LINENS NOW PRESENT. PATIENT STATES SHE HAS HAD DIARRHEA FOR A "FEW MONTHS". 100 TURKEY SANWICH CONSUMED WITH APPLE SAUCE. NO URGE TO VOID AT THIS TIME INT- RIGHT PLATAR FOOT ULCER NOTED. CLEANED WITH SALINE, MEPELEX AND COBAN APPLIED. PATIENT STATES THAT SHE HAS BEEN SEEING A WOUND NURSE FOR ULCER FOR A COUPLE OF MONTHS. RIGHT HAND SKIN TEAR. CLEANED AND COBAN APPLIED. 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 HANDOFF REPORT GIVEN TO RIVER TESTER RNS IN CCU. ALL QUESTIONS AND CONCERNS HAVE BEEN ADDRESSED
--- NOTE | 2023-08-16 20:20 | NUR ---
PT ASSESSED AND FOUND TO BE LAYING IN HOSPITAL BED, CONSCIOUS, AWAKE, ALERT AND ORIENTED WITH A GCS OF 15. PT WITH SOME CONFUSION ON TODAYS DATE, BUT ABLE TO VERBALIZE YEAR AND MONTH. PT FOLLOWS ALL COMMANDS. NEURO ASSESSMENT REVEALS NUMBNESS AND TINGLING SENSATION IN UPPER AND LOWER EXTREMITIES. THIS IS OF NORMAL FOR THE PT D/T NEUROPATHY. PT STATES SHE SUFFERED AND UNWHITNESSED FALL AND IS UNCERTAIN IF SHE LOSSED CONSCIOUSNESS. PT CONFIRMS SHE IS ON PLAVIX S/T RECENT CABG. CHART REVIEW PERFORMED AND NO RADIOGRAPH STUDIES OF HEAD/ NECK OBTAINED. DR. ANDERSON CONSULTED REGARDING CONCERN FOR POTENTIAL INTRACRANIAL HEMORRHAGE, AND NEED FOR HEAD CT. NO NEW ORDERS OBTAINED. PT APPEARS TO BE IN A NSR, NORMOTENSIVE AND A-FEBRILE. PIVS ASSESSED AND FOUND TO BE PATENT. NURSE CALL LIGHT PLACED IN PTS L. HAND. EDUCATION REGARDING THE NEED TO MAINTAIN SKIN INTEGRITY PERFORMED. PT TO ROTATE POSITIONS EVERY TWO HRS AND NOTIFY RN IF SHE NEEDS TO HAVE A BM. SAFETY CHECK PERFORMED AND ALARM PERAMETERS SET.
--- NOTE | 2023-08-16 21:40 | NUR ---
PT STATES IS UNABLE TO VOID URINE AT THIS TIME. PT FEELS THE NEED TO URINATE, HOWEVER, IS UNABLE TO DO SO. BLADDER SCANNED WITH 1.2 LITERS NOTED. WE'LL CONSULT
--- NOTE | 2023-08-16 21:51 | NUR ---
DR. ANDERSON CALLED REGARDING URINARY RETENTION AND BLADDER SCAN AMOUNT OF 1.[address] ANDERSON ALSO CONSUILTED REGARDING NORMAL INTAKE OF METFORMIN [address]. [address] ANDERSON, ASSESS BLADDER VOLUMES Q-6 AND STRAIGHT CATH NEEDED WITH ESTIMATED BLADDER VOLUMES OF GREATOR THAN [address] JUSTIN HAILE ADVISES METFORMIN WILL NOT BE ADDED TO MAR.
--- NOTE | 2023-08-16 22:21 | NUR ---
PT NOTED TO BE INCONT. OF STOOL. PT CLEANED AND ANTONELLA CARE PERFORMED WITH CHG WIPES. PT PLACED IN NEW LININ. PT TRANSFERRED TO [facility] TO HELP MAINTAIN SKIN INTEGRITY. TWO RN SKIN CHECK PERFORMED AND BARRIER CREAM APPLIED TO TISSUE SURROUNDING PTS ANUS. STRAIGHT CATH PERFORMED WITH TWO RNS PRESENT. NO COMPLICATIONS NOTED. PT PLACED IN POSITION OF COMFORT AND CALL LIGHT IN PTS L. HAND.
[2023-08-17] VITALS (11 sets, daily range): BP systolic 90–182; BP diastolic 54–95
--- NOTE | 2023-08-17 02:11 | NUR ---
IV PUMP ALARMING, NEW BAG IV FLUIDS PROVIDED. PT STATES SHE FEELS THE NEED TO URINATE. BLADDER SCAN REVEALS >1159ML. PT UP TO BSC, DENIES LIGHTHEADEDNESS. PT BACK TO BED. NO OTHER NEEDS AT THIS TIME. CALL LIGHT IN REACH.
[2023-08-17 05:30] LABS: BASOPHILS 0.9 % (0-2); EOSINOPHILS 4.4 % (0-6); HEMATOCRIT 30.2 % (35.0-50.0); HEMOGLOBIN 10.1 g/dL (12.0-18.0); LYMPHOCYTES 19.5 % (24-44); MCH 29.2 (27-36); MCHC 33.4 g/dl (30-36); MCV 87.4 fl (81-99); MONOCYTES 7.5 % (0-12); NEUTROPHILS 67.7 % (39-80); PLATELET COUNT 283 K/uL (140-440); RBC 3.45 M/ul (4.3-5.7); RDW 15.5 (10.5-15.0)
[2023-08-17 05:46] LABS: ALBUMIN 2.5 g/dL (3.4-5.0); ALBUMIN/GLOBULIN RATIO 0.74 (1.1-2.4); ANION GAP 16.4 (7-21); BILIRUBIN, TOTAL 0.3 ng/dL (0.2-1.0); BUN/CREATININE RATIO 19.8 (6.0-28.6); CALCIUM 8.5 mg/dL (8.5-10.1); CREATININE, SERUM 1.01 mg/dL (0.55-1.02); POTASSIUM 3.4 mmol/L (3.5-5.1); PROTEIN, TOTAL 5.9 g/dL (6.4-8.2)
--- NOTE | 2023-08-17 07:00 | NUR ---
REPORT RECIEVED FROM ALANA NORTH. PT AWAKE AND TALKATIVE. BS WNL. STATES SHE FEELS MUCH BETTER THAN LAST NIGHT. ORDERED DIFFERENT BREAKFAST.
--- NOTE | 2023-08-17 07:24 | NUR ---
PT REMAINS AWAKE, ALERT AND ORIENTED X 4 WITH A GCS OF 15. PT HAS BEEN IN A NSR, NORMOTENSIVE AND A-FEBRILE. PT WITH ONE BM THROUGHOUT THE NIGHT. PT WITH ADEQUATE U/O THROUGHOUT THE NIGHT. PT ABLE TO AMBULATE WITH ASSISTANCE TO SIT ON COMMODE. PT ABLE TO TURN SELF FROM SIDE TO WITHOUT PROBLEM. LABS: K 3.4, CREAT. IMPROVED FROM 1.9 TO 1.01. PT/ OT ORDERED
--- NOTE | 2023-08-17 08:24 | NUR ---
PATIENT UP TO BSC FOR VOID. VITALS AND I&OS CHARTED. REPLACEMENT BREAKFAST ORDERED AND FRESH ICE WATER PROVIDED. CALL LIGHT AND PERSONAL ITEMS IN EASY REACH
--- NOTE | 2023-08-17 10:00 | NUR ---
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 IV PUMP BEEPING. DISTAL OCC FIXED AND RESTARTED. CALL LIGHT IN HER LAP.
--- NOTE | 2023-08-17 10:35 | NUR ---
INTO SEE PATIENT. PATIENT SITTING UP IN CHAIR WATCHING TV. PATIENT STATES SHE IS DOING WELL, BUT DID HAVE A CABG 5 WEEKS AGO AT [facility]. PATIENT CURRENTLY LIVES IN A BASEMENT APARTMENT WITH HER AND OTHER FAMILY. NPATIENT STATES SHE HAS A WALKER AND WC AT HOME. PATIENT DOES NOT NORMALLY DRIVE, SHE TAKES A TAXI OR HER DRIVES HER. PATIENT DENIES FINANCIAL NEEDS AT THIS TIME. DEMOHRAPHIC INFORMATION CONFIRMED. PATIENT STATES THAT SHE HAS BEEN SEEING KAVITHA CARRERA PA-C, BUT SHE RECENTLY RECOMMENDED THE PATIENT ESTABLISH WITH AN BARBED WIRE MACHINE OPERATOR IN THE FUTURE. THE PATIENT STATES THAT DR. STANFORD HAS DECLINED TO SEE HER AND SHE WAS REFERRED TO A CLINIC IN [place]. SHE FEELS THAT [place] IS TOO FAR FOR HER TO TRAVEL. ADVISED I WILL CONTACT THE CLINIC STAFF TO DISCUSS THE MATTER.
--- NOTE | 2023-08-17 11:14 | NUR ---
PT BACK TO BED AFTER USING COMMODE WITH RN.
--- NOTE | 2023-08-17 12:19 | NUR ---
PT ATE MOST OF LUNCH. 1 UNIT GIVEN FOR 148BS. CHECKED WOUND ON FOOT, DRESSING PLACED LAST NIGHT STILL IN PLACE WITH SMALL AMT DRAINAGE.
--- NOTE | 2023-08-17 12:48 | NUR ---
PT TRANSFERED IN BED TO MS. REPORT GIVEN TO ALANA MUELLER. ALL BELONGINGS SENT WITH PT.
--- NOTE | 2023-08-17 12:56 | NUR ---
REPORT NURSE HANDOFF FROM LISETTE WARNER. PATIENT TRANSFERED TO ROOM 114 BY BED. TELE# 3, SR. PATIENT ORIENTED TO ROOM. BSC SET UP TO COLLECT STOOL SAMPLE. FULL BODY ASSESSMENT DONE, WNL. NS @ 75ML/HR. CALL LIGHT WITHIN REACH.
--- NOTE | 2023-08-17 13:07 | NUR ---
PT REPORT RECEIVED FROM ALANA Alexander. PT IS RESTING IN BED, WATCHING TV. REQUESTS TO USE THE BSC. ASSISTED PT TO A STANDING POSITION AND LINE AND TUBE MANAGEMENT. PLACED THE WAFFLE MATTRESS UNDERNEATH THE FITTED SHEET AND WHEN PT WAS FINISHED VOIDING, SBA PT BACK TO BED. CALL LIGHT IN REACH. DENIES FURTHER NEEDS AT THIS TIME.
--- NOTE | 2023-08-17 13:40 | NUR ---
EMAIL SENT TO DEBORA ORTIZ, ALEJO NAGEL, DEBRA GARCIA AND LUCILLE SHORE TO DISCUSS PATIENTS NEED FOR FOLLOW UP AND NEED FOR PCP. DEBORA STATES THAT THE PATIENT AND HER ARE IN THE PROCESS OF ESTABLISHING WITH QUINTEN MENENDEZ AT THIS TIME. PATIENT DOES HAVE A F/U WITH KAVITHA MOREIRA ON 08/30/23.
[2023-08-17] MEDS ORDERED: METOPROLOL TART25 MG PO (17:19)
[2023-08-17] MEDS ORDERED: ESTRADIOL42.5 GM PV (17:36)
[2023-08-17] MEDS ORDERED: TYLENOL325 MG PO (17:37)
--- NOTE | 2023-08-17 17:38 | NUR ---
medications reconciled using pharmacy records, PCP notes, patient list and interview
[2023-08-17] MEDS ORDERED: ISOSORBIDE MONO60 MG PO (17:41)
--- NOTE | 2023-08-17 18:38 | NUR ---
PT REPORT PROVIDED TO ALANA SANTIAGO
--- NOTE | 2023-08-17 20:00 | NUR ---
patient resting in bed watching TV, no ditress noted, report provided by say shift rn, patient with call light within reach.
--- NOTE | 2023-08-17 22:02 | NUR ---
patient resting comfortable, tele intact - SR, patient denies CP or SOB, VSS, Blood sugar 130 no SS insulin required and held 30 units glargine based on low BS and held the night before with low BS in am. Denies pain, Need stool sample patient has not had one thus far.
--- NOTE | 2023-08-17 23:36 | NUR ---
Patient called and assisted to BSC, no syncopy, tolerated well, obtained stool sample, small BM. Patient with no complaints, call light within reach.
--- NOTE | 2023-08-18 00:35 | NUR ---
Resting with eyes closed, appears comfortable, lights out, call light in reach.
--- NOTE | 2023-08-18 02:09 | NUR ---
Patient resting with eyes closed, no distress noted, call light in reach.
--- NOTE | 2023-08-18 03:49 | NUR ---
Patient called, up to BSC with SBA, tolerated well with no dizziness or syncopal episodes. no complaints, call light within reach.
[2023-08-18 05:47] VITALS: BP 150/80
--- NOTE | 2023-08-18 05:48 | NUR ---
Patient has slept on and off during the night. VSS, SBA to BSC and voiding QS., Denies dizziness and no noted syncopal episodes. Stool sample sent in night for ordered test. patient with lights out and call light in reach.
[2023-08-18 06:15] LABS: BASOPHILS 0.8 % (0-2); EOSINOPHILS 4.3 % (0-6); HEMATOCRIT 32.8 % (35.0-50.0); HEMOGLOBIN 11.1 g/dL (12.0-18.0); LYMPHOCYTES 17.9 % (24-44); MCH 29.5 (27-36); MCHC 33.8 g/dl (30-36); MCV 87.3 fl (81-99); MONOCYTES 7.2 % (0-12); NEUTROPHILS 69.8 % (39-80); PLATELET COUNT 295 K/uL (140-440); RBC 3.76 M/ul (4.3-5.7); RDW 15.8 (10.5-15.0)
[2023-08-18 06:35] LABS: ALBUMIN 2.8 g/dL (3.4-5.0); ALBUMIN/GLOBULIN RATIO 0.74 (1.1-2.4); ANION GAP 12.3 (7-21); BILIRUBIN, TOTAL 0.4 ng/dL (0.2-1.0); BUN/CREATININE RATIO 12.9 (6.0-28.6); CALCIUM 8.6 mg/dL (8.5-10.1); CREATININE, SERUM 0.93 mg/dL (0.55-1.02); POTASSIUM 3.3 mmol/L (3.5-5.1); PROTEIN, TOTAL 6.6 g/dL (6.4-8.2)
[2023-08-18] MEDS ORDERED: CHOLESTYRAMINE P4 GM PO (06:45)
--- NOTE | 2023-08-18 07:34 | NUR ---
REPORT RECEIVED FROM ALANA SCHMITZ. PT RESTING ON RIGHT SIDE WITH EYES CLOSED. RESPIRATIONS EVEN AND UNLABORED. BED RAILS UP. CALL LIGHT WITHIN REACH. PT ALLOWED TO REST. THIS RN ASSUMING CARE OF PT WITH ALANA MCCLAIN.
--- NOTE | 2023-08-18 08:23 | NUR ---
RECIEVED REPORT FROM RESEARCH ENGINEER NURSE. ASSISTED PATIENT TO BEDSIDE COMMODE. OUTPUT 800ML. PATIENT RETURNED TO BED AND IS POSITIONED IN SEMI FOWLERS AT 45 DEGREES. REPORTS 4 OUT OF 10 PAIN IN HER CHEST. STATES "I THINK I STRAINED IT WHEN MOVING AROUND." REPORTED TO PRIMARY NURSE. CALL LIGHT IN REACH AND TRAY OVER BED.
[2023-08-18 08:41] VITALS: BP 148/53
--- NOTE | 2023-08-18 08:46 | NUR ---
MORNING ASSESSMENT AND MEDICAITON DUE. PT RESTING IN BED, SITTING IN HIGH KULKARNI POSITION EATING BREAKFAST. PT ALERT AND OREINTED TO ALL. PT REPORTS SHE CONTINUES TO FEEL DIZZY AT TIMES STATING "I THINK IT'S JUST BECAUSE I'M STILL WEAK." PT REPORTRS INTERMITTANT CHEST PAIN AT 4/10 THAT IS "SHARP AND WHEN I BREAT." PT STATES "i THINK I JUST STRAINED SOMTHING." NO CHANGES IN AUDIO VISUAL PRODUCTION SPECIALIST WHICH CONTINUES IN NORMAL SINUS RYTHEM WITH RATE IN THE 80-90'S. PT REPORTS THIS DISCOMFORT "ISN'T AT ALL LIKE WHEN I HAD THOSE HEART ISSUES." PT STATES SHE FELT "LIKE SOMETHING WAS SITTING ON MY CHEST" WHEN SHE HAD A HEART ATTACH AND RESULTING CABG AND "NOTHING LIKE THAT AT ALL NOW." PT REPORTS SHARP PAINS COME EVERY 10-15 MINTUES WITH REPOSITIONING AND DEEP BREATHING. HEART TONES REGULAR. LUNG SOUNDS CLEAR. CMS WNL. ABOMDEN SOFT AND NON TENDER. DRESSING TO RIGHT FOOT LOOSE, PT REPORTS SHE HAS BEEN SEEING A NURSE IN DAY SURGERY FOR WOUND CARE. WILL CONSULT MD REGARDING OBTAINING THESE ORDERS. NO ADDITONAL REQUESTS OR COMPLAINTS. CALL LIGHT WITHIN REACH. BED RAILS UP.
--- NOTE | 2023-08-18 09:10 | NUR ---
RESPIRATORY ASSESSMENT: LUNG SOUNDS CLEAR IN ALL LOBES. BREATHING EVEN AND UNLABORED. O2 SAT 98% ON RA. VASCULAR ASSESSMENT: PT REPORTS CHRONIC NEUROPATHY IN HANDS AND FEET UP TO MID CALF. PT DENIES ANY CALF PAIN. NO EDEMA NOTED. CAP REFILL BRISK <3 SECONDS IN ALL EXTREMETIES. PULSES FAINT IN ALL EXTREMETIES. WOUND ON RIGHT FOOT DRESSED, THIS RN DID NOT REMOVE DRESSING. CARDIAC ASSESSMENT: HEART TONES REGULAR. PT ON TELE, HR 89 AND NSR PER TELE. PT REPORTS SHARP INTERMITTENT CHEST PAIN AT 4/10, BUT STATES IT IS "NOT LIKE WHEN I HAD MY HEART ATTACK". NO CHANGES ON TELE WITH CHEST PAIN. PT THINKS IT IS "DUE TO STRAINING". PT REPORTS NO FURTHER NEEDS AT THIS TIME. CALL LIGHT WITHIN REACH. BED RAILS UP.
--- NOTE | 2023-08-18 09:14 | NUR ---
DR JORDAN TO BEDSIDE FOR ROUNDS. DR JORDAN UPDATE ON PT STATUS, ASSESSMENT AND NEED FOR WOUND CARE. DR JORDAN ALSO UPDATED ON PTS REQUEST TO GO TO A "REHAB "PLACE" AFTER DISCHARGE. PT UPDATED ON PLAN OF CARE AND STATES HER QUESTIONS HAVE BEEN ANSWERED. AWAITING NEW ORDERS. NO ADDITIONAL NEEDS AT THIS TIME. CALL LIGHT WITHIN REACH. BED RAILS UP.
--- NOTE | 2023-08-18 10:15 | NUR ---
PT ASSISTED FROM COMMODE TO BED. ANTONELLA CAR EPROVIDED. DENIES FURTHER NEEDS AT THIS TIME. CALL LIGHT IN REACH.
--- NOTE | 2023-08-18 11:11 | NUR ---
PT REPORTS INTERMITTENT CHEST PAIN HAS RESOLVED AND THAT SHE "THINKS SHE JUST STRAINED IT". PT REPORTS NO PAIN AT THIS TIME. IVF DC'D AND R WRIST IV SALINE LOCKED WITH GREEN CAP. TELE DC'D PRIOR TO DISCHARGE. PT EDUCATED ON PLAN OF CARE, VERBALIZES UNDERSTANDING. PT REPORTS NO FURTHER NEEDS AT THIS TIME. CALL LIGHT WITHIN REACH, BED RAILS UP.
--- NOTE | 2023-08-18 11:30 | NUR ---
Spoke with Sandy. She plans on dc to home today. She states she is seeing [facility] for wound care. She is having difficulty getting rides and has not been able to make all of her appts. She would like to go to a SNF. We discussed she is an OBS pt and needs a 3 night IP stay. Her options for PT/OT are outpt or HH. She would like Home Health as she has difficulty with rides.
--- NOTE | 2023-08-18 12:38 | NUR ---
PT UP TO CHAIR TO EAT LUNCH. PT REPORTS NO NEEDS AT THIS TIME. CALL LIGHT WITHIN REACH.
--- NOTE | 2023-08-18 13:00 | NUR ---
Updated Dr. Monte and he signed a F2F. I called Dr. Quintero office and they will fax the orders for wound care. Attempted to call [facility]. No answer.
--- NOTE | 2023-08-18 13:32 | NUR ---
PT APPEARED TO BE SLEEPING AND DID NOT ROUSE TO MY KNOCK. DID NOT DISTURB. LEFT GUIDEPOST WITH PRAYER CARD AND CONTACT CARD. PRAYED SILENT PRAYER FOR HEALING AND ONGOING BLESSING.
--- NOTE | 2023-08-18 13:41 | NUR ---
Called and spoke with Torie from [facility]. Updated to pts needs. She request the chart sara as they just had an opening for tomorrow. They will see this pt. Chart faxed with note, I will send wound orders when I receive from Dr. Zavala. Faxed Face sheet, H&P, DC summary med list, PT/OT note, referral.
--- NOTE | 2023-08-18 13:51 | NUR ---
Faxed wound orders from Dr. Zavala and referral to [facility].
== END 2023-08-18 14:05 | disposition home or self-care (01) ==
LOC: ED 14:44 → CCU 14:45 → MS 14:45
PROVIDERS: Emergency Medicine; ADMIT Family Medicine; ATTEND Family Medicine
DX: I95.9 Hypotension, unspecified (principal); R55 Syncope and collapse; R19.7 Diarrhea, unspecified; N17.9 Acute kidney failure, unspecified; I25.10 Atherosclerotic heart disease of native coronary artery without angina pectoris; E11.9 Type 2 diabetes mellitus without complications; I10 Essential (primary) hypertension; M79.7 Fibromyalgia; E78.5 Hyperlipidemia, unspecified; Z95.1 Presence of aortocoronary bypass graft; Z88.0 Allergy status to penicillin; Z88.2 Allergy status to sulfonamides; Z88.1 Allergy status to other antibiotic agents; Z88.8 Allergy status to other drugs, medicaments and biological substances; Z79.4 Long term (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; Z79.84 Long term (current) use of oral hypoglycemic drugs; Z79.82 Long term (current) use of aspirin; Z79.899 Other long term (current) drug therapy
CPT/HCPCS: 36415; 71045; 80053; 81001; 83605; 83880; 85025; 97161; 97165; A9270; J1815; J7030; J7121

== ENCOUNTER 2023-10-09 12:17 | Emergency (ER) | payer OTHER ==
[~2023-10-09] VITALS: Ht 160 cm; Wt 82.6 kg
[~2023-10-09 12:17] MED LIST changes: +CHOLESTYRAMINE P4 GM PO; +ESTRADIOL42.5 GM PV; +ISOSORBIDE MONO60 MG PO; +METOPROLOL TART25 MG PO; +TYLENOL325 MG PO
--- OUTSIDE RECORDS SUMMARY | 2023-10-09 12:19 | XMS ---
PreManage Notification: KURT NEGRON Security Roustabout Crew Events No recent Security Events currently on file CRITERIA MET - 6 ED Visits in 6 Months CARE PROVIDERS KEVIN MATOS Physician Nuisance Animal Damage Control Agent: Medical 02/25/2021-Current PHONE: [phone] LALA STANFORD Internal Medicine 10/06/2016-Current PHONE: Unknown -Marixa- Dentist: [employer] [facility] PHONE: [phone] Angelina has no Care Guidelines for this patient. Care History Medical/Surgical 12/17/2021 [facility] - PATIENT UROLOGIST DR ALBERTS NOTIFIED OF ED VISIT- PROVIDED ED CLINICAL FOR REVIEW AND IF FOLLOW UP IS NEEDED. E.D. VISIT COUNT (12 MO.) GER[place]IA Hurtado [facility] TOTAL 14 NOTE: Visits indicate total known visits. ED/UCC VISIT TRACKING (12 MO.) 10/09/2023 12:18 [place] TYPE: Emergency COMPLAINT: - FALL 08/16/2023 14:[address] [facility] [place] COMPLAINT: - WEAKNESS 08/14/2023 08:58 [place] [facility] [place] TYPE: Emergency COMPLAINT: - N/V/D, ABD PAIN DIAGNOSES: - Allergy status to other antibiotic agents - Allergy status to other drugs, medicaments and biological substances - Allergy status to penicillin - Allergy status to sulfonamides - longterm (current) use of antithrombotics/antiplatelets - longterm (current) use of aspirin - residence life coordinator (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 - longterm (current) use of oral hypoglycemic drugs - Nausea with vomiting, unspecified - Other senior care (current) drug therapy - Presence of aortocoronary bypass graft - Type 2 diabetes mellitus with diabetic neuropathy, unspecified 08/11/2023 12:26 [place] [facility] [place] TYPE: Emergency COMPLAINT: - VOMITING, DIARRHEA, WEAKNESS DIAGNOSES: - Allergy status to other antibiotic agents - Allergy status to other drugs, medicaments and biological substances - Allergy status to penicillin - Allergy status to sulfonamides - Diarrhea, unspecified - residence life coordinator (current) use of aspirin - residence life coordinator (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 - longterm (current) use of oral hypoglycemic drugs - Other college administrator (current) drug therapy - Type 2 diabetes mellitus with diabetic neuropathy, unspecified 08/02/2023 16:41 [facility] [place] TYPE: Emergency DIAGNOSES: - Hypomagnesemia - Other specified abnormalities of plasma proteins - Other specified postprocedural states - Urinary tract infection, site not specified - Fatigue - low BP, UTI, h/o sepsis with UTIs, sent from [facility] 06/20/2023 19:41 GER[place]IA Renee TYPE: Emergency COMPLAINT: - VOMITING DIAGNOSES: - Allergy status to other antibiotic agents - Allergy status to other drugs, medicaments and biological substances - Allergy status to penicillin - Allergy status to sulfonamides - Contact with and (suspected) exposure to COVID-19 - residence life coordinator (current) use of aspirin - residence life coordinator (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 - Non-ST elevation (NSTEMI) myocardial infarction - Other college administrator (current) drug therapy - Type 2 diabetes mellitus with diabetic neuropathy, unspecified - Weakness 06/02/2023 18:03 [place]IA Renee TYPE: Emergency COMPLAINT: - BODY NUMBNESS DIAGNOSES: - Allergy status to other antibiotic agents - Allergy status to other drugs, medicaments and biological substances - Allergy status to penicillin - Allergy status to sulfonamides - Anesthesia of skin - longterm (current) use of aspirin - residence life coordinator (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 - residence life coordinator (current) use of oral hypoglycemic drugs - Low back pain, unspecified - Other college administrator (current) drug therapy - Type 2 diabetes mellitus with diabetic neuropathy, unspecified 04/25/2023 12:47 [place] TYPE: Emergency COMPLAINT: - HIGH BLOOD SUGAR, LOW B/P DIAGNOSES: - Allergy status to other antibiotic agents - Allergy status to other drugs, medicaments and biological substances - Allergy status to penicillin - Allergy status to sulfonamides - residence life coordinator (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 - Other senior [...] penicillin - Allergy status to sulfonamides - longterm (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 - Other college administrator (current) drug therapy - Slurred speech - Type 2 diabetes mellitus with hypoglycemia without coma 03/23/2023 11:27 [place] TYPE: Emergency COMPLAINT: - MEDICATION REACTION, VOMITING, ITCHING DIAGNOSES: - Allergy status to other antibiotic agents - Allergy status to other drugs, medicaments and biological substances - Allergy status to penicillin - Allergy status to sulfonamides - longterm (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 - Other college administrator (current) drug therapy - Type 2 diabetes mellitus without complications - Urinary tract infection, site not specified 03/16/2023 16:31 [place] TYPE: Emergency COMPLAINT: - CHEST WALL PAIN DIAGNOSES: - Allergy status to other antibiotic agents - Allergy status to other drugs, medicaments and biological substances - Allergy status to penicillin - Allergy status to sulfonamides - Chest pain, unspecified - longterm (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 - residence life coordinator (current) use of oral hypoglycemic drugs - Other chest pain - Other chest pain - Other senior care (current) drug therapy - Type 2 diabetes mellitus with diabetic neuropathy, unspecified 01/27/2023 17:24 [place] TYPE: Emergency COMPLAINT: - VOMITING DIAGNOSES: - Acute gastritis without bleeding - Allergy status to other antibiotic agents - Allergy status to other drugs, medicaments and biological substances - Allergy status to penicillin - Allergy status to sulfonamides - residence life coordinator (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 - residence life coordinator (current) use of oral hypoglycemic drugs - Nausea with vomiting, unspecified - Other senior care (current) drug therapy [...] to other specified factors, initial encounter - longterm (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 - longterm (current) use of oral hypoglycemic drugs - Other senior care (current) drug therapy - Type 2 diabetes mellitus with diabetic neuropathy, unspecified - Type 2 diabetes mellitus with hyperglycemia - Urinary tract infection, site not specified 11/06/2022 17:03 [place] TYPE: Emergency COMPLAINT: - ALTERED MENTAL STATUS INPATIENT VISIT TRACKING (12 MO.) 08/16/2023 14:[address] [facility] [place] TYPE: Observation COMPLAINT: - DIARRHEA, SYNCOPE DIAGNOSES: - Acute kidney failure, unspecified - Allergy status to other antibiotic agents - Allergy status to other drugs, medicaments and biological substances - Allergy status to penicillin - Allergy status to sulfonamides - Atherosclerotic heart disease of [place] coronary artery without angina pectoris - Diarrhea, unspecified - Essential (primary) hypertension - Fibromyalgia - Hyperlipidemia, unspecified - Hypotension, unspecified - residence life coordinator (current) use of aspirin - residence life coordinator (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 - longterm (current) use of oral hypoglycemic drugs - Other senior care (current) drug therapy - Presence of aortocoronary bypass graft - Syncope and collapse - Type 2 diabetes mellitus without complications [facility]23 [facility] DIAGNOSES: - Abnormal result of other cardiovascular function study - Atherosclerotic heart disease of [place] coronary artery without angina pectoris - Hypomagnesemia [...] Care DIAGNOSES: - Atherosclerotic heart disease of [place] coronary artery with unstable angina pectoris - [...] - Gastro-esophageal reflux disease without esophagitis - residence life coordinator (current) use of antibiotics - longterm (current) use of antibiotics - longterm (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 - longterm (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 - Metabolic encephalopathy - Metabolic encephalopathy - Other senior care (current) drug therapy - Other college administrator (current) drug therapy - Type 2 diabetes mellitus with hyperosmolarity without nonketotic hyperglycemic-hyperosmolar coma ([facility]) - Type 2 diabetes mellitus with hyperosmolarity without nonketotic hyperglycemic-hyperosmolar coma ([facility]) - Unspecified mood [affective] disorder - Unspecified mood [affective] disorder [email or web address]
[2023-10-09] MEDS ORDERED: HYDROCODON-ACE1 EA10 PO (14:57)
[2023-10-09 15:17] LABS: BILIRUBIN, URINE NEGATIVE (negative); BLOOD/HGB, URINE SMALL (Negative); KETONE, URINE NEGATIVE (Negative); LEUK ESTERASE, URINE MODERATE (negative); NITRITE, URINE NEGATIVE (negative); PH, URINE 5.5 (5-7)
[2023-10-09 15:23] LABS: BACTERIA, URINE 2+ /hpf (negative); CASTS, URINE NONE SEEN \\lpf; COLLECTION TYPE, URINE CLEAN CATCH; CRYSTALS, URINE NONE SEEN (0-1+); EPITHELIAL CELLS, URINE NONE SEEN /lpf (0-1+); REFLEX CULTURE, URINE Yes (No); WHITE BLOOD CELLS, URINE >50 /HPF (0-5)
[2023-10-09] MEDS ORDERED: CEFPODOXIME PR200 MG PO (15:48)
[2023-10-09 15:57] VITALS: BP 129/66
== END 2023-10-09 15:57 | disposition home or self-care (01) ==
LOC: ED 12:17
PROVIDERS: Emergency Medicine
DX: S82.832A Other fracture of upper and lower end of left fibula, initial encounter for closed fracture (principal); M77.32 Calcaneal spur, left foot; N39.0 Urinary tract infection, site not specified; E11.9 Type 2 diabetes mellitus without complications; X50.1XXA Overexertion from prolonged static or awkward postures, initial encounter; Z88.0 Allergy status to penicillin; Z88.2 Allergy status to sulfonamides; Z88.1 Allergy status to other antibiotic agents; Z88.8 Allergy status to other drugs, medicaments and biological substances; Z79.4 Long term (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; Z79.84 Long term (current) use of oral hypoglycemic drugs; Z79.899 Other long term (current) drug therapy; Z79.82 Long term (current) use of aspirin
CPT/HCPCS: 73610; 73630; 73700; 81001; 87088; 99283-25; Q9967

== ENCOUNTER 2023-10-18 15:54 | Emergency (ER) | payer OTHER ==
[~2023-10-18] VITALS: Ht 160 cm; Wt 84.1 kg
--- OUTSIDE RECORDS SUMMARY | 2023-10-18 16:02 | XMS ---
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 Care History Medical/Surgical 12/17/2021 [facility] - PATIENT UROLOGIST DR ALBERTS NOTIFIED OF ED VISIT- PROVIDED ED CLINICAL FOR REVIEW AND IF FOLLOW UP IS NEEDED. Marco A VISIT COUNT (12 MO.) GERMANIA Hurtado [facility] TOTAL 15 NOTE: Visits indicate total known visits. ED/UCC VISIT TRACKING (12 MO.) 10/18/2023 15:55 [place] TYPE: Emergency COMPLAINT: - DEHYDRATION, POSS UTI 10/09/2023 12:18 [place] TYPE: Emergency COMPLAINT: - FALL DIAGNOSES: - Allergy status to other antibiotic agents - Allergy status to other drugs, medicaments and biological substances - Allergy status to penicillin - Allergy status to sulfonamides - Calcaneal spur, left foot - long-term (current) use of aspirin - terminal clerk (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 - long-term (current) use of oral hypoglycemic drugs - Other fracture of upper and lower end of left fibula, initial encounter for closed fracture - Other group home (current) drug therapy - Overexertion from prolonged static or awkward postures, initial encounter - Pain in left ankle and joints of left foot - Type 2 diabetes mellitus without complications - Urinary tract infection, site not specified 08/16/2023 14:44 [place] TYPE: Emergency COMPLAINT: - WEAKNESS 08/14/2023 08:58 [place] TYPE: Emergency COMPLAINT: - N/V/D, ABD PAIN DIAGNOSES: - Allergy status to other antibiotic agents - Allergy status to other drugs, medicaments and biological substances - Allergy status to penicillin - Allergy status to sulfonamides - long-term (current) use of antithrombotics/antiplatelets - terminal clerk (current) use of aspirin - terminal clerk (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 - long-term (current) use of oral hypoglycemic drugs - Nausea with vomiting, unspecified - Other group home (current) drug therapy - Presence of aortocoronary bypass graft - Type 2 diabetes mellitus with diabetic neuropathy, unspecified 08/11/2023 12:26 [place] TYPE: Emergency COMPLAINT: - VOMITING, DIARRHEA, WEAKNESS DIAGNOSES: - Allergy status to other antibiotic agents - Allergy status to other drugs, medicaments and biological substances - Allergy status to penicillin - Allergy status to sulfonamides - Diarrhea, unspecified - long-term (current) use of aspirin - long-term (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 - terminal clerk (current) use of oral hypoglycemic drugs - Other terminal clerk (current) drug therapy - Type 2 diabetes mellitus with diabetic neuropathy, unspecified 08/02/2023 16:41 [facility] [place] TYPE: Emergency DIAGNOSES: - Hypomagnesemia - Other specified abnormalities of plasma proteins - Other specified postprocedural states - Urinary tract infection, site not specified - Fatigue - low BP, UTI, h/o sepsis with UTIs, sent from [facility] 06/20/2023 19:41 [place] TYPE: Emergency COMPLAINT: - VOMITING DIAGNOSES: - Allergy status to other antibiotic agents - Allergy status to other drugs, medicaments and biological substances - Allergy status to penicillin - Allergy status to sulfonamides - Contact with and (suspected) exposure to COVID-19 - long-term (current) use of aspirin - terminal clerk (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 - Non-ST elevation (NSTEMI) myocardial infarction - Other terminal clerk (current) drug therapy - Type 2 diabetes mellitus with diabetic neuropathy, unspecified - Weakness 06/02/2023 18:03 [place] TYPE: Emergency COMPLAINT: - BODY NUMBNESS DIAGNOSES: - Allergy status to other antibiotic agents - Allergy status to other drugs, medicaments and biological substances - Allergy status to penicillin - Allergy status to sulfonamides - Anesthesia of skin - terminal clerk (current) use of aspirin - terminal clerk (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 - long-term (current) use of oral hypoglycemic drugs - Low back pain, unspecified - Other terminal clerk (current) drug therapy - Type 2 diabetes mellitus with diabetic neuropathy, unspecified 04/25/2023 12:47 [place] TYPE: Emergency COMPLAINT: - HIGH BLOOD SUGAR, LOW B/P DIAGNOSES: - Allergy status to other antibiotic agents - Allergy status to other drugs, medicaments and biological substances - Allergy status to penicillin - Allergy status to sulfonamides - long-term (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 - Other terminal [...] penicillin - Allergy status to sulfonamides - terminal clerk (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 - Other group home (current) drug therapy - Slurred speech - Type 2 diabetes mellitus with hypoglycemia without coma 03/23/2023 11:27 [place] TYPE: Emergency COMPLAINT: - MEDICATION REACTION, VOMITING, ITCHING DIAGNOSES: - Allergy status to other antibiotic agents - Allergy status to other drugs, medicaments and biological substances - Allergy status to penicillin - Allergy status to sulfonamides - long-term (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 - Other group home (current) drug therapy - Type 2 diabetes mellitus without complications - Urinary tract infection, site not specified 03/16/2023 16:31 [place] TYPE: Emergency COMPLAINT: - CHEST WALL PAIN DIAGNOSES: - Allergy status to other antibiotic agents - Allergy status to other drugs, medicaments and biological substances - Allergy status to penicillin - Allergy status to sulfonamides - Chest pain, unspecified - long-term (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 - long-term (current) use of oral hypoglycemic drugs - Other chest pain - Other chest pain - Other group home (current) drug therapy - Type 2 diabetes mellitus with diabetic neuropathy, unspecified 01/27/2023 17:24 [place] TYPE: Emergency COMPLAINT: - VOMITING DIAGNOSES: - Acute gastritis without bleeding - Allergy status to other antibiotic agents - Allergy status to other drugs, medicaments and biological substances - Allergy status to penicillin - Allergy status to sulfonamides - long-term (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 - long-term (current) use of oral hypoglycemic drugs - [...] to other specified factors, initial encounter - long-term (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 - long-term (current) use of oral hypoglycemic drugs - Other terminal clerk (current) drug therapy - Type 2 diabetes mellitus with diabetic neuropathy, unspecified - Type 2 diabetes mellitus with hyperglycemia - Urinary tract infection, site not specified 11/06/2022 17:03 [place] TYPE: Emergency COMPLAINT: - ALTERED MENTAL STATUS INPATIENT VISIT TRACKING (12 MO.) 08/16/2023 14:45 [place] TYPE: Observation COMPLAINT: - DIARRHEA, SYNCOPE DIAGNOSES: - Acute kidney failure, unspecified - Allergy status to other antibiotic agents - Allergy status to other drugs, medicaments and biological substances - Allergy status to penicillin - Allergy status to sulfonamides - Atherosclerotic heart disease of [place] coronary artery without angina pectoris - Diarrhea, unspecified - Essential (primary) hypertension - Fibromyalgia - Hyperlipidemia, unspecified - Hypotension, unspecified - terminal clerk (current) use of aspirin - terminal clerk (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 - long-term (current) use of oral hypoglycemic drugs - Other terminal clerk (current) drug therapy - Presence of aortocoronary bypass graft - Syncope and collapse - Type 2 diabetes mellitus without complications 08/02/2023 16:41 [facility] TYPE: Internal Medicine DIAGNOSES: - Abnormal result of other cardiovascular function study - Atherosclerotic heart disease of [place] coronary artery without angina pectoris - Hypomagnesemia [...] Care DIAGNOSES: - Atherosclerotic heart disease of [place] coronary artery with unstable angina pectoris - Non-ST elevation (NSTEMI) myocardial infarction 11/06/2022 20:35 [place] TYPE: Medical [...] - Gastro-esophageal reflux disease without esophagitis - terminal clerk (current) use of antibiotics - long-term (current) use of antibiotics - long-term (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 - long-term (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 - Metabolic encephalopathy - Metabolic encephalopathy - Other terminal clerk (current) drug therapy - Other terminal clerk (current) drug therapy - Type 2 diabetes mellitus with hyperosmolarity without nonketotic hyperglycemic-hyperosmolar coma ([facility]) - Type 2 diabetes mellitus with hyperosmolarity without nonketotic hyperglycemic-hyperosmolar coma ([facility]) - Unspecified mood [affective] disorder - Unspecified mood [affective] disorder [email or web address]
[2023-10-18 16:37] LABS: BILIRUBIN, URINE NEGATIVE (negative); BLOOD/HGB, URINE MODERATE (Negative); KETONE, URINE NEGATIVE (Negative); LEUK ESTERASE, URINE SMALL (negative); NITRITE, URINE NEGATIVE (negative); PH, URINE 5.5 (5-7)
[2023-10-18 16:43] LABS: BACTERIA, URINE 3+ /hpf (negative); CASTS, URINE NONE SEEN \\lpf; COLLECTION TYPE, URINE CLEAN CATCH; CRYSTALS, URINE NONE SEEN (0-1+); EPITHELIAL CELLS, URINE SQUAMOUS 1+ /lpf (0-1+); REFLEX CULTURE, URINE Yes (No)
[2023-10-18 16:44] LABS: WHITE BLOOD CELLS, URINE 41-50 /HPF (0-5)
[2023-10-18 18:15] VITALS: BP 167/93
== END 2023-10-18 18:17 | disposition home or self-care (01) ==
LOC: ED 15:54
PROVIDERS: Emergency Medicine
DX: N39.0 Urinary tract infection, site not specified (principal); E11.40 Type 2 diabetes mellitus with diabetic neuropathy, unspecified; Z88.1 Allergy status to other antibiotic agents; Z88.0 Allergy status to penicillin; Z88.2 Allergy status to sulfonamides; Z88.8 Allergy status to other drugs, medicaments and biological substances; Z79.899 Other long term (current) drug therapy; Z79.4 Long term (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; Z79.82 Long term (current) use of aspirin
CPT/HCPCS: 81001; 87088; 96365; 99283-25; J0696

== ENCOUNTER 2024-03-19 16:58 | Emergency (ER) | payer OTHER ==
[~2024-03-19] VITALS: Ht 160 cm; Wt 75.8 kg
[~2024-03-19 16:58] MED LIST changes: +LOSARTAN POTASS25 MG PO
[2024-03-19 18:16] LABS: BASOPHILS 0.7 % (0-2); EOSINOPHILS 2.4 % (0-6); HEMATOCRIT 36.9 % (35.0-50.0); HEMOGLOBIN 12.4 g/dL (12.0-18.0); MCH 30.6 (27-36); MCHC 33.5 g/dl (30-36); MCV 91.4 fl (81-99); MONOCYTES 7.5 % (0-12); NEUTROPHILS 67.4 % (39-80); PLATELET COUNT 346 K/uL (140-440); RBC 4.04 M/ul (4.3-5.7)
[2024-03-19 18:35] LABS: ALBUMIN 2.5 g/dL (3.4-5.0); ALBUMIN/GLOBULIN RATIO 0.64 (1.1-2.4); ALCOHOL, MEDICAL <3 ng/dL (<3); ALKALINE PHOSPHATASE 78 U/L (46-116); ALT (SGPT) 24 U/L (14-59); ANION GAP 12.4 (7-21); AST (SGOT) 20 U/L (15-37); BILIRUBIN, TOTAL 0.4 ng/dL (0.2-1.0); CALCIUM 8.1 mg/dL (8.5-10.1); CARBON DIOXIDE 26 mmol/L (21-32); CHLORIDE 106 mmol/L (98-107); GLOMERULAR FILTRATION RATE,EST 64 mL/min (>60); POTASSIUM 4.4 mmol/L (3.5-5.1); PROTEIN, TOTAL 6.4 g/dL (6.4-8.2); UREA NITROGEN 20 mg/dL (7-18)
[2024-03-19 18:46] LABS: BILIRUBIN, URINE NEGATIVE (negative); BLOOD/HGB, URINE MODERATE (Negative); KETONE, URINE NEGATIVE (Negative); LEUK ESTERASE, URINE MODERATE (negative); NITRITE, URINE NEGATIVE (negative)
[2024-03-19 18:57] LABS: BACTERIA, URINE RARE /hpf (negative); CASTS, URINE NONE SEEN \\lpf; CRYSTALS, URINE NONE SEEN (0-1+); EPITHELIAL CELLS, URINE SQUAMOUS 1+ /lpf (0-1+); WHITE BLOOD CELLS, URINE >50 /HPF (0-5)
[2024-03-19 18:58] LABS: COLLECTION TYPE, URINE CLEAN CATCH; REFLEX CULTURE, URINE Yes (No)
[2024-03-19 19:08] LABS: AMPHETAMINES, URINE NEGATIVE (NEGATIVE); BARBITURATES, URINE NEGATIVE (NEGATIVE); BENZODIAZEPINE, URINE NEGATIVE (NEGATIVE); BUPRENORPHINE, URINE NEGATIVE (NEGATIVE); CANNABINOID, URINE NEGATIVE (NEGATIVE); COCAINE, URINE NEGATIVE (NEGATIVE); ECSTASY, URINE NEGATIVE (NEGATIVE); FENTANYL, URINE NEGATIVE (NEGATIVE); METHADONE, URINE NEGATIVE (NEGATIVE); OPIATES, URINE NEGATIVE (NEGATIVE); OXYCODONE, URINE NEGATIVE (NEGATIVE); PHENCYCLIDINE, URINE NEGATIVE (NEGATIVE)
[2024-03-19] MEDS ORDERED: LACTATED RINGER'S 1,000 ML IV ONE (20:30)
[2024-03-19] MEDS ORDERED: CEFTRIAXONE/SODIUM CHLORIDE 2 GM/100 ML PIGGYBACK IV ONE (20:30)
[2024-03-19] MEDS ORDERED: CEFPODOXIME PR200 MG PO (23:09)
[2024-03-20 00:05] VITALS: BP 136/61
--- NOTE | 2024-03-20 08:17 | EKG ---
[facility] [address] [place] [address] Signed Normal sinus rhythm Left axis deviation Moderate voltage criteria for LVH, may be normal variant ( R in aVL , [place] product ) Inferior infarct (cited on or before 01-NOV-2021) Anterolateral infarct (cited on or before 01-NOV-2021) Abnormal ECG When compared with ECG of 13-MAR-2024 17:39, Inverted T waves have replaced nonspecific T wave abnormality in Inferior leads Nonspecific T wave abnormality, improved in Lateral leads Confirmed by Joaquin Zarco MD () on 03/20/2024 8:17:40 AM Electronically Signed By: JOAQUIN ZARCO MD 03/20/24 0817 PATIENT NAME: KURT NEGRON Electrocardiogram DATE OF : 62 PHYSICIAN: JOAQUIN ZARCO MD REPORT #: [id number] REPORT IS CONFIDENTIAL AND NOT TO BE RELEASED WITHOUT AUTHORIZATION
== END 2024-03-19 23:50 | disposition home or self-care (01) ==
LOC: ED 16:58
PROVIDERS: Emergency Medicine
DX: N39.0 Urinary tract infection, site not specified (principal); E11.9 Type 2 diabetes mellitus without complications; Z88.0 Allergy status to penicillin; Z88.2 Allergy status to sulfonamides; Z88.8 Allergy status to other drugs, medicaments and biological substances; Z88.1 Allergy status to other antibiotic agents; Z79.84 Long term (current) use of oral hypoglycemic drugs; Z79.4 Long term (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; Z79.82 Long term (current) use of aspirin; Z79.899 Other long term (current) drug therapy
CPT/HCPCS: 36415; 71045; 80053; 80307; 81001; 84484; 85025; 93005; 93010; G0480; J0696; J7121

== ENCOUNTER 2024-07-20 16:10 | Emergency (ER) | payer OTHER ==
[~2024-07-20] VITALS: Ht 160 cm; Wt 83.4 kg
[2024-07-20] MEDS ORDERED: MORPHINE SULFATE 4 MG/ML VIAL IV ONE (17:00)
[2024-07-20 17:11] LABS: BASOPHILS 0.6 % (0-2); EOSINOPHILS 2.3 % (0-6); HEMATOCRIT 31.1 % (35.0-50.0); HEMOGLOBIN 10.3 g/dL (12.0-18.0); LYMPHOCYTES 17.8 % (24-44); MCH 30.6 (27-36); MCHC 33.1 g/dl (30-36); MCV 92.5 fl (81-99); MONOCYTES 7.8 % (0-12); NEUTROPHILS 71.5 % (39-80); PLATELET COUNT 322 K/uL (140-440); RBC 3.36 M/ul (4.3-5.7); RDW 13.8 (10.5-15.0)
[2024-07-20 17:20] LABS: ALBUMIN 3.1 g/dL (3.4-5.0); ALBUMIN/GLOBULIN RATIO 0.82 (1.1-2.4); ALCOHOL, MEDICAL <3 ng/dL (<3); ALKALINE PHOSPHATASE 93 U/L (46-116); ALT (SGPT) 31 U/L (14-59); AST (SGOT) 16 U/L (15-37); BILIRUBIN, TOTAL 0.5 ng/dL (0.2-1.0); BUN/CREATININE RATIO 22.58 (6.0-28.6); CALCIUM 9.1 mg/dL (8.5-10.1); CARBON DIOXIDE 24 mmol/L (21-32); CHLORIDE 102 mmol/L (98-107); CREATININE, SERUM 1.55 mg/dL (0.55-1.02); GLOMERULAR FILTRATION RATE,EST 38 mL/min (>60); PROTEIN, TOTAL 6.9 g/dL (6.4-8.2); UREA NITROGEN 35 mg/dL (7-18)
[2024-07-20 18:29] LABS: BILIRUBIN, URINE NEGATIVE (negative); BLOOD/HGB, URINE TRACE-I (Negative); KETONE, URINE NEGATIVE (Negative); LEUK ESTERASE, URINE MODERATE (negative); NITRITE, URINE POSITIVE (negative)
[2024-07-20 18:36] LABS: BACTERIA, URINE 1+ /hpf (negative); CASTS, URINE NONE SEEN \\lpf; COLLECTION TYPE, URINE CLEAN CATCH; CRYSTALS, URINE NONE SEEN (0-1+); EPITHELIAL CELLS, URINE SQUAMOUS 4+ /lpf (0-1+); RED BLOOD CELLS, URINE 0-1 /hpf (0-5); REFLEX CULTURE, URINE No (No); WHITE BLOOD CELLS, URINE >50 /HPF (0-5)
[2024-07-20 19:28] LABS: BILIRUBIN, URINE NEGATIVE (negative); BLOOD/HGB, URINE SMALL (Negative); KETONE, URINE NEGATIVE (Negative); LEUK ESTERASE, URINE MODERATE (negative); NITRITE, URINE POSITIVE (negative); PH, URINE 6.5 (5-7)
[2024-07-20 19:35] LABS: WHITE BLOOD CELLS, URINE 41-50 /HPF (0-5)
[2024-07-20 19:36] LABS: CASTS, URINE NONE SEEN \\lpf; COLLECTION TYPE, URINE CLEAN CATCH; CRYSTALS, URINE NONE SEEN (0-1+); EPITHELIAL CELLS, URINE SQUAMOUS 1+ /lpf (0-1+); REFLEX CULTURE, URINE Yes (No)
[2024-07-20 19:37] LABS: BACTERIA, URINE 2+ /hpf (negative)
[2024-07-20] MEDS ORDERED: CEFPODOXIME PR200 MG PO (20:13)
[2024-07-20 20:24] VITALS: BP 143/80
== END 2024-07-20 20:23 | disposition home or self-care (01) ==
LOC: ED 16:10
PROVIDERS: Emergency Medicine
DX: M54.2 Cervicalgia (principal); M25.551 Pain in right hip; W18.39XA Other fall on same level, initial encounter; N39.0 Urinary tract infection, site not specified; E11.40 Type 2 diabetes mellitus with diabetic neuropathy, unspecified; Z88.0 Allergy status to penicillin; Z88.2 Allergy status to sulfonamides; Z88.1 Allergy status to other antibiotic agents; Z88.8 Allergy status to other drugs, medicaments and biological substances; Z79.4 Long term (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; Z79.84 Long term (current) use of oral hypoglycemic drugs; Z79.82 Long term (current) use of aspirin; Z79.899 Other long term (current) drug therapy
CPT/HCPCS: 36415; 51701; 70450; 72125; 73502; 80053; 81001; 83690; 85025; 99284-25; G0480; J2270

== ENCOUNTER 2024-09-24 13:30 | Emergency (ER) | payer OTHER ==
[~2024-09-24] VITALS: Ht 160 cm; Wt 87.1 kg
[2024-09-24 14:28] LABS: BASOPHILS 0.7 % (0-2); EOSINOPHILS 3.3 % (0-6); HEMATOCRIT 32.3 % (35.0-50.0); HEMOGLOBIN 11.1 g/dL (12.0-18.0); LYMPHOCYTES 18.7 % (24-44); MCH 31.2 (27-36); MCHC 34.3 g/dl (30-36); MCV 90.9 fl (81-99); MONOCYTES 7.5 % (0-12); NEUTROPHILS 69.8 % (39-80); PLATELET COUNT 296 K/uL (140-440); RBC 3.55 M/ul (4.3-5.7); RDW 12.9 (10.5-15.0)
[2024-09-24 14:29] LABS: PARTIAL THROMBOPLASTIN TIME 23.8 Sec (22.9-41.3)
[2024-09-24 14:30] LABS: INR 0.94 (0.80-1.30); PROTIME 11.9 Sec (11.2-14.2)
[2024-09-24] MEDS ORDERED: HYDROmorphone HCL 1 MG/ML SYR IV ONE ×2 (14:30→17:45)
[2024-09-24] MEDS ORDERED: ondansetron HCL 4 MG/2 ML VIAL IV ONE (14:30)
[2024-09-24] MEDS ORDERED: PANTOPRAZOLE SODIUM 40 MG/10 ML VIAL IV ONE (14:30)
[2024-09-24] MEDS ORDERED: SODIUM CHLORIDE 0.9% 1,000 ML IV ONE (14:30)
[2024-09-24 14:40] LABS: ALBUMIN 2.8 g/dL (3.4-5.0); ALBUMIN/GLOBULIN RATIO 0.72 (1.1-2.4); ANION GAP 15.6 (7-21); BILIRUBIN, TOTAL 0.4 ng/dL (0.2-1.0); BUN/CREATININE RATIO 20.52 (6.0-28.6); CALCIUM 8.9 mg/dL (8.5-10.1); CREATININE, SERUM 1.51 mg/dL (0.55-1.02); MAGNESIUM 1.4 mg/dL (1.8-2.4); POTASSIUM 4.6 mmol/L (3.5-5.1); PROTEIN, TOTAL 6.7 g/dL (6.4-8.2)
[2024-09-24 16:18] LABS: BILIRUBIN, URINE NEGATIVE (negative); BLOOD/HGB, URINE NEGATIVE (Negative); KETONE, URINE NEGATIVE (Negative); LEUK ESTERASE, URINE NEGATIVE (negative); NITRITE, URINE NEGATIVE (negative)
[2024-09-24 16:24] LABS: BACTERIA, URINE RARE /hpf (negative); CASTS, URINE NONE SEEN \\lpf; CRYSTALS, URINE NONE SEEN (0-1+); EPITHELIAL CELLS, URINE SQUAMOUS 4+ /lpf (0-1+); RED BLOOD CELLS, URINE 0-1 /hpf (0-5)
[2024-09-24 16:25] LABS: COLLECTION TYPE, URINE CLEAN CATCH; REFLEX CULTURE, URINE No (No)
[2024-09-24] MEDS ORDERED: PERCOCET 5-3251 EACH PO (19:03)
[2024-09-24] MEDS ORDERED: PROTONIX40 MG PO (19:03)
[2024-09-24] MEDS ORDERED: ONDANSETRON ODT4 MG PO (19:03)
[2024-09-24 19:14] VITALS: BP 120/66
--- NOTE | 2024-09-26 17:45 | EKG ---
[facility] [address] [place] [address] Signed Normal sinus rhythm Left axis deviation Moderate voltage criteria for LVH, may be normal variant ( R in aVL , [place] product ) Inferior infarct (cited on or before 01-NOV-2021) Anterolateral infarct (cited on or before 01-NOV-2021) Abnormal ECG When compared with ECG of 19-MAR-2024 18:13, No significant change was found Confirmed by Nael Macias MD ([id number]) on 09/26/2024 5:45:46 PM Electronically Signed By: NAEL MACIAS MD 09/26/24 1745 PATIENT NAME: KURT NEGRON Electrocardiogram DATE OF : 62 PHYSICIAN: NAEL MACIAS MD REPORT #: [id number] REPORT IS CONFIDENTIAL AND NOT TO BE RELEASED WITHOUT AUTHORIZATION
== END 2024-09-24 19:16 | disposition home or self-care (01) ==
LOC: ED 13:30
PROVIDERS: Emergency Medicine
DX: R10.12 Left upper quadrant pain (principal); E11.9 Type 2 diabetes mellitus without complications; Z88.0 Allergy status to penicillin; Z88.2 Allergy status to sulfonamides; Z88.1 Allergy status to other antibiotic agents; Z88.8 Allergy status to other drugs, medicaments and biological substances; Z79.4 Long term (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; Z79.84 Long term (current) use of oral hypoglycemic drugs; Z79.899 Other long term (current) drug therapy; Z79.82 Long term (current) use of aspirin
CPT/HCPCS: 36415; 74177; 80053; 81001; 83690; 83735; 83880; 84484; 85025; 85610; 85730; 93005; 93010; 96361; 96375; 96376; 99284-25; J1171; J2405; J2470; J7030; Q9967

== ENCOUNTER 2024-12-16 11:06 | Inpatient (IN) | payer OTHER ==
[~2024-12-16] VITALS: Ht 160 cm; Wt 88.3 kg
[~2024-12-16 11:06] MED LIST changes: +PERCOCET 5-3251 EACH PO; +PROTONIX40 MG PO
[2024-12-16] MEDS ORDERED: ondansetron HCL 4 MG/2 ML VIAL IV ONE (11:30)
[2024-12-16 11:36] LABS: BASOPHILS 0.4 % (0-2); EOSINOPHILS 0.3 % (0-6); HEMATOCRIT 31.3 % (35.0-50.0); HEMOGLOBIN 10.4 g/dL (12.0-18.0); LYMPHOCYTES 4.3 % (24-44); MCH 30.3 (27-36); MCHC 33.3 g/dl (30-36); MCV 90.9 fl (81-99); MONOCYTES 6.1 % (0-12); NEUTROPHILS 88.9 % (39-80); PLATELET COUNT 267 K/uL (140-440); RBC 3.44 M/ul (4.3-5.7); RDW 13.9 (10.5-15.0)
[2024-12-16 11:45] LABS: ALBUMIN 2.7 g/dL (3.4-5.0); ALBUMIN/GLOBULIN RATIO 0.75 (1.1-2.4); ANION GAP 13.8 (7-21); BILIRUBIN, TOTAL 0.5 ng/dL (0.2-1.0); BUN/CREATININE RATIO 13.79 (6.0-28.6); CALCIUM 8.1 mg/dL (8.5-10.1); CREATININE, SERUM 1.74 mg/dL (0.55-1.02); POTASSIUM 3.8 mmol/L (3.5-5.1); PROTEIN, TOTAL 6.3 g/dL (6.4-8.2)
[2024-12-16] MEDS ORDERED: SERTRALINE HCL100 MG PO (11:50)
[2024-12-16] MEDS ORDERED: TRULICITY0.75 MG/0. SUB-Q (11:50)
[2024-12-16] MEDS ORDERED: PANTOPRAZOLE SO40 MG PO (11:50)
[2024-12-16] MEDS ORDERED: SODIUM CHLORIDE 0.9% 1,000 ML IV ONE ×2 (12:30→14:30)
[2024-12-16 12:38] LABS: BILIRUBIN, URINE NEGATIVE (negative); BLOOD/HGB, URINE SMALL (Negative); KETONE, URINE NEGATIVE (Negative); LEUK ESTERASE, URINE NEGATIVE (negative); NITRITE, URINE NEGATIVE (negative); PH, URINE 5.5 (5-7)
[2024-12-16 12:45] LABS: BACTERIA, URINE 1+ /hpf (negative); CASTS, URINE NONE SEEN \\lpf; CRYSTALS, URINE NONE SEEN (0-1+); EPITHELIAL CELLS, URINE SQUAMOUS 1+ /lpf (0-1+)
[2024-12-16 12:46] LABS: COLLECTION TYPE, URINE CLEAN CATCH; REFLEX CULTURE, URINE Yes (No)
[2024-12-16] MEDS ORDERED: AZITHROMYCIN/DEXTROSE 500 MG/250 ML PIGGYBACK IV ONE (13:45)
[2024-12-16] MEDS ORDERED: CEFTRIAXONE/SODIUM CHLORIDE 2 GM/100 ML PIGGYBACK IV ONE (13:45)
[2024-12-16 13:47] LABS: LACTIC ACID, BLOOD 2.1 mmol/L (0.4-2.0)
[2024-12-16] MEDS ORDERED: MAGNESIUM SULFATE 2 GM/50 ML BAG IV ONE ×2 (14:15→18:15)
[2024-12-16] MEDS ORDERED: DEXTROSE 5% 1,000 ML IV PRN (16:00)
[2024-12-16] MEDS ORDERED: ondansetron HCL 4 MG/2 ML VIAL IV PRN (16:00)
[2024-12-16] MEDS ORDERED: SODIUM CHLORIDE 0.9% 1,000 ML IV SCH (16:00)
[2024-12-16] MEDS ORDERED: DEXTROSE 50% 50 ML SYR IV PRN ×2 (16:00)
[2024-12-16] MEDS ORDERED: GLUCAGON,HUMAN RECOMBINANT 1 MG/ML VIAL SUB-Q PRN (16:00)
[2024-12-16] MEDS ORDERED: IBLOOD GLUCOSE TEST STRIP 1 EA TEST XX PRN (16:00)
[2024-12-16] MEDS ORDERED: ACETAMINOPHEN 325 MG TAB PO PRN (16:00)
--- NOTE | 2024-12-16 16:12 | NUR ---
REPORT RECEIVED FROM ALANA OLJA AT THE BEDSIDE. PATIENT IS NOW TO THE MEDICAL SURGICAL FLOOR.
[2024-12-16 16:22] VITALS: BP 124/61
[2024-12-16] MEDS ORDERED: IBLOOD GLUCOSE TEST STRIP 1 EA TEST VI SCH (17:00)
[2024-12-16] MEDS ORDERED: INSULIN LISPRO 100 UNIT/ML ML SUB-Q SCH (17:00)
--- NOTE | 2024-12-16 17:00 | NUR ---
ADMISSION COMPLETE AND DOCUMENTED IN THE CHART. FULL ASSESSMENT COMPLETE AND DOCUMENTED IN THE CHART. PATIENT IS ALERT AND ORIENTED TIMES FOUR BUT IS SLOW TO RESPOND. THROUGHOUT ADMISSION PATIENT WAS REPEATING HERSELF. PATIENT REPORTED NOT REALLY KNOWING HER MEDICATIONS HER ALWAYS SETS THEM UP FOR HER. CARDIAC WITH NORMAL S1 AND S2 ON AUSCULTATION. RADIAL AND PEDAL PULSES ARE STRONG BILATERALLY. CAPILLARY REFILL IN THE UPPER AND LOWER EXTREMITIES IS LESS THAN 3 SECONDS. SENSATION INTACT. PATIENT REPORTS NUMBNESS AND TINGLING IN THE UPPER AND LOWER EXTREMITIES. PATIENT REPORTS GENERALIZED WEAKNESS. PATIENT IS ON ROOM AIR AND LUNG SOUNDS ARE CLEAR BILATERALLY. PATIENT REPORTED COUGHING UP "PHLEGM" AT HOME. PATIENT IS ON A 60 GRAM CARB DIET. BOWEL TONES ARE ACTIVE IN ALL FOUR QUADRANTS. LAST BM WAS 12/16/24. SKIN WITH SCATTERED SCABS NOTED TO THE BILATERAL FEET. PATIENT WITH A BANDAID ON THE RIGHT FOREARM DUE TO PICKING A SCAB AND IT STARTED BLEEDING PER PATIENT REPORT. PATIENT WITH PAIN RATED 3/10 ON THE LEFT SIDE OF THE BACK. PATIENT REPORTED GENERALIZED WEAKNESS. PATIENT REPORTED TO USE THE WALKER AT HOME AND THE CANE IN PUBLIC. PATIENT WITH A 20 GAUGE IN THE LEFT AC. IV FLUSHED WITH 10 ML NORMAL SALINE AND IS SALINE LOCKED. IV DRESSING IS CLEAN, DRY, AND INTACT. IV IN THE RIGHT FOREARM IS A 20 GAUGE. IV FLUSHED WITH 10 ML NORMAL SALINE AND NS IS INFUSING AT 200 ML/HR. IV DRESSING IS CLEAN, DRY, AND INTACT. PATIENT STATED NO FURTHER NEEDS AT THIS TIME. DIETARY NOTIFIED TO BRING A TRAY. FRESH CUP OF ICE WATER PROVIDED. CALL LIGHT AND PERSONAL BELONGINGS ARE WITHIN REACH.
[2024-12-16 17:04] LABS: INFLUENZA B NAA NEGATIVE (NEGATIVE); RESPIRATORY SYNCYTIAL VIR NAA NEGATIVE (NEGATIVE)
[2024-12-16 18:04] VITALS: BP 109/52
[2024-12-16 18:07] VITALS: BP 109/52
--- NOTE | 2024-12-16 18:15 | NUR ---
PATIENT TAKEN TO THE BATHROOM WITH 1PA. PATIENT USED THE FWW IN THE ROOM. PATIENT 500 ML YELLOW URINE. PATIENT TOLERATED WELL BUT DID REPORT WEAKNESS. VITAL SIGNS AND INTAKE AND OUTPUT VALUES TAKEN AND DOCUMENTED IN THE CHART. WARM BLANKET PROVIDED. PATIENT STATED NO FURTHER NEEDS AT THIS TIME. CALL LIGHT AND PERSONAL BELONGINGS ARE WITHIN REACH.
--- NOTE | 2024-12-16 20:08 | NUR ---
AWAKENS EASILY, NO C/O PAIN. ON ROOM AIR, LUNGS CLEAR BILAT, REGULAR HEART RATE. ABD LARGE SOFT, MARCELL, LBM TODAY. SL RFA IVF INFUSING W/O PROBLEMS. NO C/O GUANAKITO OR SOB. TURNS AND REPOSITIONS SELF IN BED. WARM BLANKET GIVEN ON REQUESTS. TOLERATING LIQUIDS WELL.
--- NOTE | 2024-12-16 21:00 | NUR ---
Received call back from Sleep study room "will notify clerical support and will reschedule pts apointment when she is dc'd". Pt notified
[2024-12-16 21:06] VITALS: BP 122/57
[2024-12-17] VITALS (10 sets, daily range): BP systolic 103–182; BP diastolic 60–85
--- NOTE | 2024-12-17 00:33 | NUR ---
AWAKENS EASILY, NO C/O PAIN, ON ROOM AIR, IVF INFUSING W/O PROBLEM. FRESH WATER GIVEN ON REQUESTS. NO C/O PAIN OR N/V
--- NOTE | 2024-12-17 01:58 | NUR ---
UP TO brp, VOIDED, 1PA/FWW, BACK TO BED, TOLERATD WELL, ALERT AND ORIENTED TO ALL. IVF INFUSING W/O PROBLEM. bACK TO BED, COOPERATIVE WITH VITALS AND ASSESSMENT
--- NOTE | 2024-12-17 03:29 | NUR ---
resting, eyes closed, on room air, no s/sx distress. IVF infusing w/o problems.In bed, repositions self
[2024-12-17 05:16] LABS: BASOPHILS 0.3 % (0-2); EOSINOPHILS 1.5 % (0-6); HEMATOCRIT 26.9 % (35.0-50.0); HEMOGLOBIN 9.2 g/dL (12.0-18.0); LYMPHOCYTES 7.6 % (24-44); MCH 30.6 (27-36); MCHC 34.2 g/dl (30-36); MCV 89.4 fl (81-99); MONOCYTES 6.2 % (0-12); NEUTROPHILS 84.4 % (39-80); PLATELET COUNT 211 K/uL (140-440); RBC 3.01 M/ul (4.3-5.7); RDW 14.1 (10.5-15.0)
[2024-12-17 05:32] LABS: ALBUMIN 2.3 g/dL (3.4-5.0); ALBUMIN/GLOBULIN RATIO 0.72 (1.1-2.4); BILIRUBIN, TOTAL 0.4 ng/dL (0.2-1.0); BUN/CREATININE RATIO 14.51 (6.0-28.6); CALCIUM 7.9 mg/dL (8.5-10.1); CREATININE, SERUM 1.24 mg/dL (0.55-1.02); MAGNESIUM 1.9 mg/dL (1.8-2.4); PHOSPHORUS, INORGANIC 3.1 mg/dL (2.5-4.9); PROTEIN, TOTAL 5.5 g/dL (6.4-8.2)
--- NOTE | 2024-12-17 07:41 | NUR ---
PATIENT ALERT AND ORIENTED REPORTS NO NEEDS AT THIS TIME. ROUNDING REPORT FORM AMITA STAFF DEVELOPERTEST AUTOMATION ARCHITECT
--- NOTE | 2024-12-17 07:50 | NUR ---
IN TO DO BLOOD SUGAR, RN NOTIFIED. PATIENT IN BED RESTING AT THIS TIME, REFUSING TO GET UP TO CHAIR. CALL LIGHT IN REACH. NO FURTHER NEEDS AT THIS TIME.
--- NOTE | 2024-12-17 08:22 | NUR ---
BLOOD GLUCOSE IS 135, NO INSULIN NEEDED. PATIENT IS RESTING IN BED, SITTING UP TO EAT BREAKFAST.
[2024-12-17] MEDS ORDERED: CEFTRIAXONE/SODIUM CHLORIDE 2 GM/100 ML PIGGYBACK IV SCH (09:00)
[2024-12-17] MEDS ORDERED: AZITHROMYCIN 500 MG in DEXTROSE 5% 250 ML IV SCH (09:00)
[2024-12-17] MEDS ORDERED: ENOXAPARIN SODIUM 40 MG/0.4 ML SYR SUB-Q SCH (09:00)
--- NOTE | 2024-12-17 09:37 | NUR ---
PATIENT VERBAIZED PAIN AT LEFT AC IV SITE AND WANTS IT REMOVED, REMOVED AT THIS TIME, ASSESSMENT COMPLETE NO NEW CONCERNS, PATIENT WANTS TO TRY TO TAKE A NAP SHE FEELS VERY TIRED, PATIENT AGREES TO BE UP TO CHAIR FOR BREAKFAST. SHE HAS CONSUMED 90% OF BREAKFAST.
--- NOTE | 2024-12-17 10:02 | NUR ---
ALERT AND ORIENTED IN BED. STATES SHE LIVES IN A BASEMENT WITH "A FEW STAIRS." STATES SHE TAKES STAIRS 1 AT TIME SIDE STEPPING AND HOLDING HANDRAIL. HAS 2 WALKERS, CANE, CPAP (SHE STATES SHE DOES NOT WEAR), SHOWER CHAIR. STATES SHE WAS SUPPOSED TO HAVE A SLEEP STUDY BUT WAS ADMITTED TO HOSPITAL. SHE DOES NOT LIKE WEARING HER CPAP BECAUSE IT "FILLS HER WITH AIR." STATES SHE IS GOING TO CALL AND RESCHEDULED SLEEP STUDY AFTER SHE IS DISCHARGED FROM THE HOSPITAL. PATIENT STATES SHE DRIVES OCCASIONALLY. UTILITIES ARE INCLUDED IN HER RENT. DENIES DIFFICULTY PAYING FOR FOOD. 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 PATIENT STATES SHE HAS TO PAY FOR INSURANCE PRIVATELY. HER DEXCOM IS $60/MONTH OUT OF POCKET COSTS. PATIENT HAS NO KNOWN CM NEEDS AT THIS TIME.
--- NOTE | 2024-12-17 10:57 | NUR ---
PATIENT UP TO BATHROOM TO VOID THEN TO RECLINER, SHE REPORTS NAUSEA, NO VOMITING, ZOFRAN PRN ADMINISTERED AT THIS TIME.
[2024-12-17] MEDS ORDERED: PHARMACY RENAL DOSE ADJUSTMENT 1 DOSE MISC PO SCH (12:00)
--- NOTE | 2024-12-17 12:26 | NUR ---
MED REC COMPLETE
--- NOTE | 2024-12-17 13:22 | NUR ---
PATIENT SITTING UP IN CHAIR AT THIS TIME. VITALS DONE AND CHARTED. RN NOTIFED OF BLOOD PRESSURE. CALL LIGHT IN REACH. NO FURTHER NEEDS AT THIS TIME.
--- NOTE | 2024-12-17 13:40 | NUR ---
UR CLINICAL REVIEW: [facility] [place]- [facility] INPT FOR DIABETES ODS [facility] INPT 12/16/24 @ 1552 ORDER MATCHES REG CLINICALS FAXED TO [facility] FOR AUTH REVIEW DISCHARGE TO HOME WHEN STABLE 12/18/24
--- NOTE | 2024-12-17 13:41 | NUR ---
NOTIFIED OF ELEVATED B/P, NEW ORDER TO RESTART METOPROLOL PER HOME DOSE.
[2024-12-17] MEDS ORDERED: METOPROLOL TARTRATE 25 MG TAB PO SCH ×2 (13:42→21:00)
--- NOTE | 2024-12-17 13:49 | NUR ---
PATIENT REPORTS PAIN 6/10 AT [facility] AND ALSO HEADACHE WELL.
--- NOTE | 2024-12-17 14:02 | NUR ---
PATIENT RESTING IN RECLINER WANTS TO GO BACK TO BED, AGREED TO STAY UP IN RECLINER FOR DOCTOR TO ROUND IF HE ROUNDS IN NEXT HOUR.
--- NOTE | 2024-12-17 15:36 | NUR ---
PT SITTING UP IN CHAIR, CALL LIGHT ON. PT REQUESTING WARM BLANKET, PROVIDED TO PATIENT. DENIES ANY FURTHER NEEDS. CALL LIGHT WITHIN REACH.
--- NOTE | 2024-12-17 15:56 | NUR ---
CHASITY CALLED ASKING IF SHE COULD GET BACK IN BED. I ASKED HER NURSE, NURSE SAID IT WAS OKAY, SO I ASSISTED THE PATIENT INTO BED. CALL LIGHT IN REACH. PATIENT HAD NO OTHER NEEDS AT THIS TIME.
--- NOTE | 2024-12-17 17:42 | NUR ---
PATIENT REMAINS ON ROOM AIR OVER SHIFT, SHE HAS BEEN UP IN RECLINER FOR 5 HOURS FROM 1100 TO 1600, METOPROLOL HOME MEDICATIONS AND BEEN REORDERED FOR ELEVATED B/P AWARE. SHE HAS HAD TYLENOL ONCE FOR 6/10 RIB PAIN AND MILD HEADACHE. NO NAUSEA, QUANTITY SUFFICIENT URINE OUT. GOOD APPETITE WITH MEALS.
--- NOTE | 2024-12-17 20:59 | NUR ---
ON ROOM AIR, CLEAR LUNGS, DIM AT BAES, NO SOB. IVF INFUSING RFA. MARCELL, LBM 08/15. PLEASNT AND COOPERATIVE. CBG 217, RECEIVED 3 UNITS SSI. TOLERATING LIQUIDS WELL. NO N/V. MEDICATED WITH TYLENOL PER GENERAL BACK AND RIB PAIN. WATCHING TV
[2024-12-17] MEDS ORDERED: ASPIRIN 81 MG CHEW PO SCH (21:00)
[2024-12-17] MEDS ORDERED: GABAPENTIN 300 MG CAP PO SCH (21:00)
[2024-12-17] MEDS ORDERED: ATORVASTATIN 40 MG TAB PO SCH (21:00)
[2024-12-17] MEDS ORDERED: SPIRONOLACTONE 25 MG TAB PO SCH (21:00)
[2024-12-17] MEDS ORDERED: LOSARTAN POTASSIUM 25 MG TAB PO SCH (21:00)
--- NOTE | 2024-12-17 23:21 | NUR ---
RESTING EYS CLOSED, NO S/SX DITRESS, IVF INFUSING W/O PROBLEMS. CALL LIGHT AND FLUIDS AT BEDSIDE
[2024-12-18] VITALS (10 sets, daily range): BP systolic 146–160; BP diastolic 68–102
--- NOTE | 2024-12-18 02:03 | NUR ---
AWAKE, UP TO BRP TO VOID A FEW MINUTES AGO, BACK TO BED 1PA/FWW, TOLERATED WELL. AWAKE PLAYING WITH PHONE, IVF INFUSING W/O PROBLEMS, NO C/O PAIN. ALERT AND ORIENTED TO ALL AT THIS TIME, FORGETFUL AT TIMES. LE ELEVATED
--- NOTE | 2024-12-18 04:19 | NUR ---
PT USED CALL LIGHT, UP TO BRP, VOIDED LARGE AMOUNT OF CLEAR YELLOW URINE. DOES OWN ANTONELLA CARE. BACK TO BED, TOLERATD VERY WELL, NO SOB OR PAIN. BACK TO BED WITH NO ASSIST. 1PA/FWW WHEN GETTING OUT OF BED DUE TO IV POLE. COOPERATIVE WITH SECOND ASSESSMENT AND VITALS. ALERT AND ORIENTED TO ALL, NO DELAYED RESPONSE AT THIST RHEA
[2024-12-18 05:58] LABS: BASOPHILS 0.4 % (0-2); EOSINOPHILS 2.3 % (0-6); HEMATOCRIT 29.9 % (35.0-50.0); LYMPHOCYTES 10.3 % (24-44); MCH 30.6 (27-36); MCHC 33.5 g/dl (30-36); MCV 91.2 fl (81-99); MONOCYTES 8.2 % (0-12); NEUTROPHILS 78.8 % (39-80); PLATELET COUNT 208 K/uL (140-440); RBC 3.28 M/ul (4.3-5.7); RDW 14.2 (10.5-15.0)
[2024-12-18 06:13] LABS: ALBUMIN 2.4 g/dL (3.4-5.0); ALBUMIN/GLOBULIN RATIO 0.67 (1.1-2.4); ANION GAP 13.2 (7-21); BILIRUBIN, TOTAL 0.6 ng/dL (0.2-1.0); BUN/CREATININE RATIO 13.88 (6.0-28.6); CALCIUM 8.5 mg/dL (8.5-10.1); CREATININE, SERUM 1.08 mg/dL (0.55-1.02); POTASSIUM 4.2 mmol/L (3.5-5.1)
--- NOTE | 2024-12-18 07:12 | NUR ---
PT RESTING IN BED WITH EYES CLOSED AND RESPIRATIONS EVEN UNLABORED. CALL LIGHT WITHIN REACH. REPORT RECEIVED FROM AMITA WARNER
--- NOTE | 2024-12-18 08:05 | NUR ---
PATIENT IN BED RESTING AT THIS TIME. IN TO DO BLOOD SUGAR. PATIENT REFUSED TO GET UP TO CHAIR AT THIS TIME. CALL LIGHT IN REACH. NO FURTHER NEEDS AT THIS TIME.
[2024-12-18] MEDS ORDERED: SERTRALINE HCL 100 MG TAB PO SCH (09:00)
[2024-12-18] MEDS ORDERED: PANTOPRAZOLE SODIUM 40 MG TABEC PO SCH (09:00)
--- NOTE | 2024-12-18 09:10 | NUR ---
ASSISTED PT TO AMBULATE TO RESTROOM TO VOID WITH FWW. PT NOW SITTING UP IN HER CHAIR. CALL LIGHT WITHIN REACH.
--- NOTE | 2024-12-18 09:15 | NUR ---
PT C/O NAUSEA AND HAD SM YELLOW/GREEN EMESIS.
--- NOTE | 2024-12-18 09:21 | NUR ---
NAUSEATED AT THIS TIME. [facility] NURSE IS CURRENTLY GETTING HER ZOFRAN. PLAN TO DC TO HOME WHEN MEDICALLY CLEARED. HAS DME NEEDED. STATES SHE HAS A CAREGIVER FROM [facility] COME AND ASSIST HER AT HOME 4 HOURS A DAY. SPOUSE IS OFTEN GONE DRIVING TRUCK. STATES HE WILL BE BACK THIS EVENING. DENIES CM NEEDS AT THIS TIME.
--- NOTE | 2024-12-18 10:10 | NUR ---
DR ZARCO NOTIFIED OF PT'S TEMPERATURE AND EMESIS EPISODE.
--- NOTE | 2024-12-18 11:20 | NUR ---
VISITED DURING SPIRITUAL CARE ROUNDS. PT APPEARED TO BE SLEEPING. DID NOT DISTURB. PROVIDED PRAYER.
--- NOTE | 2024-12-18 12:04 | NUR ---
PT RESTING IN BED, STATES TYLENOL HAS TAKEN HER ABD PAIN AWAY. PT DENIES NAUSEA AT THIS TIME. CALL LIGHT WITHIN REACH.
--- NOTE | 2024-12-18 12:15 | NUR ---
ASSISTED PT TO AMBULATE TO RESTROOM WITH FWW. PT VOIDED WITHOUT DIFFICULTY, CLEAR YELLOW URINE. PT ASSISTED BACK TO BED. CALL LIGHT WITHIN REACH.
--- NOTE | 2024-12-18 13:25 | NUR ---
PT RESTING IN BED, DID NOT EAT LUNCH. OFFERED TO ORDER PT SOMETHING ELSE, BUT PT STATES SHE "ISN'T HUNGRY RIGHT NOW". CALL LIGHT WITHIN REACH.
--- NOTE | 2024-12-18 14:45 | NUR ---
PT RESTING IN BED READING MENU. INSTRUCTED PT ON HOW TO CALL TO KITCHEN ONCE SHE HAS DECIDED. NO REQUESTS AT THIS TIME. CALL LIGHT WITHIN REACH.
--- NOTE | 2024-12-18 15:05 | NUR ---
PATIENT CALLED TO SEE WHEN THE DOCTOR WOULD BE IN TO SEE HER AND TO SEE WHEN SHE WOULD BE DISCHARGED. I ASKED THE NURSE AND INFORMED THE PATIENT THAT THE DOCTOR WAS ALREADY IN TO SEE HER AND THAT SINCE HER WONT BE HERE UNTILL SOMETIME TONIGHT, SHE WOULD LIKELY BE STAYING UNTIL THE MORNING. CALL LIGHT IN REACH, PT DENIES ANY OTHER NEEDS AT THIS TIME.
--- NOTE | 2024-12-18 16:06 | NUR ---
PT RESTING IN BED WITH EYES CLOSED AND RESPIRATIONS EVEN AND UNLABORED. CALL LIGHT WITHIN REACH.
--- NOTE | 2024-12-18 16:43 | NUR ---
PT AMBULATED TO RESTOOM WITH SBA AND FWW TO VOID, TOLERATED WELL. PT BACK TO BED. STATED SHE DIDN'T WANT TO SIT IN HER CHAIR BECAUSE SHE HASN'T FELT WELL TODAY AND "JUST WANTS TO REST". CALL LIGHT WITHIN REACH.
--- NOTE | 2024-12-18 17:30 | NUR ---
PT JUST WOKE UP, STATES SHE WANTS TO REST FOR A BIT BEFORE SHE EATS DINNER. CALL LIGHT WITHIN REACH.
--- NOTE | 2024-12-18 18:06 | NUR ---
PT C/O NAUSEA AFTER EATING HER JELLO AND DRINKING HER BROTH. ZOFRAN GIVEN. AT BEDSIDE. CALL LIGHT WITHIN REACH.
--- NOTE | 2024-12-18 18:57 | NUR ---
ASSISTED PT TO AMBULATE TO RESTROOMO TO VOID. PT TOLERATED WELL. STATES HER NAUSEA HAS IMPROVED AND IS NOW JUST SLIGHTLY NAUSEATED. IN ROOM WITH PT. CALL LIGHT WITHIN REACH.
--- NOTE | 2024-12-18 19:35 | NUR ---
REPORT RECEIVED FROM DAY SHIFT RN. PATIENT RESTING IN BED. DENIES NEEDS AT THIS ITME. CALL LIGHT IN REACH.
--- NOTE | 2024-12-18 20:10 | NUR ---
PATIENT RESTING IN BED. VS AND I&Os OBTAINED AND RECORDED. SCHEDULED MEDICATION ADMINISTERED. NEW BAG IV FLUID INFUSING PER ORDER. ASSESSMENT COMPLETE. PATIENT DENIES FURTHER NEEDS AT THIS TIME. CALL LIGHT IN REACH.
--- NOTE | 2024-12-18 22:14 | NUR ---
PATIENT RESTING IN BED. RESPIRATIONS EVEN AND UNLABORED. CALL LIGHT IN REACH.
--- NOTE | 2024-12-19 00:56 | NUR ---
CALL LIGHT ANSWERED. PATIENT UP TO BATHROOM USING 1PA AND FWW TO VOID. PATIENT BACK TO BED. PATIENT STATES "FEELING HOT". ORAL TEMP OBTAINED AND WNL. NO FURTHER NEEDS. CALL LIGHT IN REACH.
--- NOTE | 2024-12-19 02:02 | NUR ---
PATIENT RESTING IN BED ON BACK WITH EYES CLOSED. RESPIRATIONS EVEN AND UNLABORED. CALL LIGHT IN REACH.
[2024-12-19 04:08] VITALS: BP 151/90
[2024-12-19 04:13] VITALS: BP 151/90
--- NOTE | 2024-12-19 04:20 | NUR ---
PATIENT INCONTINENT OF STOOL. PATIENT UP TO BATHROOM WITH FWW TO VOID. NEW BREIF PLACED. PATIENT BACK TO BED. VS AND I&Os OBTAINED AND RECORDED. PATIENT HAS NO FURTHER NEEDS. CALL LIGHT IN REACH.
[2024-12-19 05:25] LABS: BASOPHILS 0.5 % (0-2); EOSINOPHILS 2.5 % (0-6); HEMATOCRIT 30.1 % (35.0-50.0); HEMOGLOBIN 10.3 g/dL (12.0-18.0); LYMPHOCYTES 9.9 % (24-44); MCH 30.9 (27-36); MCHC 34.2 g/dl (30-36); MCV 90.5 fl (81-99); MONOCYTES 7.9 % (0-12); NEUTROPHILS 79.2 % (39-80); PLATELET COUNT 232 K/uL (140-440); RBC 3.33 M/ul (4.3-5.7); RDW 13.9 (10.5-15.0)
[2024-12-19 05:38] LABS: ALBUMIN 2.2 g/dL (3.4-5.0); ALBUMIN/GLOBULIN RATIO 0.59 (1.1-2.4); ANION GAP 15.2 (7-21); BILIRUBIN, TOTAL 0.6 ng/dL (0.2-1.0); BUN/CREATININE RATIO 11.45 (6.0-28.6); CALCIUM 8.5 mg/dL (8.5-10.1); CREATININE, SERUM 0.96 mg/dL (0.55-1.02); POTASSIUM 4.2 mmol/L (3.5-5.1); PROTEIN, TOTAL 5.9 g/dL (6.4-8.2)
--- NOTE | 2024-12-19 07:30 | NUR ---
REPORT RECEIVED FROM ZAHRA WARNER. PT RESTING WITH EYES CLOSED AND RESPIRATIONS EVEN AND UNLABORED. CALL LIGHT WITHIN REACH.
--- NOTE | 2024-12-19 08:28 | NUR ---
PT AWAKE EATING BREAKFAST. MEDS GIVEN ORDERED. NO REQUESTS AT THIS TIME. CALL LIGHT WITHIN REACH.
[2024-12-19 09:29] VITALS: BP 156/78
--- NOTE | 2024-12-19 09:30 | NUR ---
PT SITTING UP IN BED WITH AND FRIEND IN ROOM. DR MAYERS IN TO SEE PT AND DISCUSS PLAN OF CARE.
[2024-12-19 09:53] VITALS: BP 156/78
[2024-12-19] MEDS ORDERED: CEFUROXIME500 MG PO (10:46)
--- NOTE | 2024-12-19 10:46 | NUR ---
Patient assisted to bathroom. New brief, socks, and gown given.
[2024-12-19] MEDS ORDERED: ONDANSETRON ODT8 MG PO (10:47)
--- NOTE | 2024-12-19 11:12 | NUR ---
DISCHARGE INSTRUCTIONS GIVEN TO PT AND , BOTH STATE UNDERSTANDING.
[2024-12-19 11:26] VITALS: BP 153/108
== END 2024-12-19 11:50 | disposition home or self-care (01) | DRG 871 ==
LOC: ED 11:06 → MS 15:55
PROVIDERS: Emergency Medicine; ADMIT Family Medicine; ATTEND Family Medicine
DX: A41.9 Sepsis, unspecified organism (principal); J18.9 Pneumonia, unspecified organism; N39.0 Urinary tract infection, site not specified; N17.9 Acute kidney failure, unspecified; E83.42 Hypomagnesemia; E11.40 Type 2 diabetes mellitus with diabetic neuropathy, unspecified; Z90.49 Acquired absence of other specified parts of digestive tract; M79.7 Fibromyalgia; Z90.710 Acquired absence of both cervix and uterus; Z95.1 Presence of aortocoronary bypass graft; Z88.0 Allergy status to penicillin; Z88.2 Allergy status to sulfonamides; Z88.1 Allergy status to other antibiotic agents; Z88.8 Allergy status to other drugs, medicaments and biological substances; Z79.891 Long term (current) use of opiate analgesic; Z79.899 Other long term (current) drug therapy; Z79.4 Long term (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; Z79.84 Long term (current) use of oral hypoglycemic drugs
CPT/HCPCS: 36415; 71045; 74177; 80053; 81001; 83605; 83690; 83735; 84100; 85025; 87088; 87502; A9270; J0456; J0696; J1650; J1815; J2405; J3475; J7030; J7060; Q9967; U0002

== ENCOUNTER 2025-03-20 12:16 | Emergency (ER) | payer OTHER ==
[~2025-03-20] VITALS: Ht 160 cm; Wt 88.4 kg
[~2025-03-20 12:16] MED LIST changes: +CEFUROXIME500 MG PO; +PANTOPRAZOLE SO40 MG PO; +SERTRALINE HCL100 MG PO; +TRULICITY0.75 MG/0. SUB-Q
[2025-03-20] MEDS ORDERED: BENZONATATE100 MG PO (12:37)
[2025-03-20 12:59] LABS: BASOPHILS 0.5 % (0-2); EOSINOPHILS 3.2 % (0-6); HEMATOCRIT 32.3 % (35.0-50.0); LYMPHOCYTES 14.5 % (24-44); MCH 29.2 (27-36); MCV 86.1 fl (81-99); MONOCYTES 5.9 % (0-12); NEUTROPHILS 75.9 % (39-80); PLATELET COUNT 283 K/uL (140-440); RBC 3.75 M/ul (4.3-5.7); RDW 15.1 (10.5-15.0)
[2025-03-20] MEDS ORDERED: LOSARTAN POTASSIUM 50 MG TAB PO ONE (13:15)
[2025-03-20] MEDS ORDERED: ACETAMINOPHEN 500 MG TAB PO ONE (13:15)
[2025-03-20 13:18] LABS: ANION GAP 11.5 (7-21); BUN/CREATININE RATIO 20.58 (6.0-28.6); CALCIUM 8.6 mg/dL (8.5-10.1); CREATININE, SERUM 1.36 mg/dL (0.55-1.02); POTASSIUM 4.5 mmol/L (3.5-5.1)
[2025-03-20 15:19] VITALS: BP 158/99
--- NOTE | 2025-03-21 12:47 | EKG ---
[facility] [address] [facility] [address] [place] [id number] Signed Normal sinus rhythm Left axis deviation Minimal voltage criteria for LVH, may be normal variant ( R in aVL ) Inferior infarct (cited on or before 01-NOV-2021) Anterolateral infarct (cited on or before 01-NOV-2021) ACUTE LA / STEMI Consider right ventricular involvement in acute inferior infarct Abnormal ECG When compared with ECG of 24-SEP-2024 14:30, No significant change was found Confirmed by Leighton Mayers DO ([id number]) on 03/21/2025 12:47:40 PM Electronically Signed By: LEIGHTON MAYERS DO 03/21/25 1247 PATIENT NAME: KURT NEGRON FRANCISCO JAVIER Electrocardiogram DATE OF : 62 PHYSICIAN: LEIGHTON MAYERS DO REPORT #: [id number] REPORT IS CONFIDENTIAL AND NOT TO BE RELEASED WITHOUT AUTHORIZATION
== END 2025-03-20 15:20 | disposition home or self-care (01) ==
LOC: ED 12:16
PROVIDERS: Emergency Medicine
DX: I10 Essential (primary) hypertension (principal); E11.40 Type 2 diabetes mellitus with diabetic neuropathy, unspecified; Z79.4 Long term (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; Z79.82 Long term (current) use of aspirin; Z79.899 Other long term (current) drug therapy; Z88.0 Allergy status to penicillin; Z88.2 Allergy status to sulfonamides; Z88.1 Allergy status to other antibiotic agents; Z88.6 Allergy status to analgesic agent; Z88.8 Allergy status to other drugs, medicaments and biological substances
CPT/HCPCS: 36415; 71045; 80048; 84484; 85025; 93005; 93010; 99284-25; A9270

== ENCOUNTER 2025-08-05 12:22 | Emergency (ER) | payer OTHER ==
[~2025-08-05] VITALS: Ht 160 cm; Wt 89.0 kg
[2025-08-05 15:07] VITALS: BP 193/82
== END 2025-08-05 15:04 | disposition home or self-care (01) ==
LOC: ED 12:22
DX: M54.2 Cervicalgia (principal); M79.601 Pain in right arm; E11.9 Type 2 diabetes mellitus without complications; W01.0XXA Fall on same level from slipping, tripping and stumbling without subsequent striking against object, initial encounter; Z95.1 Presence of aortocoronary bypass graft; Z88.0 Allergy status to penicillin; Z88.2 Allergy status to sulfonamides; Z88.1 Allergy status to other antibiotic agents; Z88.8 Allergy status to other drugs, medicaments and biological substances; Z79.4 Long term (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; Z79.82 Long term (current) use of aspirin; Z79.899 Other long term (current) drug therapy
CPT/HCPCS: 72125; 73030; 73110; 99284-25

== ENCOUNTER 2025-08-12 17:37 | Emergency (ER) | payer OTHER ==
[~2025-08-12] VITALS: Ht 160 cm; Wt 90.2 kg
[2025-08-12 20:28] LABS: BASOPHILS 0.4 % (0.1-1.2); EOSINOPHILS 2.6 % (0.7-5.8); LYMPHOCYTES 16.0 % (19.3-51.7); MCH 30.3 PG (25.6-32.2); MCHC 33.2 g/dL (32.2-35.5); MCV 91.2 fL (79.4-94.8); MONOCYTES 6.4 % (4.7-12.5); NEUTROPHILS 74.1 % (34.0-71.1); RBC 3.40 M/uL (3.93-5.22)
[2025-08-12 20:49] LABS: ALT (SGPT) 17.0 U/L (14-59); AST (SGOT) 12.0 U/L (15-37); GLOMERULAR FILTRATION RATE,EST 44.0 mL/min (>60); PROTEIN, TOTAL 6.5 g/dL (6.4-8.2); UREA NITROGEN 29.0 mg/dL (7-18)
[2025-08-12] MEDS ORDERED: MAGNESIUM OXID400 M1 PO (21:37)
[2025-08-12] MEDS ORDERED: MAGNESIUM OXIDE 400 MG TABLET PO ONE (21:45)
[2025-08-12 21:48] VITALS: BP 162/81
== END 2025-08-12 21:49 | disposition home or self-care (01) ==
LOC: ED 17:37
PROVIDERS: Family Medicine
DX: E83.42 Hypomagnesemia (principal); E11.40 Type 2 diabetes mellitus with diabetic neuropathy, unspecified; Z88.0 Allergy status to penicillin; Z88.2 Allergy status to sulfonamides; Z88.1 Allergy status to other antibiotic agents; Z88.8 Allergy status to other drugs, medicaments and biological substances; Z79.4 Long term (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; Z79.82 Long term (current) use of aspirin; Z79.85 Long-term (current) use of injectable non-insulin antidiabetic drugs; Z79.899 Other long term (current) drug therapy
CPT/HCPCS: 36415; 80053; 83735; 85025; 99284

== ENCOUNTER 2025-08-23 17:05 | Emergency (ER) | payer OTHER ==
[~2025-08-23] VITALS: Ht 160 cm; Wt 92.2 kg
[~2025-08-23 17:05] MED LIST changes: +MAGNESIUM OXID400 M1 PO
[2025-08-23] MEDS ORDERED: PANTOPRAZOLE SO40 MG PO (17:44)
[2025-08-23 20:41] LABS: BASOPHILS 0.4 % (0.1-1.2); EOSINOPHILS 2.6 % (0.7-5.8); LYMPHOCYTES 16.1 % (19.3-51.7); MCH 30.7 PG (25.6-32.2); MCHC 33.6 g/dL (32.2-35.5); MCV 91.6 fL (79.4-94.8); MONOCYTES 6.9 % (4.7-12.5); NEUTROPHILS 73.6 % (34.0-71.1); RBC 3.32 M/uL (3.93-5.22)
[2025-08-23 20:56] LABS: ALT (SGPT) 17.0 U/L (14-59); AST (SGOT) 14.0 U/L (15-37); GLOMERULAR FILTRATION RATE,EST 56.0 mL/min (>60); PROTEIN, TOTAL 6.0 g/dL (6.4-8.2); UREA NITROGEN 14.0 mg/dL (7-18)
[2025-08-23] MEDS ORDERED: MECLIZINE HCL12.5 MG PO (21:40)
[2025-08-23 21:55] VITALS: BP 155/94
--- NOTE | 2025-08-24 14:36 | EKG ---
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
== END 2025-08-23 21:56 | disposition home or self-care (01) ==
LOC: ED 17:05
PROVIDERS: Family Medicine
DX: R20.2 Paresthesia of skin (principal); R42 Dizziness and giddiness; E11.40 Type 2 diabetes mellitus with diabetic neuropathy, unspecified; Z88.0 Allergy status to penicillin; Z88.2 Allergy status to sulfonamides; Z88.1 Allergy status to other antibiotic agents; Z88.8 Allergy status to other drugs, medicaments and biological substances; Z79.4 Long term (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; Z79.82 Long term (current) use of aspirin; Z79.899 Other long term (current) drug therapy
CPT/HCPCS: 36415; 70450; 80053; 84484; 85025; 93005; 93010; 99284-25

== ENCOUNTER 2025-09-24 11:10 | Emergency (ER) | payer OTHER ==
[~2025-09-24] VITALS: Ht 160 cm; Wt 87.8 kg
[~2025-09-24 11:10] MED LIST changes: +MECLIZINE HCL12.5 MG PO
[2025-09-24] MEDS ORDERED: SPIRONOLACTONE50 MG PO (12:51)
[2025-09-24] MEDS ORDERED: LOSARTAN POTASS25 MG PO (12:52)
[2025-09-24 15:18] VITALS: BP 173/72
== END 2025-09-24 15:18 | disposition left against medical advice (07) ==
LOC: ED 11:10
DX: S21.102A Unspecified open wound of left front wall of thorax without penetration into thoracic cavity, initial encounter (principal); X58.XXXA Exposure to other specified factors, initial encounter; Z53.21 Procedure and treatment not carried out due to patient leaving prior to being seen by health care provider
CPT/HCPCS: 71100